=== PATIENT | male | born 1950 | race Caucasian/White ===

== ENCOUNTER 2019-12-06 14:33 | Inpatient (IN) | payer MEDICARE ==
[2019-12-06 15:15] LABS: Basophils % (A) 0 %; Eosinophils % (A) 0 %; HCT 39.9 % (39.0-53.0); HGB 12.5 gm/dL (13.0-17.5); Lymphocytes # (A) 0.6 k/uL (1.0-4.8); Lymphocytes % (A) 9 %; MCH 28.5 pg (25.0-35.0); MCHC 31.2 g/dL (31.0-37.0); MCV 91.2 fL (80.0-100.0); Mean Platelet Volume 8.7; Monocytes # (A) 0.6 k/uL (0-1.0); Monocytes % (A) 10 %; Neutrophils # (A) 4.8 k/uL (1.3-7.7); Neutrophils % (A) 78 %; Platelet Count 160 k/uL (150-450); RBC 4.38 m/uL (4.30-5.90); RDW 13.7 % (11.5-15.5); WBC 6.2 k/uL (3.8-10.6)
[2019-12-06] MEDS ORDERED: DILTIAZEM DRIP BOLUS FROM BAG 1 MG SOLN IV ONE (15:17)
[2019-12-06 15:20] LABS: INR 1.3 (<1.2); Prothrombin Time 12.6 sec (9.0-12.0)
--- NOTE | 2019-12-06 15:20 | ED ---
SOB HPI - General Chief Complaint: Shortness of Breath Stated Complaint: SOB Time Seen by Provider: 12/06/19 15:00 Source: patient, EMS, RN notes reviewed Mode of arrival: EMS Limitations: no limitations - History of Present Illness Initial Comments: This is a 69-year-old male with a history of heart valve surgery in the past. He denies any history of cardiac arrhythmia who states for last several days she's had shortness of breath cough with some white phlegm exertional dyspnea he denies any chest pain or palpitations no peripheral edema no fevers chills sweats nausea vomiting or other symptoms. MD Complaint: shortness of breath, cough - Related Data Allergies Allergy/AdvReac Type Severity Reaction Status Date / Time Penicillins Allergy Rash/Hives Verified 12/06/19 14:55 Review of Systems ROS Statement: Those systems with pertinent positive or pertinent negative responses have been documented in the HPI. ROS Other: All systems not noted in ROS Statement are negative. 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 Absent: scleral icterus, conjunctival injection, periorbital swelling ENT exam: Present: normal exam, mucous membranes moist Neck exam: Present: normal inspection, full ROM, other (No stridor JVD or bruits). Absent: tenderness, meningismus, lymphadenopathy Respiratory exam: Present: decreased breath sounds (Question will crackles in right base). Absent: respiratory distress, wheezes, rales, rhonchi, stridor Cardiovascular Exam: Present: tachycardia, irregular rhythm. Absent: systolic murmur, diastolic murmur, rubs, gallop, clicks GI/Abdominal exam: Present: soft, normal bowel sounds. Absent: distended, tenderness, guarding, rebound, rigid Extremities exam: Present: normal inspection, full ROM, normal capillary refill. Absent: tenderness, pedal edema, joint swelling, calf tenderness Back exam: Present: normal inspection Neurological exam: Present: alert, oriented X3, CN II-XII intact Psychiatric exam: Present: normal affect, normal mood Skin exam: Present: warm, dry, intact, normal color. Absent: rash Course Vital Signs 12/06/19 12/06/19 12/06/19 14:38 15:40 17:01 Temperature 97.9 F Pulse Rate 135 H 126 H 116 H Respiratory 22 20 18 Rate Blood Pressure 115/91 121/103 107/91 O2 Sat by Pulse 96 97 98 Oximetry - Reevaluation(s) Reevaluation #1: 12/06/19 17:27 Reevaluation patient revealed no change in his status his breathing was about the same no chest pain. Medical Decision Making - Medical Decision Making Patient was getting some improvement in his heart rate secondary to the IV Cardizem. He does demonstrate evidence of CHF. Still no chest pain I did discuss case with him as well as Dr. Godoy patient will be admitted with cardiology consultation. - Lab Data Result diagrams: 12/06/19 14:51 12/06/19 14:51 Lab Results 12/06/19 12/06/19 12/06/19 Range/Units 14:15 14:51 14:51 WBC (3.8-10.6) k/uL RBC (4.30-5.90) m/uL Hgb (13.0-17.5) gm/dL Hct (39.0-53.0) % MCV (80.0-100.0) fL MCH (25.0-35.0) pg MCHC (31.0-37.0) g/dL RDW (11.5-15.5) % Plt Count (150-450) k/uL Neutrophils % % Lymphocytes % % Monocytes % % Eosinophils % % Basophils % % Neutrophils # (1.3-7.7) k/uL Lymphocytes # (1.0-4.8) k/uL Monocytes # (0-1.0) k/uL Eosinophils # (0-0.7) k/uL Basophils # (0-0.2) k/uL PT 12.6 H (9.0-12.0) sec INR 1.3 H (<1.2) Sodium (137-145) mmol/L Potassium (3.5-5.1) mmol/L Chloride (98-107) mmol/L Carbon Dioxide (22-30) mmol/L Anion Gap mmol/L BUN (9-20) mg/dL Creatinine (0.66-1.25) mg/dL Est GFR (CKD-EPI)AfAm (>60 ml/min/1.73 sqM) Est GFR (CKD-EPI)NonAf (>60 ml/min/1.73 sqM) Glucose (74-99) mg/dL Plasma Lactic Acid Blake (0.7-2.0) mmol/L Calcium (8.4-10.2) mg/dL Magnesium (1.6-2.3) mg/dL Total Bilirubin (0.2-1.3) mg/dL AST (17-59) U/L ALT (4-49) U/L Alkaline Phosphatase (38-126) U/L Creatine Kinase (55-170) U/L Troponin I 0.068 H* (0.000-0.034) ng/mL NT-Pro-B Natriuret Pep 74571 pg/mL Total Protein (6.3-8.2) g/dL Albumin (3.5-5.0) g/dL 12/06/19 12/06/19 12/06/19 Range/Units 14:51 14:51 14:51 WBC 6.2 (3.8-10.6) k/uL RBC 4.38 (4.30-5.90) m/uL Hgb 12.5 L (13.0-17.5) gm/dL Hct 39.9 (39.0-53.0) % MCV 91.2 (80.0-100.0) fL MCH 28.5 (25.0-35.0) pg MCHC 31.2 (31.0-37.0) g/dL RDW 13.7 (11.5-15.5) % Plt Count 160 (150-450) k/uL Neutrophils % 78 % Lymphocytes % 9 % Monocytes % 10 % Eosinophils % 0 % Basophils % 0 % Neutrophils # 4.8 (1.3-7.7) k/uL Lymphocytes # 0.6 L (1.0-4.8) k/uL Monocytes # 0.6 (0-1.0) k/uL Eosinophils # 0.0 (0-0.7) k/uL Basophils # 0.0 (0-0.2) k/uL PT (9.0-12.0) sec INR (<1.2) Sodium 135 L (137-145) mmol/L Potassium 5.1 (3.5-5.1) mmol/L Chloride 105 (98-107) mmol/L Carbon Dioxide 21 L (22-30) mmol/L Anion Gap 9 mmol/L BUN 31 H (9-20) mg/dL Creatinine 1.26 H (0.66-1.25) mg/dL Est GFR (CKD-EPI)AfAm 66 (>60 ml/min/1.73 sqM) Est GFR (CKD-EPI)NonAf 57 (>60 ml/min/1.73 sqM) Glucose 106 H (74-99) mg/dL Plasma Lactic Acid Blake (0.7-2.0) mmol/L Calcium 8.8 (8.4-10.2) mg/dL Magnesium 2.2 (1.6-2.3) mg/dL Total Bilirubin 1.0 (0.2-1.3) mg/dL AST 63 H (17-59) U/L ALT 55 H (4-49) U/L Alkaline Phosphatase 95 (38-126) U/L Creatine Kinase 66 (55-170) U/L Troponin I (0.000-0.034) ng/mL NT-Pro-B Natriuret Pep pg/mL Total Protein 6.1 L (6.3-8.2) g/dL Albumin 3.6 (3.5-5.0) g/dL 12/06/19 Range/Units 14:51 WBC (3.8-10.6) k/uL RBC (4.30-5.90) m/uL Hgb (13.0-17.5) gm/dL Hct (39.0-53.0) % MCV (80.0-100.0) fL MCH (25.0-35.0) pg MCHC (31.0-37.0) g/dL RDW (11.5-15.5) % Plt Count (150-450) k/uL Neutrophils % % Lymphocytes % % Monocytes % % Eosinophils % % Basophils % % Neutrophils # (1.3-7.7) k/uL Lymphocytes # (1.0-4.8) k/uL Monocytes # (0-1.0) k/uL Eosinophils # (0-0.7) k/uL Basophils # (0-0.2) k/uL PT (9.0-12.0) sec INR (<1.2) Sodium (137-145) mmol/L Potassium (3.5-5.1) mmol/L Chloride (98-107) mmol/L Carbon Dioxide (22-30) mmol/L Anion Gap mmol/L BUN (9-20) mg/dL Creatinine (0.66-1.25) mg/dL Est GFR (CKD-EPI)AfAm (>60 ml/min/1.73 sqM) Est GFR (CKD-EPI)NonAf (>60 ml/min/1.73 sqM) Glucose (74-99) mg/dL Plasma Lactic Acid Blake 2.6 H* (0.7-2.0) mmol/L Calcium (8.4-10.2) mg/dL Magnesium (1.6-2.3) mg/dL Total Bilirubin (0.2-1.3) mg/dL AST (17-59) U/L ALT (4-49) U/L Alkaline Phosphatase (38-126) U/L Creatine Kinase (55-170) U/L Troponin I (0.000-0.034) ng/mL NT-Pro-B Natriuret Pep pg/mL Total Protein (6.3-8.2) g/dL Albumin (3.5-5.0) g/dL - EKG Data -: EKG Interpreted by Me (Nature for ablation with a rapid ventricular response rate of 140 QRS 106) EKG Comments: QT/QTC 320/500 minimal voltage criteria for LVH nonspecific ST-T wave configuration - Radiology Data Radiology results: report reviewed (I did review the imaging and report evidence of right sided infiltrate. Please see the complete report), image reviewed Critical Care Time Critical Care Time: Yes Total Critical Care Time: 33 Critical Care Time: 33 minutes of critical care time includes initial presentation with history physical labs x-rays several reevaluation the patient responsive therapy discuss with the patient regarding findings discussed with the admitting physician admission orders and documentation the above Disposition Clinical Impression: Rapid atrial fibrillation, Congestive heart failure, Elevated troponin I level, Renal insufficiency syndrome Disposition: ADMITTED IP TO THIS HOSP Condition: Fair Referrals: Eugenio Rogers MD [Primary Care Provider] - 1-2 days
[2019-12-06 15:23] LABS: Albumin 3.6 g/dL (3.5-5.0); Calcium 8.8 mg/dL (8.4-10.2); Potassium 5.1 mmol/L (3.5-5.1); Total Protein 6.1 g/dL (6.3-8.2)
--- NOTE | 2019-12-06 15:37 | XR ---
EXAMINATION TYPE: XR chest 2V DATE OF EXAM: 12/06/2019 COMPARISON: None INDICATION: Difficulty breathing, short of breath TECHNIQUE: Frontal and lateral views of the chest are obtained. FINDINGS: The heart size is enlarged. The pulmonary vasculature is prominent. There is diffuse increased infiltrate present greater on the right. Posterior pleural effusions are p resent. More focal infiltrate is at the right base. IMPRESSION: 1. Diffuse increased lung markings more focal at the right base with posterior pleural effusions. Cor relate for pneumonia. Consider atypical pneumonia. 2. Small posterior pleural effusions. 3. Cardiomegaly.
[2019-12-06] MEDS: DILTIAZEM 125 MG in SODIUM CHLORIDE 0.9% 100 ML IV SCH (15:40)
[2019-12-06 15:43] LABS: Magnesium 2.2 mg/dL (1.6-2.3)
[2019-12-06] MEDS ORDERED: FUROSEMIDE 10 MG/ML 4 ML VIAL IV STA (17:03)
[2019-12-06] MEDS ORDERED: HEPARIN SODIUM,PORCINE 5,000 UNIT/ML 1 ML VIAL IV ONE (17:32)
[2019-12-06] MEDS ORDERED: HEPARIN SODIUM,PORCINE 5,000 UNIT/ML 1 ML VIAL IV PRN (17:32)
[2019-12-06] MEDS ORDERED: HEPARIN SOD,PORK IN 0.45% NACL 25,000 UNIT in 0.45% NACL 1 250ML.BAG IV SCH (17:45)
--- NOTE | 2019-12-06 22:04 | P.HPIM ---
History of Present Illness H&P Date: 12/06/19 Chief Complaint: Short of breath History of presenting complaint: This is a very pleasant 69-year-old patient of Dr. Eugenio Rogers. Patient had some sort of valve replacement in the past. Otherwise unremarkable possible history. Doesn't take any medications at home. For last 3-4 days has been noticing that his been getting short of breath with clinical activity. Has slight cough. Questionable sputum. No fever no chills. Patient is found to be in atrial fibrillation with a rapid ventricular rate. Put on IV Cardizem. Also found to be in kidney dysfunction. Has no baseline labs. Denies any chest pain or pressure. Not a good historian. Review of systems: GEN.: Tired EYES: None HEENT: None NECK: None RESPIRATORY: As above CARDIOVASCULAR: No chest pain, no edema GASTROINTESTINAL: None GENITOURINARY: None MUSCULOSKELETAL: None LYMPHATICS: None HEMATOLOGICAL: None PSYCHIATRY: None NEUROLOGICAL: None Past medical history to include: Some kind of valve replacement Social history: Visit his . No smoking or alcohol. [facility] Physical examination: VITAL SIGNS: 97.9, 135, 22, 115/91, 96% on room air GENERAL: BMI 21.7, laying in bed not in distress. EYES: Pupils equal. Conjunctiva normal. HEENT: External appearance of nose and ears normal, oral cavity grossly normal. NECK: JVD not raised; masses not palpable. HEART: Heart sounds irregular; no edema. LUNGS: Respiratory rate normal; clear to auscultation. ABDOMEN: Soft, nontender, liver spleen not palpable, no masses palpable. PSYCH: Alert and oriented x3; mood and affect normal. NEUROLOGICAL: Cranial nerves grossly intact; no facial asymmetry, power and sensation grossly intact. LYMPHATICS: No lymph nodes palpable in the axilla and neck INVESTIGATIONS, reviewed in the clinical context: White count 6.2 hemoglobin 12.5 platelets 160 potassium 5.1 bun 31 creatinine 1.26 Troponin I 0.068 proBNP 22,200 EKG tracing personally reviewed by me-shows atrial fibrillation with rapid ventricular rate and some ST segment changes Chest x-ray film personally reviewed by me-possible infiltrate on the right side venous prominence Assessment: -Patient presents with 4 days of initial presentation with exertion. No obvious chest pain. Has a troponin leak: The setting of renal failure. Patient may have had a acute [place] 34 days ago resulting in ischemia leading to atrial fibrillation. -New onset atrial fibrillation with uncontrolled rule out underlying ischemia -Kidney injury acute versus chronic not known. -IV heparin monitoring Plan: Patient is put on IV Cardizem. IV heparin. Aspirin. Also had a small dose of beta don given concern for ischemic heart disease. Also check a lipid profile. We'll send off a UA and a renal ultrasound. Also 2-D echocardiogram has been ordered. Nephrology opinion. Care was discussed with the patient question were answered. 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, Past Psychological History: No Psychological Hx Reported Smoking Status: Never smoker Past Alcohol Use History: None Reported Past Drug Use History: None Reported - Past Family History Father Family Medical History: Diabetes Mellitus, Memory Impairment Mother History Unknown: Yes Additional Family Medical History / Comment(s): States she passed from cerberal aneursyn Medications and Allergies Home Medications Medication Instructions Recorded Confirmed Type No Known Home Medications 12/06/19 12/06/19 History Allergies Allergy/AdvReac Type Severity Reaction Status Date / Time Penicillins Allergy Rash/Hives Verified 12/06/19 18:40 Physical Exam Vitals: Vital Signs Temp Pulse Pulse Resp BP BP Pulse Ox 12/06/19 20:29 109/79 12/06/19 20:19 98.2 F 60 18 170/122 94 L 12/06/19 18:56 97.8 F 130 H 18 119/95 100 12/06/19 18:16 115 H 18 108/90 97 12/06/19 17:01 116 H 18 107/91 98 12/06/19 15:40 126 H 20 121/103 97 12/06/19 14:38 97.9 F 135 H 22 115/91 96 Intake and Output 12/06/19 12/06/19 12/06/19 06:59 14:59 22:59 Intake Total 62.191 Output Total 800 Balance -737.809 Intake: Intake, IV Titration 62.191 Amount Diltiazem 125 mg In 32.0 Sodium Chloride 0.9% 100 ml @ 5 MG/HR 5 mls/hr IV .Q24H [facility] Rx#:[id number] Heparin Sod,Pork in 0.45% 30.191 NaCl 25,000 unit In 0.45 % NaCl 1 250ml.bag @ 12 UNITS/KG/HR 8.709 mls/hr IV .Q24H [facility] Rx#: [id number] Output: Urine 800 Other: # Voids 1 Weight 72.575 kg 72.575 kg Results CBC & Chem 7: 12/06/19 14:51 12/06/19 14:51 Labs: Abnormal Lab Results - Last 24 Hours (Table) 12/06/19 12/06/19 12/06/19 Range/Units 14:51 14:51 14:51 Hgb 12.5 L (13.0-17.5) gm/dL Lymphocytes # 0.6 L (1.0-4.8) k/uL PT 12.6 H (9.0-12.0) sec INR 1.3 H (<1.2) APTT (22.0-30.0) sec Sodium (137-145) mmol/L Carbon Dioxide (22-30) mmol/L BUN (9-20) mg/dL Creatinine (0.66-1.25) mg/dL Glucose (74-99) mg/dL Plasma Lactic Acid Blake (0.7-2.0) mmol/L AST (17-59) U/L ALT (4-49) U/L Troponin I 0.068 H* (0.000-0.034) ng/mL Total Protein (6.3-8.2) g/dL 12/06/19 12/06/19 12/06/19 Range/Units 14:51 14:51 20:29 Hgb (13.0-17.5) gm/dL Lymphocytes # (1.0-4.8) k/uL PT (9.0-12.0) sec INR (<1.2) APTT 48.9 H (22.0-30.0) sec Sodium 135 L (137-145) mmol/L Carbon Dioxide 21 L (22-30) mmol/L BUN 31 H (9-20) mg/dL Creatinine 1.26 H (0.66-1.25) mg/dL Glucose 106 H (74-99) mg/dL Plasma Lactic Acid Blake 2.6 H* (0.7-2.0) mmol/L AST 63 H (17-59) U/L ALT 55 H (4-49) U/L Troponin I (0.000-0.034) ng/mL Total Protein 6.1 L (6.3-8.2) g/dL Thrombosis Risk Factor Assmnt - Choose All That Apply Any of the Below Risk Factors Present?: Yes Each Risk Factor Represents 2 Points: Age 61-74 years Thrombosis Risk Factor Assessment Total Risk Factor Score: 2 Thrombosis Risk Factor Assessment Level: Low Risk
[2019-12-07] MEDS ORDERED: FUROSEMIDE 40 MG TAB PO SCH
[2019-12-07 02:48] LABS: Creatine Kinase MB 1.6 ng/mL (0.0-2.4)
[2019-12-07 02:49] LABS: Troponin I 0.108 ng/mL (0.000-0.034)
[2019-12-07 07:23] LABS: Basophils % (A) 0 %; Eosinophils % (A) 0 %; HCT 39.3 % (39.0-53.0); HGB 12.6 gm/dL (13.0-17.5); Lymphocytes % (A) 14 %; MCH 29.4 pg (25.0-35.0); MCHC 32.2 g/dL (31.0-37.0); MCV 91.3 fL (80.0-100.0); Monocytes # (A) 0.6 k/uL (0-1.0); Monocytes % (A) 8 %; Neutrophils # (A) 5.3 k/uL (1.3-7.7); Neutrophils % (A) 73 %; Platelet Count 167 k/uL (150-450); RDW 13.9 % (11.5-15.5); WBC 7.3 k/uL (3.8-10.6)
[2019-12-07 07:38] LABS: Calcium 8.7 mg/dL (8.4-10.2); Potassium 4.3 mmol/L (3.5-5.1)
[2019-12-07] MEDS: APIXABAN 5 MG TAB PO SCH ×2 (08:35→21:23)
[2019-12-07] MEDS: FUROSEMIDE 20 MG TAB PO SCH ×2 (08:35→23:26)
[2019-12-07] MEDS: ASPIRIN 81 MG PO SCH (08:35)
[2019-12-07] MEDS: METOPROLOL TARTRATE 25 MG TAB PO SCH ×2 (08:35→21:23)
--- NOTE | 2019-12-07 08:49 | US ---
EXAMINATION TYPE: US kidneys/renal and bladder DATE OF EXAM: 12/07/2019 COMPARISON: none CLINICAL HISTORY: assess for CKD. EXAM MEASUREMENTS: Right Kidney: 11.3 x 4.1 x 5.0 cm Left Kidney: 10.8 x 3.9 x 4.4 cm Incidental finding of right pleural effusion noted. Right Kidney: 2 cysts noted measuring 1.)1.2 x 1.0 x 1.1cm, 2.) 3.7 x 4.1 x 3.4cm, shadowing echogeni c foci measuring 0.7 x 0.5 x 0.6cm Left Kidney: cyst noted measuring 1.9 x 1.7 x 1.6cm, echogenic foci measuring 0.2 x 0.2 x 0.3cm Bladder: not distended, not well seen IMPRESSION: 1. Bilateral renal cysts. 2. Shadowing nonobstructing renal stone right mid kidney. 3. Small nonobstructing renal stone left kidney. 4. Right pleural effusion
[2019-12-07] MEDS ORDERED: ASPIRIN 325 MG TAB PO SCH (09:00)
--- NOTE | 2019-12-07 09:36 | XR ---
EXAMINATION TYPE: XR chest 1V DATE OF EXAM: 12/07/2019 COMPARISON: 12/06/2019 INDICATION: Heart failure, short of breath TECHNIQUE: Single frontal view of the chest is obtained. FINDINGS: The heart size is mildly prominent. The pulmonary vasculature is normal. There is a consolidation in the right lower lobe. Correlate for pneumonia. This is more focal than th e prior exam. Costophrenic angles are excluded from the [id number]. IMPRESSION: 1. Focal consolidation right lower lobe. Correlate for pneumonia.
[2019-12-07 10:23] VITALS: BMI 19.5
--- NOTE | 2019-12-07 10:35 | CONS ---
CONSULTATION Mr. Bailey is a 69-year-old male with history of aortic valve replacement, has been followed by Dr. Eldridge in the past, who presented with symptoms of progressive dyspnea, fatigue, dizziness, and cough, productive of greenish sputum. He denies any fever. On presentation, he was noted to be in atrial fibrillation of unknown duration. Patient was on Coumadin in the past, but he cannot recall why and when it was stopped. He denies any palpitation. He denies any chest pain. No PND, orthopnea, or peripheral edema. On presentation, he had minimal troponin elevation. He has no history of smoking. He takes no medication at home. REVIEW OF SYSTEMS: RESPIRATORY SYSTEM: He had dyspnea on exertion, the cough, no wheezing. GI SYSTEM: No recent GI bleeding. No peptic ulcer disease. SYSTEM: No dysuria or hematuria. NERVOUS SYSTEM: No stroke or seizure. PHYSICAL EXAMINATION: He is a 69-year-old male, alert, oriented, in no apparent distress. Blood pressure 131/80 with a heart rate in the 100. LUNGS: A few crackles at the bases. HEART: Irregular regular, S1, S2. No S3 with a systolic murmur heard at the upper left sternal border, no diastolic murmur, no rub. ABDOMEN: Soft, nontender positive bowel sounds, no organomegaly. EXTREMITIES: No edema, intact pulses. LAB DATA: Revealed a hemoglobin of 12.5, white blood cell of 6.2. BUN and creatinine of 31 and 1.26. Troponin 0.068 and 0.082. NT proBNP of 22,200. Negative coronavirus. His EKG revealed atrial fibrillation with rapid ventricular response and nonspecific ST-T wave changes with poor R progression. His chest x-ray raised the question of an infiltrate. IMPRESSION: 1. Atrial fibrillation appears to be new onset of unknown duration. Patient does not feel the palpitations. 2. Minimal troponin elevation most likely representing cardiac injury without any evidence of myocardial infarction, could be related to the atrial fibrillation. 3. History of aortic valve replacement, full detail of that not available to me. 4. Questionable pneumonia with cough and green sputum. 5. Elevated NT proBNP suggestive of congestive heart failure. On examination, I see no significant fluid overload at this time. RECOMMENDATION: From the cardiac standpoint, will obtain echocardiogram with Doppler. I will add the Eliquis to his regimen and beta don. I will stop his IV heparin. Will start him on low-dose Lasix. I will repeat the chest x-ray and obtain a procalcitonin. I will try to review his old records and depending on results of testing, further recommendation will be made. Thank you for this consult. Will follow with you. SHAW / KATHERINEN: [id number] /
[2019-12-07] MEDS ORDERED: AZITHROMYCIN 500 MG TAB PO STA (16:01)
[2019-12-07] MEDS: DILTIAZEM 125 MG in SODIUM CHLORIDE 0.9% 100 ML IV SCH (17:16)
--- NOTE | 2019-12-07 19:03 | P.PN ---
Progress Note - Text Progress Note Date: 12/07/19 Chief Complaint: Short of breath History of presenting complaint: This is a very pleasant 69-year-old patient of Dr. Eugenio Rogers. Patient had some sort of valve replacement in the past. Otherwise unremarkable possible history. Doesn't take any medications at home. For last 3-4 days has been noticing that his been getting short of breath with clinical activity. Has slight cough. Questionable sputum. No fever no chills. Patient is found to be in atrial fibrillation with a rapid ventricular rate. Put on IV Cardizem. Also found to be in kidney dysfunction. Has no baseline labs. Denies any chest pain or pressure. Not a good historian. Admitted with new onset uncontrolled atrial fibrillation. Kidney injury. Right-sided pneumonia. Started on IV Cardizem drip. Today-still has some cough with little sputum. On IV heparin. Also's IV Cardizem. Underlying anxiety disorder. Review of systems: Was done for constitutional, cardiovascular, GI, pulmonary. relevant finding as above Active Medications Apixaban (Eliquis) 5 mg PO BID [facility] Last Admin: 12/07/19 08:35 Dose: 5 mg Documented by: Aspirin (Aspirin) 81 mg PO DAILY [facility] Last Admin: 12/07/19 08:35 Dose: 81 mg Documented by: Azithromycin (Zithromax) 250 mg PO Q24H [facility] Furosemide (Lasix) 20 mg PO BID [facility] Last Admin: 12/07/19 08:35 Dose: 20 mg Documented by: Diltiazem HCl 125 mg/ Sodium (Chloride) 125 mls @ 5 mls/hr IV .Q24H [facility] Last Admin: 12/07/19 17:16 Dose: 5 mg/hr, 5 mls/hr Documented by: Ceftriaxone Sodium 1 gm/ (Sodium Chloride) 50 mls @ 100 mls/hr IVPB Q24H [facility] Last Admin: 12/07/19 17:14 Dose: 100 mls/hr Documented by: Metoprolol Tartrate (Lopressor) 25 mg PO BID [facility] Last Admin: 12/07/19 08:35 Dose: 25 mg Documented by: Physical examination: VITAL SIGNS: 98, 106, 20, 131/87, 98% on 2 L GENERAL: BMI 21.7, laying in bed slightly anxious. EYES: Pupils equal. Conjunctiva normal. HEENT: External appearance of nose and ears normal, oral cavity grossly normal. NECK: JVD not raised; masses not palpable. HEART: Heart sounds irregular; no edema. LUNGS: Respiratory rate normal; clear to auscultation. ABDOMEN: Soft, nontender, liver spleen not palpable, no masses palpable. PSYCH: Alert and oriented x3; mood and affect very anxious. INVESTIGATIONS, reviewed in the clinical context: White count 7.3 hemoglobin 12.6 potassium 4.3 bun 34 creatinine 1.28 Troponin I 0.068, 0.082, 0.108 Coronavirus PCR-not detected Gen.-BILATERAL KIDNEY CYSTS. NONOBSTRUCTIVE RENAL STONE ON THE RIGHT KIDNEY AND ALSO ON THE LEFT KIDNEY Previous testing White count 6.2 hemoglobin 12.5 platelets 160 potassium 5.1 bun 31 creatinine 1.26 Troponin I 0.068 proBNP 22,200 EKG tracing personally reviewed by me-shows atrial fibrillation with rapid ventricular rate and some ST segment changes Chest x-ray film personally reviewed by me-possible infiltrate on the right side venous prominence Assessment: -Right lower lobe pneumonia suspected gram-negative organism, POA -New onset atrial fibrillation uncontrolled, POA -Bilateral renal cyst with bilateral kidney stones -Kidney injury acute versus chronic not known. -IV heparin monitoring -Possible chronic kidney disease stage III. Further workup in place. -Generalized anxiety disorder Plan: Patient remains on IV Cardizem drip. IV heparin discontinued. Started eliquis. UA pending. Follow with nephrology and cardiology. Patient's placed on ceftriaxone and Zithromax. Start the patient on Paxil.
[2019-12-07] MEDS: guaiFENesin 600 MG TABLET.ER PO SCH (21:23)
[2019-12-07] MEDS: PARoxetine 10 MG TAB PO SCH (21:23)
[2019-12-08 02:34] LABS: Appearance,Urine Clear (Clear); Bilirubin,Urine Negative (Negative); Blood,Urine Negative (Negative); Color,Urine Yellow; Glucose,Urine (UA) Negative (Negative); Ketones,Urine Negative (Negative); Leukocyte Esterase,Urine Negative (Negative); Nitrite,Urine Negative (Negative); PH, Urine 5.5 (5.0-8.0); Protein,Urine Trace (Negative); Specific Gravity,Urine 1.025 (1.001-1.035)
[2019-12-08 06:55] LABS: Calcium 8.5 mg/dL (8.4-10.2); Potassium 4.5 mmol/L (3.5-5.1)
[2019-12-08] MEDS: METOPROLOL TARTRATE 25 MG TAB PO SCH (09:37)
[2019-12-08] MEDS: PARoxetine 10 MG TAB PO SCH (09:37)
[2019-12-08] MEDS: APIXABAN 5 MG TAB PO SCH ×2 (09:37→19:45)
[2019-12-08] MEDS: FUROSEMIDE 20 MG TAB PO SCH ×2 (09:37→19:45)
[2019-12-08] MEDS: ASPIRIN 81 MG PO SCH (09:37)
[2019-12-08] MEDS: guaiFENesin 600 MG TABLET.ER PO SCH ×2 (09:37→19:44)
--- NOTE | 2019-12-08 10:05 | ECHOF ---
Referral Reason:Possible [place] MEASUREMENTS -------- HEIGHT: 182.9 cm WEIGHT: 64.9 kg BP: 123/80 RVIDd: 2.5 cm (< 3.3) IVSd: 1.0 cm (0.6 - 1.1) LVIDd: 5.4 cm (3.9 - 5.3) LVPWd: 1.2 cm (0.6 - 1.1) IVSs: 1.1 cm LVIDs: 4.9 cm LVPWs: 1.5 cm LAESV Index (A-L): 38.76 ml/m Ao Diam: 3.4 cm (2.0 - 3.7) AV Cusp: 1.9 cm (1.5 - 2.6) RAP: 20.00 mmHg RVSP: 52.60 mmHg FINDINGS -------- Sinus rhythm. This was a technically adequate study. The left ventricular size is normal. Left ventricular wall thickness is normal. There is severe g lobal hypokinesis of LV . Overall left ventricular systolic function is severely impaired with, an EF < 20%. Mitral Doppler inflow pattern suggests diastolic filling abnormality {E/E'}. The right ventricle is normal in size. LA is moderately dilated 34-39 ml/m2 The right atrium was not well visualized. Interatrial and interventricular septum intact. There is mild aortic valve sclerosis. Trace to mild aortic regurgitation. There is no evidence of aortic stenosis. Eyme-qe-ierxrhya mitral regurgitation is present. Mild mitral stenosis , with a MVA of 3.0cm (by P HT) Tissue Valve Moderate tricuspid regurgitation present. There is moderate pulmonary hypertension. The right rickey tricular systolic pressure, as measured by Doppler, is 52.60mmHg. The aortic root size is normal. The inferior vena cava is dilated with poor inspiratory collapse which is consistent with estimated r ight atrial pressure of 20 mmHg. There is no pericardial effusion. CONCLUSIONS -------- 1. Sinus rhythm. 2. This was a technically adequate study. 3. The left ventricular size is normal. 4. Left ventricular wall thickness is normal. 5. There is severe global hypokinesis of LV . 6. Overall left ventricular systolic function is severely impaired with, an EF < 20%. 7. Mitral Doppler inflow pattern suggest diastolic filling abnormality {E/E'}. 8. The right ventricle is normal in size. 9. LA is moderately dilated 34-39 ml/m2 10. The right atrium was not well visualized. 11. Interatrial and interventricular septum intact. 12. There is mild aortic valve sclerosis. 13. Trace to mild aortic regurgitation. 14. There is no evidence of aortic stenosis. 15. Kgtb-xb-gsqgjvmm mitral regurgitation is present. 16. Mild mitral stenosis. 17. , with a MVA of 3.0cm (by PHT) 18. Tissue Valve 19. Moderate tricuspid regurgitation present. 20. There is moderate pulmonary hypertension. 21. The right ventricular systolic pressure, as measured by Doppler, is 52.60mmHg. 22. The aortic root size is normal. 23. The inferior vena cava is dilated with poor inspiratory collapse which is consistent with estimat ed right atrial pressure of 20 mmHg. 24. There is no pericardial effusion. 25.possible old apical thrombus [employer]ANGER: Jennyfer Bradley RDCS
--- NOTE | 2019-12-08 12:06 | P.PN ---
Subjective Progress Note Date: 12/08/19 This is a 69-year-old gentleman with history of mitral valve replacement, presented initially to the hospital with symptoms of progressive dyspnea with associated dizziness, fatigue, and productive cough of green sputum. He was noted to be in atrial fibrillation, seen in consultation yesterday by Dr. Juan navarro. He had an echo with Doppler study performed which revealed a severely impaired LV function, less than 20%. LA is moderately dilated, mild aortic regurgitation, mild to moderate MR, mild mitral stenosis, moderate tricuspid regurgitation and moderate pulmonary hypertension, no evidence of Pericardial effusion, possible old apical thrombus. The patient continues to be in atrial fibrillation this morning his heart rate ranging from 108-120. Chest x-ray showed a right lower lobe infiltrate suggesting pneumonia, pro calcitonin level elevated at 0.21. Sodium today 132, potassium 4.5, BUN 46 and creatinine 1.2. Patient is currently on Eliquis 5 mg one tablet by mouth twice a day, we will d iscontinue his IV Cardizem and increase his dose of beta don. We will also add Entresto to his medication regime. Objective - Vital Signs Vital signs: Vital Signs Temp 97.5 F L 12/08/19 08:00 Pulse 69 12/08/19 08:00 Resp 17 12/08/19 03:41 BP 126/79 12/08/19 08:00 Pulse Ox 96 12/08/19 08:00 Intake & Output 12/07/19 12/08/19 12/08/19 18:59 06:59 18:59 Intake Total 197 19.5 240 Output Total 450 100 200 Balance -253 -80.5 40 Weight 65.2 kg 63.9 kg Intake: Intake, IV Titration 77 19.5 Amount Diltiazem 125 mg In 77 19.5 Sodium Chloride 0.9% 100 ml @ 5 MG/HR 5 mls/hr IV .Q24H [facility] Rx#:[id number] Oral 120 240 Output: Urine 450 100 200 Post Void Residual 0 Other: # Voids 0 1 # Bowel Movements 0 1 - Exam PHYSICAL EXAMINATION: GENERAL: 69-year-old gentleman in no acute distress at the time of my examination HEENT: Head is atraumatic, normocephalic. Pupils equal, round. Sclera anicteric. Conjunctiva are clear. Mucous membranes of the mouth are moist. Neck is supple. There is no elevated jugular venous pressure. No carotid bruit is heard. HEART EXAMINATION: Heart S1 and S2 irregularly irregular a systolic murmur is heard CHEST EXAMINATION: Lungs reveal fine crackles to the bases bilaterally. ABDOMEN: Soft, nontender. Bowel sounds are heard. No organomegaly noted. EXTREMITIES: 2+ peripheral pulses with no evidence of peripheral edema and no calf tenderness noted. NEUROLOGIC patient is awake, alert and oriented 3 . - Labs CBC & Chem 7: 12/07/19 06:59 12/08/19 06:20 Labs: Abnormal Lab Results - Last 24 Hours (Table) 12/07/19 12/08/19 12/08/19 Range/Units 06:59 02:20 06:20 Sodium 132 L (137-145) mmol/L Carbon Dioxide 20 L (22-30) mmol/L BUN 46 H (9-20) mg/dL Procalcitonin 0.21 H (0.02-0.09) ng/mL Urine Protein Trace H (Negative) Microbiology - Last 24 Hours (Table) 12/07/19 16:15 Gram Stain - Final Sputum Sputum Culture - Final Assessment and Plan Plan: Assessment and plan #1 atrial fibrillation with rapid ventricular response, paroxysmal, unknown duration #2 mild troponin abnormality, not consistent with acute coronary syndrome, likely secondary to atrial fibrillation with rapid ventricular response #3 history of mitral valve replacement #4 possible pneumonia #5 cardiomyopathy with documented ejection fraction of 20%. Plan We will discontinue the IV Cardizem, increase the dose of beta don, add Entresto to the patient's medication regime. It is possible that the patient's LV may be reduced secondary to atrial fibrillation with rapid ventricular response, we will consider repeating the echo, doing a limited study once the patient's heart rate is under adequate control. Further workup will be done as an outpatient with Dr. Miguelito Eldridge. DNP note has been reviewed, I agree with a documented findings and plan of care. Patient was seen and examined.
[2019-12-08] MEDS: SACUBITRIL/VALSARTAN 24 MG-26 MG TABLET PO SCH ×2 (12:47→19:45)
[2019-12-08] MEDS ORDERED: ALPRAZolam 0.5 MG TAB PO PRN (13:56)
--- NOTE | 2019-12-08 14:03 | P.PN ---
Subjective This is a very pleasant 69-year-old patient of Dr. Eugenio Rogers. Patient had some sort of valve replacement in the past. Otherwise unremarkable possible history. Doesn't take any medications at home. For last 3-4 days has been noticing that his been getting short of breath with clinical activity. Has slight cough. Questionable sputum. No fever no chills. Patient is found to be in atrial fibrillation with a rapid ventricular rate. Put on IV Cardizem. Also found to be in kidney dysfunction. Has no baseline labs. Denies any chest pain or pressure. Not a good historian. Admitted with new onset uncontrolled atrial fibrillation. Kidney injury. Right-sided pneumonia. Started on IV Cardizem drip. Today-still has some cough with little sputum. On IV heparin. Also's IV Cardizem. Underlying anxiety disorder. 12/08/2019 Patient sitting in bed, no much in distress, he is still little tachypneic. No chest pain. No fever. No leukocytosis. No abdominal pain or nausea vomiting. However patient looks anxious and Xanax has been added as needed. Patient denies history of kidney disease and his creatinine came back to normal level today at 1.20. Sodium 132. Procol stoning is elevated at 0.21. Covid test came back negative. Patient remains on Zithromax and Rocephin. Also Eliquis has been added for new onset A. fib. Cardiology appointment to repeat the echocardiogram Review of systems CONSTITUTIONAL: No fever, no malaise, no fatigue. HEENT: No recent visual problems or hearing problems. Denied any sore throat. CARDIOVASCULAR: No orthopnea, PND, no palpitations, no syncope. PULMONARY: no hemoptysis. GASTROINTESTINAL: No diarrhea, no nausea, no vomiting, no abdominal pain. Normoactive bowel sounds. NEUROLOGICAL: No headaches, no weakness, no numbness. HEMATOLOGICAL: Denies any bleeding or petechiae. GENITOURINARY: Denies any burning micturition, frequency, or urgency. MUSCULOSKELETAL/RHEUMATOLOGICAL: Denies any joint pain, swelling, or any muscle pain. ENDOCRINE: Denies any polyuria or polydipsia. Active Medications Generic Name Dose Route Start Last Admin Trade Name Freq PRN Reason Stop Dose Admin Alprazolam 0.5 mg 12/08/19 13:56 Xanax PO BID PRN Anxiety Apixaban 5 mg 12/07/19 09:00 12/08/19 09:37 Eliquis PO 5 mg BID JESSIKA Administration Aspirin 81 mg 12/07/19 09:00 12/08/19 09:37 Aspirin PO 81 mg DAILY JESSIKA Administration Azithromycin 250 mg 12/08/19 16:00 Zithromax PO Q24H JESSIKA Furosemide 20 mg 12/07/19 09:00 12/08/19 09:37 Lasix PO 20 mg BID JESSIKA Administration Guaifenesin 600 mg 12/07/19 21:15 12/08/19 09:37 Mucinex PO 600 mg Q12HR JESSIKA Administration Ceftriaxone Sodium 1 gm/ 50 mls @ 100 mls/hr 12/07/19 17:00 12/07/19 17:14 Sodium Chloride IVPB 100 mls/hr Q24H JESSIKA Administration Metoprolol Tartrate 50 mg 12/08/19 21:00 Lopressor PO BID JESSIKA Paroxetine HCl 10 mg 12/07/19 19:15 12/08/19 09:37 Paxil PO 10 mg DAILY JESSIKA Administration Sacubitril/Valsartan 1 each 12/08/19 12:00 12/08/19 12:47 Entresto 24 Mg-26 Mg Tablet PO 1 each BID JESSIKA Administration Objective - Vital Signs Vital signs: Vital Signs Temp 97.5 F L 12/08/19 08:00 Pulse 80 12/08/19 12:00 Resp 17 12/08/19 03:41 BP 109/78 12/08/19 12:00 Pulse Ox 100 12/08/19 12:00 Intake & Output 12/07/19 12/08/19 12/08/19 18:59 06:59 18:59 Intake Total 197 19.5 240 Output Total 450 100 200 Balance -253 -80.5 40 Weight 65.2 kg 63.9 kg Intake: Intake, IV Titration 77 19.5 Amount Diltiazem 125 mg In 77 19.5 Sodium Chloride 0.9% 100 ml @ 5 MG/HR 5 mls/hr IV .Q24H [facility] Rx#:[id number] Oral 120 240 Output: Urine 450 100 200 Post Void Residual 0 Other: # Voids 0 1 # Bowel Movements 0 1 - Exam GENERAL: The patient is alert and oriented x3, not in any acute distress. Well developed, well nourished. HEENT: Pupils are round and equally reacting to light. EOMI. No scleral icterus. No conjunctival pallor. Normocephalic, atraumatic. No pharyngeal erythema. No thyromegaly. CARDIOVASCULAR: S1 and S2 present. No murmurs, rubs, or gallops. -PULMONARY: Chest is clear to auscultation, no wheezing or crackles. Decreased air entry on the right lower lung ABDOMEN: Soft, nontender, nondistended, normoactive bowel sounds. No palpable organomegaly. MUSCULOSKELETAL: No joint swelling or deformity. EXTREMITIES: No cyanosis, clubbing, or pedal edema. NEUROLOGICAL: Gross neurological examination did not reveal any focal deficits. SKIN: No rashes. no petechiae. - Labs CBC & Chem 7: 12/07/19 06:59 12/08/19 06:20 Labs: Abnormal Lab Results - Last 24 Hours (Table) 12/07/19 12/08/19 12/08/19 Range/Units 06:59 02:20 06:20 Sodium 132 L (137-145) mmol/L Carbon Dioxide 20 L (22-30) mmol/L BUN 46 H (9-20) mg/dL Procalcitonin 0.21 H (0.02-0.09) ng/mL Urine Protein Trace H (Negative) Microbiology - Last 24 Hours (Table) 12/07/19 16:15 Gram Stain - Final Sputum Sputum Culture - Final Assessment and Plan Assessment: -Right lower lobe pneumonia suspected gram-negative organism, POA -New onset atrial fibrillation uncontrolled, POA -Bilateral renal cyst with bilateral kidney stones -Kidney injury acute versus chronic not known. -IV heparin monitoring -Possible chronic kidney disease stage III. Further workup in place. -Generalized anxiety disorder Plan: This is a pleasant 69 years old male who presents with right pneumonia and he knew A. fib. Patient remains on Zithromax and Rocephin. Repeat chest x-ray in the morning. Cardiology are following the patient, they start him on metoprolol 25 mg and Eliquis 5 mg and he is tolerating that well while on sinus rhythm. Labs and medication were reviewed.. Continue same treatment. Continue with symptomatic treatment. Resume home medication. Monitor lytes and vitals. DVT and GI prophylaxis. Further recommendations of the clinical course of the patient DVT prophylaxis: Eliquis GI Prophylaxis: Pepcid Prognosis is guarded
[2019-12-08] MEDS ORDERED: AZITHROMYCIN 250 MG TAB PO SCH (16:00)
--- NOTE | 2019-12-08 16:07 | CONS ---
CONSULTATION REASON FOR CONSULT: Renal failure. HISTORY OF PRESENT ILLNESS: Patient is a 69-year-old male who was admitted to the hospital on 12/06/2019 with complaints of shortness of breath. The patient denies any fever. He was found to be in atrial fibrillation, maintained on IV Cardizem. Patient denies any prior history of kidney diseases. He does have valvular heart disease for which he had heart surgery. Serum creatinine was 1.28 on admission, it is now at 1.20. We do not have any previous labs available for comparison. UA is quite benign appearing. Patient denies use of any nonsteroidal anti-inflammatory agents prior to admission. PAST MEDICAL HISTORY: Valvular heart disease, details not available, valvular heart surgery, removal of a leg tumor. SOCIAL HISTORY: Negative for smoking, drug abuse or alcohol abuse. No home medications. ALLERGIES: Include PENICILLIN which causes rash or hives. REVIEW OF SYSTEMS: As per HPI. Other systems negative. PHYSICAL EXAMINATION: Patient is comfortable, awake, not in any acute distress. Blood pressure was 126/79, heart rate 69 per minute. He is afebrile. Examination of the heart S1, S2. Examination of the lungs, decreased breath sounds at bases. Abdomen is soft, nontender. Examination of the lower extremities shows no evidence of edema. RECORDING STUDIO INTERN exam grossly intact. LABS: Show sodium 132, potassium 4.5, chloride 102, CO2 is 20, BUN 46 serum creatinine 1.2. UA shows trace protein, otherwise no blood or cells. Chest x-ray from yesterday showed right lower lobe consolidation. An echocardiogram done yesterday as well, shows ejection fraction less than 20% with moderate pulmonary hypertension. ASSESSMENT 1. Acute kidney injury, cardiorenal, improved. 2. Possible CKD stage 3 from nephrosclerosis. 3. CHF, acute on chronic systolic 4. Cardiomyopathy. 5. Bilateral renal cysts, benign appearing. 6. Possible pneumonia. PLAN: Continue current dose of Lasix which is at p.o. now. May continue with the Entresto and continue antibiotics for pneumonia. Repeat labs in a.m. Repeat chest x-ray tomorrow. Patient likely has chronic kidney disease as well, stage III. However, we do not have any previous labs available for comparison. His ultrasound is unremarkable for hydronephrosis but shows bilateral renal cysts and some nonobstructive right renal stone about 0.2 cm. MMODL / IJN: [id number] / MTDD
--- NOTE | 2019-12-08 18:42 | CDI ---
Documentation Clarification Form Date: 12/08/2019 06:22:12 PM From: Jeannie Christie RN, CCDS Admit Date: 12/06/2019 05:30:00 PM Patient Name: Carmine Bailey Visit Number: [id number] Discharge Date: ATTENTION: The Clinical Documentation Specialists (CDI) and [facility] Coding Staff appreciate your assistance in clarifying documentation. Please respond to the clarification below the line at the bottom and electronically sign. The CDI & [facility] Coding staff will review the response and follow-up if needed. Please note: Queries are made part of the Legal Health Record. If you have any questions, please contact the author of this message via ITS. Dr. Niko Guaman Elevated NT proBNP suggestive of congestive heart failure is documented in your initial consult on 12/06 and further clarification is requested. History/Risk Factors: Aortic valve Replacement, Chronic kidney disease stage 3 Clinical Indicators: 69-year-old male who present to ED on 12/05 with progressive dyspnea and fatigue, dizziness, and productive cough. he was noted to be in atrial fibrillation of unknown duration. 12/05 VS/Pulse OX: 131/80 100 12/05 BNP: 18414, Troponin 0.068, 0.082 Echocardiogram Results: severe global hypokinesis of LV. Left ventricular systolic function is severely impaired with an EF <20 % 12/05 Chest X Ray: Diffuse increased lung markings, right base with posterior pleural effusions. Correlate for pneumonia. Consider atypical pneumonia, Cardiomegaly 12/05 ER clinical impression: Rapid atrial fibrillation, Congestive heart failure Treatment: Lasix 40 mg IV once than 40 mg po bid ASA 81 mg daily Lopressor 50 mg po bid In your professional opinion, can you please clarify the acuity and type of CHF if known? Systolic Heart Failure: Acute Chronic Acute on Chronic Diastolic Heart Failure: Acute Chronic Acute on Chronic Systolic & Diastolic Heart Failure: XXXX Acute Chronic Acute on Chronic Heart Failure Unable to Determine Other, please specify (Last Revision: November 2017) MTDD
[2019-12-08] MEDS: METOPROLOL TARTRATE 50 MG TAB PO SCH (19:44)
[2019-12-08] MEDS: FAMOTIDINE 20 MG/2 ML VIAL IV SCH (19:45)
[2019-12-09 01:01] VITALS: RESP 18
[2019-12-09 06:41] LABS: Potassium 3.7 mmol/L (3.5-5.1)
--- NOTE | 2019-12-09 08:01 | XR ---
EXAMINATION TYPE: XR chest 1V DATE OF EXAM: 12/09/2019 CLINICAL HISTORY: Shortness of breath and heart failure progress study. TECHNIQUE: Single AP portable upright view of the chest is obtained. COMPARISON: Chest x-ray from 2 and 3 days earlier FINDINGS: Overlying sternal wires and mediastinal clips are redemonstrated. Cardiac valvular surgica l clips again seen. Persistent cardiomegaly. Background chronic emphysematous change with persistent right basilar pneumonic consolidation. Developing more patchy left basilar opacity. Probable tiny renata ateral pleural effusions. Osseous structures are intact. IMPRESSION: Cardiomegaly and chronic parenchymal changes with persistent right basilar pneumonic cons olidation fairly stable from most recent x-ray, developing patchy left basilar atelectasis and/or inf iltrate noted.
[2019-12-09] MEDS: guaiFENesin 600 MG TABLET.ER PO SCH (09:06)
[2019-12-09] MEDS: ASPIRIN 81 MG PO SCH (09:06)
[2019-12-09] MEDS: FUROSEMIDE 20 MG TAB PO SCH (09:06)
[2019-12-09] MEDS: METOPROLOL TARTRATE 50 MG TAB PO SCH (09:06)
[2019-12-09] MEDS: APIXABAN 5 MG TAB PO SCH (09:06)
[2019-12-09] MEDS: SACUBITRIL/VALSARTAN 24 MG-26 MG TABLET PO SCH (09:07)
[2019-12-09] MEDS: FAMOTIDINE 20 MG/2 ML VIAL IV SCH (09:07)
[2019-12-09] MEDS: PARoxetine 10 MG TAB PO SCH (09:07)
--- NOTE | 2019-12-09 11:18 | PN ---
PROGRESS NOTE Mr. Bailey is a 69-year-old male with a history of mitral valve replacement, history of cardiomyopathy who presented with symptoms of progressive dyspnea and cough. He is in atrial fibrillation of unknown duration. He is feeling much better today, his breathing is better. He denies any chest pain. He denies any dizziness, palpitation He denies any nausea. His cough is much better. He was started yesterday on Entresto, which he tolerated nicely. He is also on metoprolol tartrate 50 mg twice a day, furosemide 20 mg twice a day, aspirin 81 mg daily, and Eliquis 5 mg twice a day. PHYSICAL EXAMINATION: Blood pressure 126/60 with a heart rate in the 80s. LUNGS: Clear. HEART: Irregular regular, S1, S2, no S3 with systolic murmur no diastolic murmur. ABDOMEN: Soft nontender. EXTREMITIES: No edema. LAB DATA: Lab data revealed BUN and creatinine 37 and 1.02, potassium 3.7. Her history chest x- ray revealed persistent right basilar pneumonic consolidation. IMPRESSION: 1. Symptoms of progressive dyspnea with a combination of probable pneumonia and element of congestive heart failure with severe cardiomyopathy. 2. Status post mitral valve replacement. 3. Atrial fibrillation of unknown duration. 4. Renal failure, improving. RECOMMENDATION: From the cardiac standpoint, will continue present therapy. He will continue present dose of Entresto. Follow up as an outpatient with Dr. Chichi Eldridge and to adjust the dose of his Entresto and if he remains in atrial fibrillation, then he will be evaluated for the possibility of restoring sinus mechanism. MMODL / IJN: [id number] /
[2019-12-09 12:12] VITALS: TEMP 97.7
--- NOTE | 2019-12-09 14:52 | P.DS ---
Providers Date of admission: 12/06/19 17:30 Attending physician: Abelardo Godoy Consults: 12/06/19 17:30 Consult Physician Routine Consulting Provider: Khris Eldridge Consult Reason/Comments: CHF, atrial fibrillation Do you want consulting provider notified?: Yes 12/06/19 22:04 Consult Physician Routine Consulting Provider: Donnell Lopez Consult Reason/Comments: Kidney injury Do you want consulting provider notified?: Yes Primary care physician: Eugenio Rogers [place] [facility] Course: Diagnoses: -Right lower lobe pneumonia suspected gram-negative organism, POA -New onset atrial fibrillation uncontrolled, POA -Acute systolic dysfunction with ejection fraction less than 20%, cardiology evaluated the patient and started on metoprolol and Entresto -Bilateral renal cyst with bilateral kidney stones -Kidney injury acute versus chronic not known. -IV heparin monitoring -Possible chronic kidney disease stage III. Further workup in place. -Generalized anxiety disorder Hospital course: This is a very pleasant 69-year-old patient of Dr. Eugenio Rogers. Patient had some sort of valve replacement in the past. Otherwise unremarkable possible history. Doesn't take any medications at home. For last 3-4 days has been noticing that his been getting short of breath with clinical activity. Has slight cough. Questionable sputum. No fever no chills. Patient is found to be in atrial fibrillation with a rapid ventricular rate. Associated with right lower lobe pneumonia on the chest x-ray. His creatinine was slightly elevated on admission came back to normal. Patient has been evaluated by station baggage agent and machine shop worker services. He is a started on metoprolol 25 mg and increased to 50 mg, also Entresto this added by cardiology team to his regimen. and Eliquis 5 mg was added. Echocardiogram showed ejection fraction less than 20% Also patient received therapy with ceftriaxone and Rocephin. Patient remained afebrile. No leukocytosis. His symptoms improved, no more dyspnea. Patient does not need home oxygen after it was checked. On the day of discharge patient has no chest pain, no dyspnea, no abdominal pain, no nausea vomiting. No change in urine or bowel habits. No fever Patient was cleared for discharge by cardiology and nephrology services Problems and management plan were discussed with the patient and he verbalized understanding and acceptance Patient was found stable and can be discharged home however he needs follow-up as an outpatient. Patient was instructed to follow up with PCP Dr. Rogers within one week and patient agrees. Also patient was instructed to follow up with his station baggage agent Dr. Eldridge in 2 weeks and he agrees. Patient wants to make his own appointments. I also called and spoke with his PCP Dr. Rogers, I discussed the case with him including the recommendation to repeat blood tests and chest x-ray in 1-2 weeks and he kindly took note of these. Gen: patient is a AAOx3, no distress CVS: S1-S2, RRR, no murmur Lungs: B/L CTA, no wheezing Abdomen: soft, no distention, no tenderness, positive bowel sounds Extremity: no leg edema or induration Time spent more than 35 minutes Patient Condition at Discharge: Fair Plan - Discharge Summary Discharge Rx Participant: No New Discharge Prescriptions: New Cefuroxime Axetil [Ceftin] 500 mg PO BID 7 Days #14 tab Apixaban [Eliquis] 5 mg PO BID #30 tab Sacubitril/Valsartan [Entresto 24 mg-26 mg Tablet] 1 each PO BID #60 tablet Furosemide [Lasix] 20 mg PO BID #60 tab Metoprolol Tartrate [Lopressor] 50 mg PO BID #60 tab guaiFENesin [Mucinex] 600 mg PO Q12HR PRN #8 tablet.er PRN Reason: Cough PARoxetine [Paxil] 10 mg PO DAILY #14 tab Azithromycin [Zithromax] 250 mg PO Q24H #5 tab Discharge Medication List Apixaban [Eliquis] 5 mg PO BID #30 tab 12/09/19 [Rx] Azithromycin [Zithromax] 250 mg PO Q24H #5 tab 12/09/19 [Rx] Cefuroxime Axetil [Ceftin] 500 mg PO BID 7 Days #14 tab 12/09/19 [Rx] Furosemide [Lasix] 20 mg PO BID #60 tab 12/09/19 [Rx] Metoprolol Tartrate [Lopressor] 50 mg PO BID #60 tab 12/09/19 [Rx] PARoxetine [Paxil] 10 mg PO DAILY #14 tab 12/09/19 [Rx] Sacubitril/Valsartan [Entresto 24 mg-26 mg Tablet] 1 each PO BID #60 tablet 12/09/19 [Rx] guaiFENesin [Mucinex] 600 mg PO Q12HR PRN #8 tablet.er 12/09/19 [Rx] Follow up Appointment(s)/Referral(s): Khris Eldridge MD [STAFF PHYSICIAN] - 10 Days Eugenio Rogers MD [Primary Care Provider] - 1-2 days Mo Blanco MD [STAFF PHYSICIAN] - 2 Weeks (Lodge Officer, for your pneumonia) Activity/Diet/Wound Care/Special Instructions: Heart healthy diet Activity is limited till you see your doctor Discharge Disposition: HOME WITH HOME HEALTH SERVICES
[2019-12-09 15:45] VITALS: BP 100/62; PULSE 95
--- NOTE | 2019-12-09 16:39 | PN ---
PROGRESS NOTE Patient is seen for followup for acute kidney injury. He is currently comfortable. Patient denies any significant complaints. His renal function has improved, creatinine down to 1.02 from 1.28 on initial admission. Currently, patient is maintained on oral Lasix. PHYSICAL EXAMINATION: On examination, blood pressure was 126/59, heart rate 89 per minute. Patient is afebrile. The patient appears euvolemic with no evidence of edema bilateral lower extremities. Abdomen is soft, nontender. LABS: Show sodium 132, potassium 3.7, chloride 104, CO2 is 21, BUN 37, creatinine 1.02. ASSESSMENT: 1. Acute kidney injury, currently improved significantly. Etiology mainly cardiorenal. 2. Rule out chronic kidney disease. 3. Severe cardiomyopathy. 4. Congestive heart failure exacerbation, systolic, acute on top of chronic, currently improved. 5. Atrial fibrillation maintained on anticoagulation, rate is controlled. 6. Bilateral renal cysts. 7. Nonobstructive right renal stone. PLAN: May continue to diurese patient. Okay for discharge from nephrology standpoint. MMODL / IJN: [id number] /
--- NOTE | 2019-12-13 12:59 | CDI ---
Documentation Clarification Form Date: 12/13/2019 12:31:00 PM From: Jeannie Christie RN, CCDS Admit Date: 12/06/2019 05:30:00 PM Patient Name: Carmine Bailey Visit Number: [id number] Discharge Date: 12/09/2019 05:00:00 PM ATTENTION: The Clinical Documentation Specialists (CDI) and [facility] Coding Staff appreciate your assistance in clarifying documentation. Please respond to the clarification below the line at the bottom and electronically sign. The CDI & [facility] Coding staff will review the response and follow-up if needed. Please note: Queries are made part of the Legal Health Record. If you have any questions, please contact the author of this message via ITS. Dr. Efren Painter Atrial Fibrillation is documented in the H/P and subsequent progress notes and further specificity of the type o atrial fibrillation is requested. 12/06 Cardiology Consults: (Dr. Guaman) Atrial Fibrillation with rapid ventricular response, paroxysmal, unknown duration. History/Risk Factors: Systolic congestive heart failure, Chronic kidney disease stage 3, Clinical Indicators: 69-year-old male who is post valve replacement, unknown year per past medical history, present on 12/05 with shortness of breath. Patient was found to be in atrial fibrillation with a rapid ventricular rate of 140 per EKG taken in the ER. Vital signs 12/05 at 14:38: 115/;91 135 22 97.9 96 % RA 12/05 Chest x-ray: right base with posterior pleural effusion. Correlate for pneumonia, Small posterior pleural effusion. Cardomegaly 12/06 ECHO: Overall left ventricular systolic function is severely impaired with, an EF< 20 % Treatment: Telemetry Monitoring 12/05 Cardizem 5 mg bolus than 125 mg hr IV DC 12/06 Heparin drip @ 8.709 mls/hr 12/05-12/06, change to Eliquis 5 mg po bid Lopressor 50 mg bid Entresto 24 mg po bid PT/INR per orders In your professional opinion, and if you agree with cardiology, can you please specify the type of Atrial Fibrillation, if known? Chronic/Permanent Paroxysmal Persistent Other, please specify Unable to determine (Last Revision: November 2017) Paroxysmal MTDD
== END 2019-12-09 17:00 | disposition home health service (06) | DRG 177 ==
LOC: EC 14:33 → 3SCARD 17:30
PROVIDERS: ADMIT Hospitalist; ATTEND Hospitalist
DX: J15.6 Pneumonia due to other Gram-negative bacteria (principal); I50.23 Acute on chronic systolic (congestive) heart failure; N17.9 Acute kidney failure, unspecified; I42.9 Cardiomyopathy, unspecified; F41.1 Generalized anxiety disorder; I27.20 Pulmonary hypertension, unspecified; I08.3 Combined rheumatic disorders of mitral, aortic and tricuspid valves; N20.0 Calculus of kidney; N28.1 Cyst of kidney, acquired; Z83.3 Family history of diabetes mellitus; Z95.2 Presence of prosthetic heart valve; I25.2 Old myocardial infarction; I25.9 Chronic ischemic heart disease, unspecified; Z20.828 Contact with and (suspected) exposure to other viral communicable diseases; Z88.0 Allergy status to penicillin; I48.0 Paroxysmal atrial fibrillation
CPT/HCPCS: 36415; 71045; 71046; 76770; 80048; 80053; 81003; 82550; 82553; 83605; 83735; 83880; 84145; 84443; 84484; 85025; 85610; 85730; 87070; 87205; 87635; 93005; 93306; 96365; 96366; 96368; 96375; 96376; 99291

== ENCOUNTER 2020-01-31 10:24 | Inpatient (IN) | payer MEDICARE, OTHER ==
[2020-01-31] MEDS ORDERED: SODIUM CHLORIDE 0.9% 1,000 ML IV STA (10:40)
[2020-01-31] MEDS ORDERED: DILTIAZEM 125 MG in SODIUM CHLORIDE 0.9% 100 ML IV SCH (10:45)
--- NOTE | 2020-01-31 10:45 | ED ---
General Adult HPI - General Chief complaint: Dizziness Stated complaint: Dizziness/not feeling good Time Seen by Provider: 01/31/20 10:29 Source: patient, EMS, RN notes reviewed Mode of arrival: EMS Limitations: no limitations - History of Present Illness Initial comments: Patient is a pleasant 69-year-old male presenting to the emergency department with lightheadedness. Symptoms have been occurring for the past few days. Patient has not taken his medication. Patient omits to being anxious regarding his being in the hospital with recent amputation. Patient admits to having some palpitations and chest discomfort over the past couple of days. Patient received fluid bolus by EMS and states he feels much better at this time. Heart rate by EMS was 140 however dropped to in the 80s following fluid bolus. They did do orthostatics a reported as normal. No chest discomfort at this time. No dyspnea. - Related Data Previous Rx's Medication Instructions Recorded Apixaban [Eliquis] 5 mg PO BID #30 tab 12/09/19 Azithromycin [Zithromax] 250 mg PO Q24H #5 tab 12/09/19 Cefuroxime Axetil [Ceftin] 500 mg PO BID 7 Days #14 tab 12/09/19 Furosemide [Lasix] 20 mg PO BID #60 tab 12/09/19 Metoprolol Tartrate [Lopressor] 50 mg PO BID #60 tab 12/09/19 PARoxetine [Paxil] 10 mg PO DAILY #14 tab 12/09/19 Sacubitril/Valsartan [Entresto 24 1 each PO BID #60 tablet 12/09/19 mg-26 mg Tablet] guaiFENesin [Mucinex] 600 mg PO Q12HR PRN #8 tablet.er 12/09/19 Allergies Allergy/AdvReac Type Severity Reaction Status Date / Time Penicillins Allergy Rash/Hives Verified 12/06/19 18:40 Review of Systems ROS Statement: Those systems with pertinent positive or pertinent negative responses have been documented in the HPI. ROS Other: All systems not noted in ROS Statement are negative. Constitutional: Denies: fever Eyes: Denies: eye pain ENT: Denies: ear pain Respiratory: Denies: cough Cardiovascular: Reports: as per HPI, chest pain, palpitations Endocrine: Reports: fatigue Gastrointestinal: Denies: abdominal pain Genitourinary: Denies: dysuria Musculoskeletal: Denies: back pain Skin: Denies: rash Neurological: Denies: weakness 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, Past Psychological History: No Psychological Hx Reported Smoking Status: Never smoker Past Alcohol Use History: None Reported Past Drug Use History: None Reported - Past Family History Father Family Medical History: Diabetes Mellitus, Memory Impairment Mother History Unknown: Yes Additional Family Medical History / Comment(s): States she passed from cerberal aneursyn General Exam Limitations: no limitations General appearance: alert, in no apparent distress Head exam: Present: normocephalic Eye exam: Present: normal appearance, PERRL Neck exam: Present: normal inspection Respiratory exam: Present: normal lung sounds bilaterally Cardiovascular Exam: Present: tachycardia, irregular rhythm Expanded Peripheral pulses: 2+: Radial (R), Radial (L), Dorsalis Pedis (R), Dorsalis Pedis (L) GI/Abdominal exam: Present: soft. Absent: tenderness Extremities exam: Present: other (Left lower leg with mild swelling and calf tenderness) Neurological exam: Present: alert Psychiatric exam: Present: normal affect, normal mood Skin exam: Present: normal color Course Vital Signs 01/31/20 01/31/20 01/31/20 10:28 11:20 11:51 Temperature 98.1 F Pulse Rate 84 130 H 125 H Respiratory 18 16 18 Rate Blood Pressure 125/107 106/90 108/88 O2 Sat by Pulse 93 L 99 98 Oximetry 01/31/20 12:08 Temperature Pulse Rate 114 H Respiratory 18 Rate Blood Pressure 110/93 O2 Sat by Pulse 98 Oximetry EKG Findings - EKG Comments: EKG Findings:: A. fib with RVR, rate 126. QRS 106. QT 290. QTC 420. Normal axis. LVH criteria. T-wave inversion V5 V6. Medical Decision Making - Medical Decision Making Patient reevaluated and resting comfortably in bed. Patient states he is still feeling much better. Heart rate is around 1:30. Patient is updated on results and plan. Case was discussed with Dr. Eubanks, covering for Dr. Godoy, who admits for Dr. Rogers. - Lab Data Result diagrams: 01/31/20 10:37 01/31/20 10:37 Lab Results 01/31/20 01/31/20 01/31/20 Range/Units 10:37 10:37 10:37 WBC 5.5 (3.8-10.6) k/uL RBC 4.54 (4.30-5.90) m/uL Hgb 12.9 L (13.0-17.5) gm/dL Hct 41.3 (39.0-53.0) % MCV 91.0 (80.0-100.0) fL MCH 28.4 (25.0-35.0) pg MCHC 31.2 (31.0-37.0) g/dL RDW 15.4 (11.5-15.5) % Plt Count 124 L (150-450) k/uL Neutrophils % 81 % Lymphocytes % 8 % Monocytes % 7 % Eosinophils % 2 % Basophils % 1 % Neutrophils # 4.5 (1.3-7.7) k/uL Lymphocytes # 0.5 L (1.0-4.8) k/uL Monocytes # 0.4 (0-1.0) k/uL Eosinophils # 0.1 (0-0.7) k/uL Basophils # 0.0 (0-0.2) k/uL Hypochromasia Slight PT 11.1 (9.0-12.0) sec INR 1.1 (<1.2) APTT 23.5 (22.0-30.0) sec Sodium 139 (137-145) mmol/L Potassium 5.1 (3.5-5.1) mmol/L Chloride 110 H (98-107) mmol/L Carbon Dioxide 21 L (22-30) mmol/L Anion Gap 8 mmol/L BUN 21 H (9-20) mg/dL Creatinine 1.24 (0.66-1.25) mg/dL Est GFR (CKD-EPI)AfAm 68 (>60 ml/min/1.73 sqM) Est GFR (CKD-EPI)NonAf 59 (>60 ml/min/1.73 sqM) Glucose 120 H (74-99) mg/dL Calcium 9.2 (8.4-10.2) mg/dL Magnesium 2.2 (1.6-2.3) mg/dL Total Bilirubin 1.0 (0.2-1.3) mg/dL AST 25 (17-59) U/L ALT 14 (4-49) U/L Alkaline Phosphatase 63 (38-126) U/L Troponin I (0.000-0.034) ng/mL Total Protein 6.3 (6.3-8.2) g/dL Albumin 3.8 (3.5-5.0) g/dL TSH 2.390 (0.465-4.680) mIU/L Free T4 1.13 (0.78-2.19) ng/dL Free T3 pg/mL 3.8 (2.8-5.3) pg/ml 01/31/20 Range/Units 10:37 WBC (3.8-10.6) k/uL RBC (4.30-5.90) m/uL Hgb (13.0-17.5) gm/dL Hct (39.0-53.0) % MCV (80.0-100.0) fL MCH (25.0-35.0) pg MCHC (31.0-37.0) g/dL RDW (11.5-15.5) % Plt Count (150-450) k/uL Neutrophils % % Lymphocytes % % Monocytes % % Eosinophils % % Basophils % % Neutrophils # (1.3-7.7) k/uL Lymphocytes # (1.0-4.8) k/uL Monocytes # (0-1.0) k/uL Eosinophils # (0-0.7) k/uL Basophils # (0-0.2) k/uL Hypochromasia PT (9.0-12.0) sec INR (<1.2) APTT (22.0-30.0) sec Sodium (137-145) mmol/L Potassium (3.5-5.1) mmol/L Chloride (98-107) mmol/L Carbon Dioxide (22-30) mmol/L Anion Gap mmol/L BUN (9-20) mg/dL Creatinine (0.66-1.25) mg/dL Est GFR (CKD-EPI)AfAm (>60 ml/min/1.73 sqM) Est GFR (CKD-EPI)NonAf (>60 ml/min/1.73 sqM) Glucose (74-99) mg/dL Calcium (8.4-10.2) mg/dL Magnesium (1.6-2.3) mg/dL Total Bilirubin (0.2-1.3) mg/dL AST (17-59) U/L ALT (4-49) U/L Alkaline Phosphatase (38-126) U/L Troponin I 0.058 H* (0.000-0.034) ng/mL Total Protein (6.3-8.2) g/dL Albumin (3.5-5.0) g/dL TSH (0.465-4.680) mIU/L Free T4 (0.78-2.19) ng/dL Free T3 pg/mL (2.8-5.3) pg/ml - Radiology Data Radiology results: report reviewed (Ultrasound negative for DVT), image reviewed (Chest x-ray shows cardiomegaly with some increased density interstitium) Critical Care Time Critical Care Time: Yes Total Critical Care Time: 32 Disposition Clinical Impression: Atrial fibrillation with RVR Disposition: ADMITTED IP TO THIS [facility] Is patient prescribed a controlled substance at d/c from ED?: No Referrals: Eugenio Rogers MD [Primary Care Provider] - 1-2 days Decision Time: 12:35
--- NOTE | 2020-01-31 10:59 | XR ---
EXAMINATION TYPE: XR chest 2V DATE OF EXAM: 01/31/2020 COMPARISON: 12/09/2019 HISTORY: 69-year-old male dysrhythmia TECHNIQUE: AP and lateral views FINDINGS: Heart mildly moderately enlarged. Median sternotomy wires are present. Post-CABG changes. Mild inters titial density and vascular prominence throughout. Mild patchy right midlung opacity. Small bilateral pleural effusions. Biapical pleural-parenchymal scarring. IMPRESSION: Cardiomegaly and increased interstitial density as well as small effusions with adjacent atelectasis and/or consolidation. Correlate for CHF with pulmonary vascular congestion.
[2020-01-31 11:31] LABS: Basophils % (A) 1 %; Eosinophils # (A) 0.1 k/uL (0-0.7); Eosinophils % (A) 2 %; HCT 41.3 % (39.0-53.0); HGB 12.9 gm/dL (13.0-17.5); Hypochromasia Slight; Lymphocytes # (A) 0.5 k/uL (1.0-4.8); Lymphocytes % (A) 8 %; MCH 28.4 pg (25.0-35.0); MCHC 31.2 g/dL (31.0-37.0); Mean Platelet Volume 8.8; Monocytes # (A) 0.4 k/uL (0-1.0); Monocytes % (A) 7 %; Neutrophils # (A) 4.5 k/uL (1.3-7.7); Neutrophils % (A) 81 %; Platelet Count 124 k/uL (150-450); RBC 4.54 m/uL (4.30-5.90); RDW 15.4 % (11.5-15.5); WBC 5.5 k/uL (3.8-10.6)
[2020-01-31 11:39] LABS: INR 1.1 (<1.2); Partial Thromboplastin Time 23.5 sec (22.0-30.0); Prothrombin Time 11.1 sec (9.0-12.0)
--- NOTE | 2020-01-31 11:39 | US ---
EXAMINATION TYPE: US venous doppler duplex LE LT DATE OF EXAM: 01/31/2020 10:42 AM COMPARISON: NONE CLINICAL HISTORY: swelling. SIDE PERFORMED: Left TECHNIQUE: The lower extremity deep venous system is examined utilizing real time linear array sonog maged with graded compression, doppler sonography and color-flow sonography. VESSELS IMAGED: External Iliac Vein (EIV) Common Femoral Vein Deep Femoral Vein Greater Saphenous Vein * Femoral Vein Popliteal Vein Small Saphenous Vein * Proximal Calf Veins (* superficial vessels) There is normal flow, compressibility, vascular waveforms. Left Leg: Negative for DVT Subcutaneous fat edema channels are noted incidentally. IMPRESSION: No evident deep venous arthrosis at or above the left knee
[2020-01-31 11:43] LABS: Albumin 3.8 g/dL (3.5-5.0); Calcium 9.2 mg/dL (8.4-10.2); Magnesium 2.2 mg/dL (1.6-2.3); Potassium 5.1 mmol/L (3.5-5.1); Total Protein 6.3 g/dL (6.3-8.2)
[2020-01-31 11:59] LABS: T4, Free (Free Thyroxine) 1.13 ng/dL (0.78-2.19)
[2020-01-31] MEDS ORDERED: NALOXONE 0.4 MG/ML 1 ML VIAL IV PRN (12:37)
--- NOTE | 2020-01-31 14:33 | P.HPIM ---
History of Present Illness 69-year-old pleasant male came in with the comments of lightheadedness not feeling well found to be in rapid atrial fibrillation with rapid ventricular rate patient has known history of A. fib patient had you around the 20%. Patient is on entresto as an outpatient. Patient when questioned is comparing of shortness of breath and orthopnea denied any significant history of paroxysmal nocturnal dyspnea the chest x-ray does have some pulmonary edema with highly elevated BNP. Patient does have elevated JVD and exam. any fever chills nausea vomiting dysuria. No evidence of infection or dehydration at this time. Complaining of cough without sputum production Review of Systems REVIEW OF SYSTEMS: CONSTITUTIONAL: As mentioned in HPI HEENT: No recent visual problems or hearing problems. Denied any sore throat. CARDIOVASCULAR: No chest pain, orthopnea, PND, no palpitations, no syncope. PULMONARYno hemoptysis. GASTROINTESTINAL: No diarrhea, no nausea, no vomiting, no abdominal pain. NEUROLOGICAL: No headaches, no weakness, no numbness. HEMATOLOGICAL: Denies any bleeding or petechiae. GENITOURINARY: Denies any burning micturition, frequency, or urgency. MUSCULOSKELETAL/RHEUMATOLOGICAL: Denies any joint pain, swelling, or any muscle pain. ENDOCRINE: Denies any polyuria or polydipsia. The rest of the 14-point review of systems is negative. 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, Past Psychological History: No Psychological Hx Reported Smoking Status: Never smoker Past Alcohol Use History: None Reported Past Drug Use History: None Reported - Past Family History Father Family Medical History: Diabetes Mellitus, Memory Impairment Mother History Unknown: Yes Additional Family Medical History / Comment(s): States she passed from cerberal aneursyn Medications and Allergies Home Medications Medication Instructions Recorded Confirmed Type Apixaban [Eliquis] 5 mg PO BID #30 tab 12/09/19 01/31/20 Rx Furosemide [Lasix] 20 mg PO BID #60 tab 12/09/19 01/31/20 Rx Metoprolol Tartrate [Lopressor] 50 mg PO BID #60 tab 12/09/19 01/31/20 Rx PARoxetine [Paxil] 10 mg PO DAILY #14 tab 12/09/19 01/31/20 Rx Sacubitril/Valsartan [Entresto 24 1 tab PO BID 01/31/20 01/31/20 History mg-26 mg Tablet] Allergies Allergy/AdvReac Type Severity Reaction Status Date / Time Penicillins Allergy Rash/Hives Verified 12/06/19 18:40 Physical Exam Vitals: Vital Signs Temp Pulse Resp BP Pulse Ox 01/31/20 13:06 107 H 18 114/99 98 01/31/20 12:08 114 H 18 110/93 98 01/31/20 11:51 125 H 18 108/88 98 01/31/20 11:20 130 H 16 106/90 99 01/31/20 10:28 98.1 F 84 18 125/107 93 L Intake and Output 01/30/20 01/31/20 01/31/20 22:59 06:59 14:59 Other: Weight 69.626 kg PHYSICAL EXAMINATION: GENERAL: The patient is alert and oriented x3, not in any acute distress. Well developed, well nourished. HEENT: Pupils are round and equally reacting to light. EOMI. No scleral icterus. No conjunctival pallor. Normocephalic, atraumatic. No pharyngeal erythema. No thyromegaly. CARDIOVASCULAR: S1 and S2 present. No murmurs, rubs, or gallops. His have elevated JVD tachycardic irregularly irregular rhythm PULMONARY: Chest is clear to auscultation, no wheezing or crackles. ABDOMEN: Soft, nontender, nondistended, normoactive bowel sounds. No palpable organomegaly. MUSCULOSKELETAL: No joint swelling or deformity. EXTREMITIES: No cyanosis, clubbing, or pedal edema. NEUROLOGICAL: Gross neurological examination did not reveal any focal deficits. SKIN: No rashes. Results CBC & Chem 7: 01/31/20 10:37 01/31/20 10:37 Labs: Abnormal Lab Results - Last 24 Hours (Table) 01/31/20 01/31/20 01/31/20 Range/Units 10:37 10:37 10:37 Hgb 12.9 L (13.0-17.5) gm/dL Plt Count 124 L (150-450) k/uL Lymphocytes # 0.5 L (1.0-4.8) k/uL Chloride 110 H (98-107) mmol/L Carbon Dioxide 21 L (22-30) mmol/L BUN 21 H (9-20) mg/dL Glucose 120 H (74-99) mg/dL Troponin I 0.058 H* (0.000-0.034) ng/mL Assessment and Plan Plan: -Atrial fibrillation with rapid unclear rate: Patient is presently on Cardizem this will discuss your patient will be given a dose of metoprolol his heart rate doesn't come down patient will be started on amiodarone are patient will be digitalized at that time patient's Serum creatinine is 1.24 baseline is around 1. IV fluids will be discontinued. Patient will be given Lasix if his blood pressure can tolerate after metoprolol patient blood pressure is borderline at this time which is expected to improve with discontinue additional of Cardizem and heart rate control. Patient and anti-correlation with Eliquis which will be resumed and continued -Congestive heart failure chronic systolic dysfunction with acute exacerbation: Patient will be given Lasix once his heart rate is better controlled and if his blood pressure can tolerate,Entresto will be held now as his blood pressure is borderline. -Acute renal failure: Prerenal azotemia from our congestive heart failure. -Mildly elevated troponin without any chest pain secondary to heart failure exacerbation - Depression: Continue Paxil
[2020-01-31] MEDS: METOPROLOL TARTRATE 50 MG TAB PO SCH ×2 (14:58→23:36)
[2020-01-31] MEDS: FUROSEMIDE 10 MG/ML 4 ML VIAL IV SCH ×2 (16:22→23:37)
[2020-01-31] MEDS ORDERED: DEXTROSE 5% IN WATER 100 ML with AMIODARONE 150 MG IV ONE (17:00)
[2020-01-31] MEDS ORDERED: AMIODARONE 360 MG in DEXTROSE 5% IN WATER 200 ML IV ONE ×2 (17:00)
[2020-01-31] MEDS ORDERED: IPRATROPIUM-ALBUTEROL 3 ML NEB INHALATION PRN (17:03)
[2020-01-31] MEDS ORDERED: ALPRAZolam 0.5 MG TAB PO PRN (17:03)
[2020-01-31 17:25] LABS: D-Dimer 2.08 mg/L FEU (<0.60); INR 1.1 (<1.2); Prothrombin Time 11.4 sec (9.0-12.0)
[2020-01-31 20:01] LABS: Glucose,Whole Blood 127 mg/dL (75-99)
[2020-01-31 20:12] LABS: ABG Base Excess -15.1 mmol/L; ABG HCO3 12 mmol/L (21-25); ABG Oxygen Saturation 98.9 % (94-97); ABG PCO2 26 mmHg (35-45); ABG PH 7.27 (7.35-7.45); ABG PO2 157 mmHg (83-108); ABG TCO2 13 mmol/L (19-24); Allen Test Performed? Yes
[2020-01-31] MEDS ORDERED: SODIUM BICARB 8.4% 50 ML SYR (1 MEQ/ML) IV STA ×2 (20:24→20:25)
--- NOTE | 2020-01-31 20:40 | XR ---
EXAMINATION TYPE: XR chest 1V portable DATE OF EXAM: 01/31/2020 COMPARISON: Prior chest x-ray 01/31/2020 HISTORY: Shortness of breath TECHNIQUE: Single frontal view of the chest is obtained. FINDINGS: Patient is post median sternotomy and rotated. There are overlying cardiac leads. Biapical pleural thickening persists. The heart remains enlarged. There is perihilar increased attenuation pr esent. No evident pneumothorax or pleural effusion. Central vascularity is prominent. High riding james ulders could be due to chronic rotator cuff tears. IMPRESSION: Correlate for worsening congestive heart failure, pneumonia not excluded. Follow-up is r ecommended.
[2020-01-31] MEDS: APIXABAN 5 MG TAB PO SCH (20:54)
[2020-01-31 21:07] LABS: Basophils % (A) 1 %; Eosinophils # (A) 0.1 k/uL (0-0.7); Eosinophils % (A) 1 %; HCT 47.1 % (39.0-53.0); HGB 14.5 gm/dL (13.0-17.5); Hypochromasia Marked; Lymphocytes # (A) 0.7 k/uL (1.0-4.8); Lymphocytes % (A) 13 %; MCH 29.7 pg (25.0-35.0); MCHC 30.8 g/dL (31.0-37.0); Mean Platelet Volume 9.3; Monocytes # (A) 0.3 k/uL (0-1.0); Monocytes % (A) 6 %; Neutrophils # (A) 4.2 k/uL (1.3-7.7); Neutrophils % (A) 79 %; Platelet Count 112 k/uL (150-450); RBC 4.88 m/uL (4.30-5.90); RDW 15.2 % (11.5-15.5); WBC 5.4 k/uL (3.8-10.6)
[2020-01-31 21:09] LABS: Calcium 8.6 mg/dL (8.4-10.2); Potassium 5.8 mmol/L (3.5-5.1)
[2020-01-31 21:13] LABS: MCV 96.6 fL (80.0-100.0)
[2020-01-31 21:49] LABS: Glucose,Whole Blood 88 mg/dL (75-99)
[2020-01-31] MEDS ORDERED: SODIUM CHLORIDE 0.9% 1,000 ML IV ONE (22:05)
[2020-01-31] MEDS ORDERED: SODIUM CHLORIDE 0.9% 1,000 ML IV SCH (22:15)
[2020-01-31] MEDS: AMIODARONE 300 MG in DEXTROSE 5% IN WATER 250 ML IV SCH ×2 (23:37)
[2020-02-01] MEDS: DOBUTamine DRIP 500 MG in DEXTROSE/WATER 1 250ML.BAG IV SCH (01:32)
[2020-02-01] MEDS ORDERED: DEXTROSE 50% SYRINGE 50 ML IVP STA ×3 (01:58→12:31)
[2020-02-01] MEDS ORDERED: DEXTROSE 50% SYRINGE 50 ML IVP ONE (01:59)
[2020-02-01 02:00] LABS: Glucose,Whole Blood 52 mg/dL (75-99)
[2020-02-01] MEDS ORDERED: SODIUM BICARB 8.4% 50 ML SYR (1 MEQ/ML) ONE (02:04)
[2020-02-01] MEDS ORDERED: EPINEPHrine 10 ML SYRINGE (0.1 MG/ML) ONE (02:04)
[2020-02-01 02:15] LABS: Glucose,Whole Blood 129 mg/dL (75-99)
[2020-02-01] MEDS ORDERED: PROPOFOL 100 ML IV ONE (02:15)
[2020-02-01] MEDS: EMPTY BAG 1 BAG with PROPOFOL 1,000 MG IV SCH ×3 (02:23→16:24)
[2020-02-01] MEDS ORDERED: NOREPINEPHRIN 4 MG-0.9% NS PMX 4 MG/250 ML ML IV ONE (02:28)
[2020-02-01] MEDS ORDERED: SODIUM BICARB 8.4% 50 ML SYR (1 MEQ/ML) IV STA (02:49)
--- NOTE | 2020-02-01 02:49 | XR ---
EXAMINATION TYPE: XR chest 1V portable DATE OF EXAM: 02/01/2020 COMPARISON: 01/31/2020 HISTORY: Short of breath. Check tube placement. TECHNIQUE: FINDINGS: Endotracheal tube is 4.4 cm from the tez. Heart is enlarged. There is pulmonary edema. T here is slight blunting of the costophrenic angles. There are sternal wires. There is nasogastric tub e in the stomach. There is some pleural thickening at the lung apices. IMPRESSION: Cardiomegaly. Congestive heart failure with pleural effusions. No change compared to exam 6 hours ago.
[2020-02-01] MEDS: DEXTROSE 5% IN WATER 1,000 ML with SODIUM BICARB (1 MEQ/ML) 150 ML IV SCH ×2 (02:51→17:46)
[2020-02-01] MEDS: NOREPINEPHRINE 4 MG in SODIUM CHLORIDE 0.9% 250 ML IV SCH ×3 (02:52→12:38)
[2020-02-01 03:03] LABS: Calcium 9.5 mg/dL (8.4-10.2)
[2020-02-01 03:04] LABS: HCT 45.4 % (39.0-53.0); HGB 13.4 gm/dL (13.0-17.5); Hypochromasia Marked; MCH 29.6 pg (25.0-35.0); MCHC 29.5 g/dL (31.0-37.0); MCV 100.1 fL (80.0-100.0); Macrocytosis Slight; Mean Platelet Volume 10.4; RBC 4.54 m/uL (4.30-5.90); RDW 15.2 % (11.5-15.5); WBC 9.1 k/uL (3.8-10.6)
[2020-02-01 03:06] LABS: Magnesium 2.5 mg/dL (1.6-2.3); Phosphorus 6.8 mg/dL (2.5-4.5); Potassium 7.1 mmol/L (3.5-5.1)
[2020-02-01 03:09] LABS: ABG Base Excess -15.2 mmol/L; ABG HCO3 13 mmol/L (21-25); ABG PCO2 32 mmHg (35-45); ABG PH 7.21 (7.35-7.45); ABG PO2 219 mmHg (83-108); ABG TCO2 14 mmol/L (19-24); Allen Test Performed? Yes
[2020-02-01] MEDS ORDERED: INSULIN REGULAR 100 UNIT/ML VIAL IV ONE ×2 (03:34→12:31)
[2020-02-01] MEDS ORDERED: SODIUM POLYSTYRENE SULFONATE 15 GM/60 ML BOTTLE PO ONE ×2 (03:36→12:31)
[2020-02-01] MEDS ORDERED: CALCIUM GLUCONATE 1 GM in SODIUM CHLORIDE 0.9% 100 ML IVPB ONE ×2 (03:37→12:31)
[2020-02-01 04:01] LABS: Band Neutrophils % 4 %; Lymphocytes # (M) 1.37 k/uL (1.0-4.8); Metamyelocytes # (M) 0.18 k/uL (0); Metamyelocytes % 2 %; Monocytes # (M) 0.73 k/uL (0-1.0); Neutrophils % (M) 72 %; Nucleated Red Blood Cells 0 /100 WBC (0-0); Total Cells Counted 200
[2020-02-01 04:02] LABS: Anisocytosis (M) Present
[2020-02-01 04:03] LABS: Platelet Count 83 k/uL (150-450)
[2020-02-01 04:25] LABS: ABG Base Excess -11.3 mmol/L; ABG HCO3 16 mmol/L (21-25); ABG PCO2 33 mmHg (35-45); ABG PH 7.28 (7.35-7.45); ABG PO2 138 mmHg (83-108); ABG TCO2 17 mmol/L (19-24); Allen Test Performed? Yes
[2020-02-01 06:39] LABS: Amorphous Sediment,Urine Rare /hpf; Appearance,Urine Clear (Clear); Bacteria,Urine Rare /hpf; Bilirubin,Urine Negative (Negative); Blood,Urine Large (Negative); Color,Urine Yellow; Glucose,Urine (UA) Negative (Negative); Hyaline Casts,Urine 34 /lpf (0-2); Ketones,Urine Negative (Negative); Leukocyte Esterase,Urine Trace (Negative); Mucus,Urine Rare /hpf; Nitrite,Urine Negative (Negative); PH, Urine 5.5 (5.0-8.0); Protein,Urine 1+ (Negative); RBC,Urine 73 /hpf (0-5); Specific Gravity,Urine 1.008 (1.001-1.035); Squamous Epithelial Cell,Urine <1 /hpf (0-4); Urobilinogen,Urine <2.0 mg/dL (<2.0); WBC,Urine 12 /hpf (0-5)
[2020-02-01 07:03] LABS: Glucose,Whole Blood 159 mg/dL (75-99)
[2020-02-01 07:08] LABS: Calcium 9.2 mg/dL (8.4-10.2); Potassium 5.1 mmol/L (3.5-5.1)
--- NOTE | 2020-02-01 08:37 | P.EN ---
elvie dueñas was called on the patient who experienced a cardiopulmonary arrest after progressive bradycardia then lost his pulse. he received 2 rounds of chest compressions and one dose of epi. then had a return of spontaneous circulation. however continued to have agonal breathing , for which he was intubated after reviewing his chart and labs. it is thought that this is due to severe acidosis and possible hyperkalemia , so he was given 2 amps of bicarb and one amp of calcium chloride (calcium gluconate was not available) then started on bicarb drip. he was also started on levophed due to hypotension ABG showed PH of 7.2 and bicarb of 12 rest of the labs ordered and pending paged primary team , await call back RN to notify dr Black who is aware of events but needed update 12 lead reviewed no significant ST changes CXR ordered after intubation lungs with good breath sounds bilaterally
[2020-02-01] MEDS ORDERED: CISATRACURIUM 2 MG/ML 5 ML VIAL IV ONE (09:16)
--- NOTE | 2020-02-01 09:36 | P.CNPUL ---
History of Present Illness Consult date: 02/01/20 Requesting physician: Huey Still Reason for consult: dyspnea, hypoxemia, other Chief complaint: Cardiac arrest. History of present illness: 69-year-old white male patient Of Dr. Rogers, with past medical history valvular heart disease with previous history of a bioprosthetic mitral valve r eplacement, history of atrial fibrillation on Eliquis, chronic systolic congestive heart failure on Entresto, with EF of less than 20%, chronic kidney disease stage III at baseline, who presented to the hospital yesterday on 01/31/2020 with symptoms of lightheadedness. Patient's is currently in the hospital, in the intensive care unit, critically ill. She was experiencing some palpitations in the chest discomfort over last couple of days. EMS brought the patient to the hospital and he was given some fluid boluses in the ambulance and was feeling better at the time. EKG showed atrial fibrillation with RVR with a rate of 140 in the ambulance, orthostatic blood pressures were negative. Chest x-ray showed cardiomegaly and increased interstitial density and a small bilateral pleural effusions with adjacent atelectasis. Initial labs showed a white count of 5.5, hemoglobin of 12.9, d-dimer was 2.08, sodium is 139, potassium 5.1, chloride is 110, CO2 is 21, B1 is 21 creatinine is 1.24, troponins were positive at 0.058, 0.062, proBNP was 22,200. Urinalysis showed trace leuks, rare bacteria, and platelet cells at 12, coronavirus PCR was negative. Lower extremity Doppler of the left leg was negative for DVT. he was started on amiodarone drip, and was admitted to selective care. Last night rapid response team was called with concerns for acute hypoxia, patient's pulse ox was 78, requiring additional oxygen, patient was in persistent A. fib with RVR. Blood gases were obtained showing pO2 of 157, pCO2 of 26, and pH of 7.27 this was done on FiO2 of 100%. Blood work showed a sodium of 137, potassium is 5.8, worsening renal profile with BUN of 20 and creatinine of 1.51, plasma lactic acid was found to be elevated at 5.3. Patient was given a liter bolus and IV fluids, patient was started on bicarbonate infusion, however his condition continued to deteriorate, and patient was transferred to the intensive care unit for further monitoring and treatment. Continue to be tachypneic, restless, with acute mental status changes, elevated lactic acid, oliguric, hypothermic. Blood cultures were obtained and sent, Lasix was held, Levaphed was started. She did baseline EF is less than 20%, patient was already given a fluid bolus and his IV fluids were infusing at a rate of 1:30 ML per hour. At 2:00 in the morning patient suffered a cardiac arrest, he did require brief CPR and one round of epinephrine with return of spontaneous circulation, patient was emergently intubated and placed on mechanical ventilator. Currently on assist control mode of ventilation with a rate of 20, tidal volume is 450, FiO2 is 50% and PEEP of 5, this morning his blood gases showed a pO2 of 138, pCO2 of 33, and pH of 7.28, patient was given additional amps of sodium bicarbonate. Current IVs include amiodarone at a rate of 0.5 mg/m, Levothroid is at 21 mics per minute, Diprivan is a 30 mics per kilo per minute. This morning's temp is 98, patient was on the warmer overnight. Patient's condition is critical, patient's is also in this ICU on mechanical ventilator, the next of kin is patient's [id number] who spoke to this morning, and there are no children and no other relatives. Cardiology is following, echocardiogram has been ordered, cultures have been ordered and sent. Review of Systems All systems: negative Constitutional: Denies chills, Denies fever Eyes: denies blurred vision, denies pain Ears, nose, mouth and throat: Denies headache, Denies sore throat Cardiovascular: Reports chest pain, Reports dyspnea on exertion, Reports lightheadedness, Reports palpitations, Denies shortness of breath Respiratory: Reports dyspnea, Denies cough Gastrointestinal: Denies abdominal pain, Denies diarrhea, Denies nausea, Denies vomiting Musculoskeletal: Denies myalgias Integumentary: Denies pruritus, Denies rash Neurological: Denies numbness, Denies weakness Psychiatric: Denies anxiety, Denies depression Endocrine: Denies fatigue, Denies weight change 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, Past Anesthesia/Blood Transfusion Reactions: No Reported Reaction Past Psychological History: No Psychological Hx Reported Smoking Status: Never smoker Past Alcohol Use History: None Reported Past Drug Use History: None Reported - Past Family History Father Family Medical History: Diabetes Mellitus, Memory Impairment Mother History Unknown: Yes Additional Family Medical History / Comment(s): States she passed from cerberal aneursyn Medications and Allergies Home Medications Medication Instructions Recorded Confirmed Type Apixaban [Eliquis] 5 mg PO BID #30 tab 12/09/19 01/31/20 Rx Furosemide [Lasix] 20 mg PO BID #60 tab 12/09/19 01/31/20 Rx Metoprolol Tartrate [Lopressor] 50 mg PO BID #60 tab 12/09/19 01/31/20 Rx PARoxetine [Paxil] 10 mg PO DAILY #14 tab 12/09/19 01/31/20 Rx Sacubitril/Valsartan [Entresto 24 1 tab PO BID 01/31/20 01/31/20 History mg-26 mg Tablet] Allergies Allergy/AdvReac Type Severity Reaction Status Date / Time Penicillins Allergy Rash/Hives Verified 12/06/19 18:40 Physical Exam Vitals: Vital Signs Temp Pulse Pulse Resp BP BP Pulse Ox 02/01/20 07:20 73 20 93/58 98 02/01/20 07:00 87 20 88/50 96 02/01/20 06:40 80 20 76/61 98 02/01/20 06:20 101 H 20 105/59 97 02/01/20 06:00 60 20 82/68 96 02/01/20 05:40 106 H 20 88/71 95 02/01/20 05:20 98 F 74 20 96/70 92 L 02/01/20 05:00 60 20 98/62 92 L 02/01/20 04:40 66 20 99/65 97 02/01/20 04:20 63 20 102/61 94 L 02/01/20 04:00 96.9 F L 65 20 94/64 96 02/01/20 03:40 67 20 80/53 99 02/01/20 03:20 67 20 82/55 90 L 02/01/20 03:00 66 20 91/60 93 L 02/01/20 02:40 97 20 96 02/01/20 02:20 68 24 95 02/01/20 02:00 70 30 H 90/78 90 L 02/01/20 01:40 71 27 H 106/22 90 L 02/01/20 01:20 75 30 H 80/52 99 02/01/20 01:00 78 24 73/56 94 L 02/01/20 00:52 98 02/01/20 00:40 78 25 H 77/55 96 02/01/20 00:20 77 28 H 81/57 90 L 02/01/20 00:00 96.5 F L 77 15 89/67 92 L 01/31/20 23:40 79 32 H 104/77 95 01/31/20 23:20 81 34 H 92/65 93 L 01/31/20 23:00 83 20 82/71 91 L 01/31/20 22:40 83 25 H 92/75 95 01/31/20 22:20 95.5 F L 84 35 H 101/79 96 01/31/20 21:35 76 22 88/40 01/31/20 21:21 76 24 73/38 78 L 01/31/20 21:09 94.9 F L 86 24 80/33 90 L 01/31/20 21:03 83 26 H 99/52 85 L 01/31/20 20:41 84 28 H 102/53 91 L 01/31/20 20:34 68 30 H 98/53 90 L 01/31/20 20:26 71 30 H 112/44 74 L 01/31/20 20:00 76 22 104/78 74 L 01/31/20 19:50 70 34 H 94/58 76 L 01/31/20 18:20 65 01/31/20 18:13 61 142/55 01/31/20 18:10 60 01/31/20 17:43 49 L 29 H 104/72 99 01/31/20 17:28 87 26 H 86/59 100 01/31/20 17:13 92 143/84 95 01/31/20 16:58 75 113/84 88 L 01/31/20 16:51 95 01/31/20 16:43 70 114/75 01/31/20 16:00 18 01/31/20 13:06 107 H 18 114/99 98 06/15/20 13:00 97.8 F 75 18 113/84 90 L 01/31/20 12:08 114 H 18 110/93 98 01/31/20 11:51 125 H 18 108/88 98 01/31/20 11:20 130 H 16 106/90 99 01/31/20 10:28 98.1 F 84 18 125/107 93 L Intake and Output 01/31/20 02/01/20 02/01/20 22:59 06:59 14:59 Intake Total 18 595.659 Output Total 110 Balance 18 485.659 Intake: IV 375 Sodium Chloride 0.9% 1, 375 000 ml @ 75 mls/hr IV . [id number] [facility] Rx#:[id number] Intake, IV Titration 18 220.659 Amount Amiodarone 300 mg In 82.083 Dextrose 5% in Water 250 ml @ 0.5 MG/MIN 25 mls/hr IV .Q10H [facility] Rx#: [id number] Calcium Gluconate 1 gm In 100 Sodium Chloride 0.9% 100 ml @ 100 mls/hr IVPB ONCE ONE Rx#:[id number] Diltiazem 125 mg In 18 Sodium Chloride 0.9% 100 ml @ 5 MG/HR 5 mls/hr IV .Q24H [facility] Rx#:[id number] Empty Bag 1 bag @ 20 MCG/ 5.152 KG/MIN 8.355 mls/hr IV . [id number] JESSIKA with Propofol 1,000 mg Rx#:[id number] Norepinephrine 4 mg In 33.424 Sodium Chloride 0.9% 250 ml @ 0.05 MCG/KG/MIN 13. 264 mls/hr IV .Q19H9M [facility] Rx#:[id number] Output: Urine 110 Other: Voiding Method Indwelling Catheter Indwelling Catheter # Bowel Movements 1 Weight 72.1 kg GENERAL EXAM: Sedated, intubated, 69-year-old frail-looking white male, on assist control mode of ventilation, with FiO2 of 50%, comfortable in no apparent distress. HEAD: Normocephalic/atraumatic. EYES: Normal reaction of pupils, equal size. Conjunctiva pink, sclera white. NOSE: Clear with pink turbinates. THROAT: No erythema or exudates. NECK: No masses, no JVD, no thyroid enlargement, no adenopathy. CHEST: No chest wall deformity. Symmetrical expansion. LUNGS: Equal air entry with no crackles, wheeze, rhonchi or dullness. CVS: Irregular rate and rhythm, normal S1 and S2, no gallops, no murmurs, no rubs ABDOMEN: Soft, nontender. No hepatosplenomegaly, normal bowel sounds, no guarding or rigidity. EXTREMITIES: No clubbing, no edema, no cyanosis, 2+ pulses and upper and lower extremities. MUSCULOSKELETAL: Muscle strength and tone normal. SPINE: No scoliosis or deformity SKIN: No rashes CENTRAL NERVOUS SYSTEM: Sedated, intubated No focal deficits, tone is normal in all 4 extremities. Results - Laboratory Findings CBC and BMP: 02/01/20 02:35 02/01/20 06:36 ABG ABG pH 7.28 (7.35-7.45) L 02/01/20 04:20 ABG pCO2 33 mmHg (35-45) L 02/01/20 04:20 ABG pO2 138 mmHg (83-108) H 02/01/20 04:20 ABG O2 Saturation 98.0 % (94-97) H 02/01/20 04:20 PT/INR, D-dimer PT 11.4 sec (9.0-12.0) 01/31/20 16:46 INR 1.1 (<1.2) 01/31/20 16:46 D-Dimer 2.08 mg/L FEU (<0.60) H 01/31/20 16:46 Abnormal lab findings: Abnormal Labs 01/31/20 01/31/20 01/31/20 10:37 10:37 10:37 Hgb 12.9 L MCV MCHC Plt Count 124 L Lymphocytes # 0.5 L Metamyelocytes # (Man) D-Dimer ABG pH ABG pCO2 ABG pO2 ABG HCO3 ABG Total CO2 ABG O2 Saturation Potassium Chloride 110 H Carbon Dioxide 21 L BUN 21 H Creatinine Glucose 120 H POC Glucose (mg/dL) Plasma Lactic Acid Blake Phosphorus Magnesium Troponin I 0.058 H* Urine Protein Urine Blood Ur Leukocyte Esterase Urine RBC Urine WBC Amorphous Sediment Urine Bacteria Hyaline Casts Urine Mucus 01/31/20 01/31/20 01/31/20 16:46 16:46 19:59 Hgb MCV MCHC Plt Count Lymphocytes # Metamyelocytes # (Man) D-Dimer 2.08 H ABG pH ABG pCO2 ABG pO2 ABG HCO3 ABG Total CO2 ABG O2 Saturation Potassium Chloride Carbon Dioxide BUN Creatinine Glucose POC Glucose (mg/dL) 127 H Plasma Lactic Acid Blake Phosphorus Magnesium Troponin I 0.054 H* Urine Protein Urine Blood Ur Leukocyte Esterase Urine RBC Urine WBC Amorphous Sediment Urine Bacteria Hyaline Casts Urine Mucus 01/31/20 01/31/20 01/31/20 20:08 20:27 20:27 Hgb MCV MCHC 30.8 L Plt Count 112 L Lymphocytes # 0.7 L Metamyelocytes # (Man) D-Dimer ABG pH 7.27 L ABG pCO2 26 L ABG pO2 157 H ABG HCO3 12 L ABG Total CO2 13 L ABG O2 Saturation 98.9 H Potassium 5.8 H Chloride 110 H Carbon Dioxide 15 L BUN Creatinine 1.51 H Glucose 146 H POC Glucose (mg/dL) Plasma Lactic Acid Blake Phosphorus Magnesium Troponin I Urine Protein Urine Blood Ur Leukocyte Esterase Urine RBC Urine WBC Amorphous Sediment Urine Bacteria Hyaline Casts Urine Mucus 01/31/20 01/31/20 01/31/20 20:30 22:51 23:33 Hgb MCV MCHC Plt Count Lymphocytes # Metamyelocytes # (Man) D-Dimer ABG pH ABG pCO2 ABG pO2 ABG HCO3 ABG Total CO2 ABG O2 Saturation Potassium Chloride Carbon Dioxide BUN Creatinine Glucose POC Glucose (mg/dL) Plasma Lactic Acid Blake 5.3 H* 9.1 H* Phosphorus Magnesium Troponin I 0.062 H* Urine Protein Urine Blood Ur Leukocyte Esterase Urine RBC Urine WBC Amorphous Sediment Urine Bacteria Hyaline Casts Urine Mucus 02/01/20 02/01/20 02/01/20 01:58 02:14 02:35 Hgb MCV MCHC Plt Count Lymphocytes # Metamyelocytes # (Man) D-Dimer ABG pH ABG pCO2 ABG pO2 ABG HCO3 ABG Total CO2 ABG O2 Saturation Potassium Chloride Carbon Dioxide BUN Creatinine Glucose POC Glucose (mg/dL) 52 L 129 H Plasma Lactic Acid Blake 12.9 H* Phosphorus Magnesium Troponin I Urine Protein Urine Blood Ur Leukocyte Esterase Urine RBC Urine WBC Amorphous Sediment Urine Bacteria Hyaline Casts Urine Mucus 02/01/20 02/01/20 02/01/20 02:35 02:35 03:04 Hgb MCV 100.1 H MCHC 29.5 L Plt Count 83 L Lymphocytes # Metamyelocytes # (Man) 0.18 H D-Dimer ABG pH 7.21 L ABG pCO2 32 L ABG pO2 219 H ABG HCO3 13 L ABG Total CO2 14 L ABG O2 Saturation 99.0 H Potassium 7.1 H* Chloride 111 H Carbon Dioxide 13 L BUN 22 H Creatinine 1.80 H Glucose 120 H POC Glucose (mg/dL) Plasma Lactic Acid Blake Phosphorus 6.8 H Magnesium 2.5 H Troponin I Urine Protein Urine Blood Ur Leukocyte Esterase Urine RBC Urine WBC Amorphous Sediment Urine Bacteria Hyaline Casts Urine Mucus 02/01/20 02/01/20 02/01/20 04:20 05:30 06:36 Hgb MCV MCHC Plt Count Lymphocytes # Metamyelocytes # (Man) D-Dimer ABG pH 7.28 L ABG pCO2 33 L ABG pO2 138 H ABG HCO3 16 L ABG Total CO2 17 L ABG O2 Saturation 98.0 H Potassium Chloride 109 H Carbon Dioxide 19 L BUN 25 H Creatinine 1.79 H Glucose 162 H POC Glucose (mg/dL) Plasma Lactic Acid Blake Phosphorus Magnesium Troponin I Urine Protein 1+ H Urine Blood Large H Ur Leukocyte Esterase Trace H Urine RBC 73 H Urine WBC 12 H Amorphous Sediment Rare H Urine Bacteria Rare H Hyaline Casts 34 H Urine Mucus Rare H 02/01/20 02/01/20 06:36 07:01 Hgb MCV MCHC Plt Count Lymphocytes # Metamyelocytes # (Man) D-Dimer ABG pH ABG pCO2 ABG pO2 ABG HCO3 ABG Total CO2 ABG O2 Saturation Potassium Chloride Carbon Dioxide BUN Creatinine Glucose POC Glucose (mg/dL) 159 H Plasma Lactic Acid Blake 7.0 H* Phosphorus Magnesium Troponin I Urine Protein Urine Blood Ur Leukocyte Esterase Urine RBC Urine WBC Amorphous Sediment Urine Bacteria Hyaline Casts Urine Mucus - Diagnostic Findings Chest x-ray: report reviewed, image reviewed Additional studies: EKG, venous Doppler of the left leg Assessment and Plan Plan: Assessment: #1. Acute cardiopulmonary arrest related to acute hypoxic respiratory failure, requiring ACLS with return of spontaneous circulation, and requiring placement on mechanical ventilator #2. Hypotension likely related to cardiogenic shock #3. Acute exacerbation of chronic systolic congestive heart failure #4. A. fib with RVR #5. Lactic acidosis, possibly related to acute systolic CHF, rule out infectious etiology, cultures have been sent and pending. Patient has been afebrile, no leukocytosis #6. Acute on chronic kidney failure related to ATN #7. Hyperkalemia related to severe metabolic acidosis #8. Chronic A. fib on Eliquis #9. Severe ischemic cardiomyopathy with EF of less than 20% #10. History of mitral valve replacement with a bioprosthetic valve #11. Hypertension Plan: Continue current ventilator settings, blood cultures urine culture sputum cultur es have been sent, patient has been given IV fluids, sodium bicarb, hyperkalemia was treated, and this morning's potassium is down to 5.8. Cardiology is following, echocardiogram is pending, dobutamine is being added. Remains in A. fib with a better controlled rate. This morning's chest x-ray has been reviewed showing pulmonary edema with pleural effusions. GI and DVT prophylaxis. We spoke to the patient's [id number] who is the next of kin, patient's spouse is also in the intensive care unit critically ill on mechanical ventilator. After speaking to the patient's next of kin it was decided that the CODE STATUS is going to be DO NOT RESUSCITATE but we'll continue supportive treatment at this time. In view of multiple comorbidities, recent history of cardiopulmonary arrest, severe ischemic cardiomyopathy, prognosis is very guarded. We'll continue to supportively treat the patient I performed a history & physical examination of the patient and discussed their management with my nurse practitioner, Misa Dunn. I reviewed the nurse practitioner's note and agree with the documented findings and plan of care. Lung sounds are positive for diminished breath sounds. The findings and the impression was discussed with the patient. I attest to the documentation by the nurse practitioner. Time with Patient: Greater than 30
[2020-02-01] MEDS: METOPROLOL TARTRATE 25 MG TAB PO SCH ×3 (09:49→21:24)
[2020-02-01] MEDS: AMIODARONE 300 MG in DEXTROSE 5% IN WATER 250 ML IV SCH ×6 (09:49→21:32)
[2020-02-01] MEDS: PARoxetine 10 MG TAB PO SCH (09:49)
[2020-02-01] MEDS: APIXABAN 5 MG TAB PO SCH ×2 (09:49→21:22)
--- NOTE | 2020-02-01 09:56 | PN ---
PROGRESS NOTE Mr. Bailey is a 69-year-old male who was admitted yesterday with symptoms of progressive dyspnea, was noted to be in atrial fibrillation with rapid ventricular response, has a known history of cardiomyopathy and status post mitral valve surgery, during the night he became more dyspneic with obtunded requiring mechanical ventilation. He is intubated and sedated in the ICU. He continues to be in atrial fibrillation. He has required vasopressors to maintain his blood pressure. He was in the hospital in November of this year and at that time underwent an echocardiogram that showed an ejection fraction less than 20% with a mitral valve replacement and mild to moderate mitral regurgitation. He had evidence of moderate pulmonary hypertension. He was in atrial fibrillation at this time. He has been followed by Dr. Chichi Eldridge in the past. His past history is remarkable for the mitral valve replacement, and he had elevated NT proBNP during his admission in November. He was started on Entresto at that time as well anticoagulated. At the time of his presentation this time he was supposed to be on Entresto 24-26 twice a day, Lopressor 50 mg twice a day, Lasix 20 mg twice a day, and Eliquis 5 mg twice a day. REVIEW OF SYSTEMS: Could not be obtained. PHYSICAL EXAMINATION: He is a 69-year-old male, intubated, sedated. Blood pressure running in the high 90s with a heart rate in the 70s. HEAD: Normocephalic. EYES: Sclerae nonicteric. NECK: Good upstroke, no bruit. LUNGS: Clear to auscultation anteriorly. HEART: Irregular, regular, S1, S2. No S3 with systolic murmur at the base and a holosystolic murmur in the apex. No diastolic murmur. ABDOMEN: Soft, positive bowel sounds, no organomegaly. EXTREMITIES: No edema. LAB DATA: Revealed on presentation hemoglobin 12.9, white blood cell of 5.5 his BUN and creatinine was 21 and 1.24. His troponin 0.058, 0.054. NT proBNP was 22,200, which is identical in November. His troponin peaked at 0.062. His potassium early this morning was 7.1, his BUN and creatinine 22 and 1.8. His plasma lactic acid venous was up to 12.9. His potassium is 5.1 today. His BUN and creatinine 25 and 1.79. His urine output is poor. His plasma lactic acid is down to 7. His EKG reveals an atrial fibrillation with rapid ventricular response and nonspecific ST-T wave changes. His chest x-ray reveals an enlarged heart with cardiomegaly and evidence of congestive heart failure. He had venous Doppler study of the lower extremities that was negative for PE. IMPRESSION: 1. Respiratory failure with evidence of congestive heart failure with systolic dysfunction, chronic. 2. Status post mitral valve replacement. 3. Chronic persistent atrial fibrillation. 4. Acute tubular necrosis with acute kidney injury. 5. Hypotension. RECOMMENDATION: Patient is maintained on IV amiodarone to control his ventricular response. The elevation of the troponin does not reflect an acute ischemic event and is related to his respiratory distress. Patient is maintained on norepinephrine to maintain his blood pressure. Will continue on the present therapy and supportive care. Will follow his renal function closely. The prognosis is guarded. I will repeat his echocardiogram to make sure there is no change in his valvular structures. Depending on his progress, further recommendation will be made. MMODL / IJN: [id number] /
--- NOTE | 2020-02-01 10:54 | XR ---
EXAMINATION TYPE: XR chest 1V portable DATE OF EXAM: 02/01/2020 COMPARISON: Prior chest x-ray same dated earlier time HISTORY: Central line placement TECHNIQUE: Single frontal view of the chest is obtained. FINDINGS: There is been interval placement of a left subclavian central venous catheter, distal tip is within the right atrium. There is no pneumothorax. No other significant interval change. IMPRESSION: No evident complication status post central venous catheter placement.
[2020-02-01] MEDS: IPRATROPIUM-ALBUTEROL 3 ML NEB INHALATION SCH ×4 (11:21→23:37)
[2020-02-01] MEDS: PANTOPRAZOLE 40 MG/10 ML VIAL IVP SCH (11:34)
[2020-02-01 12:01] LABS: Potassium 6.1 mmol/L (3.5-5.1)
[2020-02-01 12:01] LABS: Glucose,Whole Blood 84 mg/dL (75-99)
[2020-02-01] MEDS ORDERED: FUROSEMIDE 10 MG/ML 10 ML VIAL IV STA (13:05)
--- NOTE | 2020-02-01 13:55 | P.PN ---
Subjective 69-year-old male was admitted yesterday with atrial fibrillation and was in heart failure exacerbation patient was initially given Cardizem IV fluids which was subsequently discontinuedthe patient was subsequently started on amiodarone patient blood pressure was low by the time and the blood pressure dropped even more and patient became more hypoxic Lasix was ordered but patient didn't receive any Lasix because of a low blood pressure. Patient progressively became hypoxic acidotic with lactic acidosis decreased organ perfusion from heart fail ure. Patient was subsequently transferred to ICU was given IV fluids because of hypotension and lactic acidosis. Patient was subsequently intubated because of worsening pulmonary edema. Patient had pH of 7.27 and acute hypoxic respiratory failure requiring intubation overnight patient coded became bradycardic patient was started on dobutamine drip which was subsequently switched to Levophed pat ient was given bicarbonate infusion. Patient is presently intubated sedated with a FiO2 of 50% PEEP of 5 continued pulmonary edema on the chest x-ray. Patient is presently on amiodarone drip, propofol drip, Levothroid drip. Patient also also had altered mental status and became encephalopathy because of metabolic and toxic encephalopathy review of systems: Unable to obtain due to his clinical condition All inpatient medications were reviewed and appropriate changes in these medications as dictated in the interval history and assessment and plan. Objective - Vital Signs Vital signs: Vital Signs Temp 99.1 F 02/01/20 12:00 Pulse 69 02/01/20 13:15 Resp 20 02/01/20 13:15 BP 78/47 02/01/20 13:15 Pulse Ox 97 02/01/20 13:15 Intake & Output 01/31/20 02/01/20 02/01/20 18:59 06:59 18:59 Intake Total 18 595.659 764.653 Output Total 110 15 Balance 18 485.659 749.653 Weight 69.626 kg 72.1 kg 72.1 kg Intake: IV 375 150 Sodium Chloride 0.9% 1, 375 150 000 ml @ 75 mls/hr IV . [id number] JESSIKA Rx#:[id number] Intake, IV Titration 18 220.659 614.653 Amount Amiodarone 300 mg In 82.083 167.917 Dextrose 5% in Water 250 ml @ 0.5 MG/MIN 25 mls/hr IV .Q10H JESSIKA Rx#: [id number] Calcium Gluconate 1 gm In 100 Sodium Chloride 0.9% 100 ml @ 100 mls/hr IVPB ONCE ONE Rx#:[id number] Diltiazem 125 mg In 18 Sodium Chloride 0.9% 100 ml @ 5 MG/HR 5 mls/hr IV .Q24H JESSIKA Rx#:[id number] Empty Bag 1 bag @ 20 MCG/ 5.152 94.848 KG/MIN 8.355 mls/hr IV . [id number] JESSIKA with Propofol 1,000 mg Rx#:[id number] Norepinephrine 4 mg In 33.424 351.888 Sodium Chloride 0.9% 250 ml @ 0.05 MCG/KG/MIN 13. 264 mls/hr IV .Q19H9M JESSIKA Rx#:[id number] Output: Urine 110 15 Other: Voiding Method Indwelling Catheter Indwelling Catheter # Bowel Movements 1 ABP, PAP, CO, CI - Last Documented Arterial Blood Pressure 112/63 - Exam PHYSICAL EXAMINATION: GENERAL: patient is intubated sedated with the above-mentioned vent settings HEENT: Pupils are round and equally reacting to light. EOMI. No scleral icterus. No conjunctival pallor. Normocephalic, atraumatic. No pharyngeal erythema. No thyromegaly. CARDIOVASCULAR: S1 and S2 present. No murmurs, rubs, or gallops. history of elevated JVD PULMONARY: Chest is clear to auscultation, no wheezing or crackles. ABDOMEN: Soft, nontender, nondistended, normoactive bowel sounds. No palpable organomegaly. MUSCULOSKELETAL: No joint swelling or deformity. EXTREMITIES: No cyanosis, clubbing, or pedal edema. NEUROLOGICAL: unable to assess. SKIN: No rashes. - Labs CBC & Chem 7: 02/01/20 02:35 02/01/20 11:32 Labs: Abnormal Lab Results - Last 24 Hours (Table) 01/31/20 01/31/20 01/31/20 Range/Units 16:46 16:46 19:59 MCV (80.0-100.0) fL MCHC (31.0-37.0) g/dL Plt Count (150-450) k/uL Lymphocytes # (1.0-4.8) k/uL Metamyelocytes # (Man) (0) k/uL D-Dimer 2.08 H (<0.60) mg/L FEU ABG pH (7.35-7.45) ABG pCO2 (35-45) mmHg ABG pO2 (83-108) mmHg ABG HCO3 (21-25) mmol/L ABG Total CO2 (19-24) mmol/L ABG O2 Saturation (94-97) % Potassium (3.5-5.1) mmol/L Chloride (98-107) mmol/L Carbon Dioxide (22-30) mmol/L BUN (9-20) mg/dL Creatinine (0.66-1.25) mg/dL Glucose (74-99) mg/dL POC Glucose (mg/dL) 127 H (75-99) mg/dL Plasma Lactic Acid Blake (0.7-2.0) mmol/L Phosphorus (2.5-4.5) mg/dL Magnesium (1.6-2.3) mg/dL Troponin I 0.054 H* (0.000-0.034) ng/mL Urine Protein (Negative) Urine Blood (Negative) Ur Leukocyte Esterase (Negative) Urine RBC (0-5) /hpf Urine WBC (0-5) /hpf Amorphous Sediment (None) /hpf Urine Bacteria (None) /hpf Hyaline Casts (0-2) /lpf Urine Mucus (None) /hpf 01/31/20 01/31/20 01/31/20 Range/Units 20:08 20:27 20:27 MCV (80.0-100.0) fL MCHC 30.8 L (31.0-37.0) g/dL Plt Count 112 L (150-450) k/uL Lymphocytes # 0.7 L (1.0-4.8) k/uL Metamyelocytes # (Man) (0) k/uL D-Dimer (<0.60) mg/L FEU ABG pH 7.27 L (7.35-7.45) ABG pCO2 26 L (35-45) mmHg ABG pO2 157 H (83-108) mmHg ABG HCO3 12 L (21-25) mmol/L ABG Total CO2 13 L (19-24) mmol/L ABG O2 Saturation 98.9 H (94-97) % Potassium 5.8 H (3.5-5.1) mmol/L Chloride 110 H (98-107) mmol/L Carbon Dioxide 15 L (22-30) mmol/L BUN (9-20) mg/dL Creatinine 1.51 H (0.66-1.25) mg/dL Glucose 146 H (74-99) mg/dL POC Glucose (mg/dL) (75-99) mg/dL Plasma Lactic Acid Blake (0.7-2.0) mmol/L Phosphorus (2.5-4.5) mg/dL Magnesium (1.6-2.3) mg/dL Troponin I (0.000-0.034) ng/mL Urine Protein (Negative) Urine Blood (Negative) Ur Leukocyte Esterase (Negative) Urine RBC (0-5) /hpf Urine WBC (0-5) /hpf Amorphous Sediment (None) /hpf Urine Bacteria (None) /hpf Hyaline Casts (0-2) /lpf Urine Mucus (None) /hpf 01/31/20 01/31/20 01/31/20 Range/Units 20:30 22:51 23:33 MCV (80.0-100.0) fL MCHC (31.0-37.0) g/dL Plt Count (150-450) k/uL Lymphocytes # (1.0-4.8) k/uL Metamyelocytes # (Man) (0) k/uL D-Dimer (<0.60) mg/L FEU ABG pH (7.35-7.45) ABG pCO2 (35-45) mmHg ABG pO2 (83-108) mmHg ABG HCO3 (21-25) mmol/L ABG Total CO2 (19-24) mmol/L ABG O2 Saturation (94-97) % Potassium (3.5-5.1) mmol/L Chloride (98-107) mmol/L Carbon Dioxide (22-30) mmol/L BUN (9-20) mg/dL Creatinine (0.66-1.25) mg/dL Glucose (74-99) mg/dL POC Glucose (mg/dL) (75-99) mg/dL Plasma Lactic Acid Blake 5.3 H* 9.1 H* (0.7-2.0) mmol/L Phosphorus (2.5-4.5) mg/dL Magnesium (1.6-2.3) mg/dL Troponin I 0.062 H* (0.000-0.034) ng/mL Urine Protein (Negative) Urine Blood (Negative) Ur Leukocyte Esterase (Negative) Urine RBC (0-5) /hpf Urine WBC (0-5) /hpf Amorphous Sediment (None) /hpf Urine Bacteria (None) /hpf Hyaline Casts (0-2) /lpf Urine Mucus (None) /hpf 02/01/20 02/01/20 02/01/20 Range/Units 01:58 02:14 02:35 MCV (80.0-100.0) fL MCHC (31.0-37.0) g/dL Plt Count (150-450) k/uL Lymphocytes # (1.0-4.8) k/uL Metamyelocytes # (Man) (0) k/uL D-Dimer (<0.60) mg/L FEU ABG pH (7.35-7.45) ABG pCO2 (35-45) mmHg ABG pO2 (83-108) mmHg ABG HCO3 (21-25) mmol/L ABG Total CO2 (19-24) mmol/L ABG O2 Saturation (94-97) % Potassium (3.5-5.1) mmol/L Chloride (98-107) mmol/L Carbon Dioxide (22-30) mmol/L BUN (9-20) mg/dL Creatinine (0.66-1.25) mg/dL Glucose (74-99) mg/dL POC Glucose (mg/dL) 52 L 129 H (75-99) mg/dL Plasma Lactic Acid Blake 12.9 H* (0.7-2.0) mmol/L Phosphorus (2.5-4.5) mg/dL Magnesium (1.6-2.3) mg/dL Troponin I (0.000-0.034) ng/mL Urine Protein (Negative) Urine Blood (Negative) Ur Leukocyte Esterase (Negative) Urine RBC (0-5) /hpf Urine WBC (0-5) /hpf Amorphous Sediment (None) /hpf Urine Bacteria (None) /hpf Hyaline Casts (0-2) /lpf Urine Mucus (None) /hpf 02/01/20 02/01/20 02/01/20 Range/Units 02:35 02:35 03:04 MCV 100.1 H (80.0-100.0) fL MCHC 29.5 L (31.0-37.0) g/dL Plt Count 83 L (150-450) k/uL Lymphocytes # (1.0-4.8) k/uL Metamyelocytes # (Man) 0.18 H (0) k/uL D-Dimer (<0.60) mg/L FEU ABG pH 7.21 L (7.35-7.45) ABG pCO2 32 L (35-45) mmHg ABG pO2 219 H (83-108) mmHg ABG HCO3 13 L (21-25) mmol/L ABG Total CO2 14 L (19-24) mmol/L ABG O2 Saturation 99.0 H (94-97) % Potassium 7.1 H* (3.5-5.1) mmol/L Chloride 111 H (98-107) mmol/L Carbon Dioxide 13 L (22-30) mmol/L BUN 22 H (9-20) mg/dL Creatinine 1.80 H (0.66-1.25) mg/dL Glucose 120 H (74-99) mg/dL POC Glucose (mg/dL) (75-99) mg/dL Plasma Lactic Acid Blake (0.7-2.0) mmol/L Phosphorus 6.8 H (2.5-4.5) mg/dL Magnesium 2.5 H (1.6-2.3) mg/dL Troponin I (0.000-0.034) ng/mL Urine Protein (Negative) Urine Blood (Negative) Ur Leukocyte Esterase (Negative) Urine RBC (0-5) /hpf Urine WBC (0-5) /hpf Amorphous Sediment (None) /hpf Urine Bacteria (None) /hpf Hyaline Casts (0-2) /lpf Urine Mucus (None) /hpf 02/01/20 02/01/20 02/01/20 Range/Units 04:20 05:30 06:36 MCV (80.0-100.0) fL MCHC (31.0-37.0) g/dL Plt Count (150-450) k/uL Lymphocytes # (1.0-4.8) k/uL Metamyelocytes # (Man) (0) k/uL D-Dimer (<0.60) mg/L FEU ABG pH 7.28 L (7.35-7.45) ABG pCO2 33 L (35-45) mmHg ABG pO2 138 H (83-108) mmHg ABG HCO3 16 L (21-25) mmol/L ABG Total CO2 17 L (19-24) mmol/L ABG O2 Saturation 98.0 H (94-97) % Potassium (3.5-5.1) mmol/L Chloride 109 H (98-107) mmol/L Carbon Dioxide 19 L (22-30) mmol/L BUN 25 H (9-20) mg/dL Creatinine 1.79 H (0.66-1.25) mg/dL Glucose 162 H (74-99) mg/dL POC Glucose (mg/dL) (75-99) mg/dL Plasma Lactic Acid Blake (0.7-2.0) mmol/L Phosphorus (2.5-4.5) mg/dL Magnesium (1.6-2.3) mg/dL Troponin I (0.000-0.034) ng/mL Urine Protein 1+ H (Negative) Urine Blood Large H (Negative) Ur Leukocyte Esterase Trace H (Negative) Urine RBC 73 H (0-5) /hpf Urine WBC 12 H (0-5) /hpf Amorphous Sediment Rare H (None) /hpf Urine Bacteria Rare H (None) /hpf Hyaline Casts 34 H (0-2) /lpf Urine Mucus Rare H (None) /hpf 02/01/20 02/01/20 02/01/20 Range/Units 06:36 07:01 11:32 MCV (80.0-100.0) fL MCHC (31.0-37.0) g/dL Plt Count (150-450) k/uL Lymphocytes # (1.0-4.8) k/uL Metamyelocytes # (Man) (0) k/uL D-Dimer (<0.60) mg/L FEU ABG pH (7.35-7.45) ABG pCO2 (35-45) mmHg ABG pO2 (83-108) mmHg ABG HCO3 (21-25) mmol/L ABG Total CO2 (19-24) mmol/L ABG O2 Saturation (94-97) % Potassium 6.1 H* (3.5-5.1) mmol/L Chloride 109 H (98-107) mmol/L Carbon Dioxide (22-30) mmol/L BUN (9-20) mg/dL Creatinine (0.66-1.25) mg/dL Glucose (74-99) mg/dL POC Glucose (mg/dL) 159 H (75-99) mg/dL Plasma Lactic Acid Blake 7.0 H* (0.7-2.0) mmol/L Phosphorus (2.5-4.5) mg/dL Magnesium (1.6-2.3) mg/dL Troponin I (0.000-0.034) ng/mL Urine Protein (Negative) Urine Blood (Negative) Ur Leukocyte Esterase (Negative) Urine RBC (0-5) /hpf Urine WBC (0-5) /hpf Amorphous Sediment (None) /hpf Urine Bacteria (None) /hpf Hyaline Casts (0-2) /lpf Urine Mucus (None) /hpf Microbiology - Last 24 Hours (Table) 02/01/20 05:30 Urine Culture - Preliminary Urine,Clean Catch 02/01/20 03:28 Sputum Culture - Preliminary Sputum Assessment and Plan Plan: -acute hypoxic respiratory failure secondary to cut his heart failure exacerbation continued for above-mentioned settings patient cannot tolerate Lasix at this time -Cardiac shock patient is on Levophed which will be continued for now patient urine output is still not great -Acute renal failure secondary to acute tubular necrosis and prerenal azotemia from heart failure -Lactic acidosis secondary to decreased organ perfusion because of severe heart failure -Atrial fibrillation with rapid unclear rate: presently rate controlled on amiodarone patient is being continued on Eliquis.patient has chronic A. fib -Congestive heart failure chronic systolic dysfunction with acute exacerbation: Patient will be given Lasix once his heart rate is better controlled and if his blood pressure can tolerate,Entresto will be held now as his blood pressure is borderline. -Mildly elevated troponin without any chest pain secondary to heart failure exacerbation - Depression
[2020-02-01] MEDS: NOREPINEPHRINE 8 MG in SODIUM CHLORIDE 0.9% 250 ML IV SCH (15:05)
--- NOTE | 2020-02-01 16:51 | CONS ---
CONSULTATION REASON FOR CONSULT: Renal failure. HISTORY OF PRESENT ILLNESS: The patient is a 69-year-old male who was admitted to the hospital yesterday with complaints of weakness. The patient was dizzy. He was found to be in atrial fibrillation with RVR with heart rate in the 140s. The patient was hypotensive and was brought into the ICU yesterday and he subsequently coded early this morning about 3 a.m. On labs, patient was noted to have a potassium of 7.1, which was treated with IV medications. The patient's Levophed has been increasing. He is currently on the vent, quite hypotensive. Lactic acid was 7. All cultures have been sent out. Patient has been started on empiric antibiotics. 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 SOCIAL HISTORY: Negative for smoking, drug abuse or alcohol abuse. MEDICATIONS: Medications prior to admission included Lasix, Lopressor, Paxil, Entresto, Eliquis. ALLERGIES: ALLERGIES include PENICILLIN, which causes rash and hives. PHYSICAL EXAMINATION: Patient is currently sedated. He is on the vent, maintained on Diprivan. Levophed is at about 20 mcg/minute. FiO2 is 50%. Urine output is poor, at about 10-15 mL/hour. Currently patient is maintained on amiodarone drip and a bicarb drip. He has also been started on dobutamine. He remains on Levophed. There is trace edema noted. Currently patient is having an A-line placed. No significant output noted from the NG tube. PROCESSING TECHNICIAN exam cannot be performed. LABS: Sodium 138, potassium 5.1, chloride 109. CO2 is 19. BUN 25, creatinine 1.79. Plasma lactic acid was 7. ASSESSMENT: 1. Acute kidney injury, ischemic acute tubular necrosis, currently oliguric with profound hypotension, status post cardiopulmonary arrest. 2. Hyperkalemia associated with acute kidney injury, status post IV treatment. We will repeat a set of electrolytes. Continue with the bicarb drip. If patient remains hyperkalemic, he may need dialysis; however, given his profound hypotension, he may not be a candidate for renal replacement therapy. 3. Status post cardiac arrest. 4. Atrial fibrillation with rapid ventricular response. 5. Hypotension post cardiac arrest. Rule out sepsis. 6. Lactic acidosis from hypotension and cardiopulmonary arrest. PLAN: Repeat electrolytes. Lasix IV x1. If patient remains oliguric and has persistent hyperkalemia, patient is a poor candidate for renal replacement therapy. Continue to avoid nephrotoxic agents. Thank you for this consultation. We will continue to follow the patient with you during his hospitalization. SHAW / PATRICIO: [id number] /
--- NOTE | 2020-02-01 17:28 | PCN ---
PROCEDURE NOTE PROCEDURE: Right femoral arterial line placement. PREOPERATIVE DIAGNOSIS: Cardiogenic shock, acute hypoxic respiratory failure, cardiac arrest. POSTOPERATIVE DIAGNOSIS: Cardiogenic shock, acute hypoxic respiratory failure, cardiac arrest. INDICATIONS: Hemodynamic monitoring. PROCEDURE DESCRIPTION: A time-out was completed verifying correct patient, procedure, site, positioning, and implant(s) or special equipment if applicable. Jean Marie's test was performed to ensure adequate perfusion. The patient's right groin was prepped and draped in sterile fashion. 1% Lidocaine was used to anesthetize the area. An 18G Arrow arterial line was introduced into the femoral artery. The catheter was threaded over the guide wire and the needle was removed with appropriate pulsatile blood return. Blood loss was minimal. The catheter was then sutured in place to the skin and a sterile dressing applied. Perfusion to the extremity distal to the point of catheter insertion was checked and found to be adequate. The patient tolerated the procedure very well and there were no immediate complications. Good waveform was noted. Catheter was flushed. Sterile dressing was applied by the nursing staff, and line was sutured in place prior to dressing application. MMODL / IJN: [id number] /
[2020-02-01 17:53] LABS: Glucose,Whole Blood 81 mg/dL (75-99)
--- NOTE | 2020-02-01 18:01 | PCN ---
PROCEDURE NOTE PROCEDURE: Left subclavian triple-lumen catheter placement. PREOPERATIVE DIAGNOSIS: Administration of fluids and pressors. POSTOPERATIVE DIAGNOSIS: Administration of fluids and pressors. OPERATORS: 1. Eugenio Black M.D. 2. Kriss Dunn. PROCEDURE DESCRIPTION: There was informed consent. There was universal timeout. Correct patient, procedure, site, positioning, and implant(s) or special equipment if applicable were verified. The patient was placed in a dependent position appropriate for triple-lumen catheter placement based on the vein to be cannulated. The patient's left neck was prepped and draped in sterile fashion. 1% Lidocaine was used to anesthetize the surrounding skin area. A triple-lumen 9F Cordis catheter was introduced into the left subclavian vein using Seldinger technique. The catheter was threaded smoothly over the guide wire and there was good blood return from all three ports. Each lumen of the catheter was evacuated of air and flushed with sterile saline. The catheter was then sutured in place to the skin and a sterile dressing applied. Perfusion to the extremity distal to the point of catheter insertion was checked and found to be adequate. The patient tolerated the procedure well. The tip of the catheter was seen in the right atrium. A chest x-ray was ordered. The catheter was sutured in place. Sterile dressing was applied by the nurse. There was no immediate complication. MMODL / IJN: [id number] /
[2020-02-01] MEDS: CHLORHEXIDINE GLUCONATE 15 ML CUP MUCOUS MEM SCH (21:22)
[2020-02-02 00:44] LABS: Glucose,Whole Blood 91 mg/dL (75-99)
[2020-02-02] MEDS: NOREPINEPHRINE 8 MG in SODIUM CHLORIDE 0.9% 250 ML IV SCH ×2 (01:11→04:24)
[2020-02-02] MEDS: EMPTY BAG 1 BAG with PROPOFOL 1,000 MG IV SCH ×3 (02:18→17:26)
[2020-02-02] MEDS: IPRATROPIUM-ALBUTEROL 3 ML NEB INHALATION SCH ×6 (03:33→23:21)
[2020-02-02 05:27] LABS: Basophils # (A) 0.1 k/uL (0-0.2); Basophils % (A) 1 %; Eosinophils # (A) 0.2 k/uL (0-0.7); Eosinophils % (A) 2 %; HCT 45.6 % (39.0-53.0); HGB 14.3 gm/dL (13.0-17.5); Lymphocytes # (A) 0.9 k/uL (1.0-4.8); Lymphocytes % (A) 9 %; MCH 27.9 pg (25.0-35.0); MCHC 31.3 g/dL (31.0-37.0); Mean Platelet Volume 9.4; Monocytes # (A) 0.4 k/uL (0-1.0); Monocytes % (A) 4 %; Neutrophils # (A) 8.3 k/uL (1.3-7.7); Neutrophils % (A) 84 %; Platelet Count 120 k/uL (150-450); RBC 5.12 m/uL (4.30-5.90); RDW 15.8 % (11.5-15.5); WBC 9.8 k/uL (3.8-10.6)
[2020-02-02 05:29] LABS: ABG Base Excess 2.9 mmol/L; ABG HCO3 26 mmol/L (21-25); ABG Oxygen Saturation 96.9 % (94-97); ABG PCO2 33 mmHg (35-45); ABG PO2 90 mmHg (83-108); ABG TCO2 27 mmol/L (19-24); Allen Test Performed? Yes
[2020-02-02 05:46] LABS: Glucose,Whole Blood 117 mg/dL (75-99)
[2020-02-02 05:47] LABS: Calcium 8.3 mg/dL (8.4-10.2); MCV 89.2 fL (80.0-100.0)
[2020-02-02] MEDS: DOBUTamine DRIP 500 MG in DEXTROSE/WATER 1 250ML.BAG IV SCH (07:35)
[2020-02-02] MEDS: AMIODARONE 300 MG in DEXTROSE 5% IN WATER 250 ML IV SCH ×2 (07:35)
[2020-02-02] MEDS: DEXTROSE 5% IN WATER 1,000 ML with SODIUM BICARB (1 MEQ/ML) 150 ML IV SCH (08:07)
[2020-02-02] MEDS: METOPROLOL TARTRATE 50 MG TAB PO SCH ×2 (08:10→20:26)
[2020-02-02] MEDS: CHLORHEXIDINE GLUCONATE 15 ML CUP MUCOUS MEM SCH ×2 (08:10→20:26)
[2020-02-02] MEDS: PANTOPRAZOLE 40 MG/10 ML VIAL IVP SCH (08:10)
[2020-02-02] MEDS: AMIODARONE 200 MG TAB PO SCH ×2 (08:10→20:26)
[2020-02-02] MEDS: APIXABAN 5 MG TAB PO SCH ×2 (08:10→20:26)
[2020-02-02] MEDS: PARoxetine 10 MG TAB PO SCH (08:11)
--- NOTE | 2020-02-02 08:13 | XR ---
EXAMINATION TYPE: XR chest 1V portable DATE OF EXAM: 02/02/2020 COMPARISON: Prior chest x-ray 02/01/2020 HISTORY: Intubated, shortness of breath TECHNIQUE: Single frontal view of the chest is obtained. FINDINGS: Endotracheal tube, NG tube, left subclavian central venous catheter are overlying appropri ate positions. Patient is post median sternotomy. Heart remains enlarged. Bibasilar increased attenua tion is noted. There is no pneumothorax. Biapical pleural thickening is stable. Aorta is dense. There are overlying cardiac leads. Perihilar vascular indistinctness is noted. IMPRESSION: Correlate for congestive heart failure, basilar effusions and probable associated edema or atelectasis, pneumonia not excluded.
--- NOTE | 2020-02-02 08:27 | P.PN ---
Subjective Progress Note Date: 02/02/20 Principal diagnosis: Dyspnea, hypoxemia, A. fib RVR, cardiac arrest 69-year-old white male patient Of Dr. Rogers, with past medical history valvular heart disease with previous history of a bioprosthetic mitral valve replacement, history of atrial fibrillation on Eliquis, chronic systolic congestive heart failure on Entresto, with EF of less than 20%, chronic kidney disease stage III at baseline, who presented to the hospital yesterday on 01/31/2020 with symptoms of lightheadedness. Patient's is currently in the hospital, in the intensive care unit, critically ill. She was experiencing some palpitations in the chest discomfort over last couple of days. EMS brought the patient to the hospital and he was given some fluid boluses in the ambulance and was feeling b marisol at the time. EKG showed atrial fibrillation with RVR with a rate of 140 in the ambulance, orthostatic blood pressures were negative. Chest x-ray showed cardiomegaly and increased interstitial density and a small bilateral pleural effusions with adjacent atelectasis. Initial labs showed a white count of 5.5, hemoglobin of 12.9, d-dimer was 2.08, sodium is 139, potassium 5.1, chloride is 110, CO2 is 21, B1 is 21 creatinine is 1.24, troponins were positive at 0.058, 0.062, proBNP was 22,200. Urinalysis showed trace leuks, rare bacteria, and platelet cells at 12, coronavirus PCR was negative. Lower extremity Doppler of the left leg was negative for DVT. he was started on amiodarone drip, and was admitted to selective care. Last night rapid response team was called with concerns for acute hypoxia, patient's pulse ox was 78, requiring additional oxygen, patient was in persistent A. fib with RVR. Blood gases were obtained showing pO2 of 157, pCO2 of 26, and pH of 7.27 this was done on FiO2 of 100%. Blood work showed a sodium of 137, potassium is 5.8, worsening renal profile w ith BUN of 20 and creatinine of 1.51, plasma lactic acid was found to be elevated at 5.3. Patient was given a liter bolus and IV fluids, patient was started on bicarbonate infusion, however his condition continued to deteriorate, and patient was transferred to the intensive care unit for further monitoring and treatment. Continue to be tachypneic, restless, with acute mental status changes, elevated lactic acid, oliguric, hypothermic. Blood cultures were obtained and sent, Lasix was held, Levaphed was started. She did baseline EF is less than 20%, patient was already given a fluid bolus and his IV fluids were infusing at a rate of 1:30 ML per hour. At 2:00 in the morning patient suffered a cardiac arrest, he did require brief CPR and one round of epinephrine with return of spontaneous circulation, patient was emergently intubated and placed on mechanical ventilator. Currently on assist control mode of ventilation with a rate of 20, tidal volume is 450, FiO2 is 50% and PEEP of 5, this morning his blood gases showed a pO2 of 138, pCO2 of 33, and pH of 7.28, patient was given additional amps of sodium bicarbonate. Current IVs include amiodarone at a rate of 0.5 mg/m, Levothroid is at 21 mics per minute, Diprivan is a 30 mics per kilo per minute. This morning's temp is 98, patient was on the warmer overnight. Patient's condition is critical, patient's is also in this ICU on mechanical ventilator, the next of kin is patient's [id number] who spoke to this morning, and there are no children and no other relatives. Cardiology is following, echocardiogram has been ordered, cultures have been ordered and sent. On 02/02/2020 patient seen in follow-up in the intensive care unit, remains sedated, intubated on mechanical ventilator with current vent settings of assist control with a rate of 20, tidal and was 450, FiO2 60%, and PEEP of 5, this morning's blood gases reveal pO2 of 90, pCO2 33, and pH of 7.5. Patient still remains on bicarbonate infusion in D5 W with 3 A of sodium bicarb at a rate of 75 ML per hour which will be discontinued this morning, to prevent is at 25 mics per kilo per minute, amiodarone at 0.5 mg/m, and levo fed is at 14.4 mics per minute. No other drips. Remains in A. fib with a rate of 98-114 BPM. Hypothermia has resolved, and patient actually is having a low-grade fever this morning with at 99.7F temperature. He is a pressor requirement is down. This morning blood work has been reviewed showing white blood cell count of 9.8, hemoglobin of 14.3, sodium of 134, the rest of the electrolytes are within normal limits, renal profile were sent, with BUN of 35 and creatinine of 2.05. Blood, sputum and urine cultures have been sent, and are pending at this time, blood culture has shown no growth to date, sputum Gram stain showed no organisms. Today's chest x-ray has been reviewed showing enlarged heart, bibasilar increased attenuation possibly related to pulmonary edema or atelectasis. Tube feedings been started with the Nepro at 10 mL an hour. Unfortunately patient's last night. Objective - Vital Signs Vital signs: Vital Signs Temp 99.7 F H 02/02/20 04:00 Pulse 101 H 02/02/20 08:02 Resp 0 L 02/02/20 07:00 BP 96/71 02/02/20 07:00 Pulse Ox 96 02/02/20 07:00 Intake & Output 02/01/20 02/02/20 02/02/20 18:59 06:59 18:59 Intake Total 5023.610 3761.347 85 Output Total 418 951 90 Balance 1423.140 545.347 -5 Weight 72.1 kg Intake: IV 825 225 Sodium Chloride 0.9% 1, 825 225 000 ml @ 75 mls/hr IV . [id number] JESSIKA Rx#:[id number] Intake, IV Titration 7088.123 7166.347 75 Amount Amiodarone 300 mg In 167.917 Dextrose 5% in Water 250 ml @ 0.5 MG/MIN 25 mls/hr IV .Q10H JESSIKA Rx#: [id number] DOBUTamine DRIP 500 mg In 102.786 Dextrose/Water 1 250ml. bag @ 2.5 MCG/KG/MIN 5. 222 mls/hr IV .Q24H JESSIKA Rx#:[id number] Dextrose 5% in Water 1, 675 75 000 ml @ 75 mls/hr IV . [id number] JESSIKA with Sodium Bicarb (1 Meq/ml) 150 ml Rx#:[id number] Empty Bag 1 bag @ 20 MCG/ 163.673 88.078 KG/MIN 8.355 mls/hr IV . [id number] JESSIKA with Propofol 1,000 mg Rx#:[id number] Norepinephrine 4 mg In 557.034 Sodium Chloride 0.9% 250 ml @ 0.05 MCG/KG/MIN 13. 264 mls/hr IV .Q19H9M JESSIKA Rx#:[id number] Norepinephrine 8 mg In 127.516 285.483 Sodium Chloride 0.9% 250 ml @ 0.05 MCG/KG/MIN 6. 976 mls/hr IV .Q24H JESSIKA Rx#:[id number] Tube Feeding 120 10 Output: Urine 418 951 90 Other: Voiding Method Indwelling Catheter Indwelling Catheter # Bowel Movements 1 ABP, PAP, CO, CI - Last Documented Arterial Blood Pressure 118/62 - Exam GENERAL EXAM: Sedated, intubated, 69-year-old frail-looking white male, on assist control mode of ventilation, with FiO2 of 50%, comfortable in no apparent distress. HEAD: Normocephalic/atraumatic. EYES: Normal reaction of pupils, equal size. Conjunctiva pink, sclera white. NOSE: Clear with pink turbinates. THROAT: No erythema or exudates. NECK: No masses, no JVD, no thyroid enlargement, no adenopathy. CHEST: No chest wall deformity. Symmetrical expansion. LUNGS: Equal air entry with no crackles, wheeze, rhonchi or dullness. CVS: Irregular rate and rhythm, normal S1 and S2, no gallops, no murmurs, no rubs ABDOMEN: Soft, nontender. No hepatosplenomegaly, normal bowel sounds, no guarding or rigidity. EXTREMITIES: No clubbing, no edema, no cyanosis, 2+ pulses and upper and lower extremities. MUSCULOSKELETAL: Muscle strength and tone normal. SPINE: No scoliosis or deformity SKIN: No rashes CENTRAL NERVOUS SYSTEM: Sedated, intubated No focal deficits, tone is normal in all 4 extremities. - Labs CBC & Chem 7: 02/02/20 05:10 02/02/20 05:10 Labs: Abnormal Lab Results - Last 24 Hours (Table) 02/01/20 02/02/20 02/02/20 Range/Units 11:32 05:10 05:10 RDW 15.8 H (11.5-15.5) % Plt Count 120 L (150-450) k/uL Neutrophils # 8.3 H (1.3-7.7) k/uL Lymphocytes # 0.9 L (1.0-4.8) k/uL ABG pH (7.35-7.45) ABG pCO2 (35-45) mmHg ABG HCO3 (21-25) mmol/L ABG Total CO2 (19-24) mmol/L Sodium 134 L (137-145) mmol/L Potassium 6.1 H* (3.5-5.1) mmol/L Chloride 109 H (98-107) mmol/L BUN 35 H (9-20) mg/dL Creatinine 2.05 H (0.66-1.25) mg/dL Glucose 125 H (74-99) mg/dL POC Glucose (mg/dL) (75-99) mg/dL Calcium 8.3 L (8.4-10.2) mg/dL 02/02/20 02/02/20 Range/Units 05:25 05:45 RDW (11.5-15.5) % Plt Count (150-450) k/uL Neutrophils # (1.3-7.7) k/uL Lymphocytes # (1.0-4.8) k/uL ABG pH 7.50 H (7.35-7.45) ABG pCO2 33 L (35-45) mmHg ABG HCO3 26 H (21-25) mmol/L ABG Total CO2 27 H (19-24) mmol/L Sodium (137-145) mmol/L Potassium (3.5-5.1) mmol/L Chloride (98-107) mmol/L BUN (9-20) mg/dL Creatinine (0.66-1.25) mg/dL Glucose (74-99) mg/dL POC Glucose (mg/dL) 117 H (75-99) mg/dL Calcium (8.4-10.2) mg/dL Microbiology - Last 24 Hours (Table) 01/31/20 23:27 Blood Culture - Preliminary Blood No Growth after 24 hours 02/01/20 03:28 Gram Stain - Preliminary Sputum Sputum Culture - Preliminary 02/01/20 05:30 Urine Culture - Preliminary Urine,Clean Catch Assessment and Plan Plan: Assessment: #1. Acute cardiopulmonary arrest related to acute hypoxic respiratory failure, requiring ACLS with return of spontaneous circulation, and requiring placement on mechanical ventilator #2. Hypotension likely related to cardiogenic shock #3. Acute exacerbation of chronic systolic congestive heart failure #4. A. fib with RVR #5. Lactic acidosis, possibly related to acute systolic CHF, rule out infectious etiology, cultures have been sent and pending. Patient has been afebrile, no leukocytosis #6. Acute on chronic kidney failure related to ATN #7. Hyperkalemia related to severe metabolic acidosis, improved #8. Chronic A. fib on Eliquis #9. Severe ischemic cardiomyopathy with EF of less than 20% #10. History of mitral valve replacement with a bioprosthetic valve #11. Hypertension Plan: We'll discontinue bicarbonate infusion, the patient on 0.9 normal saline at a rate of 75 ML per hour, proceed with a daily interruption of sedation, to assess mental status. Continue anticoagulation, and amiodarone drip per cardiology. His chest x-ray has been reviewed showing bibasilar attenuation likely related to coronary edema, and atelectasis, so far there is no growth on the blood sputum and urine culture. Hypothermia has resolved. Vasopressor requirement is down, continue to wean levofed. Continue nutritional support. Unfortunately patient's spouse last night. We'll continue with supportive treatment, CODE status is DO NOT RESUSCITATE, prognosis is guarded I performed a history & physical examination of the patient and discussed their management with my nurse practitioner, Misa Dunn. I reviewed the nurse practitioner's note and agree with the documented findings and plan of care. Lung sounds are positive for diminished breath sounds. The findings and the impression was discussed with the patient. I attest to the documentation by the nurse practitioner. Time with Patient: Greater than 30
--- NOTE | 2020-02-02 09:32 | PN ---
PROGRESS NOTE Mr. Bailey is a 69-year-old male with known history of atrial fibrillation, mitral valve replacement, history of severe cardiomyopathy who presented with progressive dyspnea on exertion and evidence of congestive heart failure. He has been intubated and sedated. He has been followed by Dr. Chichi Eldridge in the past. His most recent echocardiogram in November revealed ejection fraction of less than 20%. He continues to be in atrial fibrillation with episode of rapid ventricular response. He has no ventricular ectopic activity and no pauses. He continues to be on Eliquis 5 mg twice a day. He is on IV amiodarone. He is on dobutamine 2.5 mcg/kg per minute, metoprolol tartrate 25 mg 3 times a day. PHYSICAL EXAMINATION: Blood pressure 118/60 with a heart rate in the 90s. LUNGS: Clear to auscultation anteriorly. HEART: Irregular, regular. S1, S2. No S3 with a systolic murmur in the apex. No diastolic murmur, no rub. ABDOMEN: Soft, positive bowel sounds, no organomegaly. EXTREMITIES: No significant edema. LAB DATA: Revealed evidence of fluid overload. IMPRESSION: 1. Post cardiopulmonary arrest with respiratory distress and with symptoms of congestive heart failure in a patient with known history of severe cardiomyopathy and mitral valve replacement. 2. Chronic atrial fibrillation. 3. Status post mitral valve replacement. 4. Acute tubular necrosis with worsening renal function. 5. Hyperkalemia, resolved. 6. Hypotension, improved. RECOMMENDATION: I will switch him to oral amiodarone. I will continue IV dobutamine for another 24 hours. Will follow his renal function closely and continue on anticoagulation and depending on his progress, further recommendation will be made. MMODL / IJN: [id number] /
--- NOTE | 2020-02-02 10:34 | ECHOF ---
Referral Reason:mvr MEASUREMENTS -------- HEIGHT: 182.9 cm WEIGHT: 71.7 kg BP: 93/58 RVIDd: 5.9 cm (< 3.3) IVSd: 1.2 cm (0.6 - 1.1) LVIDd: 5.1 cm (3.9 - 5.3) LVPWd: 1.2 cm (0.6 - 1.1) IVSs: 1.4 cm LVIDs: 5.0 cm LVPWs: 1.2 cm LAESV Index (A-L): 44.06 ml/m Ao Diam: 2.8 cm (2.0 - 3.7) AV Cusp: 1.6 cm (1.5 - 2.6) RAP: 5.00 mmHg RVSP: 27.07 mmHg FINDINGS -------- Atrial fibrillation. This was a technically adequate study. Pt. on a vent. Cardiac Arrest. Overall left ventricular systolic function is severely impaired with, an EF < 20%. The right ventricle is severely enlarged. LA is severely dilated >40 ml/m2 The right atrium is moderately enlarged. Interatrial and interventricular septum intact. The aortic valve is trileaflet and appears structurally normal. Trace amount of aortic regurgitatio n. There is no evidence of aortic stenosis. MV Repair. Severe tricuspid regurgitation present. Unable to estimate RVSP due to inadequate TR jet spectral d oppler profile. There is no pulmonic regurgitation present. The aortic root size is normal. IVC Not well visulized. There is no pericardial effusion. Large Pleural Effusion. CONCLUSIONS -------- 1. Atrial fibrillation. 2. This was a technically adequate study. 3. Pt. on a vent. 4. Cardiac Arrest. 5. Overall left ventricular systolic function is severely impaired with, an EF < 20%. 6. The right ventricle is severely enlarged. 7. LA is severely dilated >40 ml/m2 8. The right atrium is moderately enlarged. 9. Interatrial and interventricular septum intact. 10. The aortic valve is trileaflet and appears structurally normal. 11. Trace amount of aortic regurgitation. 12. There is no evidence of aortic stenosis. 13. MV Repair. 14. Severe tricuspid regurgitation present. 15. Unable to estimate RVSP due to inadequate TR jet spectral doppler profile. 16. There is no pulmonic regurgitation present. 17. The aortic root size is normal. 18. IVC Not well visulized. 19. There is no pericardial effusion. 20. Large Pleural Effusion. UNDERWRITING TECHNICIAN: Jennyfer Bradley RDCS
[2020-02-02 12:06] LABS: Glucose,Whole Blood 96 mg/dL (75-99)
[2020-02-02] MEDS: SODIUM CHLORIDE 0.9% 1,000 ML IV SCH ×2 (13:33→22:04)
--- NOTE | 2020-02-02 13:46 | P.PN ---
Subjective 69-year-old male was admitted yesterday with atrial fibrillation and was in heart failure exacerbation patient was initially given Cardizem IV fluids which was subsequently discontinuedthe patient was subsequently started on amiodarone patient blood pressure was low by the time and the blood pressure dropped even more and patient became more hypoxic Lasix was ordered but patient didn't receive any Lasix because of a low blood pressure. Patient progressively became hypoxic acidotic with lactic acidosis decreased organ perfusion from heart fail ure. Patient was subsequently transferred to ICU was given IV fluids because of hypotension and lactic acidosis. Patient was subsequently intubated because of worsening pulmonary edema. Patient had pH of 7.27 and acute hypoxic respiratory failure requiring intubation overnight patient coded became bradycardic patient was started on dobutamine drip which was subsequently switched to Levophed pat ient was given bicarbonate infusion. Patient is presently intubated sedated with a FiO2 of 50% PEEP of 5 continued pulmonary edema on the chest x-ray. Patient is presently on amiodarone drip, propofol drip, Levothroid drip. Patient also also had altered mental status and became encephalopathy because of metabolic and toxic encephalopathy. 02/02/2020 Patient remains intubated, his urine output is getting better patient received 1 dose of Lasix patient Levothroid dose has come down patient amiodarone drip was changed to oral patient had episodes of tachycardia. Metabolic acidosis resolved but patient is bit alkalotic today patient's symptoms are him is 134 serum creatinine went up to 2.05, patient had a fever of 100.5. We'll obtain blood culture, one peripherally and one central line patient's IV fluids were switched to normal saline and bicarbonate drip. review of systems: Unable to obtain due to his clinical condition All inpatient medications were reviewed and appropriate changes in these medications as dictated in the interval history and assessment and plan. Objective - Vital Signs Vital signs: Vital Signs Temp 100.5 F H 02/02/20 12:00 Pulse 123 H 02/02/20 13:30 Resp 20 02/02/20 13:30 BP 95/74 02/02/20 13:00 Pulse Ox 98 02/02/20 13:30 Intake & Output 02/01/20 02/02/20 02/02/20 18:59 06:59 18:59 Intake Total 3694.434 2557.347 1024.999 Output Total 418 951 710 Balance 1423.140 545.347 314.999 Weight 72.1 kg 72.1 kg Intake: IV 825 225 450 Sodium Chloride 0.9% 1, 825 225 000 ml @ 75 mls/hr IV . [id number] JESSIKA Rx#:[id number] Sodium Chloride 0.9% 1, 450 000 ml @ 75 mls/hr IV . [id number] JESSIKA Rx#:[id number] Intake, IV Titration 6879.740 2619.347 364.999 Amount Amiodarone 300 mg In 167.917 Dextrose 5% in Water 250 ml @ 0.5 MG/MIN 25 mls/hr IV .Q10H JESSIKA Rx#: [id number] DOBUTamine DRIP 500 mg In 102.786 Dextrose/Water 1 250ml. bag @ 2.5 MCG/KG/MIN 5. 222 mls/hr IV .Q24H JESSIKA Rx#:[id number] Dextrose 5% in Water 1, 675 75 000 ml @ 75 mls/hr IV . [id number] JESSIKA with Sodium Bicarb (1 Meq/ml) 150 ml Rx#:[id number] Empty Bag 1 bag @ 20 MCG/ 163.673 88.078 99.704 KG/MIN 8.355 mls/hr IV . [id number] JESSIKA with Propofol 1,000 mg Rx#:[id number] Norepinephrine 4 mg In 557.034 Sodium Chloride 0.9% 250 ml @ 0.05 MCG/KG/MIN 13. 264 mls/hr IV .Q19H9M JESSIKA Rx#:[id number] Norepinephrine 8 mg In 127.516 285.483 190.295 Sodium Chloride 0.9% 250 ml @ 0.05 MCG/KG/MIN 6. 976 mls/hr IV .Q24H JESSIKA Rx#:[id number] Tube Feeding 120 120 Other 90 Output: Urine 418 951 710 Other: Voiding Method Indwelling Catheter Indwelling Catheter Indwelling Catheter # Bowel Movements 1 ABP, PAP, CO, CI - Last Documented Arterial Blood Pressure 80/58 - Exam PHYSICAL EXAMINATION: GENERAL: patient is intubated sedated with the above-mentioned vent settings HEENT: Pupils are round and equally reacting to light. EOMI. No scleral icterus. No conjunctival pallor. Normocephalic, atraumatic. No pharyngeal erythema. No thyromegaly. CARDIOVASCULAR: S1 and S2 present. No murmurs, rubs, or gallops. history of elevated JVD PULMONARY: Chest is clear to auscultation, no wheezing or crackles. ABDOMEN: Soft, nontender, nondistended, normoactive bowel sounds. No palpable organomegaly. MUSCULOSKELETAL: No joint swelling or deformity. EXTREMITIES: No cyanosis, clubbing, or pedal edema. NEUROLOGICAL: unable to assess. SKIN: No rashes. - Labs CBC & Chem 7: 02/02/20 05:10 02/02/20 05:10 Labs: Abnormal Lab Results - Last 24 Hours (Table) 02/02/20 02/02/20 02/02/20 Range/Units 05:10 05:10 05:25 RDW 15.8 H (11.5-15.5) % Plt Count 120 L (150-450) k/uL Neutrophils # 8.3 H (1.3-7.7) k/uL Lymphocytes # 0.9 L (1.0-4.8) k/uL ABG pH 7.50 H (7.35-7.45) ABG pCO2 33 L (35-45) mmHg ABG HCO3 26 H (21-25) mmol/L ABG Total CO2 27 H (19-24) mmol/L Sodium 134 L (137-145) mmol/L BUN 35 H (9-20) mg/dL Creatinine 2.05 H (0.66-1.25) mg/dL Glucose 125 H (74-99) mg/dL POC Glucose (mg/dL) (75-99) mg/dL Calcium 8.3 L (8.4-10.2) mg/dL 02/02/20 Range/Units 05:45 RDW (11.5-15.5) % Plt Count (150-450) k/uL Neutrophils # (1.3-7.7) k/uL Lymphocytes # (1.0-4.8) k/uL ABG pH (7.35-7.45) ABG pCO2 (35-45) mmHg ABG HCO3 (21-25) mmol/L ABG Total CO2 (19-24) mmol/L Sodium (137-145) mmol/L BUN (9-20) mg/dL Creatinine (0.66-1.25) mg/dL Glucose (74-99) mg/dL POC Glucose (mg/dL) 117 H (75-99) mg/dL Calcium (8.4-10.2) mg/dL Microbiology - Last 24 Hours (Table) 02/01/20 05:30 Urine Culture - Final Urine,Clean Catch 01/31/20 23:27 Blood Culture - Preliminary Blood No Growth after 24 hours 02/01/20 03:28 Gram Stain - Preliminary Sputum Sputum Culture - Preliminary Assessment and Plan Plan: -acute hypoxic respiratory failure secondary to cut his heart failure exacerbation continued for above-mentioned settings patient cannot tolerate Lasix at this time, is getting acne Lasix on as-needed basis. -Fever will obtain blood cultures 1 from the central line and one from the periphery -All close both metabolic from bicarbonate and respiratory from ventilatory support -Cardiac shock patient is on Levophed which will be continued for now patient urine output is still not great -Acute renal failure secondary to acute tubular necrosis and prerenal azotemia from heart failure -Lactic acidosis secondary to decreased organ perfusion because of severe heart failure, improved -Atrial fibrillation with rapid unclear rate: presently rate controlled on amiodarone patient is being continued on Eliquis.patient has chronic A. fib -Congestive heart failure chronic systolic dysfunction with acute exacerbation: Patient will be given Lasix once his heart rate is better controlled and if his blood pressure can tolerate,Entresto will be held now as his blood pressure is borderline. -Mildly elevated troponin without any chest pain secondary to heart failure exacerbation - Depression
--- NOTE | 2020-02-02 13:53 | PN ---
PROGRESS NOTE Patient is seen for followup for acute kidney injury. The patient's urine output responded to IV Lasix yesterday and he has continued to have urine output of about 100 mL an hour. He is currently off the bicarb drip as CO2 was 27. Levophed has also been decreased significantly. The patient remains on the vent, FiO2 at 50%. PHYSICAL EXAMINATION: Patient is sedated, sedation is currently being weaned down. Blood pressure this morning was 128/59, heart rate of 120 per minute, patient is afebrile. Examination of the heart S1, S2. Examination of the lungs, decreased breath sounds at the bases. Abdomen is soft. Examination of the lower extremities shows no significant edema. CARDIOVASCULAR LAB DIRECTOR exam cannot be assessed. Temperature was 100.5 degrees Fahrenheit. LABS: Show sodium of 134, potassium 4.0, chloride 102, CO2 is 27, BUN 35, creatinine 2.05, hemoglobin of 14.3 g/dL. ASSESSMENT: 1. Acute kidney injury, ischemic acute tubular necrosis, nonoliguric now. Urine output improved after IV Lasix x1. Will continue with the IV fluids for now. 2. Severe metabolic acidosis, status post cardiac arrest, currently improved. IV bicarb has been discontinued. 3. Acute hypoxic respiratory failure. Patient remains on the vent. 4. Cardiomyopathy, ejection fraction less than 20%. 5. Status post cardiac arrest. PLAN: Continue off bicarb drip. Continue with IV fluids, repeat labs in a.m. MMPATRICEL / KATHERINEN: [id number] /
[2020-02-02 18:04] LABS: Glucose,Whole Blood 115 mg/dL (75-99)
[2020-02-02 23:46] LABS: Glucose,Whole Blood 114 mg/dL (75-99)
[2020-02-03] MEDS: EMPTY BAG 1 BAG with PROPOFOL 1,000 MG IV SCH ×3 (01:05→17:24)
[2020-02-03] MEDS: NOREPINEPHRINE 8 MG in SODIUM CHLORIDE 0.9% 250 ML IV SCH ×2 (01:05→14:15)
[2020-02-03] MEDS: IPRATROPIUM-ALBUTEROL 3 ML NEB INHALATION SCH ×6 (03:13→23:06)
[2020-02-03 05:04] LABS: ABG Base Excess 4.5 mmol/L; ABG HCO3 28 mmol/L (21-25); ABG PCO2 37 mmHg (35-45); ABG PH 7.49 (7.35-7.45); ABG PO2 66 mmHg (83-108); ABG TCO2 29 mmol/L (19-24); Allen Test Performed? Yes
[2020-02-03 05:27] LABS: Calcium 7.8 mg/dL (8.4-10.2); Potassium 3.2 mmol/L (3.5-5.1)
[2020-02-03 05:38] LABS: Basophils % (A) 0 %; Eosinophils # (A) 0.1 k/uL (0-0.7); Eosinophils % (A) 1 %; HCT 44.9 % (39.0-53.0); HGB 14.5 gm/dL (13.0-17.5); Lymphocytes # (A) 0.5 k/uL (1.0-4.8); Lymphocytes % (A) 6 %; MCH 29.1 pg (25.0-35.0); MCHC 32.3 g/dL (31.0-37.0); MCV 89.9 fL (80.0-100.0); Mean Platelet Volume 8.7; Monocytes # (A) 0.2 k/uL (0-1.0); Monocytes % (A) 3 %; Neutrophils # (A) 7.7 k/uL (1.3-7.7); Neutrophils % (A) 89 %; Platelet Count 115 k/uL (150-450); RBC 4.99 m/uL (4.30-5.90); RDW 15.7 % (11.5-15.5); WBC 8.7 k/uL (3.8-10.6)
[2020-02-03 05:56] LABS: Glucose,Whole Blood 109 mg/dL (75-99)
[2020-02-03] MEDS: POTASSIUM BICARBONATE/CIT AC 20 MEQ TABLET.EFF NG-TUBE SCH ×2 (07:05→09:00)
--- NOTE | 2020-02-03 08:38 | XR ---
EXAMINATION TYPE: XR chest 1V portable DATE OF EXAM: 02/03/2020 COMPARISON: Prior chest x-ray 02/02/2020 HISTORY: Intubated TECHNIQUE: Single frontal view of the chest is obtained. FINDINGS: Endotracheal tube and NG tube, left subclavian central venous catheter are overlying appro priate positions. Biapical pleural thickening is stable. Patient is post median sternotomy. Pleural p arenchymal changes are not significantly changed. There are overlying cardiac leads. Aorta is dense. Patient is rotated. Interstitium is increased. There is no pneumothorax. IMPRESSION: Correlate for congestive heart failure, pneumonia not excluded
[2020-02-03] MEDS: AMIODARONE 200 MG TAB PO SCH ×2 (09:00→21:31)
[2020-02-03] MEDS: METOPROLOL TARTRATE 50 MG TAB PO SCH ×2 (09:00→21:31)
[2020-02-03] MEDS: CHLORHEXIDINE GLUCONATE 15 ML CUP MUCOUS MEM SCH ×2 (09:00→21:31)
[2020-02-03] MEDS: PARoxetine 10 MG TAB PO SCH (09:00)
[2020-02-03] MEDS: APIXABAN 5 MG TAB PO SCH ×2 (09:00→21:31)
[2020-02-03] MEDS: PANTOPRAZOLE 40 MG/10 ML VIAL IVP SCH (09:00)
--- NOTE | 2020-02-03 09:12 | P.PN ---
Subjective Progress Note Date: 02/03/20 Principal diagnosis: Dyspnea, hypoxemia, A. fib RVR, cardiac arrest 69-year-old white male patient Of Dr. Rogers, with past medical history valvular heart disease with previous history of a bioprosthetic mitral valve replacement, history of atrial fibrillation on Eliquis, chronic systolic congestive heart failure on Entresto, with EF of less than 20%, chronic kidney disease stage III at baseline, who presented to the hospital yesterday on 01/31/2020 with symptoms of lightheadedness. Patient's is currently in the hospital, in the intensive care unit, critically ill. She was experiencing some palpitations in the chest discomfort over last couple of days. EMS brought the patient to the hospital and he was given some fluid boluses in the ambulance and was feeling b marisol at the time. EKG showed atrial fibrillation with RVR with a rate of 140 in the ambulance, orthostatic blood pressures were negative. Chest x-ray showed cardiomegaly and increased interstitial density and a small bilateral pleural effusions with adjacent atelectasis. Initial labs showed a white count of 5.5, hemoglobin of 12.9, d-dimer was 2.08, sodium is 139, potassium 5.1, chloride is 110, CO2 is 21, B1 is 21 creatinine is 1.24, troponins were positive at 0.058, 0.062, proBNP was 22,200. Urinalysis showed trace leuks, rare bacteria, and platelet cells at 12, coronavirus PCR was negative. Lower extremity Doppler of the left leg was negative for DVT. he was started on amiodarone drip, and was admitted to selective care. Last night rapid response team was called with concerns for acute hypoxia, patient's pulse ox was 78, requiring additional oxygen, patient was in persistent A. fib with RVR. Blood gases were obtained showing pO2 of 157, pCO2 of 26, and pH of 7.27 this was done on FiO2 of 100%. Blood work showed a sodium of 137, potassium is 5.8, worsening renal profile w ith BUN of 20 and creatinine of 1.51, plasma lactic acid was found to be elevated at 5.3. Patient was given a liter bolus and IV fluids, patient was started on bicarbonate infusion, however his condition continued to deteriorate, and patient was transferred to the intensive care unit for further monitoring and treatment. Continue to be tachypneic, restless, with acute mental status changes, elevated lactic acid, oliguric, hypothermic. Blood cultures were obtained and sent, Lasix was held, Levaphed was started. She did baseline EF is less than 20%, patient was already given a fluid bolus and his IV fluids were infusing at a rate of 1:30 ML per hour. At 2:00 in the morning patient suffered a cardiac arrest, he did require brief CPR and one round of epinephrine with return of spontaneous circulation, patient was emergently intubated and placed on mechanical ventilator. Currently on assist control mode of ventilation with a rate of 20, tidal volume is 450, FiO2 is 50% and PEEP of 5, this morning his blood gases showed a pO2 of 138, pCO2 of 33, and pH of 7.28, patient was given additional amps of sodium bicarbonate. Current IVs include amiodarone at a rate of 0.5 mg/m, Levothroid is at 21 mics per minute, Diprivan is a 30 mics per kilo per minute. This morning's temp is 98, patient was on the warmer overnight. Patient's condition is critical, patient's is also in this ICU on mechanical ventilator, the next of kin is patient's [id number] who spoke to this morning, and there are no children and no other relatives. Cardiology is following, echocardiogram has been ordered, cultures have been ordered and sent. On 02/02/2020 patient seen in follow-up in the intensive care unit, remains sedated, intubated on mechanical ventilator with current vent settings of assist control with a rate of 20, tidal and was 450, FiO2 60%, and PEEP of 5, this morning's blood gases reveal pO2 of 90, pCO2 33, and pH of 7.5. Patient still remains on bicarbonate infusion in D5 W with 3 A of sodium bicarb at a rate of 75 ML per hour which will be discontinued this morning, to prevent is at 25 mics per kilo per minute, amiodarone at 0.5 mg/m, and levo fed is at 14.4 mics per minute. No other drips. Remains in A. fib with a rate of 98-114 BPM. Hypothermia has resolved, and patient actually is having a low-grade fever this morning with at 99.7F temperature. He is a pressor requirement is down. This morning blood work has been reviewed showing white blood cell count of 9.8, hemoglobin of 14.3, sodium of 134, the rest of the electrolytes are within normal limits, renal profile were sent, with BUN of 35 and creatinine of 2.05. Blood, sputum and urine cultures have been sent, and are pending at this time, blood culture has shown no growth to date, sputum Gram stain showed no organisms. Today's chest x-ray has been reviewed showing enlarged heart, bibasilar increased attenuation possibly related to pulmonary edema or atelectasis. Tube feedings been started with the Nepro at 10 mL an hour. Unfortunately patient's last night. On 02/03/2020 patient seen in follow-up in the intensive care unit. Remains sedated, on mechanical ventilator, currently on assist-control mode with a rate of 20, tidal lines 450, FiO2 50%, PEEP of 5, this morning his blood gases showed pO2 of 66, pCO2 37, pH of 7.49. We'll discontinue the bicarbonate infusion y esterday. Patient has developed metabolic alkalosis, today's labs have been reviewed showing hypokalemia with potassium of 3.2 which will be corrected per protocol. Yesterday patient was given sedation holiday, he did wake up and open his eyes however did not follow command, and became very anxious and started desaturating and was subsequently re-sedated. Today his vasopressor requirements continue to trend down, levo fed is currently at 13 mics per minute, he is on maintenance IV fluids 0.9 normal saline at a rate 75 ML per hour, Diprivan and is a 25 mics per kilo per minute. He is tolerating tube feedings currently on Nepro at a rate of 30 with a goal of 30. Today's chest x- ray shows changes of congestive heart failure with increased interstitial. She did have fevers last night, with a T-max in last 24 hours of 101F. His blood and sputum and urine cultures showed no growth to date. Today's labs have been reviewed, showing white blood cell count within normal limits at 8.7, hemoglobin of 14.5, sodium of 135, potassium of 3.2, chloride is 105, B1 of 34, and creatinine of 1.37, renal profile seems to be improving. he remains in atrial fibrillation with a rate of 98 BPM. Objective - Vital Signs Vital signs: Vital Signs Temp 99.7 F H 06/18/20 04:00 Pulse 89 02/03/20 07:43 Resp 16 02/03/20 07:00 BP 95/63 02/03/20 07:00 Pulse Ox 96 02/03/20 07:00 Intake & Output 02/02/20 02/03/20 02/03/20 18:59 06:59 18:59 Intake Total 5083.533 5422.126 105 Output Total 1040 596 32 Balance 528.893 879.126 73 Weight 72.1 kg Intake: IV 825 900 75 Sodium Chloride 0.9% 1, 825 900 75 000 ml @ 75 mls/hr IV . [id number] JESSIKA Rx#:[id number] Intake, IV Titration 413.893 95.126 Amount Dextrose 5% in Water 1, 75 000 ml @ 75 mls/hr IV . [id number] JESSIKA with Sodium Bicarb (1 Meq/ml) 150 ml Rx#:[id number] Empty Bag 1 bag @ 20 MCG/ 137.163 95.126 KG/MIN 8.355 mls/hr IV . [id number] JESSIKA with Propofol 1,000 mg Rx#:[id number] Norepinephrine 8 mg In 201.730 Sodium Chloride 0.9% 250 ml @ 0.05 MCG/KG/MIN 6. 976 mls/hr IV .Q24H JESSIKA Rx#:[id number] Tube Feeding 240 480 30 Other 90 Output: Urine 1040 596 32 Other: Voiding Method Indwelling Catheter Indwelling Catheter ABP, PAP, CO, CI - Last Documented Arterial Blood Pressure 118/51 - Exam GENERAL EXAM: Sedated, intubated, 69-year-old frail-looking white male, on assist control mode of ventilation, with FiO2 of 50%, comfortable in no apparent distress. HEAD: Normocephalic/atraumatic. EYES: Normal reaction of pupils, equal size. Conjunctiva pink, sclera white. NOSE: Clear with pink turbinates. THROAT: No erythema or exudates. NECK: No masses, no JVD, no thyroid enlargement, no adenopathy. CHEST: No chest wall deformity. Symmetrical expansion. LUNGS: Equal air entry with no crackles, wheeze, rhonchi or dullness. CVS: Irregular rate and rhythm, normal S1 and S2, no gallops, no murmurs, no rubs ABDOMEN: Soft, nontender. No hepatosplenomegaly, normal bowel sounds, no guarding or rigidity. EXTREMITIES: No clubbing, no edema, no cyanosis, 2+ pulses and upper and lower extremities. MUSCULOSKELETAL: Muscle strength and tone normal. SPINE: No scoliosis or deformity SKIN: No rashes CENTRAL NERVOUS SYSTEM: Sedated, intubated No focal deficits, tone is normal in all 4 extremities. - Labs CBC & Chem 7: 02/03/20 05:00 02/03/20 05:00 Labs: Abnormal Lab Results - Last 24 Hours (Table) 02/02/20 02/02/20 02/03/20 Range/Units 18:02 23:44 05:00 RDW 15.7 H (11.5-15.5) % Plt Count 115 L (150-450) k/uL Lymphocytes # 0.5 L (1.0-4.8) k/uL ABG pH (7.35-7.45) ABG pO2 (83-108) mmHg ABG HCO3 (21-25) mmol/L ABG Total CO2 (19-24) mmol/L ABG O2 Saturation (94-97) % Sodium (137-145) mmol/L Potassium (3.5-5.1) mmol/L BUN (9-20) mg/dL Creatinine (0.66-1.25) mg/dL Glucose (74-99) mg/dL POC Glucose (mg/dL) 115 H 114 H (75-99) mg/dL Calcium (8.4-10.2) mg/dL 02/03/20 02/03/20 02/03/20 Range/Units 05:00 05:03 05:54 RDW (11.5-15.5) % Plt Count (150-450) k/uL Lymphocytes # (1.0-4.8) k/uL ABG pH 7.49 H (7.35-7.45) ABG pO2 66 L (83-108) mmHg ABG HCO3 28 H (21-25) mmol/L ABG Total CO2 29 H (19-24) mmol/L ABG O2 Saturation 93.0 L (94-97) % Sodium 135 L (137-145) mmol/L Potassium 3.2 L (3.5-5.1) mmol/L BUN 34 H (9-20) mg/dL Creatinine 1.37 H (0.66-1.25) mg/dL Glucose 107 H (74-99) mg/dL POC Glucose (mg/dL) 109 H (75-99) mg/dL Calcium 7.8 L (8.4-10.2) mg/dL Microbiology - Last 24 Hours (Table) 01/31/20 23:27 Blood Culture - Preliminary Blood No Growth after 48 hours 02/01/20 05:30 Urine Culture - Final Urine,Clean Catch Assessment and Plan Plan: Assessment: #1. Acute cardiopulmonary arrest related to acute hypoxic respiratory failure, requiring ACLS with return of spontaneous circulation, and requiring placement on mechanical ventilator #2. Hypotension likely related to cardiogenic shock #3. Acute exacerbation of chronic systolic congestive heart failure #4. A. fib with RVR #5. Lactic acidosis, possibly related to acute systolic CHF, rule out i nfectious etiology, cultures have been sent and pending. Patient has been afebrile, no leukocytosis #6. Acute on chronic kidney failure related to ATN #7. Hyperkalemia related to severe metabolic acidosis, improved #8. Chronic A. fib on Eliquis #9. Severe ischemic cardiomyopathy with EF of less than 20% #10. History of mitral valve replacement with a bioprosthetic valve #11. Hypertension Plan: We will give the patient another trial of daily interruption of sedation, to assess mental status. We'll give the patient 1 dose of IV Lasix 40 mg, his chest x-ray shows persistent changes of interstitial edema, we'll obtain ultrasound of the right chest to see if there is a sizable pleural effusion for drainage. Continue nutritional support, continue weaning vasopressor support. Renal profile seems to have improved on today's labs. Patient did have fevers last night, so far all his culture data remains negative. Patient is on oral anticoagulation, managed in A. fib with a controlled rate, cardiology is following, echocardiogram has been reviewed. Continue GI and DVT prophylaxis, CODE STATUS is DO NOT RESUSCITATE, we'll continue supportive treatment. I performed a history & physical examination of the patient and discussed their management with my nurse practitioner, Misa Dunn. I reviewed the nurse practitioner's note and agree with the documented findings and plan of care. Lung sounds are positive for diminished breath sounds. The findings and the impression was discussed with the patient. I attest to the documentation by the nurse practitioner. Time with Patient: Greater than 30
[2020-02-03] MEDS ORDERED: FUROSEMIDE 10 MG/ML 4 ML VIAL IV STA (09:15)
--- NOTE | 2020-02-03 10:37 | PN ---
PROGRESS NOTE Mr. Bailey is a 69-year-old male with known history of mitral valve replacement, history of cardiomyopathy, chronic persistent atrial fibrillation. He has been anticoagulated, presented with symptoms of progressive dyspnea and respiratory failure requiring mechanical ventilation. He remains intubated and sedated. Remains in atrial fibrillation. His ventricular response is a stable after receiving his medication. He had some hypotension requiring norepinephrine. His urine output has been stable. He had hypothermia initially that resolved. He is tolerating tube feeding. Unfortunately his 2 days ago in the ICU. He continues to be at this time on amiodarone 200 mg twice a day, Eliquis 5 mg twice a day, IV dobutamine, metoprolol tartrate 50 mg twice a day. PHYSICAL EXAMINATION: Blood pressure running in the 100 with a heart rate in 90s. LUNGS: Clear to auscultation anteriorly. HEART: Irregular, regular. S1, S2. No S3 with systolic murmur, no diastolic murmur, no rub. ABDOMEN: Soft, positive bowel sounds, no organomegaly. EXTREMITIES: No significant edema. LAB DATA: Chest x-ray revealed an infiltrate at the right lung with fluid overload. White blood cell of 8.7, hemoglobin of 14.5, BUN and creatinine 34 and 1.37, which has improved compared to yesterday. Potassium 3.2. His pH 7.49, pCO2 of 37, PO2 of 66. IMPRESSION: 1. Respiratory failure, on mechanical ventilation with fluid overload and congestive heart failure with systolic dysfunction and possible element of pneumonia. 2. Severe cardiomyopathy. 3. Status post mitral valve replacement. 4. Atrial fibrillation with rapid ventricular response, improved. 5. Acute renal injury, improving. 6. Hypokalemia. RECOMMENDATION: From the cardiac standpoint, will continue with supportive care at this time. Continue on the present medical regimen. Follow his renal function closely. I will continue present dose of amiodarone and metoprolol. Stop his IV dobutamine. Depending on his progress, further recommendation will be made. MMODL / IJN: [id number] /
[2020-02-03] MEDS: SODIUM CHLORIDE 0.9% 1,000 ML IV SCH (10:46)
--- NOTE | 2020-02-03 11:20 | US ---
EXAMINATION TYPE: US chest DATE OF EXAM: 02/03/2020 COMPARISON: xray dated 02/03/2020 CLINICAL HISTORY: US right chest please, rule out pleural effusion. TECHNIQUE: Targeted ultrasound of the posterior lower right hemithorax EXAM MEASUREMENTS: Right Pleural Effusion pocket size: 7.2 cm Right skin surface to fluid distance: 3.0 cm Right side marked for possible thoracentesis outside the dept. Pulmonologists are able to review the images in the patient?s EMR. Limited chest ultrasound. IMPRESSIONS: Right pleural effusion.
[2020-02-03 11:50] LABS: Glucose,Whole Blood 111 mg/dL (75-99)
--- NOTE | 2020-02-03 12:57 | PN ---
PROGRESS NOTE Patient is seen for followup for acute kidney injury. He is currently on the vent. Patient remains intubated. His renal function has improved with creatinine down to 1.37. The patient has had good urine output currently at 30-100 mL an hour. Levophed was considerably lower. Currently maintained on amiodarone at 200 mg b.i.d. PHYSICAL EXAMINATION: Blood pressure is 129/58, heart rate 102 per minute, patient is afebrile. Examination of the heart S1, S2. Examination of the lungs, decreased breath sounds at bases. Bilateral breath sounds are heard. Abdomen is soft. Examination of the lower extremities shows no significant edema. [employer] exam cannot be performed. LABS: Show sodium of 135, potassium 3.2, chloride 105, BUN 34, creatinine 1.37, hemoglobin 14.5 g/dL, calcium 7.8. ASSESSMENT: 1. Acute kidney injury ATN from hypotension, currently improved. 2. Severe metabolic acidosis, now resolved. Patient is status post bicarb drip. 3. Acute hypoxic respiratory failure, currently on the vent. 4. Cardiomyopathy, ejection fraction less than 20%. 5. Atrial fibrillation with controlled ventricular response. PLAN: No changes from nephrology standpoint. I will consider adding regular dose of loop diuretics. Depending on the response to the one time dose of Lasix today as chest x- ray does show increased pulmonary vasculature and suggestion of CHF. MMODL / IJN: [id number] /
[2020-02-03] MEDS: DOBUTamine DRIP 500 MG in DEXTROSE/WATER 1 250ML.BAG IV SCH (13:10)
--- NOTE | 2020-02-03 14:03 | P.PN ---
Subjective 69-year-old male was admitted yesterday with atrial fibrillation and was in heart failure exacerbation patient was initially given Cardizem IV fluids which was subsequently discontinuedthe patient was subsequently started on amiodarone patient blood pressure was low by the time and the blood pressure dropped even more and patient became more hypoxic Lasix was ordered but patient didn't receive any Lasix because of a low blood pressure. Patient progressively became hypoxic acidotic with lactic acidosis decreased organ perfusion from heart fail ure. Patient was subsequently transferred to ICU was given IV fluids because of hypotension and lactic acidosis. Patient was subsequently intubated because of worsening pulmonary edema. Patient had pH of 7.27 and acute hypoxic respiratory failure requiring intubation overnight patient coded became bradycardic patient was started on dobutamine drip which was subsequently switched to Levophed pat ient was given bicarbonate infusion. Patient is presently intubated sedated with a FiO2 of 50% PEEP of 5 continued pulmonary edema on the chest x-ray. Patient is presently on amiodarone drip, propofol drip, Levothroid drip. Patient also also had altered mental status and became encephalopathy because of metabolic and toxic encephalopathy. 02/02/2020 Patient remains intubated, his urine output is getting better patient received 1 dose of Lasix patient Levothroid dose has come down patient amiodarone drip was changed to oral patient had episodes of tachycardia. Metabolic acidosis resolved but patient is bit alkalotic today patient's symptoms are him is 134 serum creatinine went up to 2.05, patient had a fever of 100.5. We'll obtain blood culture, one peripherally and one central line patient's IV fluids were switched to normal saline and bicarbonate drip. 02/03/2020 Patient is on a mechanical ventilator did not undergo weaning trial today. Patient is having good urine output does have mild hyperkalemia which is being corrected patient his Aleve. Patient is receiving Lasix and as-needed basis patient does have significant right-sided pleural effusion.patient had fever last night so far all the cultures are negative. Patient can use to have fever source of fever is not clear how consulted infectious disease will be started on empiric antibiotic cefepime may need vancomycin but I'll with that decision to infectious disease as patient's kidney function is still not great at this time. review of systems: Unable to obtain due to his clinical condition All inpatient medications were reviewed and appropriate changes in these medications as dictated in the interval history and assessment and plan. Objective - Vital Signs Vital signs: Vital Signs Temp 100.1 F H 02/03/20 08:00 Pulse 115 H 02/03/20 13:00 Resp 17 02/03/20 13:00 BP 97/60 02/03/20 11:00 Pulse Ox 99 02/03/20 13:00 Intake & Output 02/02/20 02/03/20 02/03/20 18:59 06:59 18:59 Intake Total 1903.823 3494.126 1101.374 Output Total 1040 596 852 Balance 528.893 879.126 249.374 Weight 72.1 kg 78.8 kg Intake: IV 825 900 315 Sodium Chloride 0.9% 1, 825 900 315 000 ml @ 40 mls/hr IV . Q24H JESSIKA Rx#:[id number] Intake, IV Titration 413.893 95.126 361.374 Amount Dextrose 5% in Water 1, 75 000 ml @ 75 mls/hr IV . [id number] JESSIKA with Sodium Bicarb (1 Meq/ml) 150 ml Rx#:[id number] Empty Bag 1 bag @ 20 MCG/ 137.163 95.126 118.625 KG/MIN 8.355 mls/hr IV . [id number] JESSIKA with Propofol 1,000 mg Rx#:[id number] Norepinephrine 8 mg In 201.730 242.749 Sodium Chloride 0.9% 250 ml @ 0.05 MCG/KG/MIN 6. 976 mls/hr IV .Q24H JESSIKA Rx#:[id number] Tube Feeding 240 480 330 Other 90 95 Output: Urine 1040 596 852 Other: Voiding Method Indwelling Catheter Indwelling Catheter Indwelling Catheter ABP, PAP, CO, CI - Last Documented Arterial Blood Pressure 96/50 - Exam PHYSICAL EXAMINATION: GENERAL: patient is intubated sedated with the above-mentioned vent settings HEENT: Pupils are round and equally reacting to light. EOMI. No scleral icterus. No conjunctival pallor. Normocephalic, atraumatic. No pharyngeal erythema. No th yromegaly. CARDIOVASCULAR: S1 and S2 present. No murmurs, rubs, or gallops. history of elevated JVD PULMONARY: Chest is clear to auscultation, no wheezing or crackles. ABDOMEN: Soft, nontender, nondistended, normoactive bowel sounds. No palpable organomegaly. MUSCULOSKELETAL: No joint swelling or deformity. EXTREMITIES: No cyanosis, clubbing, or pedal edema. NEUROLOGICAL: unable to assess. SKIN: No rashes. - Labs CBC & Chem 7: 02/03/20 05:00 02/03/20 11:30 Labs: Abnormal Lab Results - Last 24 Hours (Table) 02/02/20 02/02/20 02/03/20 Range/Units 18:02 23:44 05:00 RDW 15.7 H (11.5-15.5) % Plt Count 115 L (150-450) k/uL Lymphocytes # 0.5 L (1.0-4.8) k/uL ABG pH (7.35-7.45) ABG pO2 (83-108) mmHg ABG HCO3 (21-25) mmol/L ABG Total CO2 (19-24) mmol/L ABG O2 Saturation (94-97) % Sodium (137-145) mmol/L Potassium (3.5-5.1) mmol/L BUN (9-20) mg/dL Creatinine (0.66-1.25) mg/dL Glucose (74-99) mg/dL POC Glucose (mg/dL) 115 H 114 H (75-99) mg/dL Calcium (8.4-10.2) mg/dL 02/03/20 02/03/20 02/03/20 Range/Units 05:00 05:03 05:54 RDW (11.5-15.5) % Plt Count (150-450) k/uL Lymphocytes # (1.0-4.8) k/uL ABG pH 7.49 H (7.35-7.45) ABG pO2 66 L (83-108) mmHg ABG HCO3 28 H (21-25) mmol/L ABG Total CO2 29 H (19-24) mmol/L ABG O2 Saturation 93.0 L (94-97) % Sodium 135 L (137-145) mmol/L Potassium 3.2 L (3.5-5.1) mmol/L BUN 34 H (9-20) mg/dL Creatinine 1.37 H (0.66-1.25) mg/dL Glucose 107 H (74-99) mg/dL POC Glucose (mg/dL) 109 H (75-99) mg/dL Calcium 7.8 L (8.4-10.2) mg/dL 02/03/20 Range/Units 11:48 RDW (11.5-15.5) % Plt Count (150-450) k/uL Lymphocytes # (1.0-4.8) k/uL ABG pH (7.35-7.45) ABG pO2 (83-108) mmHg ABG HCO3 (21-25) mmol/L ABG Total CO2 (19-24) mmol/L ABG O2 Saturation (94-97) % Sodium (137-145) mmol/L Potassium (3.5-5.1) mmol/L BUN (9-20) mg/dL Creatinine (0.66-1.25) mg/dL Glucose (74-99) mg/dL POC Glucose (mg/dL) 111 H (75-99) mg/dL Calcium (8.4-10.2) mg/dL Microbiology - Last 24 Hours (Table) 02/01/20 03:28 Gram Stain - Final Sputum Sputum Culture - Final 01/31/20 23:27 Blood Culture - Preliminary Blood No Growth after 48 hours 02/01/20 05:30 Urine Culture - Final Urine,Clean Catch Assessment and Plan Plan: -acute hypoxic respiratory failure secondary to cut his heart failure exacerbat ion continued for above-mentioned settings patient cannot tolerate Lasix at this time, is getting acne Lasix on as-needed basis. -Fever will obtain blood cultures 1 from the central line and one from the peripherythese cultures are so far negative patient will be started on empiric cefepime as he continues to have fevers and infectious disease will be consulted -alkalosis metabolic from bicarbonate and respiratory from ventilatory support -Cardiac shock patient is on Levophed which will be continued for now patient urine output is still not great -Acute renal failure secondary to acute tubular necrosis and prerenal azotemia from heart failure -Lactic acidosis secondary to decreased organ perfusion because of severe heart failure, improved -Atrial fibrillation with rapid unclear rate: presently rate controlled on amiodarone patient is being continued on Eliquis.patient has chronic A. fib -Congestive heart failure chronic systolic dysfunction with acute exacerbation: Patient will be given Lasix once his heart rate is better controlled and if his blood pressure can tolerate,Entresto will be held now as his blood pressure is borderline. -Mildly elevated troponin without any chest pain secondary to heart failure exacerbation - Depression
[2020-02-03] MEDS: CEFEPIME 1 GM in SODIUM CHLORIDE 0.9% 50 ML IVPB SCH (17:21)
[2020-02-03 18:01] LABS: Glucose,Whole Blood 116 mg/dL (75-99)
[2020-02-04 00:09] LABS: Glucose,Whole Blood 96 mg/dL (75-99)
[2020-02-04] MEDS: POTASSIUM BICARBONATE/CIT AC 20 MEQ TABLET.EFF NG-TUBE SCH ×4 (00:15→21:29)
[2020-02-04] MEDS: CEFEPIME 1 GM in SODIUM CHLORIDE 0.9% 50 ML IVPB SCH (00:15)
[2020-02-04] MEDS: NOREPINEPHRINE 8 MG in SODIUM CHLORIDE 0.9% 250 ML IV SCH ×3 (01:40→23:34)
[2020-02-04] MEDS: IPRATROPIUM-ALBUTEROL 3 ML NEB INHALATION SCH ×6 (02:47→23:22)
[2020-02-04] MEDS: EMPTY BAG 1 BAG with PROPOFOL 1,000 MG IV SCH ×2 (04:31→17:30)
[2020-02-04] MEDS: SODIUM CHLORIDE 0.9% 1,000 ML IV SCH ×3 (04:32→21:30)
[2020-02-04 04:45] LABS: Anisocytosis Slight; Basophils % (A) 0 %; Eosinophils # (A) 0.1 k/uL (0-0.7); Eosinophils % (A) 1 %; HCT 45.4 % (39.0-53.0); HGB 14.7 gm/dL (13.0-17.5); Hypochromasia Slight; Lymphocytes # (A) 0.5 k/uL (1.0-4.8); Lymphocytes % (A) 6 %; MCH 29.4 pg (25.0-35.0); MCHC 32.3 g/dL (31.0-37.0); MCV 91.1 fL (80.0-100.0); Mean Platelet Volume 8.6; Monocytes # (A) 0.3 k/uL (0-1.0); Monocytes % (A) 3 %; Neutrophils # (A) 7.9 k/uL (1.3-7.7); Neutrophils % (A) 89 %; Platelet Count 114 k/uL (150-450); RBC 4.98 m/uL (4.30-5.90); RDW 16.1 % (11.5-15.5)
[2020-02-04 05:06] LABS: ABG Base Excess 5.2 mmol/L; ABG HCO3 29 mmol/L (21-25); ABG Oxygen Saturation 97.4 % (94-97); ABG PCO2 37 mmHg (35-45); ABG PH 7.49 (7.35-7.45); ABG PO2 92 mmHg (83-108); ABG TCO2 30 mmol/L (19-24)
[2020-02-04 05:09] LABS: Allen Test Performed? no
[2020-02-04 06:16] LABS: Glucose,Whole Blood 104 mg/dL (75-99)
--- NOTE | 2020-02-04 07:50 | P.CONS ---
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 patient on arrival of EMS was noticed to be tachycardic with heart rate 140, the patient did received some fluid boluses and his heart rate improved, on arrival to the ER the patient has been afebrile chest x-ray did not show any consolidation patient was admitted to the floor patient did have a worsening of his symptoms for his ADD was called in and the patient was transferred out of the ICU in the IC the patient did have a cardiac arrest receiving CPR and the patient appeared intubated, patient did spike a fever last night of 101F for the patient did have blood cultures obtained and the patient was started on cefepime 1 g every 8 hours this morning, instructions was consulted for further management of antibiotic therapy and concern for aspiration pneumonitis, patient is currently intubated on the vent and sedated and is unable to wire any history, patient is currently on low-dose pressor support per the RN no significant purulent secretions through the ET and no diarrhea has been reported by nursing staff, patient did have a chest x-ray this morning we did show CHF pneumonia not excluded by the radiologist, patient white count remains to be normal. 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, Past Anesthesia/Blood Transfusion Reactions: No Reported Reaction Past Psychological History: No Psychological Hx Reported Smoking Status: Never smoker Past Alcohol Use History: None Reported Past Drug Use History: None Reported - Past Family History Father Family Medical History: Diabetes Mellitus, Memory Impairment Mother History Unknown: Yes Additional Family Medical History / Comment(s): States she passed from cerberal aneursyn Medications and Allergies Home Medications Medication Instructions Recorded Confirmed Type Apixaban [Eliquis] 5 mg PO BID #30 tab 12/09/19 01/31/20 Rx Furosemide [Lasix] 20 mg PO BID #60 tab 12/09/19 01/31/20 Rx Metoprolol Tartrate [Lopressor] 50 mg PO BID #60 tab 12/09/19 01/31/20 Rx PARoxetine [Paxil] 10 mg PO DAILY #14 tab 12/09/19 01/31/20 Rx Sacubitril/Valsartan [Entresto 24 1 tab PO BID 01/31/20 01/31/20 History mg-26 mg Tablet] Allergies Allergy/AdvReac Type Severity Reaction Status Date / Time Penicillins Allergy Rash/Hives Verified 12/06/19 18:40 Physical Exam Vitals: Vital Signs Temp Pulse Resp BP Pulse Ox 02/03/20 15:17 97 02/03/20 15:09 93 02/03/20 15:00 99 20 99 02/03/20 14:00 90 23 89/61 100 02/03/20 13:00 115 H 17 99 02/03/20 12:00 122 H 33 H 99 02/03/20 11:23 111 H 02/03/20 11:10 107 H 02/03/20 11:00 102 H 19 97/60 94 L 02/03/20 10:30 112 H 20 97/60 97 02/03/20 09:00 92 20 114/74 95 02/03/20 08:00 100.1 F H 102 H 20 90/55 96 02/03/20 07:43 89 02/03/20 07:24 92 02/03/20 07:00 91 16 95/63 96 02/03/20 06:00 80 20 101/61 93 L 02/03/20 05:00 113 H 19 96/69 95 02/03/20 04:00 99.7 F H 105 H 10 L 72/52 98 02/03/20 03:30 97 02/03/20 03:13 103 H 02/03/20 03:00 98 0 L 109/58 99 02/03/20 02:00 88 0 L 110/55 99 02/03/20 01:00 76 0 L 110/61 100 02/03/20 00:00 99.5 F 82 0 L 117/61 100 02/02/20 23:34 84 02/02/20 23:21 82 02/02/20 23:03 77 3 L 117/61 99 02/02/20 23:00 89 3 L 110/65 99 02/02/20 22:08 100 02/02/20 22:00 108 H 8 L 96/62 100 02/02/20 21:00 126 H 21 97/65 100 02/02/20 20:00 101.0 F H 124 H 20 94/60 99 02/02/20 19:40 125 H 02/02/20 19:20 124 H 02/02/20 19:00 124 H 20 98/62 96 02/02/20 18:00 122 H 14 101/66 94 L 02/02/20 17:00 123 H 21 91/64 97 02/02/20 16:00 100.2 F H 115 H 13 89/52 97 Intake and Output 02/03/20 02/03/20 02/03/20 06:59 14:59 22:59 Intake Total 055.281 3514.625 40 Output Total 371 1052 100 Balance 624.126 149.625 -60 Intake: IV 600 355 40 Sodium Chloride 0.9% 1, 600 355 40 000 ml @ 40 mls/hr IV . Q24H JESSIKA Rx#:[id number] Intake, IV Titration 95.126 376.625 Amount Empty Bag 1 bag @ 20 MCG/ 95.126 118.625 KG/MIN 8.355 mls/hr IV . [id number] JESSIKA with Propofol 1,000 mg Rx#:[id number] Norepinephrine 8 mg In 258.000 Sodium Chloride 0.9% 250 ml @ 0.05 MCG/KG/MIN 6. 976 mls/hr IV .Q24H JESSIKA Rx#:[id number] Tube Feeding 300 375 Other 95 Output: Urine 371 1052 100 Other: Voiding Method Indwelling Catheter Indwelling Catheter Weight 78.8 kg 78.8 kg ABP, PAP, CO, CI - Last 8 Hours Arterial Blood Pressure 100/49 Arterial Blood Pressure 88/48 Arterial Blood Pressure 96/50 Arterial Blood Pressure 132/63 Arterial Blood Pressure 129/58 Arterial Blood Pressure 104/59 Arterial Blood Pressure 93/59 Arterial Blood Pressure 99/54 GENERAL DESCRIPTION: Elderly male intubated on the vent, No tachypnea or accessory muscle of respiration use. HEENT: Shows Pallor , no scleral icterus. Oral mucous membrane is dry. NECK: Trachea central, no thyromegaly. LUNGS: Unlabored breathing. Decreased breath sound the bases. No wheeze or crackle. HEART: S1, S2, regular rate and rhythm. No loud murmur ABDOMEN: Soft, no tenderness , guarding or rigidity, no organomegaly EXTREMITIES: No edema of feet. SKIN: No rash, no masses palpable. NEUROLOGICAL: The patient is sedated on the vent Results CBC & Chem 7: 02/04/20 04:30 02/04/20 04:30 Labs: Abnormal Lab Results - Last 24 Hours (Table) 02/02/20 02/02/20 02/03/20 Range/Units 18:02 23:44 05:00 RDW 15.7 H (11.5-15.5) % Plt Count 115 L (150-450) k/uL Lymphocytes # 0.5 L (1.0-4.8) k/uL ABG pH (7.35-7.45) ABG pO2 (83-108) mmHg ABG HCO3 (21-25) mmol/L ABG Total CO2 (19-24) mmol/L ABG O2 Saturation (94-97) % Sodium (137-145) mmol/L Potassium (3.5-5.1) mmol/L BUN (9-20) mg/dL Creatinine (0.66-1.25) mg/dL Glucose (74-99) mg/dL POC Glucose (mg/dL) 115 H 114 H (75-99) mg/dL Calcium (8.4-10.2) mg/dL 02/03/20 02/03/20 02/03/20 Range/Units 05:00 05:03 05:54 RDW (11.5-15.5) % Plt Count (150-450) k/uL Lymphocytes # (1.0-4.8) k/uL ABG pH 7.49 H (7.35-7.45) ABG pO2 66 L (83-108) mmHg ABG HCO3 28 H (21-25) mmol/L ABG Total CO2 29 H (19-24) mmol/L ABG O2 Saturation 93.0 L (94-97) % Sodium 135 L (137-145) mmol/L Potassium 3.2 L (3.5-5.1) mmol/L BUN 34 H (9-20) mg/dL Creatinine 1.37 H (0.66-1.25) mg/dL Glucose 107 H (74-99) mg/dL POC Glucose (mg/dL) 109 H (75-99) mg/dL Calcium 7.8 L (8.4-10.2) mg/dL 02/03/20 Range/Units 11:48 RDW (11.5-15.5) % Plt Count (150-450) k/uL Lymphocytes # (1.0-4.8) k/uL ABG pH (7.35-7.45) ABG pO2 (83-108) mmHg ABG HCO3 (21-25) mmol/L ABG Total CO2 (19-24) mmol/L ABG O2 Saturation (94-97) % Sodium (137-145) mmol/L Potassium (3.5-5.1) mmol/L BUN (9-20) mg/dL Creatinine (0.66-1.25) mg/dL Glucose (74-99) mg/dL POC Glucose (mg/dL) 111 H (75-99) mg/dL Calcium (8.4-10.2) mg/dL Microbiology - Last 24 Hours (Table) 02/01/20 03:28 Gram Stain - Final Sputum Sputum Culture - Final 01/31/20 23:27 Blood Culture - Preliminary Blood No Growth after 48 hours Assessment and Plan Assessment: 1- patient with a fever last night of 101F in this patient who did have a cardiac arrest requiring resuscitation and intubation with concern for possible aspiration pneumonitis and likely from the gram-negative pathogen, as the patient currently do not have any other obvious focus of infection UA was significantly positive abdominal soft with the examination and no evidence of cellulitis 2-Patient with multiple antibiotic ALLERGIES that would limit the number of antibiotic safe to use (1) Fever Current Visit: Yes Status: Acute Code(s): R50.9 - FEVER, UNSPECIFIED SNOMED Code(s): 101738123 (2) Aspiration pneumonitis Current Visit: Yes Status: Acute Code(s): J69.0 - PNEUMONITIS DUE TO INHALATION OF FOOD AND VOMIT SNOMED Code(s): 905900181 (3) Penicillin allergy Current Visit: Yes Status: Acute Code(s): Z88.0 - ALLERGY STATUS TO PENICILLIN SNOMED Code(s): 17309055 Plan: 1- obtain sputum for Gram stain and culture 2- adjust dose of cefepime to 2 g every 12 hours 3- We will follow on clinical condition and cultures to further adjust medication if needed Thank you for this consultation will follow this patient with you Time with Patient: Greater than 30
--- NOTE | 2020-02-04 08:57 | P.PN ---
Subjective Progress Note Date: 02/04/20 Principal diagnosis: Dyspnea, hypoxemia, A. fib with RVR, cardiac arrest 69-year-old white male patient Of Dr. Rogers, with past medical history valvular heart disease with previous history of a bioprosthetic mitral valve replacement, history of atrial fibrillation on Eliquis, chronic systolic congestive heart failure on Entresto, with EF of less than 20%, chronic kidney disease stage III at baseline, who presented to the hospital yesterday on 01/31/2020 with symptoms of lightheadedness. Patient's is currently in the hospital, in the intensive care unit, critically ill. She was experiencing some palpitations in the chest discomfort over last couple of days. EMS brought the patient to the hospital and he was given some fluid boluses in the ambulance and was feeling better at the time. EKG showed atrial fibrillation with RVR with a rate of 140 in the ambulance, orthostatic blood pressures were negative. Chest x-ray showed cardiomegaly and increased interstitial density and a small bilateral pleural effusions with adjacent atelectasis. Initial labs showed a white count of 5.5, hemoglobin of 12.9, d-dimer was 2.08, sodium is 139, potassium 5.1, chloride is 110, CO2 is 21, B1 is 21 creatinine is 1.24, troponins were positive at 0.058, 0.062, proBNP was 22,200. Urinalysis showed trace leuks, rare bacteria, and platelet cells at 12, coronavirus PCR was negative. Lower extremity Doppler of the left leg was negative for DVT. he was started on amiodarone drip, and was admitted to selective care. Last night rapid response team was called with concerns for acute hypoxia, patient's pulse ox was 78, requiring additional oxygen, patient was in persistent A. fib with RVR. Blood gases were obtained showing pO2 of 157, pCO2 of 26, and pH of 7.27 this was done on FiO2 of 100%. Blood work showed a sodium of 137, potassium is 5.8, worsening renal profile with BUN of 20 and creatinine of 1.51, plasma lactic acid was found to be elevated at 5.3. Patient was given a liter bolus and IV fluids, patient was started on bicarbonate infusion, however his condition continued to deteriorate, and patient was transferred to the intensive care unit for further monitoring and treatment. Continue to be tachypneic, restless, with acute mental status changes, elevated lactic acid, oliguric, hypothermic. Blood cultures were obtained and sent, Lasix was held, Levaphed was started. She did baseline EF is less than 20%, patient was already given a fluid bolus and his IV fluids were infusing at a rate of 1:30 ML per hour. At 2:00 in the morning patient suffered a cardiac arrest, he did require brief CPR and one round of epinephrine with return of spontaneous circulation, patient was emergently intubated and placed on mechanical ventilator. Currently on assist control mode of ventilation with a rate of 20, tidal volume is 450, FiO2 is 50% and PEEP of 5, this morning his blood gases showed a pO2 of 138, pCO2 of 33, and pH of 7.28, patient was given additional amps of sodium bicarbonate. Current IVs include amiodarone at a rate of 0.5 mg/m, Levothroid is at 21 mics per minute, Diprivan is a 30 mics per kilo per minute. This morning's temp is 98, patient was on the warmer overnight. Patient's condition is critical, patient's is also in this ICU on mechanical ventilator, the next of kin is patient's [id number] who spoke to this morning, and there are no children and no other relatives. Cardiology is following, echocardiogram has been ordered, cultures have been ordered and sent. On 02/02/2020 patient seen in follow-up in the intensive care unit, remains sedated, intubated on mechanical ventilator with current vent settings of assist control with a rate of 20, tidal and was 450, FiO2 60%, and PEEP of 5, this morning's blood gases reveal pO2 of 90, pCO2 33, and pH of 7.5. Patient still remains on bicarbonate infusion in D5 W with 3 A of sodium bicarb at a rate of 75 ML per hour which will be discontinued this morning, to prevent is at 25 mics per kilo per minute, amiodarone at 0.5 mg/m, and levo fed is at 14.4 mics per minute. No other drips. Remains in A. fib with a rate of 98-114 BPM. Hypothermia has resolved, and patient actually is having a low-grade fever this morning with at 99.7F temperature. He is a pressor requirement is down. This morning blood work has been reviewed showing white blood cell count of 9.8, hemoglobin of 14.3, sodium of 134, the rest of the electrolytes are within normal limits, renal profile were sent, with BUN of 35 and creatinine of 2.05. Blood, sputum and urine cultures have been sent, and are pending at this time, blood culture has shown no growth to date, sputum Gram stain showed no organisms. Today's chest x-ray has been reviewed showing enlarged heart, bibasilar increased attenuation possibly related to pulmonary edema or atelectasis. Tube feedings been started with the Nepro at 10 mL an hour. Unfortunately patient's last night. On 02/03/2020 patient seen in follow-up in the intensive care unit. Remains sedated, on mechanical ventilator, currently on assist-control mode with a rate of 20, tidal lines 450, FiO2 50%, PEEP of 5, this morning his blood gases showed pO2 of 66, pCO2 37, pH of 7.49. We'll discontinue the bicarbonate infusion yesterday. Patient has developed metabolic alkalosis, today's labs have been reviewed showing hypokalemia with potassium of 3.2 which will be corrected per protocol. Yesterday patient was given sedation holiday, he did wake up and open his eyes however did not follow command, and became very anxious and started desaturating and was subsequently re-sedated. Today his vasopressor requirements continue to trend down, levo fed is currently at 13 mics per minute, he is on maintenance IV fluids 0.9 normal saline at a rate 75 ML per hour, Diprivan and is a 25 mics per kilo per minute. He is tolerating tube feedings currently on Nepro at a rate of 30 with a goal of 30. Today's chest x- ray shows changes of congestive heart failure with increased interstitial. She did have fevers last night, with a T-max in last 24 hours of 101F. His blood and sputum and urine cultures showed no growth to date. Today's labs have been reviewed, showing white blood cell count within normal limits at 8.7, hemoglobin of 14.5, sodium of 135, potassium of 3.2, chloride is 105, B1 of 34, and creatinine of 1.37, renal profile seems to be improving. he remains in atrial fibrillation with a rate of 98 BPM. The patient is seen today 02/04/2020 in follow-up in the intensive care unit. He remains intubated sedated and on the mechanical ventilator. Current settings are assist control at a rate of 20, tidal volume 450, FiO2 50% and a PEEP of 5. Morning blood gases reveal a P O2 of 90, pCO2 37, pH 7.49. Remains on propofol at 20 mcg/kg/m. Norepinephrine at 16 mcg/m. 0.9 normal saline at 40 miles per hour. Tube feedings with Nepro 40 mL per hour which is goal. Ultrasound of the right chest performed yesterday reveals a pocket of 7.2 cm. Blood urine and sputum cultures reveal no growth. White count 9.0. Hemoglobin 14.7. Sodium 138. Potassium 4.0. Creatinine 1.08. He is currently on Eliquis. Antibiotics in the form of cefepime. Objective - Vital Signs Vital signs: Vital Signs Temp 99 F 02/04/20 08:00 Pulse 97 02/04/20 08:24 Resp 20 02/04/20 08:00 BP 77/63 02/04/20 06:00 Pulse Ox 97 02/04/20 08:00 Intake & Output 02/03/20 02/04/20 02/04/20 18:59 06:59 18:59 Intake Total 7941.692 3465.554 129 Output Total 1602 605 60 Balance 91.849 984.554 69 Weight 78.8 kg Intake: IV 515 546 89 Pressure Bag 66 9 Sodium Chloride 0.9% 1, 515 480 80 000 ml @ 40 mls/hr IV . Q24H JESSIKA Rx#:[id number] Intake, IV Titration 488.849 443.554 Amount Cefepime 1 gm In Sodium 50 Chloride 0.9% 50 ml @ 100 mls/hr IVPB Q8HR JESSIKA Rx# :[id number] Empty Bag 1 bag @ 20 MCG/ 164.579 103.064 KG/MIN 8.355 mls/hr IV . [id number] JESSIKA with Propofol 1,000 mg Rx#:[id number] Norepinephrine 8 mg In 324.270 290.490 Sodium Chloride 0.9% 250 ml @ 0.05 MCG/KG/MIN 6. 976 mls/hr IV .Q24H JESSIKA Rx#:[id number] Tube Feeding 535 600 40 Other 155 Output: Urine 1602 605 60 Other: Voiding Method Indwelling Catheter Indwelling Catheter ABP, PAP, CO, CI - Last Documented Arterial Blood Pressure 96/60 - Exam GENERAL EXAM: Sedated, intubated, 69-year-old frail-looking male patient, on assist control mode of ventilation, with FiO2 of 50%, comfortable in no apparent distress. HEAD: Normocephalic/atraumatic. EYES: Normal reaction of pupils, equal size. Conjunctiva pink, sclera white. NOSE: Clear with pink turbinates. THROAT: No erythema or exudates. NECK: No masses, no JVD, no thyroid enlargement, no adenopathy. CHEST: No chest wall deformity. Symmetrical expansion. LUNGS: Equal air entry with crackles in the right base, dullness CVS: Irregular rate and rhythm, normal S1 and S2, no gallops, no murmurs, no rubs ABDOMEN: Soft, nontender. No hepatosplenomegaly, normal bowel sounds, no guarding or rigidity. EXTREMITIES: No clubbing, no edema, no cyanosis, 2+ pulses and upper and lower extremities. MUSCULOSKELETAL: Muscle strength and tone normal. SPINE: No scoliosis or deformity SKIN: No rashes CENTRAL NERVOUS SYSTEM: Sedated, intubated No focal deficits, tone is normal in all 4 extremities. - Labs CBC & Chem 7: 02/04/20 04:30 02/04/20 04:30 Labs: Abnormal Lab Results - Last 24 Hours (Table) 02/03/20 02/03/20 02/03/20 Range/Units 11:48 18:00 23:00 RDW (11.5-15.5) % Plt Count (150-450) k/uL Neutrophils # (1.3-7.7) k/uL Lymphocytes # (1.0-4.8) k/uL ABG pH (7.35-7.45) ABG HCO3 (21-25) mmol/L ABG Total CO2 (19-24) mmol/L ABG O2 Saturation (94-97) % Potassium 3.3 L (3.5-5.1) mmol/L BUN (9-20) mg/dL Glucose (74-99) mg/dL POC Glucose (mg/dL) 111 H 116 H (75-99) mg/dL Calcium (8.4-10.2) mg/dL 02/04/20 02/04/2020 Range/Units 04:30 04:30 05:00 RDW 16.1 H (11.5-15.5) % Plt Count 114 L (150-450) k/uL Neutrophils # 7.9 H (1.3-7.7) k/uL Lymphocytes # 0.5 L (1.0-4.8) k/uL ABG pH 7.49 H (7.35-7.45) ABG HCO3 29 H (21-25) mmol/L ABG Total CO2 30 H (19-24) mmol/L ABG O2 Saturation 97.4 H (94-97) % Potassium (3.5-5.1) mmol/L BUN 37 H (9-20) mg/dL Glucose 146 H (74-99) mg/dL POC Glucose (mg/dL) (75-99) mg/dL Calcium 8.0 L (8.4-10.2) mg/dL 02/04/20 Range/Units 06:16 RDW (11.5-15.5) % Plt Count (150-450) k/uL Neutrophils # (1.3-7.7) k/uL Lymphocytes # (1.0-4.8) k/uL ABG pH (7.35-7.45) ABG HCO3 (21-25) mmol/L ABG Total CO2 (19-24) mmol/L ABG O2 Saturation (94-97) % Potassium (3.5-5.1) mmol/L BUN (9-20) mg/dL Glucose (74-99) mg/dL POC Glucose (mg/dL) 104 H (75-99) mg/dL Calcium (8.4-10.2) mg/dL Microbiology - Last 24 Hours (Table) 01/31/20 23:27 Blood Culture - Preliminary Blood No Growth after 72 hours 02/02/20 15:02 Blood Culture - Preliminary Blood No Growth after 24 hours 02/02/20 14:13 Blood Culture - Preliminary Blood No Growth after 24 hours 02/01/20 03:28 Gram Stain - Final Sputum Sputum Culture - Final Assessment and Plan Assessment: #1. Acute cardiopulmonary arrest related to acute hypoxic respiratory failure, requiring ACLS with return of spontaneous circulation, and requiring placement on mechanical ventilator #2. Hypotension likely related to cardiogenic shock #3. Acute exacerbation of chronic systolic congestive heart failure #4. A. fib with RVR #5. Lactic acidosis, possibly related to acute systolic CHF, rule out infectious etiology, cultures have been sent and pending. Patient has been afebrile, no leukocytosis #6. Acute on chronic kidney failure related to ATN #7. Hyperkalemia related to severe metabolic acidosis, improved #8. Chronic A. fib on Eliquis #9. Severe ischemic cardiomyopathy with EF of less than 20% #10. History of mitral valve replacement with a bioprosthetic valve #11. Hypertension Plan: The patient was seen and evaluated by Dr. Black Chest x-ray, ultrasound and labs reviewed We'll plan to hold Eliquis I will right-sided thoracentesis tomorrow Daily interruption of sedation Spontaneous breathing trial if tolerated We will continue to follow make further recommendations based on his clinical status Critical care time 38 minutes I, the cosigning physician, performed a history & physical examination of the patient. Lungs sounds with crackles, dullness in the right base Maintaining good O2 saturations in the 90s on if the percent FiO2 on the mechanical ventilator I discussed the assessment and plan of care with my nurse practitioner, Angi Barnes. I attest to the above note as dictated by her.
[2020-02-04] MEDS ORDERED: CEFEPIME 2 GM in SODIUM CHLORIDE 0.9% 50 ML IVPB SCH (09:00)
--- NOTE | 2020-02-04 09:30 | PN ---
PROGRESS NOTE Mr. Bailey is a 69-year-old male who has a history of atrial fibrillation, history of mitral valve replacement, history of severe cardiomyopathy who presented with progressive dyspnea requiring mechanical ventilation. He remains intubated and sedated in atrial fibrillation with controlled ventricular response. He had hypotension requiring epinephrine. He has no ventricle ectopic activity or significant pauses. His urine output is stable. He is tolerating tube feeding and continues to be on metoprolol tartrate 50 mg twice a day, amiodarone 200 mg twice a day, Eliquis 5 mg twice a day. PHYSICAL EXAMINATION: Blood pressure 125/50 with a heart rate in the 80s. LUNGS: Clear anteriorly. HEART: Irregular, regular, S1, S2. No S3 with a systolic murmur. ABDOMEN: Soft, positive bowel sounds, no organomegaly. EXTREMITIES: 1+ edema. LAB DATA: Reveald BUN and creatinine 37 and 1.08, potassium 4.0, hemoglobin of 14.7, white blood cell of 9.0. Chest x-ray revealed mild congestion with evidence of infiltrate in the right base with evidence of effusion. He underwent an ultrasound that showed the right pleural effusion. IMPRESSION: 1. Respiratory failure. 2. Heart failure with systolic dysfunction. 3. Atrial fibrillation, chronic. 4. Rule out infectious process in the right sounds. 5. CAD with a history of coronary artery disease status post coronary artery bypass grafting. 6. Mitral valve replacement. RECOMMENDATION: We will continue on the present treatment at this time. Continue diuresis. Depending on his progress, further recommendation will be made. MMODL / IJN: [id number] /
[2020-02-04] MEDS: CEFEPIME 2 GM in SODIUM CHLORIDE 0.9% 100 ML IVPB SCH ×2 (09:33→21:30)
[2020-02-04] MEDS: AMIODARONE 200 MG TAB PO SCH ×2 (09:34→21:29)
[2020-02-04] MEDS: CHLORHEXIDINE GLUCONATE 15 ML CUP MUCOUS MEM SCH ×2 (09:34→21:29)
[2020-02-04] MEDS: APIXABAN 5 MG TAB PO SCH (09:34)
[2020-02-04] MEDS: PANTOPRAZOLE 40 MG/10 ML VIAL IVP SCH (09:36)
[2020-02-04] MEDS: PARoxetine 10 MG TAB PO SCH (09:37)
--- NOTE | 2020-02-04 09:47 | P.PN ---
Subjective 69-year-old male was admitted yesterday with atrial fibrillation and was in heart failure exacerbation patient was initially given Cardizem IV fluids which was subsequently discontinuedthe patient was subsequently started on amiodarone patient blood pressure was low by the time and the blood pressure dropped even more and patient became more hypoxic Lasix was ordered but patient didn't receive any Lasix because of a low blood pressure. Patient progressively became hypoxic acidotic with lactic acidosis decreased organ perfusion from heart fail ure. Patient was subsequently transferred to ICU was given IV fluids because of hypotension and lactic acidosis. Patient was subsequently intubated because of worsening pulmonary edema. Patient had pH of 7.27 and acute hypoxic respiratory failure requiring intubation overnight patient coded became bradycardic patient was started on dobutamine drip which was subsequently switched to Levophed pat ient was given bicarbonate infusion. Patient is presently intubated sedated with a FiO2 of 50% PEEP of 5 continued pulmonary edema on the chest x-ray. Patient is presently on amiodarone drip, propofol drip, Levothroid drip. Patient also also had altered mental status and became encephalopathy because of metabolic and toxic encephalopathy. 02/02/2020 Patient remains intubated, his urine output is getting better patient received 1 dose of Lasix patient Levothroid dose has come down patient amiodarone drip was changed to oral patient had episodes of tachycardia. Metabolic acidosis resolved but patient is bit alkalotic today patient's symptoms are him is 134 serum creatinine went up to 2.05, patient had a fever of 100.5. We'll obtain blood culture, one peripherally and one central line patient's IV fluids were switched to normal saline and bicarbonate drip. 02/03/2020 Patient is on a mechanical ventilator did not undergo weaning trial today. Patient is having good urine output does have mild hyperkalemia which is being corrected patient his Aleve. Patient is receiving Lasix and as-needed basis patient does have significant right-sided pleural effusion.patient had fever last night so far all the cultures are negative. Patient can use to have fever source of fever is not clear how consulted infectious disease will be started on empiric antibiotic cefepime may need vancomycin but I'll with that decision to infectious disease as patient's kidney function is still not great at this time. 02/04/2020 Patient's creatinine improved patient received Lasix yesterday. Please refer to van driver dictation for vent settings. Patient remains on propofol sedation didn't undergo weaning trial today. Patient is on cefepime at this time multiple episodes of fevers from cultures are being obtained. Infectious disease evaluated the patient. review of systems: Unable to obtain due to his clinical condition All inpatient medications were reviewed and appropriate changes in these medications as dictated in the interval history and assessment and plan. Objective - Vital Signs Vital signs: Vital Signs Temp 99 F 02/04/20 08:00 Pulse 102 H 02/04/20 09:00 Resp 20 02/04/20 09:00 BP 99/70 02/04/20 09:00 Pulse Ox 96 02/04/20 09:00 Intake & Output 02/03/20 02/04/20 02/04/20 18:59 06:59 18:59 Intake Total 9662.834 9044.554 387.994 Output Total 1602 605 90 Balance 91.849 984.554 297.994 Weight 78.8 kg Intake: IV 515 546 135 Pressure Bag 66 15 Sodium Chloride 0.9% 1, 515 480 120 000 ml @ 40 mls/hr IV . Q24H JESSIKA Rx#:[id number] Intake, IV Titration 488.849 443.554 42.994 Amount Cefepime 1 gm In Sodium 50 Chloride 0.9% 50 ml @ 100 mls/hr IVPB Q8HR JESSIKA Rx# :[id number] Empty Bag 1 bag @ 20 MCG/ 164.579 103.064 42.994 KG/MIN 8.355 mls/hr IV . [id number] JESSIKA with Propofol 1,000 mg Rx#:[id number] Norepinephrine 8 mg In 324.270 290.490 Sodium Chloride 0.9% 250 ml @ 0.05 MCG/KG/MIN 6. 976 mls/hr IV .Q24H JESSIKA Rx#:[id number] Tube Feeding 535 600 120 Other 155 90 Output: Urine 1602 605 90 Other: Voiding Method Indwelling Catheter Indwelling Catheter ABP, PAP, CO, CI - Last Documented Arterial Blood Pressure 122/62 - Exam PHYSICAL EXAMINATION: GENERAL: patient is intubated sedated with the above-mentioned vent settings HEENT: Pupils are round and equally reacting to light. EOMI. No scleral icterus. No conjunctival pallor. Normocephalic, atraumatic. No pharyngeal erythema. No thyromegaly. CARDIOVASCULAR: S1 and S2 present. No murmurs, rubs, or gallops. history of elevated JVD PULMONARY: Chest is clear to auscultation, no wheezing or crackles. ABDOMEN: Soft, nontender, nondistended, normoactive bowel sounds. No palpable organomegaly. MUSCULOSKELETAL: No joint swelling or deformity. EXTREMITIES: No cyanosis, clubbing, or pedal edema. NEUROLOGICAL: unable to assess. SKIN: No rashes. - Labs CBC & Chem 7: 02/04/20 04:30 02/04/20 04:30 Labs: Abnormal Lab Results - Last 24 Hours (Table) 02/03/20 02/03/20 02/03/20 Range/Units 11:48 18:00 23:00 RDW (11.5-15.5) % Plt Count (150-450) k/uL Neutrophils # (1.3-7.7) k/uL Lymphocytes # (1.0-4.8) k/uL ABG pH (7.35-7.45) ABG HCO3 (21-25) mmol/L ABG Total CO2 (19-24) mmol/L ABG O2 Saturation (94-97) % Potassium 3.3 L (3.5-5.1) mmol/L BUN (9-20) mg/dL Glucose (74-99) mg/dL POC Glucose (mg/dL) 111 H 116 H (75-99) mg/dL Calcium (8.4-10.2) mg/dL 02/04/20 02/04/20 02/04/20 Range/Units 04:30 04:30 05:00 RDW 16.1 H (11.5-15.5) % Plt Count 114 L (150-450) k/uL Neutrophils # 7.9 H (1.3-7.7) k/uL Lymphocytes # 0.5 L (1.0-4.8) k/uL ABG pH 7.49 H (7.35-7.45) ABG HCO3 29 H (21-25) mmol/L ABG Total CO2 30 H (19-24) mmol/L ABG O2 Saturation 97.4 H (94-97) % Potassium (3.5-5.1) mmol/L BUN 37 H (9-20) mg/dL Glucose 146 H (74-99) mg/dL POC Glucose (mg/dL) (75-99) mg/dL Calcium 8.0 L (8.4-10.2) mg/dL 02/04/20 Range/Units 06:16 RDW (11.5-15.5) % Plt Count (150-450) k/uL Neutrophils # (1.3-7.7) k/uL Lymphocytes # (1.0-4.8) k/uL ABG pH (7.35-7.45) ABG HCO3 (21-25) mmol/L ABG Total CO2 (19-24) mmol/L ABG O2 Saturation (94-97) % Potassium (3.5-5.1) mmol/L BUN (9-20) mg/dL Glucose (74-99) mg/dL POC Glucose (mg/dL) 104 H (75-99) mg/dL Calcium (8.4-10.2) mg/dL Microbiology - Last 24 Hours (Table) 01/31/20 23:27 Blood Culture - Preliminary Blood No Growth after 72 hours 02/02/20 15:02 Blood Culture - Preliminary Blood No Growth after 24 hours 02/02/20 14:13 Blood Culture - Preliminary Blood No Growth after 24 hours 02/01/20 03:28 Gram Stain - Final Sputum Sputum Culture - Final Assessment and Plan Plan: -acute hypoxic respiratory failure secondary to cut his heart failure exacerbation continued for above-mentioned settings patient cannot tolerate Lasix at this time, is getting acne Lasix on as-needed basis. -Fever will obtain blood cultures 1 from the central line and one from the peripherythese cultures are so far negative patient will be started on empiric cefepime as he continues to have fevers and infectious disease will be consulted -alkalosis metabolic from bicarbonate and respiratory from ventilatory support -Cardiac shock patient is on Levophed which will be continued for now patient urine output is still not great -Acute renal failure secondary to acute tubular necrosis and prerenal azotemia from heart failureimproving with IV Lasix and pressor support patient's present creatinine is 1.0 -Lactic acidosis secondary to decreased organ perfusion because of severe heart failure, improved -Atrial fibrillation with rapid unclear rate: presently rate controlled on amiodarone patient is being continued on Eliquis.patient has chronic A. fib -Congestive heart failure chronic systolic dysfunction with acute exacerbation: Patient will be given Lasix once his heart rate is better controlled and if his blood pressure can tolerate,Entresto will be held now as his blood pressure is borderline. -Mildly elevated troponin without any chest pain secondary to heart failure exacerbation - Depression
--- NOTE | 2020-02-04 10:10 | XR ---
EXAMINATION TYPE: XR chest 1V portable DATE OF EXAM: 02/04/2020 COMPARISON: Prior chest x-ray dated 02/03/2020 HISTORY: Intubated and shortness of breath TECHNIQUE: Single frontal view of the chest is obtained. FINDINGS: There is no significant interval change. IMPRESSION: Correlate for congestive heart failure, pneumonia not excluded.
[2020-02-04] MEDS: FUROSEMIDE 10 MG/ML 4 ML VIAL IV SCH (11:41)
[2020-02-04 12:17] LABS: Glucose,Whole Blood 107 mg/dL (75-99)
[2020-02-04] MEDS: METOPROLOL TARTRATE 50 MG TAB PO SCH ×2 (15:09→21:30)
--- NOTE | 2020-02-04 17:01 | PN ---
PROGRESS NOTE Patient is seen for followup for acute kidney injury, severe metabolic acidosis. His renal function has improved, with creatinine down to 1.08 from 2.0 at peak. Patient has good urine output. He remains on the vent. Sedation is being decreased. PHYSICAL EXAMINATION: Patient is sedated. He is on the vent. Blood pressure this morning was 112/67, heart rate of 105 per minute. Patient is afebrile. EXAMINATION OF THE HEART: S1 and S2. EXAMINATION OF LUNGS: Bilateral breath sounds are heard. ABDOMEN: Soft. Examination of lower extremities shows edema 1+ bilaterally. FAMILY PRACTICE MD exam cannot be performed. LABS: Labs show sodium of 138, potassium 4.0, chloride 107. CO2 is 28, BUN 37, creatinine 1.08, calcium 8.0, hemoglobin 14.7 g/dL. ASSESSMENT: 1. Acute kidney injury secondary to sepsis, hypotension, hypoperfusion, currently significantly improved. 2. Severe metabolic acidosis, status post bicarb drip, now resolved. 3. Acute hypoxic respiratory failure. 4. Cardiomyopathy; ejection fraction less than 20%. 5. Volume overload. Maintained off of IV fluids. Add Lasix 40 mg IV daily for now. 6. Atrial fibrillation, currently with controlled ventricular response. PLAN: Maintain Lasix 40 mg IV daily. Increase to q.12 hours if chest x-ray is worse. MMODL / IJN: [id number] /
[2020-02-04] MEDS ORDERED: Potassium Replacement Protocol 1 EACH MISC MISCELLANE PRN (19:12)
--- NOTE | 2020-02-04 22:59 | PN ---
PROGRESS NOTE DATE OF SERVICE: 02/04/2020 REASON FOR FOLLOWUP: Aspiration pneumonia. INTERVAL HISTORY: Patient is currently afebrile. The patient is hemodynamically stable. FiO2 is currently at 50%. No significant purulent secretion through the ET tube or any diarrhea reported. PHYSICAL EXAMINATION: Blood pressure 109/63 with a pulse of 81, temperature 98.5. General description is an elderly male intubated on the vent. RESPIRATORY SYSTEM: Unlabored breathing with decreased breath sounds at the base. No wheeze. HEART: S1, S2. Regular rate and rhythm. ABDOMEN: Soft. No tenderness. LABS: Hemoglobin 14.7, white count 9.0, BUN of 37, creatinine 1.08. DIAGNOSTIC IMPRESSION AND PLAN: Patient with a fever with a concern for aspiration pneumonia in this patient who did have a cardiac arrest. The patient is currently covered with cefepime to cover for the Gram-negative pneumonia. Sputum and blood cultures will be followed and monitor his clinical course closely. MMPATRICEL / IJN: [id number] /
[2020-02-04 23:39] LABS: Glucose,Whole Blood 88 mg/dL (75-99)
[2020-02-05] MEDS ORDERED: POTASSIUM BICARBONATE/CIT AC 20 MEQ TABLET.EFF NG-TUBE SCH ×3 (01:00→13:00)
[2020-02-05] MEDS: EMPTY BAG 1 BAG with PROPOFOL 1,000 MG IV SCH ×3 (02:37→21:24)
[2020-02-05] MEDS: IPRATROPIUM-ALBUTEROL 3 ML NEB INHALATION SCH ×5 (03:18→19:08)
[2020-02-05 04:57] LABS: ABG Base Excess 8.1 mmol/L; ABG HCO3 31 mmol/L (21-25); ABG Oxygen Saturation 98.5 % (94-97); ABG PCO2 40 mmHg (35-45); ABG PO2 110 mmHg (83-108); ABG TCO2 33 mmol/L (19-24)
[2020-02-05 05:09] LABS: Allen Test Performed? no
[2020-02-05 05:50] LABS: Anisocytosis Slight; Basophils # (A) 0.1 k/uL (0-0.2); Basophils % (A) 1 %; Eosinophils # (A) 0.2 k/uL (0-0.7); Eosinophils % (A) 2 %; HCT 44.9 % (39.0-53.0); Hypochromasia Moderate; Lymphocytes # (A) 0.6 k/uL (1.0-4.8); Lymphocytes % (A) 6 %; MCH 28.8 pg (25.0-35.0); MCHC 31.2 g/dL (31.0-37.0); MCV 92.3 fL (80.0-100.0); Mean Platelet Volume 9.5; Monocytes # (A) 0.7 k/uL (0-1.0); Monocytes % (A) 8 %; Neutrophils # (A) 7.6 k/uL (1.3-7.7); Neutrophils % (A) 82 %; RBC 4.87 m/uL (4.30-5.90); WBC 9.2 k/uL (3.8-10.6)
[2020-02-05 05:52] LABS: African American GFR (CKD) >90 (>60 ml/min/1.73 sqM); Anion Gap 4 mmol/L; Blood Urea Nitrogen 42 mg/dL (9-20); Carbon Dioxide 30 mmol/L (22-30); Chloride 106 mmol/L (98-107); Glucose 120 mg/dL (74-99); Non-African American GFR(CKD) 81 (>60 ml/min/1.73 sqM); Potassium 3.7 mmol/L (3.5-5.1); Sodium 140 mmol/L (137-145)
[2020-02-05 06:02] LABS: Glucose,Whole Blood 102 mg/dL (75-99)
[2020-02-05 06:03] LABS: Platelet Count 101 k/uL (150-450)
--- NOTE | 2020-02-05 06:25 | XR ---
EXAMINATION TYPE: XR chest 1V portable DATE OF EXAM: 02/05/2020 HISTORY: Pt on vent. REFERENCE: Previous study dated 02/04/2020. FINDINGS: There has been a midline sternotomy. The patient's ET tube and NG tube remain in place, unc hanged in appearance. There is a left internal jugular catheter in place. Its tip is in the right atr ium. Tubing projects over the right lower chest. There are bilateral effusions. There is bibasilar airspace disease. The heart is enlarged. IMPRESSION: NO SIGNIFICANT INTERVAL CHANGE IN THE APPEARANCE THE CHEST.
[2020-02-05] MEDS: SODIUM CHLORIDE 0.9% 1,000 ML IV SCH ×2 (06:50→16:57)
[2020-02-05] MEDS: FUROSEMIDE 10 MG/ML 4 ML VIAL IV SCH (08:44)
[2020-02-05] MEDS: AMIODARONE 200 MG TAB PO SCH ×2 (08:44→19:44)
[2020-02-05] MEDS: PANTOPRAZOLE 40 MG/10 ML VIAL IVP SCH (08:44)
[2020-02-05] MEDS: CHLORHEXIDINE GLUCONATE 15 ML CUP MUCOUS MEM SCH ×2 (08:45→19:45)
[2020-02-05] MEDS: PARoxetine 10 MG TAB PO SCH (08:45)
[2020-02-05] MEDS: CEFEPIME 2 GM in SODIUM CHLORIDE 0.9% 100 ML IVPB SCH ×2 (08:45→19:45)
[2020-02-05] MEDS ORDERED: DIGOXIN 250 MCG/ML 2 ML AMP IVP ONE ×2 (09:15→15:00)
[2020-02-05] MEDS: METOPROLOL TARTRATE 25 MG TAB PO SCH ×2 (09:47→19:44)
[2020-02-05] MEDS: NOREPINEPHRINE 8 MG in SODIUM CHLORIDE 0.9% 250 ML IV SCH (09:48)
--- NOTE | 2020-02-05 09:51 | P.PN ---
Subjective Progress Note Date: 02/05/20 Principal diagnosis: Dyspnea, hypoxemia, A. fib with RVR, cardiac arrest 69-year-old white male patient Of Dr. Rogers, with past medical history valvular heart disease with previous history of a bioprosthetic mitral valve replacement, history of atrial fibrillation on Eliquis, chronic systolic congestive heart failure on Entresto, with EF of less than 20%, chronic kidney disease stage III at baseline, who presented to the hospital yesterday on 01/31/2020 with symptoms of lightheadedness. Patient's is currently in the hospital, in the intensive care unit, critically ill. She was experiencing some palpitations in the chest discomfort over last couple of days. EMS brought the patient to the hospital and he was given some fluid boluses in the ambulance and was feeling better at the time. EKG showed atrial fibrillation with RVR with a rate of 140 in the ambulance, orthostatic blood pressures were negative. Chest x-ray showed cardiomegaly and increased interstitial density and a small bilateral pleural effusions with adjacent atelectasis. Initial labs showed a white count of 5.5, hemoglobin of 12.9, d-dimer was 2.08, sodium is 139, potassium 5.1, chloride is 110, CO2 is 21, B1 is 21 creatinine is 1.24, troponins were positive at 0.058, 0.062, proBNP was 22,200. Urinalysis showed trace leuks, rare bacteria, and platelet cells at 12, coronavirus PCR was negative. Lower extremity Doppler of the left leg was negative for DVT. he was started on amiodarone drip, and was admitted to selective care. Last night rapid response team was called with concerns for acute hypoxia, patient's pulse ox was 78, requiring additional oxygen, patient was in persistent A. fib with RVR. Blood gases were obtained showing pO2 of 157, pCO2 of 26, and pH of 7.27 this was done on FiO2 of 100%. Blood work showed a sodium of 137, potassium is 5.8, worsening renal profile with BUN of 20 and creatinine of 1.51, plasma lactic acid was found to be elevated at 5.3. Patient was given a liter bolus and IV fluids, patient was started on bicarbonate infusion, however his condition continued to deteriorate, and patient was transferred to the intensive care unit for further monitoring and treatment. Continue to be tachypneic, restless, with acute mental status changes, elevated lactic acid, oliguric, hypothermic. Blood cultures were obtained and sent, Lasix was held, Levaphed was started. She did baseline EF is less than 20%, patient was already given a fluid bolus and his IV fluids were infusing at a rate of 1:30 ML per hour. At 2:00 in the morning patient suffered a cardiac arrest, he did require brief CPR and one round of epinephrine with return of spontaneous circulation, patient was emergently intubated and placed on mechanical ventilator. Currently on assist control mode of ventilation with a rate of 20, tidal volume is 450, FiO2 is 50% and PEEP of 5, this morning his blood gases showed a pO2 of 138, pCO2 of 33, and pH of 7.28, patient was given additional amps of sodium bicarbonate. Current IVs include amiodarone at a rate of 0.5 mg/m, Levothroid is at 21 mics per minute, Diprivan is a 30 mics per kilo per minute. This morning's temp is 98, patient was on the warmer overnight. Patient's condition is critical, patient's is also in this ICU on mechanical ventilator, the next of kin is patient's [id number] who spoke to this morning, and there are no children and no other relatives. Cardiology is following, echocardiogram has been ordered, cultures have been ordered and sent. On 02/02/2020 patient seen in follow-up in the intensive care unit, remains sedated, intubated on mechanical ventilator with current vent settings of assist control with a rate of 20, tidal and was 450, FiO2 60%, and PEEP of 5, this morning's blood gases reveal pO2 of 90, pCO2 33, and pH of 7.5. Patient still remains on bicarbonate infusion in D5 W with 3 A of sodium bicarb at a rate of 75 ML per hour which will be discontinued this morning, to prevent is at 25 mics per kilo per minute, amiodarone at 0.5 mg/m, and levo fed is at 14.4 mics per minute. No other drips. Remains in A. fib with a rate of 98-114 BPM. Hypothermia has resolved, and patient actually is having a low-grade fever this morning with at 99.7F temperature. He is a pressor requirement is down. This morning blood work has been reviewed showing white blood cell count of 9.8, hemoglobin of 14.3, sodium of 134, the rest of the electrolytes are within normal limits, renal profile were sent, with BUN of 35 and creatinine of 2.05. Blood, sputum and urine cultures have been sent, and are pending at this time, blood culture has shown no growth to date, sputum Gram stain showed no organisms. Today's chest x-ray has been reviewed showing enlarged heart, bibasilar increased attenuation possibly related to pulmonary edema or atelectasis. Tube feedings been started with the Nepro at 10 mL an hour. Unfortunately patient's last night. On 02/03/2020 patient seen in follow-up in the intensive care unit. Remains sedated, on mechanical ventilator, currently on assist-control mode with a rate of 20, tidal lines 450, FiO2 50%, PEEP of 5, this morning his blood gases showed pO2 of 66, pCO2 37, pH of 7.49. We'll discontinue the bicarbonate infusion yesterday. Patient has developed metabolic alkalosis, today's labs have been reviewed showing hypokalemia with potassium of 3.2 which will be corrected per protocol. Yesterday patient was given sedation holiday, he did wake up and open his eyes however did not follow command, and became very anxious and started desaturating and was subsequently re-sedated. Today his vasopressor requirements continue to trend down, levo fed is currently at 13 mics per minute, he is on maintenance IV fluids 0.9 normal saline at a rate 75 ML per hour, Diprivan and is a 25 mics per kilo per minute. He is tolerating tube feedings currently on Nepro at a rate of 30 with a goal of 30. Today's chest x- ray shows changes of congestive heart failure with increased interstitial. She did have fevers last night, with a T-max in last 24 hours of 101F. His blood and sputum and urine cultures showed no growth to date. Today's labs have been reviewed, showing white blood cell count within normal limits at 8.7, hemoglobin of 14.5, sodium of 135, potassium of 3.2, chloride is 105, B1 of 34, and creatinine of 1.37, renal profile seems to be improving. he remains in atrial fibrillation with a rate of 98 BPM. The patient is seen today 02/04/2020 in follow-up in the intensive care unit. He remains intubated sedated and on the mechanical ventilator. Current settings are assist control at a rate of 20, tidal volume 450, FiO2 50% and a PEEP of 5. Morning blood gases reveal a P O2 of 90, pCO2 37, pH 7.49. Remains on propofol at 20 mcg/kg/m. Norepinephrine at 16 mcg/m. 0.9 normal saline at 40 miles per hour. Tube feedings with Nepro 40 mL per hour which is goal. Ultrasound of the right chest performed yesterday reveals a pocket of 7.2 cm. Blood urine and sputum cultures reveal no growth. White count 9.0. Hemoglobin 14.7. Sodium 138. Potassium 4.0. Creatinine 1.08. He is currently on Eliquis. Antibiotics in the form of cefepime. Patient seen today 02/05/2020 in follow-up in the intensive care unit. He remains intubated on mechanical ventilator. Current settings are assist-control with a respiratory rate of 20, tidal volume 450, FiO2 50% and a PEEP of 5. Morning blood gases reveal a P O2 of 110, pCO2 40, pH 7.50. Currently sedated on propofol at 25 mcg/kg/m. On norepinephrine at 13 mcg/m. 0.9 normal saline at KVO. 2 feedings of Nepro 40 mL per hour which is goal. Yesterday he did receive a daily interruption of sedation and was a bit more alert compared to the day before. He'll be given another daily interruption of sedation today and spontaneous breathing trials with a pressure support of 5 and a CPAP of 5. Today's chest x-ray continues to show bilateral effusions with basilar airspace disease. No significant change compared to yesterday. Urine reveals no growth, blood reveals no growth to date, and sputum culture reveals preliminary moderate gram-positive cocci. White count 9.2. Hemoglobin 14.0. Sodium 140. Potassium 3.7. Chloride 106. Bicarb 30. Creatinine 0.95. He remains on IV diuretics, bronchodilators, antibiotics in the form of cefepime. Objective - Vital Signs Vital signs: Vital Signs Temp 97.3 F L 02/05/20 08:00 Pulse 86 02/05/20 08:00 Resp 20 02/05/20 08:00 BP 102/64 02/05/20 08:00 Pulse Ox 98 02/05/20 08:00 Intake & Output 02/04/20 02/05/20 02/05/20 18:59 06:59 18:59 Intake Total 6856.614 5881.995 96 Output Total 1690 655 30 Balance -352.926 611.995 66 Weight 79.7 kg Intake: IV 369 338 26 Pressure Bag 69 78 6 Sodium Chloride 0.9% 1, 300 260 20 000 ml @ 20 mls/hr IV . Q24H JESSIKA Rx#:[id number] Intake, IV Titration 308.074 328.995 Amount Cefepime 2 gm In Sodium 100 Chloride 0.9% 100 ml @ 200 mls/hr IVPB Q12HR JESSIKA Rx#:[id number] Empty Bag 1 bag @ 20 MCG/ 48.913 89.992 KG/MIN 8.355 mls/hr IV . [id number] JESSIKA with Propofol 1,000 mg Rx#:[id number] Norepinephrine 8 mg In 259.161 139.003 Sodium Chloride 0.9% 250 ml @ 0.05 MCG/KG/MIN 6. 976 mls/hr IV .Q24H JESSIKA Rx#:[id number] Tube Feeding 480 600 40 Other 180 30 Output: Urine 1690 655 30 Other: Voiding Method Indwelling Catheter Indwelling Catheter ABP, PAP, CO, CI - Last Documented Arterial Blood Pressure 112/54 - Exam GENERAL EXAM: Sedated, intubated, 69-year-old frail-looking male patient, on FiO2 of 50%, comfortable in no apparent distress. HEAD: Normocephalic/atraumatic. EYES: Normal reaction of pupils, equal size. Conjunctiva pink, sclera white. NOSE: Clear with pink turbinates. THROAT: No erythema or exudates. NECK: No masses, no JVD, no thyroid enlargement, no adenopathy. CHEST: No chest wall deformity. Symmetrical expansion. LUNGS: Equal air entry with crackles in the right base, dullness CVS: Irregular rate and rhythm, normal S1 and S2, no gallops, no murmurs, no rubs ABDOMEN: Soft, nontender. No hepatosplenomegaly, normal bowel sounds, no guard ing or rigidity. EXTREMITIES: No clubbing, no edema, no cyanosis, 2+ pulses and upper and lower extremities. MUSCULOSKELETAL: Muscle strength and tone normal. SPINE: No scoliosis or deformity SKIN: No rashes CENTRAL NERVOUS SYSTEM: Sedated, intubated No focal deficits, tone is normal in all 4 extremities. - Labs CBC & Chem 7: 02/05/20 04:36 02/05/20 04:36 Labs: Abnormal Lab Results - Last 24 Hours (Table) 02/04/20 02/04/20 02/05/20 Range/Units 12:15 18:49 04:36 RDW 16.0 H (11.5-15.5) % Plt Count 101 L (150-450) k/uL Lymphocytes # 0.6 L (1.0-4.8) k/uL ABG pH (7.35-7.45) ABG pO2 (83-108) mmHg ABG HCO3 (21-25) mmol/L ABG Total CO2 (19-24) mmol/L ABG O2 Saturation (94-97) % Potassium 3.3 L (3.5-5.1) mmol/L BUN (9-20) mg/dL Glucose (74-99) mg/dL POC Glucose (mg/dL) 107 H (75-99) mg/dL Calcium (8.4-10.2) mg/dL 02/05/20 02/05/20 02/05/20 Range/Units 04:36 04:53 06:01 RDW (11.5-15.5) % Plt Count (150-450) k/uL Lymphocytes # (1.0-4.8) k/uL ABG pH 7.50 H (7.35-7.45) ABG pO2 110 H (83-108) mmHg ABG HCO3 31 H (21-25) mmol/L ABG Total CO2 33 H (19-24) mmol/L ABG O2 Saturation 98.5 H (94-97) % Potassium (3.5-5.1) mmol/L BUN 42 H (9-20) mg/dL Glucose 120 H (74-99) mg/dL POC Glucose (mg/dL) 102 H (75-99) mg/dL Calcium 8.0 L (8.4-10.2) mg/dL Microbiology - Last 24 Hours (Table) 01/31/20 23:27 Blood Culture - Preliminary Blood No Growth after 96 hours 02/02/20 15:02 Blood Culture - Preliminary Blood No Growth after 48 hours 02/02/20 14:13 Blood Culture - Preliminary Blood No Growth after 48 hours 02/04/20 08:15 Gram Stain - Preliminary Sputum Sputum Culture - Preliminary Assessment and Plan Assessment: #1. Acute cardiopulmonary arrest related to acute hypoxic respiratory failure, requiring CPR with return of spontaneous circulation, and requiring placement on mechanical ventilator #2. Hypotension likely related to cardiogenic shock #3. Acute exacerbation of chronic systolic congestive heart failure #4. A. fib with RVR #5. Lactic acidosis, possibly related to acute systolic CHF, rule out infectiou s etiology, cultures have been sent and pending. Patient has been afebrile, no leukocytosis #6. Acute on chronic kidney failure related to ATN #7. Hyperkalemia related to severe metabolic acidosis, improved #8. Chronic A. fib on Eliquis #9. Severe ischemic cardiomyopathy with EF of less than 20% #10. History of mitral valve replacement with a bioprosthetic valve #11. Hypertension Plan: The patient was seen and evaluated by Dr. Black Chest x-ray and labs reviewed Eliquis is on hold for possible thoracentesis today Daily interruption of sedation Spontaneous breathing trial if tolerated We will continue to follow make further recommendations based on his clinical status Critical care time 36 minutes, not including procedures I, the cosigning physician, performed a history & physical examination of the patient. Lungs sounds with crackles, dullness in the right base Maintaining good O2 saturations in the 90s on 50 percent FiO2 on the mechanical ventilator I discussed the assessment and plan of care with my nurse practitioner, Angi Barnes. I attest to the above note as dictated by her. Time with Patient: Greater than 30
--- NOTE | 2020-02-05 09:52 | P.PN ---
Subjective Progress Note Date: 02/05/20 This is a 69-year-old gentleman with history of valvular heart disease with previous history of bioprosthetic mitral valve replacement, history of atrial fibrillation and chronic systolic congestive heart failure with ejection fraction less than 20%. Patient is admitted to the hospital with an episode of cardiac arrest. Patient is still intubated and sedated. Patient has been hypotensive. His heart rate has been fast. I'm going to add back the dose of the Lopressor and start him on IV digoxin. Continue respiratory treatment. Prognosis is poor Objective - Vital Signs Vital signs: Vital Signs Temp 97.3 F L 02/05/20 08:00 Pulse 86 02/05/20 08:00 Resp 20 02/05/20 08:00 BP 102/64 02/05/20 08:00 Pulse Ox 98 02/05/20 08:00 Intake & Output 02/04/20 02/05/20 02/05/20 18:59 06:59 18:59 Intake Total 1742.585 1745.995 96 Output Total 1690 655 30 Balance -352.926 611.995 66 Weight 79.7 kg Intake: IV 369 338 26 Pressure Bag 69 78 6 Sodium Chloride 0.9% 1, 300 260 20 000 ml @ 20 mls/hr IV . Q24H JESSIKA Rx#:[id number] Intake, IV Titration 308.074 328.995 Amount Cefepime 2 gm In Sodium 100 Chloride 0.9% 100 ml @ 200 mls/hr IVPB Q12HR JESSIKA Rx#:[id number] Empty Bag 1 bag @ 20 MCG/ 48.913 89.992 KG/MIN 8.355 mls/hr IV . [id number] JESSIKA with Propofol 1,000 mg Rx#:[id number] Norepinephrine 8 mg In 259.161 139.003 Sodium Chloride 0.9% 250 ml @ 0.05 MCG/KG/MIN 6. 976 mls/hr IV .Q24H JESSIKA Rx#:[id number] Tube Feeding 480 600 40 Other 180 30 Output: Urine 1690 655 30 Other: Voiding Method Indwelling Catheter Indwelling Catheter ABP, PAP, CO, CI - Last Documented Arterial Blood Pressure 112/54 - Exam GENERAL EXAM: Patient is intubated and sedated HEENT: Normocephalic. Normal reaction of pupils, equal size, normal range of extraocular motion. No erythema or exudates in the throat. NECK: No masses, no nuchal rigidity. CHEST: No chest wall deformity. LUNGS: Diminished breath sounds HEART: S1 and S2 normal with no audible mumurs or gallops. Regular rhythm, femorals equal on both sides.. ABDOMEN: No hepatosplenomegaly, normal bowel sounds, no guarding or rigidity. SKIN: No rashes CENTRAL NERVOUS SYSTEM: No focal deficits. EXTREMITIES: No cyanosis, clubbing or edema. - Labs CBC & Chem 7: 02/05/20 04:36 02/05/20 04:36 Labs: Abnormal Lab Results - Last 24 Hours (Table) 02/04/20 02/04/20 02/05/20 Range/Units 12:15 18:49 04:36 RDW 16.0 H (11.5-15.5) % Plt Count 101 L (150-450) k/uL Lymphocytes # 0.6 L (1.0-4.8) k/uL ABG pH (7.35-7.45) ABG pO2 (83-108) mmHg ABG HCO3 (21-25) mmol/L ABG Total CO2 (19-24) mmol/L ABG O2 Saturation (94-97) % Potassium 3.3 L (3.5-5.1) mmol/L BUN (9-20) mg/dL Glucose (74-99) mg/dL POC Glucose (mg/dL) 107 H (75-99) mg/dL Calcium (8.4-10.2) mg/dL 02/05/20 02/05/20 02/05/20 Range/Units 04:36 04:53 06:01 RDW (11.5-15.5) % Plt Count (150-450) k/uL Lymphocytes # (1.0-4.8) k/uL ABG pH 7.50 H (7.35-7.45) ABG pO2 110 H (83-108) mmHg ABG HCO3 31 H (21-25) mmol/L ABG Total CO2 33 H (19-24) mmol/L ABG O2 Saturation 98.5 H (94-97) % Potassium (3.5-5.1) mmol/L BUN 42 H (9-20) mg/dL Glucose 120 H (74-99) mg/dL POC Glucose (mg/dL) 102 H (75-99) mg/dL Calcium 8.0 L (8.4-10.2) mg/dL Microbiology - Last 24 Hours (Table) 01/31/20 23:27 Blood Culture - Preliminary Blood No Growth after 96 hours 02/02/20 15:02 Blood Culture - Preliminary Blood No Growth after 48 hours 02/02/20 14:13 Blood Culture - Preliminary Blood No Growth after 48 hours 02/04/20 08:15 Gram Stain - Preliminary Sputum Sputum Culture - Preliminary Assessment and Plan Plan: This patient is admitted with cardiac arrest. Known to have cardiomyopathy and chronic systolic CHF and history of mitral valve replacement. Patient is still intubated and sedated. He has been hypotensive requiring pressors. His heart rate has been high. I'm going to cut back the dose of Lopressor and start him on IV Lanoxin. Continue rest of the management. Prognosis is guarded
[2020-02-05 12:18] LABS: Glucose,Whole Blood 108 mg/dL (75-99)
--- NOTE | 2020-02-05 14:40 | PN ---
PROGRESS NOTE Patient is seen for followup for acute kidney injury. Patient's renal function has improved significantly. He is currently on the vent. Sedation has been held. The patient is trying to wake up. He has had good urine output. PHYSICAL EXAMINATION: Blood pressure was 104/43, heart rate 85 per minute, patient is afebrile. Examination of the heart S1, S2. Examination of the lungs, decreased breath sounds at bases. Bilateral breath sounds are heard. Abdomen is soft, nontender. Examination of lower extremities shows edema 2+ bilaterally. TICKETING AGENT exam cannot be performed. LAB: Show sodium 140, potassium 3.7, chloride 106, CO2 is 30, BUN 42, creatinine 0.95, hemoglobin 14.0. ASSESSMENT: 1. Acute kidney injury, acute tubular necrosis, secondary to sepsis, hypotension, currently improved. 2. Severe metabolic acidosis on initial admission, now resolved. 3. Acute hypoxic respiratory failure, currently on the vent. 4. Cardiomyopathy with ejection fraction less than 20%. 5. Volume overload, currently maintained on IV Lasix which I will continue for now. 6. Atrial fibrillation with controlled ventricular response. PLAN: I will continue with the IV Lasix. Wean off Levophed as tolerated. Replace potassium. MMODL / IJN: [id number] /
[2020-02-05] MEDS ORDERED: DIGOXIN 250 MCG/ML 2 ML AMP ONE (15:12)
[2020-02-05] MEDS ORDERED: INSULIN ASPART (NovoLOG) 100 UNIT/ML VIAL SQ SCH (16:15)
[2020-02-05] MEDS: INSULIN ASPART (NovoLOG) 100 UNIT/ML VIAL SQ SCH (17:49)
[2020-02-05 17:50] LABS: Glucose,Whole Blood 105 mg/dL (75-99)
--- NOTE | 2020-02-05 18:47 | PN ---
PROGRESS NOTE DATE OF SERVICE: 02/05/2020 REASON FOR FOLLOWUP: Possible gram-negative pneumonia. INTERVAL HISTORY: Patient is currently afebrile. Patient remains to be sedated, intubated on the vent. FiO2 is currently at 40%. Low dose pressor. No significant purulent secretion through the ET or diarrhea per the nursing staff. PHYSICAL EXAMINATION: Blood pressure 109/50, pulse of 81, temperature 98, he is 97% on 40% FiO2. General description is an elderly male intubated on the vent. Respiratory system: Unlabored breathing. Decreased breath sounds at the bases. No wheeze. HEART: S1, S2. Regular rate and rhythm. Abdomen soft. No tenderness. LABS: Hemoglobin 14, white count 9.2, creatinine 0.95. Sputum blood culture so far pending. DIAGNOSTIC IMPRESSION AND PLAN: Patient with acute respiratory failure which is likely multifactorial with concern for possible pneumonia, possible aspiration/Gram-negative. Patient is covered with cefepime to continue while waiting for the culture to finalize. Monitor clinical course closely. MMODL / IJN: [id number] /
[2020-02-05] MEDS ORDERED: POTASSIUM CHLORIDE ER 20 MEQ TAB.ER PO SCH (19:00)
[2020-02-05 23:54] LABS: Glucose,Whole Blood 78 mg/dL (75-99)
[2020-02-06] MEDS: IPRATROPIUM-ALBUTEROL 3 ML NEB INHALATION SCH ×7 (00:29→23:45)
[2020-02-06] MEDS: INSULIN ASPART (NovoLOG) 100 UNIT/ML VIAL SQ SCH ×4 (02:24→18:14)
[2020-02-06] MEDS: NOREPINEPHRINE 8 MG in SODIUM CHLORIDE 0.9% 250 ML IV SCH (02:25)
[2020-02-06 05:31] LABS: ABG Base Excess 9.4 mmol/L; ABG HCO3 32 mmol/L (21-25); ABG Oxygen Saturation 98.4 % (94-97); ABG PCO2 40 mmHg (35-45); ABG PH 7.52 (7.35-7.45); ABG PO2 106 mmHg (83-108); ABG TCO2 34 mmol/L (19-24); Allen Test Performed? Yes
[2020-02-06 05:54] LABS: Anisocytosis Slight; HCT 41.2 % (39.0-53.0); HGB 13.1 gm/dL (13.0-17.5); Hypochromasia Moderate; MCH 29.2 pg (25.0-35.0); MCHC 31.7 g/dL (31.0-37.0); MCV 92.2 fL (80.0-100.0); Mean Platelet Volume 8.2; RBC 4.47 m/uL (4.30-5.90); WBC 7.5 k/uL (3.8-10.6)
--- NOTE | 2020-02-06 05:54 | XR ---
EXAMINATION TYPE: XR chest 1V portable DATE OF EXAM: 02/06/2020 HISTORY: Pt on vent. REFERENCE: Previous study dated 02/05/2020. FINDINGS: There has been a midline sternotomy. The patient is ET tube and NG tube remain in place, un changed in appearance. There continues to be bibasilar airspace disease. There are small, bilateral e ffusions. The heart is enlarged. IMPRESSION: NO SIGNIFICANT INTERVAL CHANGE IN THE APPEARANCE OF THE CHEST.
[2020-02-06 06:02] LABS: Glucose,Whole Blood 95 mg/dL (75-99)
[2020-02-06] MEDS: EMPTY BAG 1 BAG with PROPOFOL 1,000 MG IV SCH (06:08)
[2020-02-06 06:15] LABS: African American GFR (CKD) >90 (>60 ml/min/1.73 sqM); Anion Gap 2 mmol/L; Blood Urea Nitrogen 45 mg/dL (9-20); Calcium 7.7 mg/dL (8.4-10.2); Carbon Dioxide 31 mmol/L (22-30); Chloride 107 mmol/L (98-107); Glucose 117 mg/dL (74-99); Non-African American GFR(CKD) 86 (>60 ml/min/1.73 sqM); Potassium 3.5 mmol/L (3.5-5.1); Sodium 140 mmol/L (137-145)
[2020-02-06 06:43] LABS: Eosinophils # (M) 0.08 k/uL (0-0.7); Lymphocytes # (M) 0.38 k/uL (1.0-4.8); Monocytes # (M) 1.05 k/uL (0-1.0); Neutrophils % (M) 80 %; Nucleated Red Blood Cells 0 /100 WBC (0-0); Platelet Count 53 k/uL (150-450); Total Cells Counted 100
[2020-02-06] MEDS ORDERED: POTASSIUM BICARBONATE/CIT AC 20 MEQ TABLET.EFF NG-TUBE SCH (07:00)
[2020-02-06] MEDS: CEFEPIME 2 GM in SODIUM CHLORIDE 0.9% 100 ML IVPB SCH ×2 (08:45→19:52)
[2020-02-06] MEDS: CHLORHEXIDINE GLUCONATE 15 ML CUP MUCOUS MEM SCH ×2 (08:45→19:49)
[2020-02-06] MEDS: FUROSEMIDE 10 MG/ML 4 ML VIAL IV SCH (08:45)
[2020-02-06] MEDS: PANTOPRAZOLE 40 MG/10 ML VIAL IVP SCH (08:45)
[2020-02-06] MEDS: METOPROLOL TARTRATE 25 MG TAB PO SCH ×2 (08:46→19:49)
[2020-02-06] MEDS: DIGOXIN 250 MCG/ML 2 ML AMP IVP SCH (08:46)
[2020-02-06] MEDS: PARoxetine 10 MG TAB PO SCH (08:46)
[2020-02-06] MEDS: SODIUM CHLORIDE 0.9% 1,000 ML IV SCH ×2 (08:47→18:55)
[2020-02-06] MEDS: AMIODARONE 200 MG TAB PO SCH ×2 (08:47→19:48)
--- NOTE | 2020-02-06 11:12 | P.PN ---
Subjective Progress Note Date: 02/06/20 Principal diagnosis: Dyspnea, hypoxemia, A. fib with RVR, cardiac arrest 69-year-old white male patient Of Dr. Rogers, with past medical history valvular heart disease with previous history of a bioprosthetic mitral valve replacement, history of atrial fibrillation on Eliquis, chronic systolic congestive heart failure on Entresto, with EF of less than 20%, chronic kidney disease stage III at baseline, who presented to the hospital yesterday on 01/31/2020 with symptoms of lightheadedness. Patient's is currently in the hospital, in the intensive care unit, critically ill. She was experiencing some palpitations in the chest discomfort over last couple of days. EMS brought the patient to the hospital and he was given some fluid boluses in the ambulance and was feeling better at the time. EKG showed atrial fibrillation with RVR with a rate of 140 in the ambulance, orthostatic blood pressures were negative. Chest x-ray showed cardiomegaly and increased interstitial density and a small bilateral pleural effusions with adjacent atelectasis. Initial labs showed a white count of 5.5, hemoglobin of 12.9, d-dimer was 2.08, sodium is 139, potassium 5.1, chloride is 110, CO2 is 21, B1 is 21 creatinine is 1.24, troponins were positive at 0.058, 0.062, proBNP was 22,200. Urinalysis showed trace leuks, rare bacteria, and platelet cells at 12, coronavirus PCR was negative. Lower extremity Doppler of the left leg was negative for DVT. he was started on amiodarone drip, and was admitted to selective care. Last night rapid response team was called with concerns for acute hypoxia, patient's pulse ox was 78, requiring additional oxygen, patient was in persistent A. fib with RVR. Blood gases were obtained showing pO2 of 157, pCO2 of 26, and pH of 7.27 this was done on FiO2 of 100%. Blood work showed a sodium of 137, potassium is 5.8, worsening renal profile with BUN of 20 and creatinine of 1.51, plasma lactic acid was found to be elevated at 5.3. Patient was given a liter bolus and IV fluids, patient was started on bicarbonate infusion, however his condition continued to deteriorate, and patient was transferred to the intensive care unit for further monitoring and treatment. Continue to be tachypneic, restless, with acute mental status changes, elevated lactic acid, oliguric, hypothermic. Blood cultures were obtained and sent, Lasix was held, Levaphed was started. She did baseline EF is less than 20%, patient was already given a fluid bolus and his IV fluids were infusing at a rate of 1:30 ML per hour. At 2:00 in the morning patient suffered a cardiac arrest, he did require brief CPR and one round of epinephrine with return of spontaneous circulation, patient was emergently intubated and placed on mechanical ventilator. Currently on assist control mode of ventilation with a rate of 20, tidal volume is 450, FiO2 is 50% and PEEP of 5, this morning his blood gases showed a pO2 of 138, pCO2 of 33, and pH of 7.28, patient was given additional amps of sodium bicarbonate. Current IVs include amiodarone at a rate of 0.5 mg/m, Levothroid is at 21 mics per minute, Diprivan is a 30 mics per kilo per minute. This morning's temp is 98, patient was on the warmer overnight. Patient's condition is critical, patient's is also in this ICU on mechanical ventilator, the next of kin is patient's [id number] who spoke to this morning, and there are no children and no other relatives. Cardiology is following, echocardiogram has been ordered, cultures have been ordered and sent. On 02/02/2020 patient seen in follow-up in the intensive care unit, remains sedated, intubated on mechanical ventilator with current vent settings of assist control with a rate of 20, tidal and was 450, FiO2 60%, and PEEP of 5, this morning's blood gases reveal pO2 of 90, pCO2 33, and pH of 7.5. Patient still remains on bicarbonate infusion in D5 W with 3 A of sodium bicarb at a rate of 75 ML per hour which will be discontinued this morning, to prevent is at 25 mics per kilo per minute, amiodarone at 0.5 mg/m, and levo fed is at 14.4 mics per minute. No other drips. Remains in A. fib with a rate of 98-114 BPM. Hypothermia has resolved, and patient actually is having a low-grade fever this morning with at 99.7F temperature. He is a pressor requirement is down. This morning blood work has been reviewed showing white blood cell count of 9.8, hemoglobin of 14.3, sodium of 134, the rest of the electrolytes are within normal limits, renal profile were sent, with BUN of 35 and creatinine of 2.05. Blood, sputum and urine cultures have been sent, and are pending at this time, blood culture has shown no growth to date, sputum Gram stain showed no organisms. Today's chest x-ray has been reviewed showing enlarged heart, bibasilar increased attenuation possibly related to pulmonary edema or atelectasis. Tube feedings been started with the Nepro at 10 mL an hour. Unfortunately patient's last night. On 02/03/2020 patient seen in follow-up in the intensive care unit. Remains sedated, on mechanical ventilator, currently on assist-control mode with a rate of 20, tidal lines 450, FiO2 50%, PEEP of 5, this morning his blood gases showed pO2 of 66, pCO2 37, pH of 7.49. We'll discontinue the bicarbonate infusion yesterday. Patient has developed metabolic alkalosis, today's labs have been reviewed showing hypokalemia with potassium of 3.2 which will be corrected per protocol. Yesterday patient was given sedation holiday, he did wake up and open his eyes however did not follow command, and became very anxious and started desaturating and was subsequently re-sedated. Today his vasopressor requirements continue to trend down, levo fed is currently at 13 mics per minute, he is on maintenance IV fluids 0.9 normal saline at a rate 75 ML per hour, Diprivan and is a 25 mics per kilo per minute. He is tolerating tube feedings currently on Nepro at a rate of 30 with a goal of 30. Today's chest x- ray shows changes of congestive heart failure with increased interstitial. She did have fevers last night, with a T-max in last 24 hours of 101F. His blood and sputum and urine cultures showed no growth to date. Today's labs have been reviewed, showing white blood cell count within normal limits at 8.7, hemoglobin of 14.5, sodium of 135, potassium of 3.2, chloride is 105, B1 of 34, and creatinine of 1.37, renal profile seems to be improving. he remains in atrial fibrillation with a rate of 98 BPM. The patient is seen today 02/04/2020 in follow-up in the intensive care unit. He remains intubated sedated and on the mechanical ventilator. Current settings are assist control at a rate of 20, tidal volume 450, FiO2 50% and a PEEP of 5. Morning blood gases reveal a P O2 of 90, pCO2 37, pH 7.49. Remains on propofol at 20 mcg/kg/m. Norepinephrine at 16 mcg/m. 0.9 normal saline at 40 miles per hour. Tube feedings with Nepro 40 mL per hour which is goal. Ultrasound of the right chest performed yesterday reveals a pocket of 7.2 cm. Blood urine and sputum cultures reveal no growth. White count 9.0. Hemoglobin 14.7. Sodium 138. Potassium 4.0. Creatinine 1.08. He is currently on Eliquis. Antibiotics in the form of cefepime. Patient seen today 02/05/2020 in follow-up in the intensive care unit. He remains intubated on mechanical ventilator. Current settings are assist-control with a respiratory rate of 20, tidal volume 450, FiO2 50% and a PEEP of 5. Morning blood gases reveal a P O2 of 110, pCO2 40, pH 7.50. Currently sedated on propofol at 25 mcg/kg/m. On norepinephrine at 13 mcg/m. 0.9 normal saline at KVO. 2 feedings of Nepro 40 mL per hour which is goal. Yesterday he did receive a daily interruption of sedation and was a bit more alert compared to the day before. He'll be given another daily interruption of sedation today and spontaneous breathing trials with a pressure support of 5 and a CPAP of 5. Today's chest x-ray continues to show bilateral effusions with basilar airspace disease. No significant change compared to yesterday. Urine reveals no growth, blood reveals no growth to date, and sputum culture reveals preliminary moderate gram-positive cocci. White count 9.2. Hemoglobin 14.0. Sodium 140. Potassium 3.7. Chloride 106. Bicarb 30. Creatinine 0.95. He remains on IV diuretics, bronchodilators, antibiotics in the form of cefepime. The patient is seen today 02/06/2020 in follow-up in the intensive care unit. He remains intubated and on mechanical ventilator. He did tolerate a CPAP trial yesterday for approximately 3 hours. He is currently on assist-control mode of 20, tidal volume 450, FiO2 40% and PEEP of 5. Morning blood gases reveal a P O2 of 106, pCO2 of 40, pH 7.5. Chest x-ray reveals bibasilar airspace disease. No significant change compared to yesterday. He is currently on 0.9 normal saline at KVO, norepinephrine at 3 mcg/m, propofol at 25 mcg/kg/m. Blood cultures revealing no growth to date. Sputum culture with moderate gram-positive cocci, few gram-negative bacilli. White count 7.5. Hemoglobin 13.1. Platelet count 53,000. Sodium 140. Potassium 3.5. Creatinine 0.89. He remains on IV di uretics, bronchodilators and antibiotics in the form of cefepime. Objective - Vital Signs Vital signs: Vital Signs Temp 98.2 F 02/06/20 08:00 Pulse 71 02/06/20 10:00 Resp 20 02/06/20 10:00 BP 97/77 02/06/20 08:00 Pulse Ox 98 02/06/20 10:00 Intake & Output 02/05/20 02/06/20 02/06/20 18:59 06:59 18:59 Intake Total 4839.433 9513.741 472.924 Output Total 1999 575 640 Balance -719.557 719.741 -167.076 Weight 79.4 kg 79.4 kg Intake: IV 286 312 104 Pressure Bag 66 72 24 Sodium Chloride 0.9% 1, 220 240 80 000 ml @ 20 mls/hr IV . Q[facility]H [facility] Rx#:[id number] Intake, IV Titration 414.443 412.741 118.924 Amount Cefepime 2 gm In Sodium 100 100 Chloride 0.9% 100 ml @ 200 mls/hr IVPB Q12HR [facility] Rx#:[id number] Empty Bag 1 bag @ 20 MCG/ 72.064 142.213 43.865 KG/MIN 8.355 mls/hr IV . [id number] [facility] with Propofol 1,000 mg Rx#:[id number] Norepinephrine 8 mg In 242.379 170.528 75.059 Sodium Chloride 0.9% 250 ml @ 0.05 MCG/KG/MIN 6. 976 mls/hr IV .Q24H [facility] Rx#:[id number] Tube Feeding 440 480 160 Other 140 90 90 Output: Urine 1999 575 640 Other: Voiding Method Indwelling Catheter Indwelling Catheter Indwelling Catheter ABP, PAP, CO, CI - Last Documented Arterial Blood Pressure 108/49 - Exam GENERAL EXAM: Sedated, intubated, 69-year-old frail-looking male patient, on FiO2 of 40%, comfortable in no apparent distress. HEAD: Normocephalic/atraumatic. EYES: Normal reaction of pupils, equal size. Conjunctiva pink, sclera white. NOSE: Clear with pink turbinates. THROAT: No erythema or exudates. NECK: No masses, no JVD, no thyroid enlargement, no adenopathy. CHEST: No chest wall deformity. Symmetrical expansion. LUNGS: Equal air entry with crackles in the right base, dullness CVS: Irregular rate and rhythm, normal S1 and S2, no gallops, no murmurs, no rubs ABDOMEN: Soft, nontender. No hepatosplenomegaly, normal bowel sounds, no guarding or rigidity. EXTREMITIES: No clubbing, no edema, no cyanosis, 2+ pulses and upper and lower extremities. MUSCULOSKELETAL: Muscle strength and tone normal. SPINE: No scoliosis or deformity SKIN: No rashes CENTRAL NERVOUS SYSTEM: Sedated, intubated No focal deficits, tone is normal in all 4 extremities. - Labs CBC & Chem 7: 02/06/20 05:30 02/06/20 05:30 Labs: Abnormal Lab Results - Last 24 Hours (Table) 02/05/20 02/05/20 02/06/20 Range/Units 12:16 17:48 05:25 RDW (11.5-15.5) % Plt Count (150-450) k/uL Lymphocytes # (Manual) (1.0-4.8) k/uL Monocytes # (Manual) (0-1.0) k/uL ABG pH 7.52 H (7.35-7.45) ABG HCO3 32 H (21-25) mmol/L ABG Total CO2 34 H (19-24) mmol/L ABG O2 Saturation 98.4 H (94-97) % Carbon Dioxide (22-30) mmol/L BUN (9-20) mg/dL Glucose (74-99) mg/dL POC Glucose (mg/dL) 108 H 105 H (75-99) mg/dL Calcium (8.4-10.2) mg/dL 02/06/20 02/06/20 Range/Units 05:30 05:30 RDW 16.0 H (11.5-15.5) % Plt Count 53 L (150-450) k/uL Lymphocytes # (Manual) 0.38 L (1.0-4.8) k/uL Monocytes # (Manual) 1.05 H (0-1.0) k/uL ABG pH (7.35-7.45) ABG HCO3 (21-25) mmol/L ABG Total CO2 (19-24) mmol/L ABG O2 Saturation (94-97) % Carbon Dioxide 31 H (22-30) mmol/L BUN 45 H (9-20) mg/dL Glucose 117 H (74-99) mg/dL POC Glucose (mg/dL) (75-99) mg/dL Calcium 7.7 L (8.4-10.2) mg/dL Microbiology - Last 24 Hours (Table) 01/31/20 23:27 Blood Culture - Preliminary Blood No Growth after 120 hours 02/02/20 15:02 Blood Culture - Preliminary Blood No Growth after 72 hours 02/02/20 14:13 Blood Culture - Preliminary Blood No Growth after 72 hours Assessment and Plan Assessment: #1. Acute cardiopulmonary arrest related to acute hypoxic respiratory failure, requiring CPR with return of spontaneous circulation, and requiring placement on mechanical ventilator #2. Hypotension likely related to cardiogenic shock #3. Acute exacerbation of chronic systolic congestive heart failure #4. A. fib with RVR #5. Lactic acidosis, possibly related to acute systolic CHF, rule out infectious etiology, cultures have been sent and pending. Patient has been afebrile, no leukocytosis #6. Acute on chronic kidney failure related to ATN #7. Hyperkalemia related to severe metabolic acidosis, improved #8. Chronic A. fib on Eliquis #9. Severe ischemic cardiomyopathy with EF of less than 20% #10. History of mitral valve replacement with a bioprosthetic valve #11. Hypertension Plan: The patient was seen and evaluated by Dr. Black Chest x-ray and labs reviewed No plans for thoracentesis at this time Family is considering possible comfort care Daily interruption of sedation Spontaneous breathing trial if tolerated We will continue to follow and make further recommendations based on his clinical status Critical care time 35 minutes, not including procedures I, the cosigning physician, performed a history & physical examination of the patient. Lungs sounds with crackles, dullness in the right base Maintaining good O2 saturations in the 90s on 40 percent FiO2 on the mechanical ventilator I discussed the assessment and plan of care with my nurse practitioner, Angi Barnes. I attest to the above note as dictated by her. Time with Patient: Greater than 30
--- NOTE | 2020-02-06 11:38 | PN ---
PROGRESS NOTE Patient is seen for followup for acute kidney injury. On initial admission patient was hypotensive and severely acidotic. His renal function has improved. He was initially maintained on IV bicarb. Serum creatinine is down from about 2.0-0.89. However, patient remains intubated and he is volume overloaded and is maintained on IV Lasix. PHYSICAL EXAMINATION: On examination today, blood pressure is 108/49, heart rate 76 per minute, he is afebrile. Examination of the heart S1, S2. Examination of the lungs, decreased breath sounds at the bases. Bilateral breath sounds are heard. Patient is on the vent. Abdomen is soft, nontender. Examination of lower extremities shows edema 1+ bilaterally. LAB: Show sodium 140, potassium 3.5, chloride 107, CO2 is 31, BUN 45, creatinine 0.89. ASSESSMENT: 1. Is acute kidney injury, acute tubular necrosis from hypotension/hypoperfusion, now resolved. 2. Volume overload maintained on IV Lasix which I will continue. 3. Hypoxic respiratory failure, currently on the vent and currently awaiting family's decision regarding possible hospice care. 4. Cardiomyopathy, ejection fraction less than 20%. 5. Severe metabolic acidosis on initial admission, now resolved. 6. Atrial fibrillation with controlled ventricular response. PLAN: Continue with the IV Lasix. Monitor electrolytes. MMODL / IJN: [id number] /
[2020-02-06 11:44] LABS: ABG Base Excess 9.1 mmol/L; ABG HCO3 33 mmol/L (21-25); ABG Oxygen Saturation 98.4 % (94-97); ABG PCO2 49 mmHg (35-45); ABG PH 7.44 (7.35-7.45); ABG PO2 116 mmHg (83-108); ABG TCO2 35 mmol/L (19-24)
--- NOTE | 2020-02-06 11:56 | P.PN ---
Subjective Progress Note Date: 02/06/20 This is a 69-year-old gentleman with history of valvular heart disease with previous history of bioprosthetic mitral valve replacement, history of atrial fibrillation and chronic systolic congestive heart failure with ejection fraction less than 20%. Patient is admitted to the hospital with an episode of cardiac arrest. Patient is still intubated and sedated. Patient has been hypotensive. His heart rate has been fast. I'm going to add back the dose of the Lopressor and start him on IV digoxin. Continue respiratory treatment. Prognosis is poor. 10/08/2019: This heart rate is better controlled with combination of digoxin and low dose of beta don. Blood pressure seemed more stable. No significant improvement in pulmonary status. Possible thoracocentesis being planned. There is also a consideration, her family for comfort care. From Cardec standpoint we'll continue current medical therapy. Prognosis remains poor Objective - Vital Signs Vital signs: Vital Signs Temp 98.2 F 02/06/20 08:00 Pulse 68 02/06/20 11:12 Resp 25 H 02/06/20 11:00 BP 97/77 02/06/20 08:00 Pulse Ox 97 02/06/20 11:00 Intake & Output 02/05/20 02/06/20 02/06/20 18:59 06:59 18:59 Intake Total 1385.973 8106.741 538.924 Output Total 2000 575 1240 Balance -719.557 719.741 -701.076 Weight 79.4 kg 79.4 kg Intake: IV 286 312 130 Pressure Bag 66 72 30 Sodium Chloride 0.9% 1, 220 240 100 000 ml @ 20 mls/hr IV . Q24H [facility] Rx#:[id number] Intake, IV Titration 414.443 412.741 118.924 Amount Cefepime 2 gm In Sodium 100 100 Chloride 0.9% 100 ml @ 200 mls/hr IVPB Q12HR [facility] Rx#:[id number] Empty Bag 1 bag @ 20 MCG/ 72.064 142.213 43.865 KG/MIN 8.355 mls/hr IV . [id number] [facility] with Propofol 1,000 mg Rx#:[id number] Norepinephrine 8 mg In 242.379 170.528 75.059 Sodium Chloride 0.9% 250 ml @ 0.05 MCG/KG/MIN 6. 976 mls/hr IV .Q24H [facility] Rx#:[id number] Tube Feeding 440 480 200 Other 140 90 90 Output: Urine 2000 575 1240 Other: Voiding Method Indwelling Catheter Indwelling Catheter Indwelling Catheter ABP, PAP, CO, CI - Last Documented Arterial Blood Pressure 112/53 - Exam GENERAL EXAM: Patient is intubated and sedated HEENT: Normocephalic. Normal reaction of pupils, equal size, normal range of extraocular motion. No erythema or exudates in the throat. NECK: No masses, no nuchal rigidity. CHEST: No chest wall deformity. LUNGS: Diminished breath sounds HEART: S1 and S2 normal with no audible mumurs or gallops. Regular rhythm, femorals equal on both sides.. ABDOMEN: No hepatosplenomegaly, normal bowel sounds, no guarding or rigidity. SKIN: No rashes CENTRAL NERVOUS SYSTEM: No focal deficits. EXTREMITIES: No cyanosis, clubbing or edema. - Labs CBC & Chem 7: 02/06/20 05:30 02/06/20 05:30 Labs: Abnormal Lab Results - Last 24 Hours (Table) 02/05/20 02/05/20 02/06/20 Range/Units 12:16 17:48 05:25 RDW (11.5-15.5) % Plt Count (150-450) k/uL Lymphocytes # (Manual) (1.0-4.8) k/uL Monocytes # (Manual) (0-1.0) k/uL ABG pH 7.52 H (7.35-7.45) ABG pCO2 (35-45) mmHg ABG pO2 (83-108) mmHg ABG HCO3 32 H (21-25) mmol/L ABG Total CO2 34 H (19-24) mmol/L ABG O2 Saturation 98.4 H (94-97) % Carbon Dioxide (22-30) mmol/L BUN (9-20) mg/dL Glucose (74-99) mg/dL POC Glucose (mg/dL) 108 H 105 H (75-99) mg/dL Calcium (8.4-10.2) mg/dL 02/06/20 02/06/20 02/06/20 Range/Units 05:30 05:30 11:40 RDW 16.0 H (11.5-15.5) % Plt Count 53 L (150-450) k/uL Lymphocytes # (Manual) 0.38 L (1.0-4.8) k/uL Monocytes # (Manual) 1.05 H (0-1.0) k/uL ABG pH (7.35-7.45) ABG pCO2 49 H (35-45) mmHg ABG pO2 116 H (83-108) mmHg ABG HCO3 33 H (21-25) mmol/L ABG Total CO2 35 H (19-24) mmol/L ABG O2 Saturation 98.4 H (94-97) % Carbon Dioxide 31 H (22-30) mmol/L BUN 45 H (9-20) mg/dL Glucose 117 H (74-99) mg/dL POC Glucose (mg/dL) (75-99) mg/dL Calcium 7.7 L (8.4-10.2) mg/dL Microbiology - Last 24 Hours (Table) 01/31/20 23:27 Blood Culture - Preliminary Blood No Growth after 120 hours 02/02/20 15:02 Blood Culture - Preliminary Blood No Growth after 72 hours 02/02/20 14:13 Blood Culture - Preliminary Blood No Growth after 72 hours Assessment and Plan Plan: This patient is admitted with cardiac arrest. Known to have cardiomyopathy and chronic systolic CHF and history of mitral valve replacement. Patient is still intubated and sedated. He has been hypotensive requiring pressors. His heart rate has been high. I'm going to cut back the dose of Lopressor and start him on IV Lanoxin. Continue rest of the management. Prognosis is guarded. 10/08/2019: Patient clinical status remains critical. His heart rate is better controlled. Blood pressure seemed to be more stable. Respirator status hasn't improved. Family is considering comfort care. Continue current medical therapy
[2020-02-06 12:02] LABS: Glucose,Whole Blood 103 mg/dL (75-99)
[2020-02-06] MEDS ORDERED: Potassium Replacement Protocol 1 EACH MISC MISCELLANE PRN (16:55)
[2020-02-06] MEDS: POTASSIUM CHLORIDE 10 MEQ in WATER FOR INJECTION 1 100ML.BAG IVPB SCH ×4 (17:06→19:52)
[2020-02-06 18:09] LABS: Glucose,Whole Blood 73 mg/dL (75-99)
--- NOTE | 2020-02-06 20:00 | PN ---
PROGRESS NOTE DATE OF SERVICE: 02/06/2020 REASON FOR FOLLOWUP: Pneumonia. INTERVAL HISTORY: Patient is currently afebrile. The patient has been extubated. He is currently breathing comfortably on nasal cannula oxygen, seems sedate, sleepy, lethargic though. Denies any chest pain or cough. No abdominal pain. No diarrhea. PHYSICAL EXAMINATION: Blood pressure 117/52 with a pulse of 80. Temperature 98. He is 99% on 2 L nasal cannula. General description is an elderly male lying in bed in no distress. Respiratory system: Unlabored breathing, decreased breath sounds at bases. No wheeze. Heart S1, S2. Regular rate and rhythm. Abdomen soft. No tenderness. LABS: Hemoglobin 13.8, white count 7.5. BUN of 45, creatinine 0.89. Sputum is showing Staph aureus MSSA. Blood culture has been negative. DIAGNOSTIC IMPRESSION AND PLAN: Patient with pneumonia concerning for initially gram-negative. The patient clinically responded to cefepime. Sputum is showing MSSA. Patient covered with cefepime to continue and monitor clinical course closely. MMODL / IJN: [id number] /
[2020-02-06] MEDS ORDERED: LORazepam 2 MG/ML INJ IV STA (21:28)
[2020-02-06 23:58] LABS: Glucose,Whole Blood 70 mg/dL (75-99)
[2020-02-07] MEDS: INSULIN ASPART (NovoLOG) 100 UNIT/ML VIAL SQ SCH ×4 (00:12→18:02)
[2020-02-07] MEDS ORDERED: DEXTROSE 50% SYRINGE 50 ML IVP ONE (00:17)
[2020-02-07] MEDS: DEXTROSE 50% SYRINGE 50 ML IVP STA ×2 (00:18→00:21)
[2020-02-07] MEDS: IPRATROPIUM-ALBUTEROL 3 ML NEB INHALATION SCH ×6 (03:34→23:37)
[2020-02-07 04:47] LABS: Basophils % (A) 0 %; Eosinophils # (A) 0.4 k/uL (0-0.7); Eosinophils % (A) 6 %; HCT 38.4 % (39.0-53.0); HGB 12.1 gm/dL (13.0-17.5); Hypochromasia Marked; Lymphocytes # (A) 0.4 k/uL (1.0-4.8); Lymphocytes % (A) 7 %; MCH 29.1 pg (25.0-35.0); MCHC 31.5 g/dL (31.0-37.0); MCV 92.6 fL (80.0-100.0); Mean Platelet Volume 8.5; Monocytes # (A) 0.6 k/uL (0-1.0); Monocytes % (A) 9 %; Neutrophils # (A) 4.5 k/uL (1.3-7.7); Neutrophils % (A) 75 %; RBC 4.15 m/uL (4.30-5.90); RDW 15.9 % (11.5-15.5)
[2020-02-07 04:58] LABS: African American GFR (CKD) >90 (>60 ml/min/1.73 sqM); Anion Gap 2 mmol/L; Blood Urea Nitrogen 44 mg/dL (9-20); Calcium 7.7 mg/dL (8.4-10.2); Carbon Dioxide 31 mmol/L (22-30); Chloride 107 mmol/L (98-107); Glucose 70 mg/dL (74-99); Non-African American GFR(CKD) 86 (>60 ml/min/1.73 sqM); Platelet Count 40 k/uL (150-450); Potassium 3.5 mmol/L (3.5-5.1); Sodium 140 mmol/L (137-145)
[2020-02-07] MEDS: POTASSIUM CHLORIDE 20 MEQ in WATER FOR INJECTION 1 100ML.BAG IVPB SCH ×2 (05:21→08:37)
[2020-02-07 05:30] LABS: Glucose,Whole Blood 67 mg/dL (75-99)
[2020-02-07 05:41] LABS: Glucose,Whole Blood 106 mg/dL (75-99)
[2020-02-07 06:10] LABS: Glucose,Whole Blood 90 mg/dL (75-99)
[2020-02-07] MEDS: FUROSEMIDE 10 MG/ML 4 ML VIAL IV SCH (08:36)
[2020-02-07] MEDS: PANTOPRAZOLE 40 MG/10 ML VIAL IVP SCH (08:36)
[2020-02-07] MEDS: AMIODARONE 200 MG TAB PO SCH ×2 (08:36→20:06)
[2020-02-07] MEDS: METOPROLOL TARTRATE 25 MG TAB PO SCH ×2 (08:36→20:06)
[2020-02-07] MEDS: PARoxetine 10 MG TAB PO SCH (08:37)
[2020-02-07] MEDS: DIGOXIN 250 MCG/ML 2 ML AMP IVP SCH (08:37)
[2020-02-07] MEDS: CEFEPIME 2 GM in SODIUM CHLORIDE 0.9% 100 ML IVPB SCH ×2 (08:38→20:06)
--- NOTE | 2020-02-07 08:48 | XR ---
EXAMINATION TYPE: XR chest 1V portable DATE OF EXAM: 02/07/2020 COMPARISON: 02/06/2020 HISTORY: Shortness of breath TECHNIQUE: Single frontal view of the chest is obtained. FINDINGS: Heart is enlarged there is bilateral infiltrate and pleural effusion with diffuse intersti tial pattern. Postsurgical changes noted. Central line stable. ET and NG tube have been removed. Office Associate dwight rib deformities are seen. Hypertrophic and degenerative change of the spine. IMPRESSION: 1. Diffuse pleural-parenchymal changes are stable correlate for CHF versus diffuse pneumonia.
--- NOTE | 2020-02-07 08:51 | P.PN ---
Subjective Patient is seen in follow-up for acute kidney injury. GFR is back to baseline. He was extubated on February 05. Currently on low-dose Levophed. Nonoliguric. Not a reliable historian at this time. Vital signs are stable. on low-dose Levophed. General: The patient appeared well nourished and normally developed. HEENT: Head exam is unremarkable. Neck is without jugular venous distension. LUNGS: Breath sounds decreased. HEART: Rate and Rhythm are regular. ABDOMEN: soft, nontender. EXTREMITITES: 2+ edema. Objective - Vital Signs Vital signs: Vital Signs Temp 98.5 F 02/07/20 04:00 Pulse 81 02/07/20 07:06 Resp 24 02/07/20 07:00 BP 97/65 02/07/20 07:00 Pulse Ox 100 02/07/20 07:00 Intake & Output 02/06/20 02/07/20 02/07/20 18:59 06:59 18:59 Intake Total 966.039 657.923 76 Output Total 2265 575 40 Balance -1298.961 82.923 36 Weight 79.4 kg 80.6 kg Intake: IV 312 272 26 Pressure Bag 72 72 6 Sodium Chloride 0.9% 1, 240 200 20 000 ml @ 20 mls/hr IV . Q24H [facility] Rx#:[id number] Intake, IV Titration 324.039 385.923 50 Amount Cefepime 2 gm In Sodium 100 Chloride 0.9% 100 ml @ 200 mls/hr IVPB Q12HR [facility] Rx#:[id number] Empty Bag 1 bag @ 20 MCG/ 43.865 KG/MIN 8.355 mls/hr IV . [id number] [facility] with Propofol 1,000 mg Rx#:[id number] Norepinephrine 8 mg In 80.174 35.923 Sodium Chloride 0.9% 250 ml @ 0.05 MCG/KG/MIN 6. 976 mls/hr IV .Q24H [facility] Rx#:[id number] Potassium Chloride 10 meq 200 200 In Water For Injection 1 100ml.bag @ 100 mls/hr IVPB Q1HR [facility] Rx#: [id number] Potassium Chloride 20 meq 50 50 In Water For Injection 1 100ml.bag @ 50 mls/hr IVPB Q2H [facility] Rx#: [id number] Tube Feeding 240 Other 90 Output: Urine 2265 575 40 Other: Voiding Method Indwelling Catheter Indwelling Catheter ABP, PAP, CO, CI - Last Documented Arterial Blood Pressure 103/58 - Labs CBC & Chem 7: 02/07/20 04:30 02/07/20 04:30 Labs: Abnormal Lab Results - Last 24 Hours (Table) 02/06/20 02/06/20 02/06/20 Range/Units 11:40 12:00 18:08 RBC (4.30-5.90) m/uL Hgb (13.0-17.5) gm/dL Hct (39.0-53.0) % RDW (11.5-15.5) % Plt Count (150-450) k/uL Lymphocytes # (1.0-4.8) k/uL ABG pCO2 49 H (35-45) mmHg ABG pO2 116 H (83-108) mmHg ABG HCO3 33 H (21-25) mmol/L ABG Total CO2 35 H (19-24) mmol/L ABG O2 Saturation 98.4 H (94-97) % Carbon Dioxide (22-30) mmol/L BUN (9-20) mg/dL Glucose (74-99) mg/dL POC Glucose (mg/dL) 103 H 73 L (75-99) mg/dL Calcium (8.4-10.2) mg/dL 02/06/20 02/07/20 02/07/20 Range/Units 23:57 04:30 04:30 RBC 4.15 L (4.30-5.90) m/uL Hgb 12.1 L (13.0-17.5) gm/dL Hct 38.4 L (39.0-53.0) % RDW 15.9 H (11.5-15.5) % Plt Count 40 L (150-450) k/uL Lymphocytes # 0.4 L (1.0-4.8) k/uL ABG pCO2 (35-45) mmHg ABG pO2 (83-108) mmHg ABG HCO3 (21-25) mmol/L ABG Total CO2 (19-24) mmol/L ABG O2 Saturation (94-97) % Carbon Dioxide 31 H (22-30) mmol/L BUN 44 H (9-20) mg/dL Glucose 70 L (74-99) mg/dL POC Glucose (mg/dL) 70 L (75-99) mg/dL Calcium 7.7 L (8.4-10.2) mg/dL 02/07/20 02/07/20 Range/Units 05:25 05:40 RBC (4.30-5.90) m/uL Hgb (13.0-17.5) gm/dL Hct (39.0-53.0) % RDW (11.5-15.5) % Plt Count (150-450) k/uL Lymphocytes # (1.0-4.8) k/uL ABG pCO2 (35-45) mmHg ABG pO2 (83-108) mmHg ABG HCO3 (21-25) mmol/L ABG Total CO2 (19-24) mmol/L ABG O2 Saturation (94-97) % Carbon Dioxide (22-30) mmol/L BUN (9-20) mg/dL Glucose (74-99) mg/dL POC Glucose (mg/dL) 67 L 106 H (75-99) mg/dL Calcium (8.4-10.2) mg/dL Microbiology - Last 24 Hours (Table) 01/31/20 23:27 Blood Culture - Final Blood No Growth after 144 hours 02/02/20 15:02 Blood Culture - Preliminary Blood No Growth after 96 hours 02/02/20 14:13 Blood Culture - Preliminary Blood No Growth after 96 hours 02/04/20 08:15 Gram Stain - Final Sputum Sputum Culture - Final Staphylococcus aureus Assessment and Plan Plan: assessment: 1. Acute kidney injury secondary to ATN secondary to cardiac arrest/hypotension as well as cardiorenal syndrome. Resolved. 2. Acute on chronic systolic CHF with ejection fraction of less than 20%. 3. Volume overload. 4. Pneumonia maintained on antibiotics. Infectious disease following. 5. Status post cardiac arrest. 6. Hypokalemia from poor intake and diuretics. Plan: Maintain IV Lasix. Wean Levophed. Potassium being replaced. Continue to monitor renal function and urine output.
[2020-02-07] MEDS: CHLORHEXIDINE GLUCONATE 15 ML CUP MUCOUS MEM SCH ×2 (08:57→20:05)
[2020-02-07 11:44] LABS: Glucose,Whole Blood 83 mg/dL (75-99)
--- NOTE | 2020-02-07 13:26 | PN ---
PROGRESS NOTE Carmine Bailey is a 69-year-old gentleman with history of valvular heart disease, mitral valve replacement, atrial fibrillation, chronic systolic heart failure, who is admitted to hospital with cardiac arrest, intubated, sedated. He was extubated yesterday and at the time of my evaluation, appears quite confused. On exam, heart rate is 75 beats per minute. Blood pressure is 97/55, respiratory is 20. Chest exam reveals diminished air entry at the bases. Heart exam reveals first and second heart sounds, irregular rhythm and a systolic murmur at the left lower sternal border. Abdomen is soft. Exam of extremities reveals bilateral pitting edema. Labs show a hemoglobin of 12.1. Platelet count is 40. Potassium is 3.5. ASSESSMENT: Persistent atrial fibrillation with controlled ventricular rate. History of mitral valve replacement. PLAN: I am going to hold the anticoagulant at this stage as the platelet count is low and it is still falling. We will get an input from the dry cleaning attendant. SHAW / PATRICIO: [id number] /
[2020-02-07] MEDS: SODIUM CHLORIDE 0.9% 1,000 ML IV SCH ×2 (14:09→20:07)
--- NOTE | 2020-02-07 14:50 | P.PN ---
Subjective Progress Note Date: 02/07/20 On 02/07/2020, the patient is still extubated and the patient is being seen in follow-up in the intensive care unit. She is post acute cardiopulmonary arrest and acute hypoxic respiratory failure requiring intubation mechanical ventilation. Note that the patient had a brief CPR and return of spontaneous circulation and following that the patient had to be placed on a mechanical ventilator for quite some time and the patient was extubated yesterday without any major difficulties and currently is ranging between 4 l by nasal cannula. During the course of the treatment, the patient became hypotensive and his blood pressure is essentially normalized. He is awake. He is following some simple commands. He is still confused. He states that he wants to go home. His underlying cardiac status is quite poor as the patient has previous mitral valve replacement with a bioprosthetic valve and the patient is an ejection fraction of less than 20%. Currently in his sputum and the patient was started on IV cefepime. He is afebrile. He is receiving Lasix 40 mg every 24 hours. He is also on a low dose norepinephrine infusion for blood pressure support running at 0.05 g per KG per minute and those is being titrated to a a mean arterial pressure above 65. Note that this pressors was weaned off as the patient's blood pressure improved. His chest x-ray from today still showing diffuse pleural parenchymal changes are stable consistent with CHF. Underlying pneumonia cannot be completely excluded. Objective - Vital Signs Vital signs: Vital Signs Temp 98.0 F 02/07/20 12:00 Pulse 78 02/07/20 14:00 Resp 19 02/07/20 14:00 BP 97/65 02/07/20 14:00 Pulse Ox 92 L 02/07/20 14:00 Intake & Output 02/06/20 02/07/20 02/07/20 18:59 06:59 18:59 Intake Total 966.039 657.923 458 Output Total 2265 575 1315 Balance -1298.961 82.923 -857 Weight 79.4 kg 80.6 kg Intake: IV 312 272 208 Pressure Bag 72 72 48 Sodium Chloride 0.9% 1, 240 200 160 000 ml @ 20 mls/hr IV . Q24H [facility] Rx#:[id number] Intake, IV Titration 324.039 385.923 250 Amount Cefepime 2 gm In Sodium 100 100 Chloride 0.9% 100 ml @ 200 mls/hr IVPB Q12HR [facility] Rx#:[id number] Empty Bag 1 bag @ 20 MCG/ 43.865 KG/MIN 8.355 mls/hr IV . [id number] [facility] with Propofol 1,000 mg Rx#:[id number] Norepinephrine 8 mg In 80.174 35.923 Sodium Chloride 0.9% 250 ml @ 0.05 MCG/KG/MIN 6. 976 mls/hr IV .Q24H [facility] Rx#:[id number] Potassium Chloride 10 meq 200 200 In Water For Injection 1 100ml.bag @ 100 mls/hr IVPB Q1HR [facility] Rx#: [id number] Potassium Chloride 20 meq 50 150 In Water For Injection 1 100ml.bag @ 50 mls/hr IVPB Q2H [facility] Rx#: [id number] Tube Feeding 240 Other 90 Output: Urine 2265 575 1315 Other: Voiding Method Indwelling Catheter Indwelling Catheter Indwelling Catheter ABP, PAP, CO, CI - Last Documented Arterial Blood Pressure 108/49 - Exam GENERAL EXAM: Sedated, intubated, 69-year-old frail-looking male patient, on 4 L of oxygen by nasal cannula. The patient is quite comfortable not using excessive muscle breathing. Nevertheless, he is a bit confused. He continues to say that he wants to go home. HEAD: Normocephalic/atraumatic. EYES: Normal reaction of pupils, equal size. Conjunctiva pink, sclera white. NOSE: Clear with pink turbinates. THROAT: No erythema or exudates. NECK: No masses, no JVD, no thyroid enlargement, no adenopathy. CHEST: No chest wall deformity. Symmetrical expansion. LUNGS: Equal air entry with crackles in the right base, dullness CVS: Irregular rate and rhythm, normal S1 and S2, no gallops, no murmurs, no rubs ABDOMEN: Soft, nontender. No hepatosplenomegaly, normal bowel sounds, no guarding or rigidity. EXTREMITIES: No clubbing, no edema, no cyanosis, 2+ pulses and upper and lower extremities. MUSCULOSKELETAL: Muscle strength and tone normal. SPINE: No scoliosis or deformity SKIN: No rashes CENTRAL NERVOUS SYSTEM: Confused, neurologic exam is nonfocal and the patient is moving all 4 extremities without any patient this point in time. . - Labs CBC & Chem 7: 02/07/20 04:30 02/07/20 04:30 Labs: Abnormal Lab Results - Last 24 Hours (Table) 02/06/20 02/06/20 02/07/20 Range/Units 18:08 23:57 04:30 RBC 4.15 L (4.30-5.90) m/uL Hgb 12.1 L (13.0-17.5) gm/dL Hct 38.4 L (39.0-53.0) % RDW 15.9 H (11.5-15.5) % Plt Count 40 L (150-450) k/uL Lymphocytes # 0.4 L (1.0-4.8) k/uL Carbon Dioxide (22-30) mmol/L BUN (9-20) mg/dL Glucose (74-99) mg/dL POC Glucose (mg/dL) 73 L 70 L (75-99) mg/dL Calcium (8.4-10.2) mg/dL 02/07/20 02/07/20 02/07/20 Range/Units 04:30 05:25 05:40 RBC (4.30-5.90) m/uL Hgb (13.0-17.5) gm/dL Hct (39.0-53.0) % RDW (11.5-15.5) % Plt Count (150-450) k/uL Lymphocytes # (1.0-4.8) k/uL Carbon Dioxide 31 H (22-30) mmol/L BUN 44 H (9-20) mg/dL Glucose 70 L (74-99) mg/dL POC Glucose (mg/dL) 67 L 106 H (75-99) mg/dL Calcium 7.7 L (8.4-10.2) mg/dL Microbiology - Last 24 Hours (Table) 01/31/20 23:27 Blood Culture - Final Blood No Growth after 144 hours 02/02/20 15:02 Blood Culture - Preliminary Blood No Growth after 96 hours 02/02/20 14:13 Blood Culture - Preliminary Blood No Growth after 96 hours 02/04/20 08:15 Gram Stain - Final Sputum Sputum Culture - Final Staphylococcus aureus Assessment and Plan Plan: #1. Acute cardiopulmonary arrest related to acute hypoxic respiratory failure, requiring CPR with return of spontaneous circulation, and requiring placement on mechanical ventilator, the patient was extubated on 02/06/2020 and currently is hemodynamically stable on was weaned off. #2. Hypotension likely related to cardiogenic shock, as the patient had an ejection fraction of 20% #3. Acute exacerbation of chronic systolic congestive heart failure, #4. Chronic atrial fibrillation, maintained on Eliquis on outpatient basis #5. Lactic acidosis, possibly related to acute systolic CHF, improved #6. Acute on chronic kidney failure related to ATN, improved and the creatinine is down to 0.9 #7. Pseudomonas in the sputum, considered a superimposed pneumonia on top of CHF. The patient is currently on IV cefepime. #8. Chronic A. fib on Eliquis #9. Severe ischemic cardiomyopathy with EF of less than 20% #10. History of mitral valve replacement with a bioprosthetic valve Plan Continue IV cefepime Continue Lasix 40 mg IV every 24 hours Wean down FiO2 to maintain saturation above 90% Repeat chest x-ray in the morning Swallow evaluation and assess the patient's ability to take oral medications Restart Eliquis regarding his atrial fibrillation May consider restarting Entresto and this will discuss with cardiology. The davi boston is currently on metoprolol 25 mg by mouth twice a day and the patient is on no pressors We'll continue to follow. Long-term prognosis poor baseline above-mentioned comorbidities.
--- NOTE | 2020-02-07 18:20 | PN ---
PROGRESS NOTE DATE OF SERVICE: 02/07/2020 REASON FOR FOLLOWUP: Pneumonia. INTERVAL HISTORY: The patient is currently afebrile. The patient is breathing more comfortably. The patient denies having any chest pain. Did have some cough. No sputum. No abdominal pain or diarrhea. PHYSICAL EXAMINATION: Blood pressure 108/49 with a pulse of 78, temperature 98. He is 92% on room air. General description is an elderly male lying in bed in no distress. RESPIRATORY SYSTEM: Unlabored breathing with decreased breath sounds at the base. No wheeze. HEART: S1, S2. Regular rate and rhythm. ABDOMEN: Soft. No tenderness. LABS: Hemoglobin is 12.1, white count 6.0, BUN of 44, creatinine 0.90. DIAGNOSTIC IMPRESSION AND PLAN: Patient with a fever. Source is likely pneumonia. Possible concern for ; however, that has been ruled out, as sputum is showing Staph aureus. He is currently covered with cefepime; to continue and will monitor clinical course closely. MMODL / IJN: [id number] /
--- NOTE | 2020-02-07 22:39 | P.PN ---
Subjective Progress Note Date: 02/05/20 Principal diagnosis: S/p Cardiac arrest , CHF exacerbation Mr. Bailey is a 69-year-old male admitted to the hospital for difficulty in breathing was found to have atrial fibrillation with exacerbation congestive heart failure subsequently his blood pressures are dropped and he became hypoxic acidotic. Patient suffered cardiac arrest and required CPR briefly 10 emerg ently intubated and transferred to the ICU. On 02/05/2020 -patient is in the ICU sedated and mechanically ventilated. Patient's chest x-ray showed bilateral effusions with basilar airspace disease. His blood cultures and urine cultures no growth so far, sputum culture showing gram-positive cocci. Patient is on antibiotics. Review of systems could not be done as the patient is intubated. Objective - Vital Signs Vital signs: Vital Signs Temp 99 F 02/05/20 16:00 Pulse 89 02/05/20 19:08 Resp 20 02/05/20 19:08 BP 101/76 02/05/20 19:00 Pulse Ox 97 02/05/20 19:00 Intake & Output 02/05/20 02/05/20 02/06/20 06:59 18:59 06:59 Intake Total 5043.472 0717.443 96 Output Total 655 2000 30 Balance 611.995 -719.557 66 Weight 79.7 kg Intake: IV 338 286 26 Pressure Bag 78 66 6 Sodium Chloride 0.9% 1, 260 220 20 000 ml @ 20 mls/hr IV . Q24H [facility] Rx#:[id number] Intake, IV Titration 328.995 414.443 Amount Cefepime 2 gm In Sodium 100 100 Chloride 0.9% 100 ml @ 200 mls/hr IVPB Q12HR [facility] Rx#:[id number] Empty Bag 1 bag @ 20 MCG/ 89.992 72.064 KG/MIN 8.355 mls/hr IV . [id number] [facility] with Propofol 1,000 mg Rx#:[id number] Norepinephrine 8 mg In 139.003 242.379 Sodium Chloride 0.9% 250 ml @ 0.05 MCG/KG/MIN 6. 976 mls/hr IV .Q24H [facility] Rx#:[id number] Tube Feeding 600 440 40 Other 140 30 Output: Urine 655 2000 30 Other: Voiding Method Indwelling Catheter Indwelling Catheter ABP, PAP, CO, CI - Last Documented Arterial Blood Pressure 113/49 - Exam GENERAL EXAM: Sedated, intubated, 69-year-old frail-looking male patient, on FiO2 of 50%, comfortable in no apparent distress. HENT - no pallor, No icterus LUNGS: Equal air entry with crackles in the right base, dullness at the lower lung [place]. CVS: Irregular rate and rhythm, normal S1 and S2, no gallops, no murmurs, no rubs ABDOMEN: Soft, nontender. No hepatosplenomegaly, normal bowel sounds, no guarding or rigidity. EXTREMITIES: No clubbing, no edema, no cyanosis, 2+ pulses and upper and lower extremities. CENTRAL NERVOUS SYSTEM: Sedated, intubated - Labs CBC & Chem 7: 02/07/20 04:30 02/07/20 04:30 Labs: Abnormal Lab Results - Last 24 Hours (Table) 02/05/20 02/05/20 02/05/20 Range/Units 04:36 04:36 04:53 RDW 16.0 H (11.5-15.5) % Plt Count 101 L (150-450) k/uL Lymphocytes # 0.6 L (1.0-4.8) k/uL ABG pH 7.50 H (7.35-7.45) ABG pO2 110 H (83-108) mmHg ABG HCO3 31 H (21-25) mmol/L ABG Total CO2 33 H (19-24) mmol/L ABG O2 Saturation 98.5 H (94-97) % BUN 42 H (9-20) mg/dL Glucose 120 H (74-99) mg/dL POC Glucose (mg/dL) (75-99) mg/dL Calcium 8.0 L (8.4-10.2) mg/dL 02/05/20 02/05/20 02/05/20 Range/Units 06:01 12:16 17:48 RDW (11.5-15.5) % Plt Count (150-450) k/uL Lymphocytes # (1.0-4.8) k/uL ABG pH (7.35-7.45) ABG pO2 (83-108) mmHg ABG HCO3 (21-25) mmol/L ABG Total CO2 (19-24) mmol/L ABG O2 Saturation (94-97) % BUN (9-20) mg/dL Glucose (74-99) mg/dL POC Glucose (mg/dL) 102 H 108 H 105 H (75-99) mg/dL Calcium (8.4-10.2) mg/dL Microbiology - Last 24 Hours (Table) 02/02/20 15:02 Blood Culture - Preliminary Blood No Growth after 72 hours 02/02/20 14:13 Blood Culture - Preliminary Blood No Growth after 72 hours 01/31/20 23:27 Blood Culture - Preliminary Blood No Growth after 96 hours Assessment and Plan Assessment: ASSESSMENT Acute hypoxic respiratory failure secondary to CHF exacerbation Status post cardiac arrest Acute kidney injury Atrial fibrillation with rapid ventricular rate Acute systolic congestive heart failure exacerbation Severe ischemic cardiomyopathy with ejection fraction less than 20% Mitral valve replacement with bioprosthetic valve Lactic acidosis Hyperkalemia improving History of hypertension PLAN: Patient to be continued on mechanical ventilation. Continue antibiotics. Pulmonary following the patient closely and trying spontaneous breathing trial the patient can tolerate. Anticoagulation on hold for possible thoracentesis. Overall prognosis is guarded. Follow-up pending on the progress of the patient.
--- NOTE | 2020-02-07 22:59 | P.PN ---
Subjective Progress Note Date: 02/06/20 Principal diagnosis: S/p Cardiac arrest , CHF exacerbation Mr. Bailey is a 69-year-old male admitted to the hospital for difficulty in breathing was found to have atrial fibrillation with exacerbation congestive heart failure subsequently his blood pressures are dropped and he became hypoxic acidotic. Patient suffered cardiac arrest and required CPR briefly 10 emerg ently intubated and transferred to the ICU. On 02/05/2020 -patient is in the ICU sedated and mechanically ventilated. Patient's chest x-ray showed bilateral effusions with basilar airspace disease. His blood cultures and urine cultures no growth so far, sputum culture showing gram-positive cocci. Patient is on antibiotics. Review of systems could not be done as the patient is intubated. On 02/06/2020 -patient has been successfully extubated couple of hours back. He is slowly coming off of sedation. He is confused but trying to follow simple commands. He states that he wants to go home. He is maintaining his blood pressure with a low-dose of norepinephrine. Patient has been continued on Lasix. His sputum cultures are positive for staph aureus. He is currently on cefepime. Objective - Vital Signs Vital signs: Vital Signs Temp 98.2 F 02/06/20 08:00 Pulse 68 02/06/20 11:12 Resp 25 H 02/06/20 11:00 BP 97/77 02/06/20 08:00 Pulse Ox 97 02/06/20 11:00 Intake & Output 02/05/20 02/06/20 02/06/20 18:59 06:59 18:59 Intake Total 2671.352 4045.741 538.924 Output Total 1999 575 1240 Balance -719.557 719.741 -701.076 Weight 79.4 kg 79.4 kg Intake: IV 286 312 130 Pressure Bag 66 72 30 Sodium Chloride 0.9% 1, 220 240 100 000 ml @ 20 mls/hr IV . Q24H [facility] Rx#:[id number] Intake, IV Titration 414.443 412.741 118.924 Amount Cefepime 2 gm In Sodium 100 100 Chloride 0.9% 100 ml @ 200 mls/hr IVPB Q12HR [facility] Rx#:[id number] Empty Bag 1 bag @ 20 MCG/ 72.064 142.213 43.865 KG/MIN 8.355 mls/hr IV . [id number] [facility] with Propofol 1,000 mg Rx#:[id number] Norepinephrine 8 mg In 242.379 170.528 75.059 Sodium Chloride 0.9% 250 ml @ 0.05 MCG/KG/MIN 6. 976 mls/hr IV .Q24H [facility] Rx#:[id number] Tube Feeding 440 480 200 Other 140 90 90 Output: Urine 2000 575 1240 Other: Voiding Method Indwelling Catheter Indwelling Catheter Indwelling Catheter ABP, PAP, CO, CI - Last Documented Arterial Blood Pressure 112/53 - Exam GENERAL EXAM: Exbuated, fragile older than states age, no distress HENT - no pallor, No icterus LUNGS: Equal air entry with crackles in the right base, dullness at the lower lung [place]. CVS: Irregular rate and rhythm, normal S1 and S2, no gallops, no murmurs, no rubs ABDOMEN: Soft, nontender. No hepatosplenomegaly, normal bowel sounds, no guarding or rigidity. EXTREMITIES: No clubbing, no edema, no cyanosis, 2+ pulses and upper and lower extremities. CENTRAL NERVOUS SYSTEM: confused , oriented to name only, following simple commands - Labs CBC & Chem 7: 02/07/20 04:30 02/07/20 04:30 Labs: Abnormal Lab Results - Last 24 Hours (Table) 02/05/20 02/05/20 02/06/20 Range/Units 12:16 17:48 05:25 RDW (11.5-15.5) % Plt Count (150-450) k/uL Lymphocytes # (Manual) (1.0-4.8) k/uL Monocytes # (Manual) (0-1.0) k/uL ABG pH 7.52 H (7.35-7.45) ABG HCO3 32 H (21-25) mmol/L ABG Total CO2 34 H (19-24) mmol/L ABG O2 Saturation 98.4 H (94-97) % Carbon Dioxide (22-30) mmol/L BUN (9-20) mg/dL Glucose (74-99) mg/dL POC Glucose (mg/dL) 108 H 105 H (75-99) mg/dL Calcium (8.4-10.2) mg/dL 02/06/20 02/06/20 Range/Units 05:30 05:30 RDW 16.0 H (11.5-15.5) % Plt Count 53 L (150-450) k/uL Lymphocytes # (Manual) 0.38 L (1.0-4.8) k/uL Monocytes # (Manual) 1.05 H (0-1.0) k/uL ABG pH (7.35-7.45) ABG HCO3 (21-25) mmol/L ABG Total CO2 (19-24) mmol/L ABG O2 Saturation (94-97) % Carbon Dioxide 31 H (22-30) mmol/L BUN 45 H (9-20) mg/dL Glucose 117 H (74-99) mg/dL POC Glucose (mg/dL) (75-99) mg/dL Calcium 7.7 L (8.4-10.2) mg/dL Microbiology - Last 24 Hours (Table) 01/31/20 23:27 Blood Culture - Preliminary Blood No Growth after 120 hours 02/02/20 15:02 Blood Culture - Preliminary Blood No Growth after 72 hours 02/02/20 14:13 Blood Culture - Preliminary Blood No Growth after 72 hours Assessment and Plan Assessment: ASSESSMENT Acute hypoxic respiratory failure secondary to CHF exacerbation Status post cardiac arrest Acute kidney injury Atrial fibrillation with rapid ventricular rate Acute systolic congestive heart failure exacerbation Severe ischemic cardiomyopathy with ejection fraction less than 20% Mitral valve replacement with bioprosthetic valve Lactic acidosis Hyperkalemia improving History of hypertension PLAN: Patient is successfully extubated couple of hours back. He is oriented to his name only. Following simple commands. Continue antibiotics in the form of cefepime. Blood pressure holding up without any pressor support. Overall prognosis is guarded. Continue with the current medication regimen. Further recommendations to follow depending on the progress of patient
--- NOTE | 2020-02-07 23:21 | P.PN ---
Subjective Progress Note Date: 02/07/20 Principal diagnosis: S/p Cardiac arrest , CHF exacerbation Mr. Bailey is a 69-year-old male admitted to the hospital for difficulty in breathing was found to have atrial fibrillation with exacerbation congestive heart failure subsequently his blood pressures are dropped and he became hypoxic acidotic. Patient suffered cardiac arrest and required CPR briefly 10 emerg ently intubated and transferred to the ICU. On 02/05/2020 -patient is in the ICU sedated and mechanically ventilated. Patient's chest x-ray showed bilateral effusions with basilar airspace disease. His blood cultures and urine cultures no growth so far, sputum culture showing gram-positive cocci. Patient is on antibiotics. Review of systems could not be done as the patient is intubated. On 02/06/2020 -patient has been successfully extubated couple of hours back. He is slowly coming off of sedation. He is confused but trying to follow simple commands. He states that he wants to go home. He is maintaining his blood pressure with a low-dose of norepinephrine. Patient has been continued on Lasix. His sputum cultures are positive for staph aureus. He is currently on cefepime. On 02/07/2020 - Patient has been successfully extubated yesterday. He appears to be no acute distress. He states that he wants to go home repeatedly. He is trying to follow simple commands.On reviewing his vitals patient is in atrial fibrillation, rate controlled. Blood pressure maintaining on small amount of Levophed. Saturating at 95% on 2 L of nasal. He continues to be on Lasix and showing good urinary output . Active Medications Albuterol/Ipratropium (Duoneb 0.5 Mg-3 Mg/3 Ml Soln) 3 ml INHALATION RT-Q4H [facility] Last Admin: 02/07/20 19:38 Dose: 3 ml Documented by: Amiodarone HCl (Cordarone) 200 mg PO BID [facility] Last Admin: 02/07/20 20:06 Dose: 200 mg Documented by: Chlorhexidine Gluconate (Peridex) 15 ml MUCOUS MEM BID [facility] Last Admin: 02/07/20 20:05 Dose: Not Given Documented by: Digoxin (Lanoxin) 125 mcg IVP DAILY [facility] Last Admin: 02/07/20 08:37 Dose: 125 mcg Documented by: Furosemide (Lasix) 40 mg IV DAILY [facility] Last Admin: 02/07/20 08:36 Dose: 40 mg Documented by: Norepinephrine Bitartrate 8 mg (/ Sodium Chloride) 258 mls @ 6.976 mls/hr IV .Q24H [facility]; Protocol Last Titration: 02/07/20 10:00 Dose: 0 mcg/kg/min, 0 mls/hr Documented by: Sodium Chloride (Saline 0.9%) 1,000 mls @ 20 mls/hr IV .Q24H [facility] Last Admin: 02/07/20 20:07 Dose: 20 mls/hr Documented by: Cefepime HCl 2 gm/ Sodium (Chloride) 100 mls @ 200 mls/hr IVPB Q12HR [facility] Last Admin: 02/07/20 20:06 Dose: 200 mls/hr Documented by: Insulin Aspart (Novolog) 0 unit SQ Q6H [facility]; Protocol Last Admin: 02/07/20 18:02 Dose: Not Given Documented by: Metoprolol Tartrate (Lopressor) 25 mg PO BID [facility] Last Admin: 02/07/20 20:06 Dose: 25 mg Documented by: Miscellaneous Information (Potassium Per Protocol) 1 each MISCELLANE DAILY PRN; Protocol PRN Reason: Per Protocol Miscellaneous Information (Potassium Per Protocol) 1 each MISCELLANE DAILY PRN; Protocol PRN Reason: Per Protocol Naloxone HCl (Narcan) 0.2 mg IV Q2M PRN PRN Reason: Opioid Reversal Pantoprazole Sodium (Protonix) 40 mg IVP DAILY [facility] Last Admin: 02/07/20 08:36 Dose: 40 mg Documented by: Paroxetine HCl (Paxil) 10 mg PO DAILY [facility] Last Admin: 02/07/20 08:37 Dose: 10 mg Documented by: Objective - Vital Signs Vital signs: Vital Signs Temp 98.0 F 02/07/20 12:00 Pulse 77 02/07/20 15:35 Resp 27 H 02/07/20 15:00 BP 97/65 02/07/20 14:00 Pulse Ox 98 02/07/20 15:00 Intake & Output 02/06/20 02/07/20 02/07/20 18:59 06:59 18:59 Intake Total 966.039 657.923 493.672 Output Total 2265 575 1415 Balance -1298.961 82.923 -921.328 Weight 79.4 kg 80.6 kg Intake: IV 312 272 234 Pressure Bag 72 72 54 Sodium Chloride 0.9% 1, 240 200 180 000 ml @ 20 mls/hr IV . Q24H [facility] Rx#:[id number] Intake, IV Titration 324.039 385.923 259.672 Amount Cefepime 2 gm In Sodium 100 100 Chloride 0.9% 100 ml @ 200 mls/hr IVPB Q12HR [facility] Rx#:[id number] Empty Bag 1 bag @ 20 MCG/ 43.865 KG/MIN 8.355 mls/hr IV . [id number] [facility] with Propofol 1,000 mg Rx#:[id number] Norepinephrine 8 mg In 80.174 35.923 9.672 Sodium Chloride 0.9% 250 ml @ 0.05 MCG/KG/MIN 6. 976 mls/hr IV .Q24H [facility] Rx#:[id number] Potassium Chloride 10 meq 200 200 In Water For Injection 1 100ml.bag @ 100 mls/hr IVPB Q1HR [facility] Rx#: [id number] Potassium Chloride 20 meq 50 150 In Water For Injection 1 100ml.bag @ 50 mls/hr IVPB Q2H [facility] Rx#: [id number] Tube Feeding 240 Other 90 Output: Urine 2265 575 1415 Other: Voiding Method Indwelling Catheter Indwelling Catheter Indwelling Catheter ABP, PAP, CO, CI - Last Documented Arterial Blood Pressure 114/57 - Exam GENERAL EXAM: Exbuated, fragile older than states age, no distress HENT - no pallor, No icterus LUNGS: Equal air entry with crackles in the right base, dullness at the lower lung [place]. CVS: Irregular rate and rhythm, normal S1 and S2, no gallops, no murmurs, no rubs ABDOMEN: Soft, nontender. No hepatosplenomegaly, normal bowel sounds, no guarding or rigidity. EXTREMITIES: No clubbing, Edema on upper extremities improved compared to yesterday Still + 2 edema in the lower extremities CENTRAL NERVOUS SYSTEM: confused , oriented to name only, following simple commands - Labs CBC & Chem 7: 02/07/20 04:30 02/07/20 04:30 Labs: Abnormal Lab Results - Last 24 Hours (Table) 02/06/20 02/06/20 02/07/20 Range/Units 18:08 23:57 04:30 RBC 4.15 L (4.30-5.90) m/uL Hgb 12.1 L (13.0-17.5) gm/dL Hct 38.4 L (39.0-53.0) % RDW 15.9 H (11.5-15.5) % Plt Count 40 L (150-450) k/uL Lymphocytes # 0.4 L (1.0-4.8) k/uL Carbon Dioxide (22-30) mmol/L BUN (9-20) mg/dL Glucose (74-99) mg/dL POC Glucose (mg/dL) 73 L 70 L (75-99) mg/dL Calcium (8.4-10.2) mg/dL 02/07/20 02/07/20 02/07/20 Range/Units 04:30 05:25 05:40 RBC (4.30-5.90) m/uL Hgb (13.0-17.5) gm/dL Hct (39.0-53.0) % RDW (11.5-15.5) % Plt Count (150-450) k/uL Lymphocytes # (1.0-4.8) k/uL Carbon Dioxide 31 H (22-30) mmol/L BUN 44 H (9-20) mg/dL Glucose 70 L (74-99) mg/dL POC Glucose (mg/dL) 67 L 106 H (75-99) mg/dL Calcium 7.7 L (8.4-10.2) mg/dL Microbiology - Last 24 Hours (Table) 01/31/20 23:27 Blood Culture - Final Blood No Growth after 144 hours 02/02/20 15:02 Blood Culture - Preliminary Blood No Growth after 96 hours 02/02/20 14:13 Blood Culture - Preliminary Blood No Growth after 96 hours 02/04/20 08:15 Gram Stain - Final Sputum Sputum Culture - Final Staphylococcus aureus Assessment and Plan Assessment: ASSESSMENT Acute hypoxic respiratory failure secondary to CHF exacerbation Status post cardiac arrest Acute kidney injury Atrial fibrillation with rapid ventricular rate Acute systolic congestive heart failure exacerbation Severe ischemic cardiomyopathy with ejection fraction less than 20% Mitral valve replacement with bioprosthetic valve Lactic acidosis Hyperkalemia improving History of hypertension PLAN: Patient is successfully extubated yesterday. He is showing good urinary output on Lasix. He is oriented to his name only. Following simple commands. Continue antibiotics in the form of cefepime. Blood pressure holding up with 0.5 of Levophed pressor support. Overall prognosis remains guarded. Continue with the current medication regimen. Further recommendations to follow depending on the progress of patient
[2020-02-08 00:30] LABS: Glucose,Whole Blood 68 mg/dL (75-99)
[2020-02-08] MEDS: INSULIN ASPART (NovoLOG) 100 UNIT/ML VIAL SQ SCH ×4 (00:32→18:00)
[2020-02-08] MEDS: IPRATROPIUM-ALBUTEROL 3 ML NEB INHALATION SCH ×5 (03:39→19:50)
[2020-02-08 04:10] LABS: Anisocytosis Slight; Basophils # (A) 0.1 k/uL (0-0.2); Basophils % (A) 1 %; Eosinophils # (A) 0.2 k/uL (0-0.7); Eosinophils % (A) 3 %; HCT 40.4 % (39.0-53.0); HGB 12.1 gm/dL (13.0-17.5); Hypochromasia Moderate; Lymphocytes # (A) 0.4 k/uL (1.0-4.8); Lymphocytes % (A) 6 %; MCH 27.5 pg (25.0-35.0); MCHC 29.9 g/dL (31.0-37.0); Mean Platelet Volume 9.1; Monocytes # (A) 0.5 k/uL (0-1.0); Monocytes % (A) 8 %; Neutrophils # (A) 5.4 k/uL (1.3-7.7); Neutrophils % (A) 79 %; RBC 4.39 m/uL (4.30-5.90); WBC 6.9 k/uL (3.8-10.6)
[2020-02-08 04:12] LABS: Platelet Count 40 k/uL (150-450)
[2020-02-08 04:22] LABS: ALT 535 U/L (4-49); AST 103 U/L (17-59); African American GFR (CKD) >90 (>60 ml/min/1.73 sqM); Albumin 2.4 g/dL (3.5-5.0); Alkaline Phosphatase 91 U/L (38-126); Anion Gap 0 mmol/L; Blood Urea Nitrogen 39 mg/dL (9-20); Carbon Dioxide 32 mmol/L (22-30); Chloride 108 mmol/L (98-107); Glucose 80 mg/dL (74-99); Non-African American GFR(CKD) 87 (>60 ml/min/1.73 sqM); Potassium 3.6 mmol/L (3.5-5.1); Sodium 140 mmol/L (137-145); Total Bilirubin 3.3 mg/dL (0.2-1.3)
[2020-02-08] MEDS: POTASSIUM CHLORIDE 10 MEQ in WATER FOR INJECTION 1 100ML.BAG IVPB SCH ×2 (05:49→06:47)
[2020-02-08] MEDS: CEFEPIME 2 GM in SODIUM CHLORIDE 0.9% 100 ML IVPB SCH ×2 (08:13→20:16)
[2020-02-08] MEDS: PANTOPRAZOLE 40 MG/10 ML VIAL IVP SCH (08:14)
[2020-02-08] MEDS: DIGOXIN 250 MCG/ML 2 ML AMP IVP SCH (08:14)
[2020-02-08] MEDS: METOPROLOL TARTRATE 25 MG TAB PO SCH ×2 (08:14→20:16)
[2020-02-08] MEDS: FUROSEMIDE 10 MG/ML 4 ML VIAL IV SCH (08:14)
[2020-02-08] MEDS: AMIODARONE 200 MG TAB PO SCH ×2 (08:14→20:16)
[2020-02-08] MEDS: PARoxetine 10 MG TAB PO SCH (08:15)
[2020-02-08] MEDS: SODIUM CHLORIDE 0.9% 1,000 ML IV SCH (08:17)
--- NOTE | 2020-02-08 08:36 | P.PN ---
Subjective Patient is seen in follow-up for acute kidney injury. GFR is back to baseline. He was extubated on February 05. Off Levophed. Nonoliguric. Starting to tolerate oral intake. Vital signs are stable. General: The patient appeared well nourished and normally developed. HEENT: Head exam is unremarkable. Neck is without jugular venous distension. LUNGS: Breath sounds decreased. HEART: Rate and Rhythm are regular. ABDOMEN: soft, nontender. EXTREMITITES: 1+ edema. Objective - Vital Signs Vital signs: Vital Signs Temp 97.9 F 02/08/20 04:00 Pulse 91 02/08/20 07:08 Resp 20 02/08/20 07:00 BP 97/65 02/07/20 14:00 Pulse Ox 91 L 02/08/20 07:00 Intake & Output 02/07/20 02/08/20 02/08/20 18:59 06:59 18:59 Intake Total 571.672 312 26 Output Total 1565 510 40 Balance -993.328 -198 -14 Weight 76.9 kg Intake: IV 312 312 26 Pressure Bag 72 72 6 Sodium Chloride 0.9% 1, 240 240 20 000 ml @ 20 mls/hr IV . Q24H [facility] Rx#:[id number] Intake, IV Titration 259.672 Amount Cefepime 2 gm In Sodium 100 Chloride 0.9% 100 ml @ 200 mls/hr IVPB Q12HR [facility] Rx#:[id number] Norepinephrine 8 mg In 9.672 Sodium Chloride 0.9% 250 ml @ 0.05 MCG/KG/MIN 6. 976 mls/hr IV .Q24H [facility] Rx#:[id number] Potassium Chloride 20 meq 150 In Water For Injection 1 100ml.bag @ 50 mls/hr IVPB Q2H [facility] Rx#: [id number] Output: Urine 1565 510 40 Other: Voiding Method Indwelling Catheter Indwelling Catheter ABP, PAP, CO, CI - Last Documented Arterial Blood Pressure 123/62 - Labs CBC & Chem 7: 02/08/20 04:00 02/08/20 04:00 Labs: Abnormal Lab Results - Last 24 Hours (Table) 02/07/20 02/08/20 02/08/20 Range/Units 04:30 00:28 04:00 Hgb 12.1 L (13.0-17.5) gm/dL MCHC 29.9 L (31.0-37.0) g/dL RDW 16.0 H (11.5-15.5) % Plt Count 40 L (150-450) k/uL Lymphocytes # 0.4 L (1.0-4.8) k/uL Chloride (98-107) mmol/L Carbon Dioxide (22-30) mmol/L BUN (9-20) mg/dL POC Glucose (mg/dL) 68 L (75-99) mg/dL Calcium (8.4-10.2) mg/dL Total Bilirubin (0.2-1.3) mg/dL AST (17-59) U/L ALT (4-49) U/L Total Protein (6.3-8.2) g/dL Albumin (3.5-5.0) g/dL Procalcitonin 4.15 H (0.02-0.09) ng/mL 02/08/20 Range/Units 04:00 Hgb (13.0-17.5) gm/dL MCHC (31.0-37.0) g/dL RDW (11.5-15.5) % Plt Count (150-450) k/uL Lymphocytes # (1.0-4.8) k/uL Chloride 108 H (98-107) mmol/L Carbon Dioxide 32 H (22-30) mmol/L BUN 39 H (9-20) mg/dL POC Glucose (mg/dL) (75-99) mg/dL Calcium 8.0 L (8.4-10.2) mg/dL Total Bilirubin 3.3 H (0.2-1.3) mg/dL AST 103 H (17-59) U/L ALT 535 H (4-49) U/L Total Protein 5.0 L (6.3-8.2) g/dL Albumin 2.4 L (3.5-5.0) g/dL Procalcitonin (0.02-0.09) ng/mL Microbiology - Last 24 Hours (Table) 02/02/20 15:02 Blood Culture - Preliminary Blood No Growth after 120 hours 02/02/20 14:13 Blood Culture - Preliminary Blood No Growth after 120 hours Assessment and Plan Plan: assessment: 1. Acute kidney injury secondary to ATN secondary to cardiac arrest/hypotension as well as cardiorenal syndrome. Resolved. 2. Acute on chronic systolic CHF with ejection fraction of less than 20%. 3. Volume overload. Improving with diuresis. 4. Pneumonia maintained on antibiotics. Infectious disease following. 5. Status post cardiac arrest. 6. Hypokalemia from poor intake and diuretics. Plan: Maintain IV Lasix. Potassium being replaced. Continue to monitor renal function and urine output.
[2020-02-08] MEDS: CHLORHEXIDINE GLUCONATE 15 ML CUP MUCOUS MEM SCH ×2 (08:46→20:17)
--- NOTE | 2020-02-08 09:02 | XR ---
EXAMINATION TYPE: XR chest 1V portable DATE OF EXAM: 02/08/2020 COMPARISON: 02/07/2020 HISTORY: Shortness of breath FINDINGS: There are bilateral pleural effusions with cardiomegaly and bibasilar infiltrate. There is a diffuse interstitial pattern. Central venous catheter seen. Biapical pleural thickening. Postsurgical change s. IMPRESSION: 1. Stable diffuse pleural-parenchymal changes correlate for CHF. Otherwise consider pneumonia.
--- NOTE | 2020-02-08 12:17 | PN ---
PROGRESS NOTE Carmine is a 69-year-old gentleman who still remains confused this morning. He is on IV Lasix, digoxin, oral amiodarone and metoprolol and Entresto. Heart rate is well controlled. He is not on oral anticoagulant because of severe thrombocytopenia. EXAM: Patient appears comfortable at rest, pleasantly confused. Heart rate varies between 90- 110. Blood pressure is 130/70. Respiratory rate is 20. There is no jugular venous distention. Chest exam reveals diminished air entry bilaterally. Heart exam reveals first and second heart sounds, irregular rhythm and a systolic murmur at the left lower sternal border. Abdomen: Soft. Exam of extremities did not reveal any edema. Peripheral pulses are felt. LABS: Show a hemoglobin of 12.1. Platelet count is 40. Potassium is 3.6, creatinine is 0.8. AST and ALT are elevated. ASSESSMENT: Chronic systolic heart failure, permanent atrial fibrillation, history of mitral valve replacement status post cardiac arrest. PLAN: I am going to continue current medication. Consult hematology to address the issue of platelets, thrombocytopenia and need to use anticoagulation. I will repeat liver enzymes on him tomorrow. If they are still going up, we might have to stop the amiodarone. MMODL / IJN: [id number] /
[2020-02-08 12:29] LABS: Glucose,Whole Blood 104 mg/dL (75-99)
[2020-02-08] MEDS: SACUBITRIL/VALSARTAN 24 MG-26 MG TABLET PO SCH ×2 (12:29→20:16)
--- NOTE | 2020-02-08 12:45 | P.PN ---
Subjective Progress Note Date: 02/08/20 02/07/2020 the patient remains extubated and the patient remains on oxygen at 2 L per minute nasal cannula. On and off still confused but he seems to be gradually recovering. He is eating a little and he had a bowel movement last night. Chest x-ray shows improvement in the volume status as the patient is being diuresis and the patient is producing adequate amount of urine output. Limited cough. No significant sputum production. As mentioned earlier, the patient has a MSSA in his sputum and the patient is currently on IV cefepime. He is known to have advanced cardiomyopathy with an ejection fraction of 20% and he has a bioprosthetic aortic valve. He is afebrile. He is receiving IV Lasix every 24 hours. He is on no pressors for now. No other significant events over the past 24 hours. No aspiration. Objective - Vital Signs Vital signs: Vital Signs Temp 98.6 F 02/08/20 12:00 Pulse 96 02/08/20 12:02 Resp 22 02/08/20 12:00 BP 97/65 02/08/20 08:00 Pulse Ox 93 L 02/08/20 12:00 Intake & Output 02/07/20 02/08/20 02/08/20 18:59 06:59 18:59 Intake Total 571.672 312 376 Output Total 9197 207 6216 Balance -993.328 -198 -1074 Weight 76.9 kg Intake: IV 312 312 156 Pressure Bag 72 72 36 Sodium Chloride 0.9% 1, 240 240 120 000 ml @ 20 mls/hr IV . Q24H [facility] Rx#:[id number] Intake, IV Titration 259.672 100 Amount Cefepime 2 gm In Sodium 100 100 Chloride 0.9% 100 ml @ 200 mls/hr IVPB Q12HR [facility] Rx#:[id number] Norepinephrine 8 mg In 9.672 Sodium Chloride 0.9% 250 ml @ 0.05 MCG/KG/MIN 6. 976 mls/hr IV .Q24H [facility] Rx#:[id number] Potassium Chloride 20 meq 150 In Water For Injection 1 100ml.bag @ 50 mls/hr IVPB Q2H [facility] Rx#: [id number] Oral 120 Output: Urine 0734 014 0780 Other: Voiding Method Indwelling Catheter Indwelling Catheter Indwelling Catheter ABP, PAP, CO, CI - Last Documented Arterial Blood Pressure 156/92 - Exam GENERAL EXAM: Sedated, intubated, 69-year-old frail-looking male patient, on 2 L of oxygen by nasal cannula. The patient is quite comfortable not using excessive muscle breathing. Nevertheless, he is a bit confused. He remains to be slightly confused HEAD: Normocephalic/atraumatic. EYES: Normal reaction of pupils, equal size. Conjunctiva pink, sclera white. NOSE: Clear with pink turbinates. THROAT: No erythema or exudates. NECK: No masses, no JVD, no thyroid enlargement, no adenopathy. CHEST: No chest wall deformity. Symmetrical expansion. LUNGS: Equal air entry with crackles in the right base, dullness CVS: Irregular rate and rhythm, normal S1 and S2, no gallops, no murmurs, no rubs ABDOMEN: Soft, nontender. No hepatosplenomegaly, normal bowel sounds, no guarding or rigidity. EXTREMITIES: No clubbing, no edema, no cyanosis, 2+ pulses and upper and lower extremities. MUSCULOSKELETAL: Muscle strength and tone normal. SPINE: No scoliosis or deformity SKIN: No rashes CENTRAL NERVOUS SYSTEM: Slightly Confused, neurologic exam is nonfocal and the patient is moving all 4 extremities without any patient this point in time. Resting comfortably in bed and there is no significant agitation at this point in time. - Labs CBC & Chem 7: 02/08/20 04:00 02/08/20 04:00 Labs: Abnormal Lab Results - Last 24 Hours (Table) 02/07/20 02/08/20 02/08/20 Range/Units 04:30 00:28 04:00 Hgb 12.1 L (13.0-17.5) gm/dL MCHC 29.9 L (31.0-37.0) g/dL RDW 16.0 H (11.5-15.5) % Plt Count 40 L (150-450) k/uL Lymphocytes # 0.4 L (1.0-4.8) k/uL Chloride (98-107) mmol/L Carbon Dioxide (22-30) mmol/L BUN (9-20) mg/dL POC Glucose (mg/dL) 68 L (75-99) mg/dL Calcium (8.4-10.2) mg/dL Total Bilirubin (0.2-1.3) mg/dL AST (17-59) U/L ALT (4-49) U/L Total Protein (6.3-8.2) g/dL Albumin (3.5-5.0) g/dL Procalcitonin 4.15 H (0.02-0.09) ng/mL 02/08/20 02/08/20 Range/Units 04:00 12:27 Hgb (13.0-17.5) gm/dL MCHC (31.0-37.0) g/dL RDW (11.5-15.5) % Plt Count (150-450) k/uL Lymphocytes # (1.0-4.8) k/uL Chloride 108 H (98-107) mmol/L Carbon Dioxide 32 H (22-30) mmol/L BUN 39 H (9-20) mg/dL POC Glucose (mg/dL) 104 H (75-99) mg/dL Calcium 8.0 L (8.4-10.2) mg/dL Total Bilirubin 3.3 H (0.2-1.3) mg/dL AST 103 H (17-59) U/L ALT 535 H (4-49) U/L Total Protein 5.0 L (6.3-8.2) g/dL Albumin 2.4 L (3.5-5.0) g/dL Procalcitonin (0.02-0.09) ng/mL Microbiology - Last 24 Hours (Table) 02/02/20 15:02 Blood Culture - Preliminary Blood No Growth after 120 hours 02/02/20 14:13 Blood Culture - Preliminary Blood No Growth after 120 hours Assessment and Plan Plan: #1. Acute cardiopulmonary arrest related to acute hypoxic respiratory failure, requiring CPR with return of spontaneous circulation, and requiring placement on mechanical ventilator, the patient was extubated on 02/06/2020 and currently is hemodynamically stable on was weaned off. #2. Hypotension likely related to cardiogenic shock, as the patient had an ejection fraction of 20%, recovered and the patient is currently normotensive. In fact the patient is being diuresed IV Lasix and he is going to be restarted back on his Entresto #3. Acute exacerbation of chronic systolic congestive heart failure, #4. Chronic atrial fibrillation, maintained on Eliquis on outpatient basis, currently off antivirals because of thrombocytopenia #5. Lactic acidosis, possibly related to acute systolic CHF, improved #6. Acute on chronic kidney failure related to ATN, improved and the creatinine is down to 0.9 #7. MSSA in the sputum, considered a superimposed pneumonia on top of CHF. The patient is currently on IV cefepime. #8. Chronic A. fib on Eliquis, currently off anticoagulants #9. Severe ischemic cardiomyopathy with EF of less than 20% #10. History of mitral valve replacement with a bioprosthetic valve Plan Continue IV cefepime Continue Lasix 40 mg IV every 24 hours, chest x-ray findings are improving Continue oxygen at 2 L per minute nasal cannula Repeat chest x-ray in the morning Swallow evaluation has been done and the patient passed and the patient is tolerating some oral intake Monitor the plated count of restarted anticoagulants once the plated count improved restarting Entresto and this will discuss with cardiology. The patient is currently on metoprolol 25 mg by mouth twice a day and the patient is on no pressors We'll continue to follow. Long-term prognosis poor baseline above-mentioned comorbidities.
--- NOTE | 2020-02-08 14:46 | FL ---
EXAMINATION TYPE: FL barium swallow w video DATE OF EXAM: 02/08/2020 MODIFIED SWALLOW / DEGLUTITION STUDY CLINICAL HISTORY: Dysphagia. TECHNIQUE: Deglutition study is performed utilizing thin liquid barium, honey and nectar thick liqui d barium, barium thick applesauce, and barium coated cracker. A total of 4.0 minutes of fluoroscopic time utilized during procedure. 0 Spot images saved to PACS. COMPARISON: None. FINDINGS: The oral and pharyngeal phases show some delay in initiation and propagation with all modal ities tested. Satisfactory mastication is seen with solid modalities tested. There is silent aspirat ion with thin liquid barium. Some deep penetration with nectar thick liquid barium. Some aspiration o f residual noted. Moderate pharyngeal residuals are appreciated, more prominent with more viscous mod alities. IMPRESSION: Aspiration is confirmed as detailed above. Please refer to speech therapist notes for fu rther details if necessary.
[2020-02-08 18:01] LABS: Glucose,Whole Blood 113 mg/dL (75-99)
--- NOTE | 2020-02-08 22:11 | PN ---
PROGRESS NOTE DATE OF SERVICE: 02/08/2020 This 69-year-old gentleman who was admitted with difficulty in breathing with CHF, acute exacerbation, has atrial fibrillation and was mechanically intubated. Patient is extubated. Patient continues to be confused at this time. Patient is being closely monitored. Most recent chest x-ray, which was reviewed personally by me, showed stable pleural parenchymal changes and CHF. The patient also had a swallow study today which showed aspiration. Dr. Metzger is also following the patient closely and has recommended IV Lasix at this time. Past medical history reviewed. Review of systems could not be taken; the patient is very confused. CURRENT MEDICATIONS: 1. DuoNeb q.i.d. and p.r.n. 2. Cordarone 200 mg daily. 4. Peridex. 5. Lanoxin 125 mcg IV daily. 6. Lasix. 7. Lopressor. 8. Narcan. 9. Protonix. 10.Paxil. 11.Entresto. PHYSICAL EXAMINATION: Patient is conscious, confused. Pulse 91, blood pressure 119/53, respiration 22, temperature 99.1, pulse ox 94% on 2 L. HEENT: Conjunctivae normal. NECK: No jugular venous distention. CARDIOVASCULAR SYSTEM: S1, S2 muffled. RESPIRATORY SYSTEM: Breath sounds diminished at the bases. A few scattered rhonchi and crackles. ABDOMEN: Soft, non-tender. LEGS: No edema. No swelling. NERVOUS SYSTEM: No focal deficit. LABS: WBC 6.9, hemoglobin 12.1. Sodium 140, potassium 3.6, and calcium is 8. Total bilirubin is 3.3, AST is 103 and ALT is 535. ASSESSMENT: 1. Congestive heart failure, acute exacerbation, acute on chronic systolic dysfunction, ejection fraction 20% with acute hypoxic respiratory failure, status post mechanical ventilation. 2. Status post prolonged CPR secondary to cardiac arrest. 3. Cardiogenic shock and hypotension history. 4. Acute kidney injury with acute renal failure. 5. Atrial fibrillation with rapid ventricular rate. 6. Change in mental status, metabolic encephalopathy, multifactorial. 7. Severe ischemic cardiomyopathy. 8. Mitral valve replacement with bioprosthetic valve history. 9. History of lactic acidosis. 10.Hyperkalemia. 11.Hypertension. 12.Gait dysfunction. 13.Increased AST, ALT. 14.Hypoalbuminemia with mild protein-calorie malnutrition. 15.Anemia, normocytic anemia of chronic disease. 16.Thrombocytopenia. 17.NO CODE, NO CPR, NO VENT. RECOMMENDATIONS AND DISCUSSION: In this 69-year-old gentleman who presented with multiple complex medical issues, we will monitor the patient closely, continue the current medications, continue with symptomatic treatment, continue the antibiotics. Continue with the diuretics. Continue to monitor fluid/electrolyte balance closely. PT/OT evaluation. Closely follow with multiple consultants. Monitor electrolytes closely. Monitor renal function. Overall prognosis extremely guarded because of multiple complex medical issues. Further recommendations to follow. MMODL / IJN: [id number] / MTDD
--- NOTE | 2020-02-08 23:26 | PN ---
PROGRESS NOTE DATE OF SERVICE: 02/08/2020 REASON FOR FOLLOWUP: Pneumonia. INTERVAL HISTORY: The patient is currently afebrile. The patient is breathing comfortably. He denies having any chest pain or shortness of breath. Occasional cough. No nausea, no vomiting. No abdominal pain or diarrhea. PHYSICAL EXAMINATION: Blood pressure 119/53 with a pulse of 91, temperature 99.1. He is 95% on 2 L nasal cannula. General description is an elderly male lying in bed in no distress. RESPIRATORY SYSTEM: no wheeze. HEART: S1, S2. Regular rate and rhythm. ABDOMEN: Soft. No tenderness. LABS: Hemoglobin is 12.9, white count 6.9, BUN of 39, creatinine 0.87. DIAGNOSTIC IMPRESSION AND PLAN: Patient with pneumonia. Sputum is positive for MSSA. The patient is covered with cefepime, planning to finish therapy with oral antibiotic when he is stable for discharge. Continue with supportive care. MMODL / KATHERINEN: [id number] /
[2020-02-09 00:35] LABS: Glucose,Whole Blood 100 mg/dL (75-99)
[2020-02-09] MEDS: INSULIN ASPART (NovoLOG) 100 UNIT/ML VIAL SQ SCH ×4 (00:44→17:34)
[2020-02-09] MEDS: SODIUM CHLORIDE 0.9% 1,000 ML IV SCH ×2 (00:45→14:41)
[2020-02-09] MEDS: IPRATROPIUM-ALBUTEROL 3 ML NEB INHALATION SCH ×6 (00:46→21:18)
[2020-02-09 06:26] LABS: ALT 377 U/L (4-49); AST 74 U/L (17-59)
[2020-02-09 06:42] LABS: Basophils # (A) 0.1 k/uL (0-0.2); Basophils % (A) 1 %; Eosinophils # (A) 0.2 k/uL (0-0.7); Eosinophils % (A) 2 %; HCT 38.9 % (39.0-53.0); HGB 12.2 gm/dL (13.0-17.5); Hypochromasia Moderate; Lymphocytes # (A) 0.5 k/uL (1.0-4.8); Lymphocytes % (A) 5 %; MCHC 31.3 g/dL (31.0-37.0); MCV 92.5 fL (80.0-100.0); Monocytes # (A) 0.6 k/uL (0-1.0); Monocytes % (A) 6 %; Neutrophils # (A) 8.4 k/uL (1.3-7.7); Neutrophils % (A) 85 %; RBC 4.21 m/uL (4.30-5.90); RDW 15.7 % (11.5-15.5)
[2020-02-09 06:44] LABS: Platelet Count 67 k/uL (150-450)
[2020-02-09 06:45] LABS: African American GFR (CKD) >90 (>60 ml/min/1.73 sqM); Anion Gap 3 mmol/L; Blood Urea Nitrogen 31 mg/dL (9-20); Calcium 7.6 mg/dL (8.4-10.2); Carbon Dioxide 29 mmol/L (22-30); Chloride 109 mmol/L (98-107); Glucose 83 mg/dL (74-99); Non-African American GFR(CKD) >90 (>60 ml/min/1.73 sqM); Potassium 3.2 mmol/L (3.5-5.1); Sodium 141 mmol/L (137-145)
[2020-02-09] MEDS: CEFEPIME 2 GM in SODIUM CHLORIDE 0.9% 100 ML IVPB SCH ×2 (08:33→20:55)
[2020-02-09] MEDS: POTASSIUM CHLORIDE 20 MEQ in WATER FOR INJECTION 1 100ML.BAG IVPB SCH ×2 (08:33→10:32)
[2020-02-09] MEDS: PANTOPRAZOLE 40 MG/10 ML VIAL IVP SCH (08:34)
[2020-02-09] MEDS: DIGOXIN 250 MCG/ML 2 ML AMP IVP SCH (08:35)
[2020-02-09] MEDS: METOPROLOL TARTRATE 25 MG TAB PO SCH ×2 (08:35→20:56)
[2020-02-09] MEDS: AMIODARONE 200 MG TAB PO SCH ×2 (08:35→20:56)
[2020-02-09] MEDS: FUROSEMIDE 10 MG/ML 4 ML VIAL IV SCH (08:35)
[2020-02-09] MEDS: CHLORHEXIDINE GLUCONATE 15 ML CUP MUCOUS MEM SCH (08:38)
[2020-02-09] MEDS: PARoxetine 10 MG TAB PO SCH (08:39)
[2020-02-09] MEDS: SACUBITRIL/VALSARTAN 24 MG-26 MG TABLET PO SCH ×2 (08:39→21:44)
--- NOTE | 2020-02-09 11:22 | CDI ---
Documentation Clarification Form Date: 02/09/2020 11:00:03 AM From: Albina Beltran Phone: Admit Date: 01/31/2020 12:37:00 PM Patient Name: Carmine Bailey Visit Number: [id number] Discharge Date: ATTENTION: The Clinical Documentation Specialists (CDI) and [facility] Coding Staff appreciate your assistance in clarifying documentation. Please respond to the clarification below the line at the bottom and electronically sign. The CDI & [facility] Coding staff will review the response and follow-up if needed. Please note: Queries are made part of the Legal Health Record. If you have any questions, please contact the author of this message via ITS. Dr. Ernestina Mauricio: Sepsis is documented in the followin/16 Nephrology Consult: Rule out Sepsis 02/03 & 02/04 Nephrology Progress Notes: "Acute kidney injury secondary to sepsis, hypotension, hypoperfusion, currently significantly improved." Sepsis is not documented elsewhere in the record. History/Risk Factors: Hypertension, Atrial Fibrillation on Eliquis, Ischemic cardiomyopathy & Chronic systolic CHF on Lasix & Entresto. Clinical Indicators: Presented to the ED on 01/30 with SOB, diagnosed with Atrial Fibrillation w/RVR. Patient complained of cough without sputum production. Per the 01/30 History & Physical: Atrial fibrillation w/RVR, CHF chronic systolic, Acute renal failure & mildly elevated troponin. On Evening of admission date (01/30), the patient letty into acute respiratory failure, w/wheezing, PO 84% on 3L, placed on NRB. Transferred to ICU & intubated after Code Blue called on 01/31 @ 02:05. Admission VS: 98.1 - 94.9*, P 84 - 130^ - 60, R 18 - 34^, BP 125/107 - 82/72*, PO 93 RA - 90 RA - 88 10L high flow - 95 15% nrb - 74 15% nrb LABS on admission 01/30: WBC 5.5, Neut 4.5, LA: 9.1^^ - 12.9^^ Blood Gases 01/30: pH 7.27*, pCO2 26*, pO2 147^, HCO3 12*, Total CO2 13*, O2 Sat 98.9^. Blood cxs 01/29: Negative. Sputum Cx 01/31: Negative, urine Cx 01/31: Negative. Sputum Cx 02/03: Staph aureus (final) Treatment on admission: IV fluid 1,000 mls @ 130, IV Diltiazem, IV Amiodarone, IV Dextrose/Water, INH Duoneb, IV NaBicarb. 02/02: IV Lasix, IV Cefepime. In your professional opinion, please clarify if these findings signify one of the following conditions, whether the condition is POA, and cause, if known: Sepsis ruled out Sepsis, please specify cause if known: Severe Sepsis Other, please specify Unable to determine Present on Admission: Yes or No Identify the (suspected) organism Link or clarify if there is associated (due to/with): o Organ failure o Shock (Last Revision: November 2017) pneumonia with possible sepsis MTDD
[2020-02-09 11:58] LABS: Glucose,Whole Blood 109 mg/dL (75-99)
[2020-02-09 12:12] LABS: Glucose,Whole Blood 116 mg/dL (75-99)
[2020-02-09] MEDS: NOREPINEPHRINE 8 MG in SODIUM CHLORIDE 0.9% 250 ML IV SCH (12:26)
--- NOTE | 2020-02-09 12:57 | US ---
EXAMINATION TYPE: US liver DATE OF EXAM: 02/09/2020 COMPARISON: Chest US, renal US CLINICAL HISTORY: elevated LFT. ICU patient EXAM MEASUREMENTS: Liver Length: 13.6 cm Gallbladder Wall: 0.1 cm CBD: 0.2 cm Right Kidney: 11.7 x 6.2 x 4.7 cm Pancreas: Obscured by bowel gas Liver: some periportal wall brightness is noted; no masses seen Gallbladder: mobile sludge is noted Evidence for sonographic Parrish's sign: no CBD: wnl Right Kidney: multiple renal cysts are seen with largest at inferior cortex as simple cyst = 3.3 x 3.5 x 3.9cm Incidental finding: right pleural effusion is imaged IMPRESSION: 1. Incidental note made of a small right pleural effusion. 2. Coarsened echo pattern to the liver correlate for hepatocellular disease. 3. Extensive gallbladder sludge with no evidence of wall thickening. Correlate with HIDA scan as clin ically warranted. 4. Renal cysts.
--- NOTE | 2020-02-09 12:58 | XR ---
EXAMINATION TYPE: XR chest 1V DATE OF EXAM: 02/09/2020 COMPARISON: 02/08/2020 HISTORY: Shortness of breath TECHNIQUE: Single frontal view of the chest is obtained. FINDINGS: Left-sided Mediport catheter seen. Postoperative change. Biapical pleural thickening. Expert Medical Writer dwight deformities of the rib cage. Heart is enlarged with bilateral consolidation and small effusion. N o pneumothorax. Elevation of the humeral head. IMPRESSION: 1. Persistent diffuse bilateral infiltrate and pleural effusion correlate for diffuse pneumonia versu s pulmonary edema.
--- NOTE | 2020-02-09 13:11 | PN ---
PROGRESS NOTE Mr. Bailey is 69-year-old gentleman with ischemic cardiomyopathy, congestive heart failure, history of valve replacement and permanent atrial fibrillation, who is admitted to the hospital following a cardiac arrest. He is doing much better today, more alert awake and is able to answer questions. Remains in atrial fibrillation with controlled ventricular rate. His platelet count is still low at around 67. On exam, heart rate is 90 beats per minute. Blood pressure is 148/67, respiratory is 22. There is no jugular venous distention. Chest exam reveals good air entry bilaterally. Heart exam reveals first and second heart sounds, irregular rhythm and a systolic murmur at the apex. Abdomen is soft. Exam of extremities reveals mild edema. Peripheral pulses are felt. Lab show a hemoglobin of 12.2, platelet count is 67. Potassium is 3.2, creatinine is 0.75. AST, ALT are both improving. ASSESSMENT: 1. Permanent atrial fibrillation. 2. Thrombocytopenia. 3. History of mitral valve replacement. 4. Chronic systolic heart failure. PLAN: We will continue him on his current medications. We are awaiting input from Hematology regarding the thrombocytopenia and then we can resume the anticoagulation. MMODL / IJN: [id number] /
[2020-02-09] MEDS: POTASSIUM CHLORIDE 10 MEQ in WATER FOR INJECTION 1 100ML.BAG IVPB SCH ×2 (14:37→15:58)
[2020-02-09] MEDS: ALPRAZolam 0.25 MG TAB PO PRN (14:58)
--- NOTE | 2020-02-09 15:03 | P.PN ---
Subjective Progress Note Date: 02/09/20 On 02/09/2020, the patient is being seen for a follow-up. No new complaints. He is still relatively confused. Nevertheless he is hemodynamically doing better. He has been negative fluid balance as the patient is being diuresis with Lasix 40 mg IV every 24 hours. The neck fluid balance is still negative. Meanwhile, the patient is on a combination of Entresto and digoxin and amiodarone regarding his advanced cardiomyopathy as the patient is known to have an ejection fraction of 20% and he has a bioprosthetic aortic valve. The overall menstrual balance -1.4 L over the past 24 hours. Repeat chest x-ray still showing persistent diffuse bilateral infiltrates and pleural effusions consistent with pulmonary edema versus infection/pneumonia and for that reason the patient is still on diuretics. Antibiotic coverage, the patient culture that was sustained a sputum and the patient remains on IV cefepime. No fever. No chills. He is able to swallow although his oral intake is suboptimal. Objective - Vital Signs Vital signs: Vital Signs Temp 98 F 02/09/20 12:00 Pulse 92 02/09/20 14:00 Resp 17 02/09/20 14:00 BP 92/76 02/09/20 14:00 Pulse Ox 93 L 02/09/20 14:00 Intake & Output 02/08/20 02/09/20 02/09/20 18:59 06:59 18:59 Intake Total 532 312 508 Output Total 5969 824 9394 Balance -7444 -178 -6482 Weight 74.4 kg Intake: IV 312 312 208 Pressure Bag 72 72 48 Sodium Chloride 0.9% 1, 240 240 160 000 ml @ 20 mls/hr IV . Q24H [facility] Rx#:[id number] Intake, IV Titration 100 300 Amount Cefepime 2 gm In Sodium 100 100 Chloride 0.9% 100 ml @ 200 mls/hr IVPB Q12HR [facility] Rx#:[id number] Potassium Chloride 20 meq 200 In Water For Injection 1 100ml.bag @ 50 mls/hr IVPB Q2H [facility] Rx#: [id number] Oral 120 Output: Urine 3025 125 3296 Other: Voiding Method Indwelling Catheter Indwelling Catheter Indwelling Catheter ABP, PAP, CO, CI - Last Documented Arterial Blood Pressure 128/73 - Exam GENERAL EXAM: Sedated, intubated, 69-year-old frail-looking male patient, on 2 L of oxygen by nasal cannula. The patient is quite comfortable not using excessive muscle breathing. Nevertheless, confused without being agitated.. He remains to be slightly confused HEAD: Normocephalic/atraumatic. EYES: Normal reaction of pupils, equal size. Conjunctiva pink, sclera white. NOSE: Clear with pink turbinates. THROAT: No erythema or exudates. NECK: No masses, no JVD, no thyroid enlargement, no adenopathy. CHEST: No chest wall deformity. Symmetrical expansion. LUNGS: Equal air entry with crackles in the right base, dullness CVS: Irregular rate and rhythm, normal S1 and S2, no gallops, no murmurs, no rubs ABDOMEN: Soft, nontender. No hepatosplenomegaly, normal bowel sounds, no guarding or rigidity. EXTREMITIES: No clubbing, no edema, no cyanosis, 2+ pulses and upper and lower extremities. MUSCULOSKELETAL: Muscle strength and tone normal. SPINE: No scoliosis or deformity SKIN: No rashes CENTRAL NERVOUS SYSTEM: Slightly confused, global weakness, no focal neurological deficits. - Labs CBC & Chem 7: 02/09/20 05:15 02/09/20 13:30 Labs: Abnormal Lab Results - Last 24 Hours (Table) 02/08/20 02/09/20 02/09/20 Range/Units 18:00 00:33 05:15 RBC (4.30-5.90) m/uL Hgb (13.0-17.5) gm/dL Hct (39.0-53.0) % RDW (11.5-15.5) % Plt Count (150-450) k/uL Neutrophils # (1.3-7.7) k/uL Lymphocytes # (1.0-4.8) k/uL Potassium (3.5-5.1) mmol/L Chloride (98-107) mmol/L BUN (9-20) mg/dL POC Glucose (mg/dL) 113 H 100 H (75-99) mg/dL Calcium (8.4-10.2) mg/dL AST 74 H (17-59) U/L ALT 377 H (4-49) U/L 02/09/20 02/09/20 02/09/20 Range/Units 05:15 05:15 11:55 RBC 4.21 L (4.30-5.90) m/uL Hgb 12.2 L (13.0-17.5) gm/dL Hct 38.9 L (39.0-53.0) % RDW 15.7 H (11.5-15.5) % Plt Count 67 L D (150-450) k/uL Neutrophils # 8.4 H (1.3-7.7) k/uL Lymphocytes # 0.5 L (1.0-4.8) k/uL Potassium 3.2 L (3.5-5.1) mmol/L Chloride 109 H (98-107) mmol/L BUN 31 H (9-20) mg/dL POC Glucose (mg/dL) 109 H (75-99) mg/dL Calcium 7.6 L (8.4-10.2) mg/dL AST (17-59) U/L ALT (4-49) U/L 02/09/20 Range/Units 12:10 RBC (4.30-5.90) m/uL Hgb (13.0-17.5) gm/dL Hct (39.0-53.0) % RDW (11.5-15.5) % Plt Count (150-450) k/uL Neutrophils # (1.3-7.7) k/uL Lymphocytes # (1.0-4.8) k/uL Potassium (3.5-5.1) mmol/L Chloride (98-107) mmol/L BUN (9-20) mg/dL POC Glucose (mg/dL) 116 H (75-99) mg/dL Calcium (8.4-10.2) mg/dL AST (17-59) U/L ALT (4-49) U/L Microbiology - Last 24 Hours (Table) 02/02/20 15:02 Blood Culture - Final Blood No Growth after 144 hours 02/02/20 14:13 Blood Culture - Final Blood No Growth after 144 hours Assessment and Plan Plan: #1. Acute cardiopulmonary arrest related to acute hypoxic respiratory failure, requiring CPR with return of spontaneous circulation, and requiring placement on mechanical ventilator, the patient was extubated on 02/06/2020 and currently is hemodynamically stable on was weaned off. #2. Hypotension likely related to cardiogenic shock, as the patient had an ejection fraction of 20%, recovered and the patient is currently normotensive. In fact the patient is being diuresed IV Lasix and he is going to be restarted back on his Entresto. Despite being a negative fluid balance, the patient continues to have by the pulmonary infiltrates, CHF versus pneumonia. #3. Acute exacerbation of chronic systolic congestive heart failure, still being optimized and diabetes for now. #4. Chronic atrial fibrillation, maintained on Eliquis on outpatient basis, currently off anticoagulants because of thrombocytopenia, today platelets count is 67 which is improving compared to yesterday. #5. Lactic acidosis, possibly related to acute systolic CHF, improved #6. Acute on chronic kidney failure related to ATN, improved and the creatinine is down to 0.9 #7. MSSA in the sputum, considered a superimposed pneumonia on top of CHF. The patient is currently on IV cefepime. #8. Chronic A. fib on Eliquis, currently off anticoagulants #9. Severe ischemic cardiomyopathy with EF of less than 20% #10. History of mitral valve replacement with a bioprosthetic valve Plan Continue IV cefepime Continue Lasix 40 mg IV every 24 hours, chest x-ray to be repeated the next 24 hours Continue oxygen at 2 L per minute nasal cannula Swallow evaluation has been done and the patient passed and the patient is tolerating some oral intake Monitor the plated count of restarted anticoagulants once the platelets count improved restarting Entresto and this will discuss with cardiology. The patient is currently on metoprolol 25 mg by mouth twice a day and the patient is on no pressors Discontinue the arterial line We'll continue to follow. Long-term prognosis poor baseline above-mentioned comorbidities.
--- NOTE | 2020-02-09 15:05 | P.CONS ---
History of Present Illness - Reason for Consult Consult date: 02/09/20 Thrombocytopenia Requesting physician: Bill Boggs - Chief Complaint Infection - History of Present Illness Mr. Bailey is a 69-year-old male who originally presented to [facility] via EMS on 01/31/2020. He initially complained of generalized weakness and shortness of breath. On admission tachycardic, febrile 101, chest xray negative. During his stay he did have cardiac arrest requiring CPR, intubation. He is now in the care of ICU followed by Infectious disease and ICU team. He has been extubated and continues on IV antibiotics. He is awake and alert today. His platelet count have trended down over the past few days, therefore hematology was asked to further evaluate. 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, Past Anesthesia/Blood Transfusion Reactions: No Reported Reaction Past Psychological History: No Psychological Hx Reported Smoking Status: Never smoker Past Alcohol Use History: None Reported Past Drug Use History: None Reported - Past Family History Father Family Medical History: Diabetes Mellitus, Memory Impairment Mother History Unknown: Yes Additional Family Medical History / Comment(s): States she passed from cerberal aneursyn Medications and Allergies Home Medications Medication Instructions Recorded Confirmed Type Apixaban [Eliquis] 5 mg PO BID #30 tab 12/09/19 01/31/20 Rx Furosemide [Lasix] 20 mg PO BID #60 tab 12/09/19 01/31/20 Rx Metoprolol Tartrate [Lopressor] 50 mg PO BID #60 tab 12/09/19 01/31/20 Rx PARoxetine [Paxil] 10 mg PO DAILY #14 tab 12/09/19 01/31/20 Rx Sacubitril/Valsartan [Entresto 24 1 tab PO BID 01/31/20 01/31/20 History mg-26 mg Tablet] Allergies Allergy/AdvReac Type Severity Reaction Status Date / Time Penicillins Allergy Rash/Hives Verified 12/06/19 18:40 Physical Exam Vitals: Vital Signs Temp Pulse Resp BP Pulse Ox 02/09/20 13:00 92 20 02/09/20 12:05 88 02/09/20 12:00 98 F 86 29 H 93 L 02/09/20 11:54 93 02/09/20 11:00 86 29 H 02/09/20 10:00 87 20 93 L 02/09/20 09:00 99 21 02/09/20 08:18 90 02/09/20 08:07 90 02/09/20 08:00 98.2 F 98 26 H 93 L 02/09/20 07:00 90 24 97/65 97 02/09/20 06:00 90 23 97 02/09/20 05:02 85 02/09/20 05:00 86 19 96 02/09/20 04:52 86 02/09/20 04:00 98.5 F 89 24 97 02/09/20 03:00 102 H 20 96 02/09/20 02:00 96 25 H 97 02/09/20 01:00 84 21 99 02/09/20 00:56 88 02/09/20 00:46 88 02/09/20 00:13 92 24 97 02/09/20 00:00 98.8 F 86 23 94 L 02/08/20 23:00 96 21 95 02/08/20 22:00 89 25 H 97 02/08/20 21:00 109 H 23 96 02/08/20 20:00 99.1 F 91 22 95 02/08/20 19:58 93 02/08/20 19:50 88 02/08/20 19:00 93 30 H 97 02/08/20 18:00 89 19 92 L 02/08/20 17:00 93 13 88 L 02/08/20 16:23 79 02/08/20 16:14 82 02/08/20 16:00 98.1 F 88 26 H 95 02/08/20 15:00 89 33 H 95 02/08/20 14:00 84 21 94 L Intake and Output 02/08/20 02/09/20 02/09/20 22:59 06:59 14:59 Intake Total 208 208 482 Output Total 686 101 8566 Balance -844 -876 -4512 Intake: IV 208 208 182 Pressure Bag 48 48 42 Sodium Chloride 0.9% 1, 160 160 140 000 ml @ 20 mls/hr IV . Q24H [facility] Rx#:[id number] Intake, IV Titration 300 Amount Cefepime 2 gm In Sodium 100 Chloride 0.9% 100 ml @ 200 mls/hr IVPB Q12HR [facility] Rx#:[id number] Potassium Chloride 20 meq 200 In Water For Injection 1 100ml.bag @ 50 mls/hr IVPB Q2H [facility] Rx#: [id number] Output: Urine 943 329 8948 Other: Voiding Method Indwelling Catheter Indwelling Catheter Indwelling Catheter Weight 74.4 kg ABP, PAP, CO, CI - Last 8 Hours Arterial Blood Pressure 128/73 Arterial Blood Pressure 145/67 Arterial Blood Pressure 135/69 Arterial Blood Pressure 122/64 Arterial Blood Pressure 134/66 Arterial Blood Pressure 128/67 Arterial Blood Pressure 128/64 Arterial Blood Pressure 126/63 - Constitutional General appearance: cooperative, thin - EENT Eyes: EOMI, poor dentition ENT: hard of hearing, other - Neck Neck: other - Respiratory Respiratory: right: rhonchi, bilateral: diminished - Cardiovascular Rhythm: regular - Gastrointestinal General gastrointestinal: decreased bowel sounds, soft, tenderness - Integumentary Integumentary: pale - Neurologic non focal - Musculoskeletal Musculoskeletal: generalized weakness - Psychiatric Psychiatric: A&O x's 3, appropriate affect Results CBC & Chem 7: 02/09/20 05:15 02/09/20 13:30 Labs: Abnormal Lab Results - Last 24 Hours (Table) 02/08/20 02/09/20 02/09/20 Range/Units 18:00 00:33 05:15 RBC (4.30-5.90) m/uL Hgb (13.0-17.5) gm/dL Hct (39.0-53.0) % RDW (11.5-15.5) % Plt Count (150-450) k/uL Neutrophils # (1.3-7.7) k/uL Lymphocytes # (1.0-4.8) k/uL Potassium (3.5-5.1) mmol/L Chloride (98-107) mmol/L BUN (9-20) mg/dL POC Glucose (mg/dL) 113 H 100 H (75-99) mg/dL Calcium (8.4-10.2) mg/dL AST 74 H (17-59) U/L ALT 377 H (4-49) U/L 02/09/20 02/09/20 02/09/20 Range/Units 05:15 05:15 11:55 RBC 4.21 L (4.30-5.90) m/uL Hgb 12.2 L (13.0-17.5) gm/dL Hct 38.9 L (39.0-53.0) % RDW 15.7 H (11.5-15.5) % Plt Count 67 L D (150-450) k/uL Neutrophils # 8.4 H (1.3-7.7) k/uL Lymphocytes # 0.5 L (1.0-4.8) k/uL Potassium 3.2 L (3.5-5.1) mmol/L Chloride 109 H (98-107) mmol/L BUN 31 H (9-20) mg/dL POC Glucose (mg/dL) 109 H (75-99) mg/dL Calcium 7.6 L (8.4-10.2) mg/dL AST (17-59) U/L ALT (4-49) U/L 02/09/20 Range/Units 12:10 RBC (4.30-5.90) m/uL Hgb (13.0-17.5) gm/dL Hct (39.0-53.0) % RDW (11.5-15.5) % Plt Count (150-450) k/uL Neutrophils # (1.3-7.7) k/uL Lymphocytes # (1.0-4.8) k/uL Potassium (3.5-5.1) mmol/L Chloride (98-107) mmol/L BUN (9-20) mg/dL POC Glucose (mg/dL) 116 H (75-99) mg/dL Calcium (8.4-10.2) mg/dL AST (17-59) U/L ALT (4-49) U/L Microbiology - Last 24 Hours (Table) 02/02/20 15:02 Blood Culture - Final Blood No Growth after 144 hours 02/02/20 14:13 Blood Culture - Final Blood No Growth after 144 hours Chest x-ray: report reviewed Assessment and Plan (1) Thrombocytopenia Current Visit: Yes Status: Acute Code(s): D69.6 - THROMBOCYTOPENIA, UNSPECIFIED SNOMED Code(s): 439933347 (2) Liver function abnormality Current Visit: Yes Status: Acute Code(s): R94.5 - ABNORMAL RESULTS OF LIVER FUNCTION STUDIES SNOMED Code(s): 94027144 (3) Aspiration pneumonitis Current Visit: Yes Status: Acute Code(s): J69.0 - PNEUMONITIS DUE TO INHALATION OF FOOD AND VOMIT SNOMED Code(s): 757335375 (4) Fever Current Visit: Yes Status: Acute Code(s): R50.9 - FEVER, UNSPECIFIED SNOMED Code(s): 878997138 Plan: Assessment and Recommendations: Thrombocytopenia: - Reactive to recent events of infection, cardiac arrest, increased LFTs - Resolution of underlying problem should reveal normalizing platelet counts - Hold anticoagulation until platelets are greater than 50K - Monitor PT, PTT, INR Thank you for allowing us to participate in the care of this patient will follow along with you
--- NOTE | 2020-02-09 16:33 | P.PN ---
Subjective Patient is seen in follow-up for acute kidney injury. GFR is back to baseline. He was extubated on February 05. Off Levophed. Nonoliguric. Starting to tolerate oral intake. No changes overnight. Potassium is low and being replaced. Vital signs are stable. General: The patient appeared well nourished and normally developed. HEENT: Head exam is unremarkable. Neck is without jugular venous distension. LUNGS: Breath sounds decreased. HEART: Rate and Rhythm are regular. ABDOMEN: soft, nontender. EXTREMITITES: Trace edema. Objective - Vital Signs Vital signs: Vital Signs Temp 98.2 F 02/09/20 16:00 Pulse 84 02/09/20 16:00 Resp 24 02/09/20 16:00 BP 98/64 02/09/20 16:00 Pulse Ox 96 02/09/20 16:00 Intake & Output 02/08/20 02/09/20 02/09/20 18:59 06:59 18:59 Intake Total 532 312 754 Output Total 1008 035 5240 Balance -2609 -178 -7656 Weight 74.4 kg Intake: IV 312 312 254 Pressure Bag 72 72 54 Sodium Chloride 0.9% 1, 240 240 200 000 ml @ 20 mls/hr IV . Q24H [facility] Rx#:[id number] Intake, IV Titration 100 500 Amount Cefepime 2 gm In Sodium 100 100 Chloride 0.9% 100 ml @ 200 mls/hr IVPB Q12HR [facility] Rx#:[id number] Potassium Chloride 10 meq 200 In Water For Injection 1 100ml.bag @ 100 mls/hr IVPB Q1H [facility] Rx#: [id number] Potassium Chloride 20 meq 200 In Water For Injection 1 100ml.bag @ 50 mls/hr IVPB Q2H [facility] Rx#: [id number] Oral 120 Output: Urine 8183 566 7536 Other: Voiding Method Indwelling Catheter Indwelling Catheter Indwelling Catheter # Bowel Movements 1 ABP, PAP, CO, CI - Last Documented Arterial Blood Pressure 128/73 - Labs CBC & Chem 7: 02/09/20 05:15 02/09/20 13:30 Labs: Abnormal Lab Results - Last 24 Hours (Table) 02/08/20 02/09/20 02/09/20 Range/Units 18:00 00:33 05:15 RBC (4.30-5.90) m/uL Hgb (13.0-17.5) gm/dL Hct (39.0-53.0) % RDW (11.5-15.5) % Plt Count (150-450) k/uL Neutrophils # (1.3-7.7) k/uL Lymphocytes # (1.0-4.8) k/uL Potassium (3.5-5.1) mmol/L Chloride (98-107) mmol/L BUN (9-20) mg/dL POC Glucose (mg/dL) 113 H 100 H (75-99) mg/dL Calcium (8.4-10.2) mg/dL AST 74 H (17-59) U/L ALT 377 H (4-49) U/L 02/09/20 02/09/20 02/09/20 Range/Units 05:15 05:15 11:55 RBC 4.21 L (4.30-5.90) m/uL Hgb 12.2 L (13.0-17.5) gm/dL Hct 38.9 L (39.0-53.0) % RDW 15.7 H (11.5-15.5) % Plt Count 67 L D (150-450) k/uL Neutrophils # 8.4 H (1.3-7.7) k/uL Lymphocytes # 0.5 L (1.0-4.8) k/uL Potassium 3.2 L (3.5-5.1) mmol/L Chloride 109 H (98-107) mmol/L BUN 31 H (9-20) mg/dL POC Glucose (mg/dL) 109 H (75-99) mg/dL Calcium 7.6 L (8.4-10.2) mg/dL AST (17-59) U/L ALT (4-49) U/L 02/09/20 Range/Units 12:10 RBC (4.30-5.90) m/uL Hgb (13.0-17.5) gm/dL Hct (39.0-53.0) % RDW (11.5-15.5) % Plt Count (150-450) k/uL Neutrophils # (1.3-7.7) k/uL Lymphocytes # (1.0-4.8) k/uL Potassium (3.5-5.1) mmol/L Chloride (98-107) mmol/L BUN (9-20) mg/dL POC Glucose (mg/dL) 116 H (75-99) mg/dL Calcium (8.4-10.2) mg/dL AST (17-59) U/L ALT (4-49) U/L Microbiology - Last 24 Hours (Table) 02/02/20 15:02 Blood Culture - Final Blood No Growth after 144 hours 02/02/20 14:13 Blood Culture - Final Blood No Growth after 144 hours Assessment and Plan Plan: assessment: 1. Acute kidney injury secondary to ATN secondary to cardiac arrest/hypotension as well as cardiorenal syndrome. Resolved. 2. Acute on chronic systolic CHF with ejection fraction of less than 20%. 3. Volume overload. Improving with diuresis. 4. Pneumonia maintained on antibiotics. Infectious disease following. 5. Status post cardiac arrest. 6. Hypokalemia from poor intake and diuretics. Plan: Maintain IV Lasix. Potassium being replaced. Continue to monitor renal function and urine output. I will sign off. Please don't hesitate to call with any questions or concerns.
[2020-02-09 17:30] LABS: Glucose,Whole Blood 106 mg/dL (75-99)
--- NOTE | 2020-02-09 19:58 | PN ---
PROGRESS NOTE DATE OF SERVICE: 02/09/2020 This 69-year-old gentleman who was admitted with CHF, acute exacerbation, also had acute respiratory failure. The patient is confused at this time. The patient is being closely monitored. Most recent chest x-ray, which was reviewed personally by me, showed still evidence of CHF, mostly on the right side. The possibility of pneumonia also needs to be considered. The patient was also seen by multiple consultants, including Hematology/Oncology for thrombocytopenia. The most recent platelet count was 67, potassium 3.2. Patient is being closely monitored. Past medical history reviewed. REVIEW OF SYSTEMS: CARDIOVASCULAR SYSTEM: No angina, palpitations. RESPIRATORY SYSTEM: As mentioned earlier. GI: As mentioned earlier. : No dysuria or retention. NERVOUS SYSTEM: No numbness, weakness. CURRENT MEDICATIONS: Reviewed. They include: 1. DuoNeb q.i.d. and p.r.n. 2. Cordarone. 3. Cefepime 2 grams. 4. Lanoxin. 5. Lasix. 6. NovoLog. 7. KCl. 8. Narcan. 9. Protonix. 10.Paxil. 11.Entresto. PHYSICAL EXAMINATION: Patient is alert, oriented x2. Pulse 84, blood pressure 98/64, respiration 24, temperature 98.2, pulse ox 96% on 4 L. HEENT: Conjunctivae normal. NECK: No jugular venous distention. CARDIOVASCULAR SYSTEM: S1, S2 muffled. RESPIRATORY SYSTEM: Breath sounds diminished at the bases. Bilateral scattered rhonchi and crackles. Expiratory wheezing also present. ABDOMEN: Soft, non-tender. LEGS: No edema. No swelling. NERVOUS SYSTEM: Diffusely weak. LABS: WBC 10, hemoglobin 12.2, platelets 67. Sodium 141, potassium 3.2. AST 74, ALT is 377. ASSESSMENT: 1. Congestive heart failure, acute exacerbation, with acute on chronic systolic dysfunction, ejection fraction 20%, with acute hypoxic respiratory failure, status post mechanical ventilation. 2. Status post prolonged CPR secondary to cardiac arrest. 3. Cardiogenic shock and hypotension history. 4. Acute kidney injury with acute renal failure, acute tubular necrosis and prerenal renal failure. 5. Atrial fibrillation with rapid ventricular rate. 6. Change in mental status, metabolic encephalopathy, multifactorial. 7. Severe ischemic cardiomyopathy. 8. Mitral valve replacement with bioprosthetic valve history. 9. History of lactic acidosis. 10.Hypokalemia. 11.Hypertension. 12.Gait dysfunction. 13.Increased AST, ALT. 14.Hypoalbuminemia with mild protein-calorie malnutrition. 15.Anemia, normocytic anemia of chronic disease. 16.Thrombocytopenia. 17.Right lobe pneumonia for evaluation, possibly Gram-negative with possible sepsis. 18.NO CODE, NO CPR, NO VENT. RECOMMENDATIONS AND DISCUSSION: In this 69-year-old gentleman who presented with multiple complex medical issues, we will monitor the patient closely. I would recommend continuing with diuretics. Will continue with broad-spectrum IV antibiotics. Will continue the rest of the medications. Continue the bronchodilators. Closely follow with multiple consultants. Prognosis guarded because of multiple complex medical issues. Further recommendations to follow. MMODL / IJN: [id number] / MTDLuis Alberto
[2020-02-10] MEDS: IPRATROPIUM-ALBUTEROL 3 ML NEB INHALATION SCH ×6 (00:23→20:07)
[2020-02-10 01:01] LABS: Glucose,Whole Blood 100 mg/dL (75-99)
[2020-02-10] MEDS: INSULIN ASPART (NovoLOG) 100 UNIT/ML VIAL SQ SCH ×5 (01:02→23:50)
[2020-02-10] MEDS: METOPROLOL TARTRATE 50 MG TAB PO SCH (01:07)
[2020-02-10] MEDS: ALPRAZolam 0.25 MG TAB PO PRN (04:20)
[2020-02-10] MEDS: SODIUM CHLORIDE 0.9% 1,000 ML IV SCH ×2 (04:24→16:42)
--- NOTE | 2020-02-10 05:28 | PN ---
PROGRESS NOTE DATE OF SERVICE: 02/09/2020 REASON FOR FOLLOWUP: Pneumonia. INTERVAL HISTORY: The patient is currently afebrile. He has been breathing more comfortably. Denies having chest pain. Occasional cough. No sputum. No nausea, no vomiting. No abdominal pain, no diarrhea. PHYSICAL EXAMINATION: Blood pressure 126/80 with a pulse of 84, temperature 98.2. He is 96% on room air. General description is an elderly male, lying in bed, in no distress. RESPIRATORY SYSTEM: Unlabored breathing, with decreased breath sounds at the bases. No wheeze. HEART: S1, S2. Regular rate and rhythm. ABDOMEN: Soft, no tenderness. LABS: Hemoglobin is 12.2, white count 10 with a BUN of 31, creatinine 0.75. DIAGNOSTIC IMPRESSION AND PLAN: Patient with pneumonia. Sputum has been MSSA. The patient is currently on cefepime to finish therapy with oral antibiotic on discharge. Continue with supportive care. MMODL / IJN: [id number] /
[2020-02-10 06:17] LABS: Glucose,Whole Blood 92 mg/dL (75-99)
--- NOTE | 2020-02-10 08:56 | XR ---
EXAMINATION TYPE: XR chest 1V portable DATE OF EXAM: 02/10/2020 COMPARISON: 02/09/2020 HISTORY: Shortness of breath TECHNIQUE: Single frontal view of the chest is obtained. FINDINGS: There is bilateral infiltrate and pleural effusion. Heart is enlarged and there is postope rative change with biapical pleural thickening. Diffuse osteopenia. Today's exam there is air adjacen t to the right hemidiaphragm. Report called to patient's nurse. IMPRESSION: 1. Diffuse pleural-parenchymal changes suggestive of either pulmonary edema or diffuse pneumonia. 2. There is air seen adjacent to the right hemidiaphragm on today's exam. If there is concern for paul e intra-abdominal air correlate with dedicated CT scan
[2020-02-10] MEDS: METOPROLOL TARTRATE 25 MG TAB PO SCH ×2 (09:12→21:30)
[2020-02-10] MEDS: PANTOPRAZOLE 40 MG/10 ML VIAL IVP SCH (09:12)
[2020-02-10] MEDS: CEFEPIME 2 GM in SODIUM CHLORIDE 0.9% 100 ML IVPB SCH ×2 (09:12→21:30)
[2020-02-10] MEDS: AMIODARONE 200 MG TAB PO SCH (09:12)
[2020-02-10] MEDS: SACUBITRIL/VALSARTAN 24 MG-26 MG TABLET PO SCH ×2 (09:12→21:30)
[2020-02-10] MEDS: PARoxetine 10 MG TAB PO SCH (09:12)
[2020-02-10] MEDS: FUROSEMIDE 10 MG/ML 4 ML VIAL IV SCH (09:13)
[2020-02-10] MEDS ORDERED: RX INFO: IV CONTRAST WAS GIVEN 1 EACH MISC MISCELLANE PRN (09:53)
--- NOTE | 2020-02-10 09:54 | CDI ---
Documentation Clarification Form Date: 02/09/2020 11:00:00 AM From: Albina Beltran CCS, CCDS Admit Date: 01/31/2020 12:37:00 PM Patient Name: Carmine Bailey Visit Number: [id number] Discharge Date: ATTENTION: The Clinical Documentation Specialists (CDI) and [facility] Coding Staff appreciate your assistance in clarifying documentation. Please respond to the clarification below the line at the bottom and electronically sign. The CDI & [facility] Coding staff will review the response and follow-up if needed. Please note: Queries are made part of the Legal Health Record. If you have any questions, please contact the author of this message via ITS. Dr. Ernestina Mauricio: Per the previous query response: "Pneumonia with possible Sepsis". The Present on Admission status is not documented. History/Risk Factors: Hypertension, Atrial Fibrillation on Eliquis, Ischemic cardiomyopathy & Chronic systolic CHF on Lasix & Entresto. Clinical Indicators: Presented to the ED on 01/30 with SOB, diagnosed with Atrial Fibrillation w/RVR. Patient complained of cough without sputum production. Per the 01/30 History & Physical: Atrial fibrillation w/RVR, CHF chronic systolic, Acute renal failure & mildly elevated troponin. On Evening of admission date (01/30), the patient went into acute respiratory failure, w/wheezing, PO 84% on 3L, placed on NRB. Transferred to ICU & intubated after Code Blue called on 01/31 @ 02:05. Admission VS: 98.1 - 94.9*, P 84 - 130^ - 60, R 18 - 34^, BP 125/107 - 82/72*, PO 93 RA - 90 RA - 88 10L high flow - 95 15% nrb - 74 15% nrb LABS on admission 01/30: WBC 5.5, Neut 4.5, LA: 9.1^^ - 12.9^^ Blood cxs 01/29: Negative. Sputum Cx 01/31: Negative, urine Cx 01/31: Negative. Sputum Cx 02/03: Staph aureus (final) Treatment on admission: IV fluid 1,000 mls @ 130, IV Diltiazem, IV Amiodarone, IV Dextrose/Water, INH Duoneb, IV NaBicarb. 6/18: IV Lasix, IV Cefepime. In your professional opinion, please clarify if these findings signify one of the following conditions, whether the condition is POA, and cause, if known: Sepsis, present on admission o Please link organ failure and/or organism identified, if known Sepsis, not present on admission Unable to determine (Last Revision: November 2017) Sepsis, present on admission MTDD
--- NOTE | 2020-02-10 10:47 | CT ---
EXAMINATION TYPE: CT chest wo con DATE OF EXAM: 02/10/2020 COMPARISON: Chest x-ray earlier today an older studies. HISTORY: Pneumonia, abnormal x-ray. CT DLP: 252 mGycm. Automated Exposure Control for Dose Reduction was Utilized. TECHNIQUE: CT scan of the thorax is performed without IV contrast. FINDINGS: LUNGS: Correlating with x-ray there are small to moderate-sized bilateral pleural effusions with asso ciated compressive atelectasis.. Some additional consolidation right mid lung are difficult to exclud e. There are additional areas of groundglass opacity in the upper to mid lungs bilaterally. No pneumo thorax seen bilaterally. MEDIASTINUM: Lack of IV contrast is noted to limit evaluation for mediastinal and especially hilar ad enopathy. There are no prominent but subcentimeter scattered thoracic lymph nodes. No significant p ericardial effusion is seen. There is cardiomegaly with mild/moderate right atrial and moderate to se niki left ventricular dilatation. Artificial left mitral valve is noted. There is moderate to severe left ventricular dilatation. Sternotomy changes are present. OTHER: No additional significant abnormality is seen. No definitive free air. IMPRESSION: Evidence of prior mitral valve surgery. Suspect CHF exacerbation as there is cardiomegaly with small to moderate-sized bilateral pleural effusions with associated compressive atelectasis. Ad ditional areas of edema throughout the upper to mid lungs are felt present. Cannot exclude areas of u nderlying acute infiltrate bilaterally.
[2020-02-10] MEDS: DIGOXIN 250 MCG/ML 2 ML AMP IVP SCH (10:51)
[2020-02-10 10:55] LABS: Basophils # (A) 0.1 k/uL (0-0.2); Basophils % (A) 1 %; Eosinophils % (A) 0 %; HGB 12.7 gm/dL (13.0-17.5); Hypochromasia Marked; Lymphocytes # (A) 0.7 k/uL (1.0-4.8); Lymphocytes % (A) 5 %; MCH 29.2 pg (25.0-35.0); MCHC 31.1 g/dL (31.0-37.0); MCV 94.1 fL (80.0-100.0); Mean Platelet Volume 8.9; Monocytes # (A) 0.6 k/uL (0-1.0); Monocytes % (A) 4 %; Neutrophils # (A) 12.4 k/uL (1.3-7.7); Neutrophils % (A) 89 %; RBC 4.36 m/uL (4.30-5.90); RDW 15.9 % (11.5-15.5); WBC 14.1 k/uL (3.8-10.6)
[2020-02-10 11:00] LABS: Platelet Count 117 k/uL (150-450)
[2020-02-10 11:05] LABS: African American GFR (CKD) >90 (>60 ml/min/1.73 sqM); Anion Gap 5 mmol/L; Blood Urea Nitrogen 34 mg/dL (9-20); Carbon Dioxide 30 mmol/L (22-30); Chloride 107 mmol/L (98-107); Glucose 139 mg/dL (74-99); Non-African American GFR(CKD) 87 (>60 ml/min/1.73 sqM); Potassium 3.6 mmol/L (3.5-5.1); Sodium 142 mmol/L (137-145)
[2020-02-10 11:23] LABS: Glucose,Whole Blood 134 mg/dL (75-99)
[2020-02-10] MEDS: DIGOXIN 125 MCG TAB PO SCH (11:53)
--- NOTE | 2020-02-10 12:17 | P.PN ---
Subjective This is a pleasant 69-year-old male past medical history significant for chronic persistent atrial fibrillation, mitral valve replacement, cardiomyopathy and hypertension. He is seen and examined sitting up in bed with construction safety consultant at the bedside secondary to altered mental status on the MedSur unit. She appears comfortable. He denies chest pain, shortness of breath, dizziness or palpitations. Per the sitter earlier this morning he was mildly dyspneic however his oxygen was not in place. He continues to be in atrial fibrillation. Blood pressure 131/84 heart rate 88 afebrile maintaining oxygen saturation on nasal cannula. Laboratory data reviewed, WBC 14.1, hemoglobin 12.7, platelets 117, sodium 142, potassium 3.6, creatinine 0.87. 24-hour fluid balance affecting -1600 mL. Weight is down 1 kg from yesterday. He was seen in consultation yesterday by hematology. Chest x-ray this morning reveals diffuse pleural parenchymal changes suggestive of pulmonary edema versus diffuse pneumonia, there is air noted adjacent to the right hemidiaphragm. CT of the chest was obtained revealing exacerbation of CHF, cardiomegaly, small to moderate-sized bilateral pleural effusions associated with compressive atelectasis. There is also additional areas of edema. Upper to mid lungs. The recommendation is to resume anticoagulation as long as the platelets remained above 50. Currently maintained on amiodarone 200 mg twice a day, digoxin 125 g IV push, Lasix 40 mg IV daily, Lopressor 25 mg twice a day and and Entresto 2 4/26 mg twice a day. GENERAL: Well-appearing, well-nourished and in no acute distress. Confused at baseline. NECK: Supple without JVD or thyromegaly. LUNGS: Bibasilar rales, no rhonchi or wheezes. Respiration equal and unlabored. Diminished bilaterally. HEART: Irregular rate and rhythm with systolic ejection murmur at the apex, no rubs or gallops. S1 and S2 heard. EXTREMITIES: Normal range of motion, no edema. No clubbing or cyanosis. Peripheral pulses intact. ASSESSMENT Acute cardiopulmonary arrest secondary to hypoxic respiratory failure Chronic persistent atrial fibrillation Valvular heart disease status post mitral valve replacement Acute on chronic systolic heart failure PLAN Resume Eliquis 5 mg BID. Repeat CBC in the morning. Titrate oral amiodarone to 200 mg daily. Transition to oral digoxin in elixir form as he is not currently swallowing pills. Continue IV lasix. We will continue to follow and make recommendations accordingly. Nurse Practitioner note has been reviewed, I agree with a documented findings and plan of care. Patient was seen and examined. Objective - Vital Signs Vital signs: Vital Signs Temp 98.2 F 02/10/20 07:21 Pulse 80 02/10/20 11:44 Resp 20 02/10/20 07:21 BP 131/84 02/10/20 07:21 Pulse Ox 93 L 02/10/20 07:21 Intake & Output 02/09/20 02/10/20 02/10/20 18:59 06:59 18:59 Intake Total 794 Output Total 2410 Balance -1616 Weight 75.3 kg Intake: IV 294 Pressure Bag 54 Sodium Chloride 0.9% 1, 240 000 ml @ 20 mls/hr IV . Q24H JESSIKA Rx#:[id number] Intake, IV Titration 500 Amount Cefepime 2 gm In Sodium 100 Chloride 0.9% 100 ml @ 200 mls/hr IVPB Q12HR JESSIKA Rx#:[id number] Potassium Chloride 10 meq 200 In Water For Injection 1 100ml.bag @ 100 mls/hr IVPB Q1H JESSIKA Rx#: [id number] Potassium Chloride 20 meq 200 In Water For Injection 1 100ml.bag @ 50 mls/hr IVPB Q2H JESSIKA Rx#: [id number] Output: Urine 2410 Other: Voiding Method Indwelling Catheter Indwelling Catheter Indwelling Catheter # Bowel Movements 1 1 ABP, PAP, CO, CI - Last Documented Arterial Blood Pressure 128/73 - Labs CBC & Chem 7: 02/10/20 10:08 02/10/20 10:08 Labs: Abnormal Lab Results - Last 24 Hours (Table) 02/09/20 02/09/20 02/10/20 Range/Units 12:10 17:29 00:57 WBC (3.8-10.6) k/uL Hgb (13.0-17.5) gm/dL RDW (11.5-15.5) % Plt Count (150-450) k/uL Neutrophils # (1.3-7.7) k/uL Lymphocytes # (1.0-4.8) k/uL BUN (9-20) mg/dL Glucose (74-99) mg/dL POC Glucose (mg/dL) 116 H 106 H 100 H (75-99) mg/dL Calcium (8.4-10.2) mg/dL 02/10/20 02/10/20 02/10/20 Range/Units 10:08 10:08 11:18 WBC 14.1 H (3.8-10.6) k/uL Hgb 12.7 L (13.0-17.5) gm/dL RDW 15.9 H (11.5-15.5) % Plt Count 117 L D (150-450) k/uL Neutrophils # 12.4 H (1.3-7.7) k/uL Lymphocytes # 0.7 L (1.0-4.8) k/uL BUN 34 H (9-20) mg/dL Glucose 139 H (74-99) mg/dL POC Glucose (mg/dL) 134 H (75-99) mg/dL Calcium 8.0 L (8.4-10.2) mg/dL
--- NOTE | 2020-02-10 14:52 | P.PN ---
Subjective Progress Note Date: 02/10/20 Principal diagnosis: Dyspnea, hypoxemia, A. fib RVR, cardiac arrest 69-year-old white male patient Of Dr. Rogers, with past medical history valvular heart disease with previous history of a bioprosthetic mitral valve replacement, history of atrial fibrillation on Eliquis, chronic systolic congestive heart failure on Entresto, with EF of less than 20%, chronic kidney disease stage III at baseline, who presented to the hospital yesterday on 01/31/2020 with symptoms of lightheadedness. Patient's is currently in the hospital, in the intensive care unit, critically ill. She was experiencing some palpitations in the chest discomfort over last couple of days. EMS brought the patient to the hospital and he was given some fluid boluses in the ambulance and was feeling b marisol at the time. EKG showed atrial fibrillation with RVR with a rate of 140 in the ambulance, orthostatic blood pressures were negative. Chest x-ray showed cardiomegaly and increased interstitial density and a small bilateral pleural effusions with adjacent atelectasis. Initial labs showed a white count of 5.5, hemoglobin of 12.9, d-dimer was 2.08, sodium is 139, potassium 5.1, chloride is 110, CO2 is 21, B1 is 21 creatinine is 1.24, troponins were positive at 0.058, 0.062, proBNP was 22,200. Urinalysis showed trace leuks, rare bacteria, and platelet cells at 12, coronavirus PCR was negative. Lower extremity Doppler of the left leg was negative for DVT. he was started on amiodarone drip, and was admitted to selective care. Last night rapid response team was called with concerns for acute hypoxia, patient's pulse ox was 78, requiring additional oxygen, patient was in persistent A. fib with RVR. Blood gases were obtained showing pO2 of 157, pCO2 of 26, and pH of 7.27 this was done on FiO2 of 100%. Blood work showed a sodium of 137, potassium is 5.8, worsening renal profile w ith BUN of 20 and creatinine of 1.51, plasma lactic acid was found to be elevated at 5.3. Patient was given a liter bolus and IV fluids, patient was started on bicarbonate infusion, however his condition continued to deteriorate, and patient was transferred to the intensive care unit for further monitoring and treatment. Continue to be tachypneic, restless, with acute mental status changes, elevated lactic acid, oliguric, hypothermic. Blood cultures were obtained and sent, Lasix was held, Levaphed was started. She did baseline EF is less than 20%, patient was already given a fluid bolus and his IV fluids were infusing at a rate of 1:30 ML per hour. At 2:00 in the morning patient suffered a cardiac arrest, he did require brief CPR and one round of epinephrine with return of spontaneous circulation, patient was emergently intubated and placed on mechanical ventilator. Currently on assist control mode of ventilation with a rate of 20, tidal volume is 450, FiO2 is 50% and PEEP of 5, this morning his blood gases showed a pO2 of 138, pCO2 of 33, and pH of 7.28, patient was given additional amps of sodium bicarbonate. Current IVs include amiodarone at a rate of 0.5 mg/m, Levothroid is at 21 mics per minute, Diprivan is a 30 mics per kilo per minute. This morning's temp is 98, patient was on the warmer overnight. Patient's condition is critical, patient's is also in this ICU on mechanical ventilator, the next of kin is patient's [id number] who spoke to this morning, and there are no children and no other relatives. Cardiology is following, echocardiogram has been ordered, cultures have been ordered and sent. On 02/02/2020 patient seen in follow-up in the intensive care unit, remains sedated, intubated on mechanical ventilator with current vent settings of assist control with a rate of 20, tidal and was 450, FiO2 60%, and PEEP of 5, this morning's blood gases reveal pO2 of 90, pCO2 33, and pH of 7.5. Patient still remains on bicarbonate infusion in D5 W with 3 A of sodium bicarb at a rate of 75 ML per hour which will be discontinued this morning, to prevent is at 25 mics per kilo per minute, amiodarone at 0.5 mg/m, and levo fed is at 14.4 mics per minute. No other drips. Remains in A. fib with a rate of 98-114 BPM. Hypothermia has resolved, and patient actually is having a low-grade fever this morning with at 99.7F temperature. He is a pressor requirement is down. This morning blood work has been reviewed showing white blood cell count of 9.8, hemoglobin of 14.3, sodium of 134, the rest of the electrolytes are within normal limits, renal profile were sent, with BUN of 35 and creatinine of 2.05. Blood, sputum and urine cultures have been sent, and are pending at this time, blood culture has shown no growth to date, sputum Gram stain showed no organisms. Today's chest x-ray has been reviewed showing enlarged heart, bibasilar increased attenuation possibly related to pulmonary edema or atelectasis. Tube feedings been started with the Nepro at 10 mL an hour. Unfortunately patient's last night. On 02/03/2020 patient seen in follow-up in the intensive care unit. Remains sedated, on mechanical ventilator, currently on assist-control mode with a rate of 20, tidal lines 450, FiO2 50%, PEEP of 5, this morning his blood gases showed pO2 of 66, pCO2 37, pH of 7.49. We'll discontinue the bicarbonate infusion y esterday. Patient has developed metabolic alkalosis, today's labs have been reviewed showing hypokalemia with potassium of 3.2 which will be corrected per protocol. Yesterday patient was given sedation holiday, he did wake up and open his eyes however did not follow command, and became very anxious and started desaturating and was subsequently re-sedated. Today his vasopressor requirements continue to trend down, levo fed is currently at 13 mics per minute, he is on maintenance IV fluids 0.9 normal saline at a rate 75 ML per hour, Diprivan and is a 25 mics per kilo per minute. He is tolerating tube feedings currently on Nepro at a rate of 30 with a goal of 30. Today's chest x- ray shows changes of congestive heart failure with increased interstitial. She did have fevers last night, with a T-max in last 24 hours of 101F. His blood and sputum and urine cultures showed no growth to date. Today's labs have been reviewed, showing white blood cell count within normal limits at 8.7, hemoglobin of 14.5, sodium of 135, potassium of 3.2, chloride is 105, B1 of 34, and creatinine of 1.37, renal profile seems to be improving. he remains in atrial fibrillation with a rate of 98 BPM. On 02/10/2020 patient seen in follow-up on selective care unit. Patient is confused, he has a sitter at the bedside, room air pulse ox of 93%, breathing seems to be comfortable, he is afebrile, today's chest x-ray shows diffuse pleural parenchymal changes suggestive of either pulmonary edema or diffuse pneumonia, and there is air seen adjacent to the right hemidiaphragm concerning for free intra-abdominal air. CT chest was obtained showing suspected CHF exacerbation, cardiomegaly with small to moderate-sized bilateral pleural effusions and associated compressive atelectasis. Areas of underlying acute infiltrates bilaterally could not be excluded. he remains on daily dose of IV Lasix, he is on 1.6 L negative fluid balance. Lung sounds are diminished, with bibasilar crackles, no wheezing, no rhonchi. She remains in atrial fibrillation with a controlled rate, Eliquis has been added for anticoagulation, platelet count is up to 117 on today's labs, white blood cell, is 14.1, electrolytes are within normal limits, BUN is 34, creatinine 0.87. Last pro-calcitonin was up to 4.1 3 days ago. Antibiotic coverage is with cefepime, ID service is following. Patient is tolerating oral diet, he requires extensive assistance with feeding Objective - Vital Signs Vital signs: Vital Signs Temp 98.2 F 02/10/20 07:21 Pulse 80 02/10/20 11:44 Resp 20 02/10/20 07:21 BP 131/84 02/10/20 07:21 Pulse Ox 93 L 02/10/20 07:21 Intake & Output 02/09/20 02/10/20 02/10/20 18:59 06:59 18:59 Intake Total 794 Output Total 2410 Balance -1616 Weight 75.3 kg Intake: IV 294 Pressure Bag 54 Sodium Chloride 0.9% 1, 240 000 ml @ 20 mls/hr IV . Q24H JESSIKA Rx#:[id number] Intake, IV Titration 500 Amount Cefepime 2 gm In Sodium 100 Chloride 0.9% 100 ml @ 200 mls/hr IVPB Q12HR JESSIKA Rx#:[id number] Potassium Chloride 10 meq 200 In Water For Injection 1 100ml.bag @ 100 mls/hr IVPB Q1H JESSIKA Rx#: [id number] Potassium Chloride 20 meq 200 In Water For Injection 1 100ml.bag @ 50 mls/hr IVPB Q2H JESSIKA Rx#: [id number] Output: Urine 2410 Other: Voiding Method Indwelling Catheter Indwelling Catheter Indwelling Catheter # Bowel Movements 1 1 ABP, PAP, CO, CI - Last Documented Arterial Blood Pressure 128/73 - Exam GENERAL EXAM: Alert, confused 69-year-old frail-looking white male, on room air, with a pulse ox of 93% HEAD: Normocephalic/atraumatic. EYES: Normal reaction of pupils, equal size. Conjunctiva pink, sclera white. NOSE: Clear with pink turbinates. THROAT: No erythema or exudates. NECK: No masses, no JVD, no thyroid enlargement, no adenopathy. CHEST: No chest wall deformity. Symmetrical expansion. LUNGS: Equal air entry with no crackles, wheeze, rhonchi or dullness. CVS: Irregular rate and rhythm, normal S1 and S2, no gallops, no murmurs, no rubs ABDOMEN: Soft, nontender. No hepatosplenomegaly, normal bowel sounds, no guarding or rigidity. EXTREMITIES: No clubbing, no edema, no cyanosis, 2+ pulses and upper and lower extremities. MUSCULOSKELETAL: Muscle strength and tone normal. SPINE: No scoliosis or deformity SKIN: No rashes CENTRAL NERVOUS SYSTEM: Alert, confused No focal deficits, tone is normal in all 4 extremities. - Labs CBC & Chem 7: 02/10/20 10:08 02/10/20 10:08 Labs: Abnormal Lab Results - Last 24 Hours (Table) 02/09/20 02/10/20 02/10/20 Range/Units 17:29 00:57 10:08 WBC 14.1 H (3.8-10.6) k/uL Hgb 12.7 L (13.0-17.5) gm/dL RDW 15.9 H (11.5-15.5) % Plt Count 117 L D (150-450) k/uL Neutrophils # 12.4 H (1.3-7.7) k/uL Lymphocytes # 0.7 L (1.0-4.8) k/uL BUN (9-20) mg/dL Glucose (74-99) mg/dL POC Glucose (mg/dL) 106 H 100 H (75-99) mg/dL Calcium (8.4-10.2) mg/dL 02/10/20 02/10/20 Range/Units 10:08 11:18 WBC (3.8-10.6) k/uL Hgb (13.0-17.5) gm/dL RDW (11.5-15.5) % Plt Count (150-450) k/uL Neutrophils # (1.3-7.7) k/uL Lymphocytes # (1.0-4.8) k/uL BUN 34 H (9-20) mg/dL Glucose 139 H (74-99) mg/dL POC Glucose (mg/dL) 134 H (75-99) mg/dL Calcium 8.0 L (8.4-10.2) mg/dL Assessment and Plan Plan: Assessment: #1. Acute cardiopulmonary arrest related to acute hypoxic respiratory failure, requiring ACLS with return of spontaneous circulation, and requiring placement on mechanical ventilator, patient was extubated on 02/06/2020, remains hemodynamically stable, no worsening dyspnea, still requiring small amount of supplemental oxygen #2. Hypotension likely related to cardiogenic shock, with an ejection fraction of 20%, patient has recovered and is currently being diuresed and has been rest arted on and try still. Despite being in negative fluid balance patient continues to have bilateral pulmonary infiltrates CHF versus pneumonia #3. Acute exacerbation of chronic systolic congestive heart failure, still being optimized #4. A. fib with RVR, and the rate is better controlled now, has been restarted back on Eliquis today and the platelet count has improved #5. Lactic acidosis, possibly related to acute systolic CHF, rule out infectious etiology, cultures have been sent and pending. Patient has been afebrile, no leukocytosis #6. Acute on chronic kidney failure related to ATN #7. Hyperkalemia related to severe metabolic acidosis, improved #8. Chronic A. fib on Eliquis #9. Severe ischemic cardiomyopathy with EF of less than 20% #10. History of mitral valve replacement with a bioprosthetic valve #11. Hypertension #12. MSSA pneumonia, and patient is currently covered with cefepime #13. Bilateral pleural effusions Plan: CT of the chest has been reviewed showing bilateral moderate-sized pleural effusions, with associated atelectasis, and areas of underlying acute infiltrate bilaterally, we were going to restart Eliquis, however we will hold it today and set up the patient for right-sided thoracentesis tomorrow morning. Continue current antibiotics, continue current medical treatment, and maintain aspiration precautions, continue IV diuresis, patient is maintaining negative fluid balance, continue and try still. Will restart Eliquis after right thoracentesis. I performed a history & physical examination of the patient and discussed their management with my nurse practitioner, Misa Dunn. I reviewed the nurse practitioner's note and agree with the documented findings and plan of care. Lung sounds are positive for diminished breath sounds. The findings and the impression was discussed with the patient. I attest to the documentation by the nurse practitioner. Time with Patient: Less than 30
[2020-02-10 14:55] LABS: Albumin 2.7 g/dL (3.5-5.0); Bilirubin, Delta 1.3 mg/dL (0.0-0.2); Bilirubin,Unconjugated 1.1 mg/dL (0.0-1.1); Total Bilirubin 2.4 mg/dL (0.2-1.3); Total Protein 5.4 g/dL (6.3-8.2)
[2020-02-10 14:56] LABS: INR 1.1 (<1.2); Partial Thromboplastin Time 23.5 sec (22.0-30.0); Prothrombin Time 11.6 sec (9.0-12.0)
--- NOTE | 2020-02-10 16:39 | P.PN ---
Subjective Progress Note Date: 02/10/20 Principal diagnosis: Thrombocytopenia, cardiac Arrest, Acute hypoxic respiratory failure secondary to aspiration pneumonia Platelet count continues to improve. Recheck Coags and Hepatic Function. Objective - Vital Signs Vital signs: Vital Signs Temp 98.2 F 02/10/20 07:21 Pulse 80 02/10/20 11:44 Resp 20 02/10/20 07:21 BP 131/84 02/10/20 07:21 Pulse Ox 93 L 02/10/20 07:21 Intake & Output 02/09/20 02/10/20 02/10/20 18:59 06:59 18:59 Intake Total 794 Output Total 2410 Balance -1616 Weight 75.3 kg Intake: IV 294 Pressure Bag 54 Sodium Chloride 0.9% 1, 240 000 ml @ 20 mls/hr IV . Q24H JESSIKA Rx#:[id number] Intake, IV Titration 500 Amount Cefepime 2 gm In Sodium 100 Chloride 0.9% 100 ml @ 200 mls/hr IVPB Q12HR JESSIKA Rx#:[id number] Potassium Chloride 10 meq 200 In Water For Injection 1 100ml.bag @ 100 mls/hr IVPB Q1H JESSIKA Rx#: [id number] Potassium Chloride 20 meq 200 In Water For Injection 1 100ml.bag @ 50 mls/hr IVPB Q2H JESSIKA Rx#: [id number] Output: Urine 2410 Other: Voiding Method Indwelling Catheter Indwelling Catheter Indwelling Catheter # Bowel Movements 1 1 ABP, PAP, CO, CI - Last Documented Arterial Blood Pressure 128/73 - Exam - Constitutional General appearance: cooperative, thin - EENT Eyes: EOMI, poor dentition ENT: hard of hearing, other - Neck Neck: other - Respiratory Respiratory: right: rhonchi, bilateral: diminished - Cardiovascular Rhythm: regular - Gastrointestinal General gastrointestinal: decreased bowel sounds, soft, tenderness - Integumentary Integumentary: pale - Neurologic non focal - Musculoskeletal Musculoskeletal: generalized weakness - Psychiatric Psychiatric: A&O x's 3, appropriate affect - Labs CBC & Chem 7: 02/10/20 10:08 02/10/20 10:08 Labs: Abnormal Lab Results - Last 24 Hours (Table) 02/09/20 02/10/20 02/10/20 Range/Units 17:29 00:57 10:08 WBC 14.1 H (3.8-10.6) k/uL Hgb 12.7 L (13.0-17.5) gm/dL RDW 15.9 H (11.5-15.5) % Plt Count 117 L D (150-450) k/uL Neutrophils # 12.4 H (1.3-7.7) k/uL Lymphocytes # 0.7 L (1.0-4.8) k/uL BUN (9-20) mg/dL Glucose (74-99) mg/dL POC Glucose (mg/dL) 106 H 100 H (75-99) mg/dL Calcium (8.4-10.2) mg/dL 02/10/20 02/10/20 Range/Units 10:08 11:18 WBC (3.8-10.6) k/uL Hgb (13.0-17.5) gm/dL RDW (11.5-15.5) % Plt Count (150-450) k/uL Neutrophils # (1.3-7.7) k/uL Lymphocytes # (1.0-4.8) k/uL BUN 34 H (9-20) mg/dL Glucose 139 H (74-99) mg/dL POC Glucose (mg/dL) 134 H (75-99) mg/dL Calcium 8.0 L (8.4-10.2) mg/dL Assessment and Plan (1) Thrombocytopenia Current Visit: Yes Status: Acute Code(s): D69.6 - THROMBOCYTOPENIA, UNSPECIFIED SNOMED Code(s): 149366208 (2) Liver function abnormality Current Visit: Yes Status: Acute Code(s): R94.5 - ABNORMAL RESULTS OF LIVER FUNCTION STUDIES SNOMED Code(s): 24068539 (3) Aspiration pneumonitis Current Visit: Yes Status: Acute Code(s): J69.0 - PNEUMONITIS DUE TO INHALATION OF FOOD AND VOMIT SNOMED Code(s): 421264957 (4) Fever Current Visit: Yes Status: Acute Code(s): R50.9 - FEVER, UNSPECIFIED SNOMED Code(s): 917114194 Plan: Assessment and Recommendations: Thrombocytopenia: - Reactive to recent events of infection, cardiac arrest, increased LFTs - Resolution of underlying problem should reveal normalizing platelet counts - Hold anticoagulation until platelets are greater than 50K. - Ok to restart Anticoagulants with platelets greater than 50K, 114 today - Recheck LFTS and Bili today to ensure trending down -Recheck and Monitor PT, PTT, INR
[2020-02-10 17:26] LABS: Glucose,Whole Blood 132 mg/dL (75-99)
[2020-02-10] MEDS ORDERED: APIXABAN 2.5 MG TABLET PO SCH (21:00)
[2020-02-10] MEDS ORDERED: APIXABAN 5 MG TAB PO SCH (21:00)
[2020-02-10] MEDS: HEPARIN SODIUM,PORCINE 5,000 UNIT/ML 1 ML VIAL SQ SCH (21:30)
[2020-02-10 23:51] LABS: Glucose,Whole Blood 95 mg/dL (75-99)
[2020-02-11] MEDS ORDERED: IPRATROPIUM-ALBUTEROL 3 ML NEB INHALATION PRN (01:36)
[2020-02-11] MEDS: IPRATROPIUM-ALBUTEROL 3 ML NEB INHALATION SCH ×5 (01:38→20:27)
--- NOTE | 2020-02-11 01:52 | PN ---
PROGRESS NOTE DATE OF SERVICE: 02/10/2020 This 69-year-old gentleman who was admitted with CHF acute exacerbation also had multiple other medical problems including prolonged CPR, cardiogenic shock and kidney injury and atrial fibrillation. Patient continues to be confused at this time. Patient has moved out of ICU. The patient has sitter at this time. PAST MEDICAL HISTORY: Reviewed. REVIEW OF SYSTEMS: Could not be taken because the patient is confused. CURRENT MEDICATIONS: Current medications are reviewed and include: 1. DuoNeb q.i.d. 2. Cordarone. 3. Cefepime. 4. Lanoxin. 5. Lasix. 6. NovoLog. 7. Lopressor. 8. Replacement protocol. 9. Narcan. 10.Protonix. 11.Paxil. 12.Entresto. Doses are reviewed. PHYSICAL EXAMINATION: The patient is stuporous, confused. Pulse 77, blood pressure 128/72, respirations 16, temperature 98.5, pulse ox 96% on room air. HEENT: Conjunctivae normal. Oral mucosa moist. NECK: No jugular venous distention. No carotid bruit. No lymph node enlargement. CARDIOVASCULAR: S1, S2 muffled. RESPIRATORY: Breath sounds are diminished in the bases. A few scattered rhonchi. No crackles. ABDOMEN: Soft, nontender. No mass palpable. LEGS: No edema. NERVOUS SYSTEM: Diffusely weak. LABS: WBC 14.1, hemoglobin 12.7. Accu-Cheks noted. Albumin is 2.7. Bilirubin is 2.4. ASSESSMENT: 1. Congestive heart failure acute exacerbation with acute on chronic systolic dysfunction ejection fraction 20% with acute hypoxic respiratory failure status post mechanical ventilation, present on admission. 2. Status post long CPR secondary to cardiac arrest. 3. Cardiogenic shock and hypotension history. 4. Acute kidney injury with acute renal failure with acute tubular necrosis prerenal renal factors. 5. Atrial fibrillation with rapid ventricular rate. 6. Change in mental status, metabolic encephalopathy, multifactorial, acute. 7. Severe ischemic cardiomyopathy. 8. Mitral valve replacement with bioprosthetic valve history. 9. History of lactic acidosis. 10.Hypokalemia. 11.Hypertension. 12.Gait dysfunction. 13.Increased AST, ALT. 14.Hypoalbuminemia with mild to moderate protein calorie malnutrition. 15.Anemia, normocytic anemia of chronic disease. 16.Thrombocytopenia. 17.Right lower lobe pneumonia for evaluation possibly gram-negative with possible sepsis. 18.NO CODE, NO CPR, NO VENT. RECOMMENDATIONS AND DISCUSSION: Recommend to continue current medications, continue symptomatic treatment. Otherwise, closely monitor. Otherwise, patient is on cefepime. Cultures are negative. We will supplement vitamins and guarded prognosis because of multiple complex medical issues. Further recommendations to follow. PT, OT evaluation, possible ECF rehab. SHAW / KATHERINEN: [id number] /
--- NOTE | 2020-02-11 02:57 | PN ---
PROGRESS NOTE DATE OF SERVICE: 02/10/2020 REASON FOR FOLLOWUP: Pneumonia. INTERIM HISTORY: The patient is currently afebrile, has been breathing comfortably. Denies having any chest pain or shortness of breath. He did have some cough. that has been reported. PHYSICAL EXAMINATION: Blood pressure 127/69 with a pulse of 80, temperature 97.8. He is 98% on 2 L nasal cannula. General description is an elderly male lying in bed in no distress. RESPIRATORY SYSTEM: Unlabored breathing, coarse breath sounds bilaterally. No wheeze. HEART: S1, S2. Regular rate and rhythm. ABDOMEN: Soft. No tenderness. LABS: Hemoglobin is 12.7, white count 14.1. BUN of 34, creatinine 0.87. DIAGNOSTIC IMPRESSION AND PLAN: Patient with MSSA pneumonia with question of possible aspiration etiology. Patient CT chest this morning did show evidence of small to moderate bilateral pleural effusion and cardiomegaly. The patient is currently on cefepime to continue. Transition to oral antibiotic on discharge. Continue with supportive care. MMODL / IJN: [id number] /
[2020-02-11] MEDS: SODIUM CHLORIDE 0.9% 1,000 ML IV SCH ×2 (04:42→21:01)
[2020-02-11 06:04] LABS: Glucose,Whole Blood 96 mg/dL (75-99)
[2020-02-11] MEDS: INSULIN ASPART (NovoLOG) 100 UNIT/ML VIAL SQ SCH ×3 (06:05→17:42)
[2020-02-11 07:48] LABS: Glucose,Whole Blood 84 mg/dL (75-99)
[2020-02-11] MEDS: METOPROLOL TARTRATE 50 MG TAB PO SCH ×2 (09:13→21:01)
[2020-02-11] MEDS: HEPARIN SODIUM,PORCINE 5,000 UNIT/ML 1 ML VIAL SQ SCH (09:13)
[2020-02-11] MEDS: AMIODARONE 200 MG TAB PO SCH (09:13)
[2020-02-11] MEDS: PANTOPRAZOLE 40 MG TABLET PO SCH (09:13)
[2020-02-11] MEDS: CEFEPIME 2 GM in SODIUM CHLORIDE 0.9% 100 ML IVPB SCH (09:13)
[2020-02-11] MEDS: FUROSEMIDE 10 MG/ML 4 ML VIAL IV SCH (09:13)
[2020-02-11] MEDS: PARoxetine 10 MG TAB PO SCH (09:14)
[2020-02-11] MEDS: SACUBITRIL/VALSARTAN 24 MG-26 MG TABLET PO SCH ×2 (09:14→21:01)
[2020-02-11] MEDS: DIGOXIN 125 MCG TAB PO SCH (10:38)
[2020-02-11 11:25] LABS: Anisocytosis Slight; HGB 13.5 gm/dL (13.0-17.5); Hypochromasia Marked; MCH 29.3 pg (25.0-35.0); MCHC 31.4 g/dL (31.0-37.0); MCV 93.5 fL (80.0-100.0); Mean Platelet Volume 8.5; RDW 16.2 % (11.5-15.5); WBC 15.5 k/uL (3.8-10.6)
[2020-02-11 11:30] LABS: Platelet Count 188 k/uL (150-450)
[2020-02-11 11:34] LABS: African American GFR (CKD) >90 (>60 ml/min/1.73 sqM); Anion Gap 6 mmol/L; Blood Urea Nitrogen 32 mg/dL (9-20); Carbon Dioxide 30 mmol/L (22-30); Chloride 108 mmol/L (98-107); Glucose 108 mg/dL (74-99); Non-African American GFR(CKD) 86 (>60 ml/min/1.73 sqM); Potassium 3.5 mmol/L (3.5-5.1); Sodium 144 mmol/L (137-145)
[2020-02-11 12:08] LABS: Glucose,Whole Blood 123 mg/dL (75-99)
[2020-02-11] MEDS: THIAMINE 100 MG TAB PO SCH (12:16)
[2020-02-11] MEDS: MULTIVITAMINS, THERA 1 EACH TAB PO SCH (12:16)
[2020-02-11] MEDS: FOLIC ACID 1 MG TAB PO SCH (12:16)
--- NOTE | 2020-02-11 12:36 | P.PN ---
Subjective This is a pleasant 69-year-old male past medical history significant for chronic persistent atrial fibrillation, mitral valve replacement, cardiomyopathy and hypertension. He is seen and examined sitting up in bed in no acute distress. He continues to feel short of breath. Thoracentesis was attempted this morning for the pulmonary care team however the procedure was aborted. He continues to be diuresed on IV Lasix. Telemetry tracings reveal 7 beat run of nonsustained ventricular tachycardia last evening. Metoprolol was increased. Blood pressure today 127/75 heart rate of 57 maintaining oxygen saturation on room air. Laboratory data reviewed, WBC 15.5, hemoglobin 13.5, platelets 188, sodium of 144, potassium 3.5, creatinine 0.89. He is maintaining a negative fluid balance and his weight continues to decrease daily. GENERAL: Well-appearing, well-nourished and in no acute distress. Confused at baseline. NECK: Supple without JVD or thyromegaly. LUNGS: Bibasilar rales, no rhonchi or wheezes. Respiration equal and unlabored. Diminished bilaterally, right greater than left. HEART: Irregular rate and rhythm with systolic ejection murmur at the apex, no rubs or gallops. S1 and S2 heard. EXTREMITIES: Normal range of motion, no edema. No clubbing or cyanosis. Peripheral pulses intact. ASSESSMENT Acute cardiopulmonary arrest secondary to hypoxic respiratory failure Chronic persistent atrial fibrillation Valvular heart disease status post mitral valve replacement Acute on chronic systolic heart failure PLAN Resume Eliquis 5 mg BID if ok with pulmonary team. Ongoing diuresis. Continue lopressor, digoxin and amiodarone for rate and rhythm control. Nurse Practitioner note has been reviewed, I agree with a documented findings and plan of care. Patient was seen and examined. Objective - Vital Signs Vital signs: Vital Signs Temp 97.9 F 02/11/20 07:00 Pulse 90 02/11/20 11:27 Resp 16 02/11/20 07:00 BP 127/75 02/11/20 07:00 Pulse Ox 96 02/11/20 07:00 Intake & Output 02/10/20 02/11/20 02/11/20 18:59 06:59 18:59 Intake Total 300 Output Total 1300 Balance -1300 300 Weight 75.3 kg 71 kg Intake: Oral 300 Output: Urine 1300 Coude 650 Other: Voiding Method Indwelling Catheter # Voids 2 ABP, PAP, CO, CI - Last Documented Arterial Blood Pressure 128/73 - Labs CBC & Chem 7: 02/11/20 10:43 02/11/20 10:43 Labs: Abnormal Lab Results - Last 24 Hours (Table) 02/10/20 02/10/20 02/11/20 Range/Units 14:26 17:15 10:43 WBC 15.5 H (3.8-10.6) k/uL RDW 16.2 H (11.5-15.5) % Chloride (98-107) mmol/L BUN (9-20) mg/dL Glucose (74-99) mg/dL POC Glucose (mg/dL) 132 H (75-99) mg/dL Calcium (8.4-10.2) mg/dL Total Bilirubin 2.4 H (0.2-1.3) mg/dL Delta Bilirubin 1.3 H (0.0-0.2) mg/dL ALT 281 H (4-49) U/L Total Protein 5.4 L (6.3-8.2) g/dL Albumin 2.7 L (3.5-5.0) g/dL 02/11/20 02/11/20 Range/Units 10:43 11:42 WBC (3.8-10.6) k/uL RDW (11.5-15.5) % Chloride 108 H (98-107) mmol/L BUN 32 H (9-20) mg/dL Glucose 108 H (74-99) mg/dL POC Glucose (mg/dL) 123 H (75-99) mg/dL Calcium 8.0 L (8.4-10.2) mg/dL Total Bilirubin (0.2-1.3) mg/dL Delta Bilirubin (0.0-0.2) mg/dL ALT (4-49) U/L Total Protein (6.3-8.2) g/dL Albumin (3.5-5.0) g/dL
--- NOTE | 2020-02-11 13:22 | P.PN ---
Subjective Progress Note Date: 02/11/20 Principal diagnosis: Dyspnea, hypoxemia, A. fib RVR, cardiac arrest 69-year-old white male patient Of Dr. oRgers, with past medical history valvular heart disease with previous history of a bioprosthetic mitral valve replacement, history of atrial fibrillation on Eliquis, chronic systolic congestive heart failure on Entresto, with EF of less than 20%, chronic kidney disease stage III at baseline, who presented to the hospital yesterday on 01/31/2020 with symptoms of lightheadedness. Patient's is currently in the hospital, in the intensive care unit, critically ill. She was experiencing some palpitations in the chest discomfort over last couple of days. EMS brought the patient to the hospital and he was given some fluid boluses in the ambulance and was feeling b marisol at the time. EKG showed atrial fibrillation with RVR with a rate of 140 in the ambulance, orthostatic blood pressures were negative. Chest x-ray showed cardiomegaly and increased interstitial density and a small bilateral pleural effusions with adjacent atelectasis. Initial labs showed a white count of 5.5, hemoglobin of 12.9, d-dimer was 2.08, sodium is 139, potassium 5.1, chloride is 110, CO2 is 21, B1 is 21 creatinine is 1.24, troponins were positive at 0.058, 0.062, proBNP was 22,200. Urinalysis showed trace leuks, rare bacteria, and platelet cells at 12, coronavirus PCR was negative. Lower extremity Doppler of the left leg was negative for DVT. he was started on amiodarone drip, and was admitted to selective care. Last night rapid response team was called with concerns for acute hypoxia, patient's pulse ox was 78, requiring additional oxygen, patient was in persistent A. fib with RVR. Blood gases were obtained showing pO2 of 157, pCO2 of 26, and pH of 7.27 this was done on FiO2 of 100%. Blood work showed a sodium of 137, potassium is 5.8, worsening renal profile w ith BUN of 20 and creatinine of 1.51, plasma lactic acid was found to be elevated at 5.3. Patient was given a liter bolus and IV fluids, patient was started on bicarbonate infusion, however his condition continued to deteriorate, and patient was transferred to the intensive care unit for further monitoring and treatment. Continue to be tachypneic, restless, with acute mental status changes, elevated lactic acid, oliguric, hypothermic. Blood cultures were obtained and sent, Lasix was held, Levaphed was started. She did baseline EF is less than 20%, patient was already given a fluid bolus and his IV fluids were infusing at a rate of 1:30 ML per hour. At 2:00 in the morning patient suffered a cardiac arrest, he did require brief CPR and one round of epinephrine with return of spontaneous circulation, patient was emergently intubated and placed on mechanical ventilator. Currently on assist control mode of ventilation with a rate of 20, tidal volume is 450, FiO2 is 50% and PEEP of 5, this morning his blood gases showed a pO2 of 138, pCO2 of 33, and pH of 7.28, patient was given additional amps of sodium bicarbonate. Current IVs include amiodarone at a rate of 0.5 mg/m, Levothroid is at 21 mics per minute, Diprivan is a 30 mics per kilo per minute. This morning's temp is 98, patient was on the warmer overnight. Patient's condition is critical, patient's is also in this ICU on mechanical ventilator, the next of kin is patient's [id number] who spoke to this morning, and there are no children and no other relatives. Cardiology is following, echocardiogram has been ordered, cultures have been ordered and sent. On 02/02/2020 patient seen in follow-up in the intensive care unit, remains sedated, intubated on mechanical ventilator with current vent settings of assist control with a rate of 20, tidal and was 450, FiO2 60%, and PEEP of 5, this morning's blood gases reveal pO2 of 90, pCO2 33, and pH of 7.5. Patient still remains on bicarbonate infusion in D5 W with 3 A of sodium bicarb at a rate of 75 ML per hour which will be discontinued this morning, to prevent is at 25 mics per kilo per minute, amiodarone at 0.5 mg/m, and levo fed is at 14.4 mics per minute. No other drips. Remains in A. fib with a rate of 98-114 BPM. Hypothermia has resolved, and patient actually is having a low-grade fever this morning with at 99.7F temperature. He is a pressor requirement is down. This morning blood work has been reviewed showing white blood cell count of 9.8, hemoglobin of 14.3, sodium of 134, the rest of the electrolytes are within normal limits, renal profile were sent, with BUN of 35 and creatinine of 2.05. Blood, sputum and urine cultures have been sent, and are pending at this time, blood culture has shown no growth to date, sputum Gram stain showed no organisms. Today's chest x-ray has been reviewed showing enlarged heart, bibasilar increased attenuation possibly related to pulmonary edema or atelectasis. Tube feedings been started with the Nepro at 10 mL an hour. Unfortunately patient's last night. On 02/03/2020 patient seen in follow-up in the intensive care unit. Remains sedated, on mechanical ventilator, currently on assist-control mode with a rate of 20, tidal lines 450, FiO2 50%, PEEP of 5, this morning his blood gases showed pO2 of 66, pCO2 37, pH of 7.49. We'll discontinue the bicarbonate infusion y esterday. Patient has developed metabolic alkalosis, today's labs have been reviewed showing hypokalemia with potassium of 3.2 which will be corrected per protocol. Yesterday patient was given sedation holiday, he did wake up and open his eyes however did not follow command, and became very anxious and started desaturating and was subsequently re-sedated. Today his vasopressor requirements continue to trend down, levo fed is currently at 13 mics per minute, he is on maintenance IV fluids 0.9 normal saline at a rate 75 ML per hour, Diprivan and is a 25 mics per kilo per minute. He is tolerating tube feedings currently on Nepro at a rate of 30 with a goal of 30. Today's chest x- ray shows changes of congestive heart failure with increased interstitial. She did have fevers last night, with a T-max in last 24 hours of 101F. His blood and sputum and urine cultures showed no growth to date. Today's labs have been reviewed, showing white blood cell count within normal limits at 8.7, hemoglobin of 14.5, sodium of 135, potassium of 3.2, chloride is 105, B1 of 34, and creatinine of 1.37, renal profile seems to be improving. he remains in atrial fibrillation with a rate of 98 BPM. On 02/10/2020 patient seen in follow-up on selective care unit. Patient is confused, he has a sitter at the bedside, room air pulse ox of 93%, breathing seems to be comfortable, he is afebrile, today's chest x-ray shows diffuse pleural parenchymal changes suggestive of either pulmonary edema or diffuse pneumonia, and there is air seen adjacent to the right hemidiaphragm concerning for free intra-abdominal air. CT chest was obtained showing suspected CHF exacerbation, cardiomegaly with small to moderate-sized bilateral pleural effusions and associated compressive atelectasis. Areas of underlying acute infiltrates bilaterally could not be excluded. he remains on daily dose of IV Lasix, he is on 1.6 L negative fluid balance. Lung sounds are diminished, with bibasilar crackles, no wheezing, no rhonchi. She remains in atrial fibrillation with a controlled rate, Eliquis has been added for anticoagulation, platelet count is up to 117 on today's labs, white blood cell, is 14.1, electrolytes are within normal limits, BUN is 34, creatinine 0.87. Last pro-calcitonin was up to 4.1 3 days ago. Antibiotic coverage is with cefepime, ID service is following. Patient is tolerating oral diet, he requires extensive assistance with feeding On 02/11/2020 patient seen in follow-up on selective care unit. Patient is to be more alert today, no agitation, slightly less confused. Appears to be in no acute distress, he remains on diuretics, he is diuresing, and he is in -1 L fluid balance over the last 24 hours, no swelling, lung sounds reveal bibasilar crackles, right-sided thoracentesis was attempted however was aborted related to insufficient fluid, most likely related to diuresis. Patient remains on 2 L of oxygen a pulse ox of 96%. Patient denies any chest pain, no worsening dyspnea, he is weak, however he is getting a little stronger. Appetite is fair, and does require some assistance with feeding. He is on a daily dose of IV Lasix currently. Will restart his Eliquis today, antibiotic coverage is with cefepime for MSSA pneumonia. Objective - Vital Signs Vital signs: Vital Signs Temp 97.9 F 02/11/20 07:00 Pulse 90 02/11/20 11:27 Resp 16 02/11/20 07:00 BP 127/75 02/11/20 07:00 Pulse Ox 96 02/11/20 07:00 Intake & Output 02/10/20 02/11/20 02/11/20 18:59 06:59 18:59 Intake Total 300 Output Total 1300 1100 Balance -1300 300 -1100 Weight 75.3 kg 71 kg Intake: Oral 300 Output: Urine 1300 1100 Coude 650 Other: Voiding Method Indwelling Catheter # Voids 2 ABP, PAP, CO, CI - Last Documented Arterial Blood Pressure 128/73 - Exam GENERAL EXAM: Alert, confused 69-year-old frail-looking white male, on room air, with a pulse ox of 96% HEAD: Normocephalic/atraumatic. EYES: Normal reaction of pupils, equal size. Conjunctiva pink, sclera white. NOSE: Clear with pink turbinates. THROAT: No erythema or exudates. NECK: No masses, no JVD, no thyroid enlargement, no adenopathy. CHEST: No chest wall deformity. Symmetrical expansion. LUNGS: Equal air entry with no crackles, wheeze, rhonchi or dullness. CVS: Irregular rate and rhythm, normal S1 and S2, no gallops, no murmurs, no rubs ABDOMEN: Soft, nontender. No hepatosplenomegaly, normal bowel sounds, no guarding or rigidity. EXTREMITIES: No clubbing, no edema, no cyanosis, 2+ pulses and upper and lower extremities. MUSCULOSKELETAL: Muscle strength and tone normal. SPINE: No scoliosis or deformity SKIN: No rashes CENTRAL NERVOUS SYSTEM: Alert, confused No focal deficits, tone is normal in all 4 extremities. - Labs CBC & Chem 7: 02/11/20 10:43 02/11/20 10:43 Labs: Abnormal Lab Results - Last 24 Hours (Table) 02/10/20 02/10/20 02/11/20 Range/Units 14:26 17:15 10:43 WBC 15.5 H (3.8-10.6) k/uL RDW 16.2 H (11.5-15.5) % Chloride (98-107) mmol/L BUN (9-20) mg/dL Glucose (74-99) mg/dL POC Glucose (mg/dL) 132 H (75-99) mg/dL Calcium (8.4-10.2) mg/dL Total Bilirubin 2.4 H (0.2-1.3) mg/dL Delta Bilirubin 1.3 H (0.0-0.2) mg/dL ALT 281 H (4-49) U/L Total Protein 5.4 L (6.3-8.2) g/dL Albumin 2.7 L (3.5-5.0) g/dL 02/11/20 02/11/20 Range/Units 10:43 11:42 WBC (3.8-10.6) k/uL RDW (11.5-15.5) % Chloride 108 H (98-107) mmol/L BUN 32 H (9-20) mg/dL Glucose 108 H (74-99) mg/dL POC Glucose (mg/dL) 123 H (75-99) mg/dL Calcium 8.0 L (8.4-10.2) mg/dL Total Bilirubin (0.2-1.3) mg/dL Delta Bilirubin (0.0-0.2) mg/dL ALT (4-49) U/L Total Protein (6.3-8.2) g/dL Albumin (3.5-5.0) g/dL Assessment and Plan Plan: Assessment: #1. Acute cardiopulmonary arrest related to acute hypoxic respiratory failure, requiring ACLS with return of spontaneous circulation, and requiring placement on mechanical ventilator, patient was extubated on 02/06/2020, remains hemod ynamically stable, no worsening dyspnea, still requiring small amount of supplemental oxygen #2. Hypotension likely related to cardiogenic shock, with an ejection fraction of 20%, patient has recovered and is currently being diuresed and has been restarted on and try still. Despite being in negative fluid balance patient continues to have bilateral pulmonary infiltrates CHF versus pneumonia #3. Acute exacerbation of chronic systolic congestive heart failure, still being optimized #4. A. fib with RVR, and the rate is better controlled now, has been restarted back on Eliquis today and the platelet count has improved #5. Lactic acidosis, possibly related to acute systolic CHF, rule out infectious etiology, cultures have been sent and pending. Patient has been afebrile, no leukocytosis #6. Acute on chronic kidney failure related to ATN #7. Hyperkalemia related to severe metabolic acidosis, improved #8. Chronic A. fib on Eliquis #9. Severe ischemic cardiomyopathy with EF of less than 20% #10. History of mitral valve replacement with a bioprosthetic valve #11. Hypertension #12. MSSA pneumonia, and patient is currently covered with cefepime #13. Bilateral pleural effusions Plan: Continue IV diuretics, we'll repeat chest x-ray in the morning, patient is maintaining stable oxygenation, no complaints of dyspnea or chest pain, we can restart the Eliquis, antibiotic per ID service recommendations, physical therapy consultation, mobilize the patient. Encourage deep breathing and coughing, maintain aspiration precautions I performed a history & physical examination of the patient and discussed their management with my nurse practitioner, Misa Dunn. I reviewed the nurse practitioner's note and agree with the documented findings and plan of care. Lung sounds are positive for diminished breath sounds. The findings and the impression was discussed with the patient. I attest to the documentation by the nurse practitioner. Time with Patient: Less than 30
--- NOTE | 2020-02-11 16:47 | P.PN ---
Subjective Progress Note Date: 02/11/20 Principal diagnosis: Thrombocytopenia, cardiac Arrest, Acute hypoxic respiratory failure secondary to aspiration pneumonia platelets resolved Objective - Vital Signs Vital signs: Vital Signs Temp 98.4 F 02/11/20 15:00 Pulse 88 02/11/20 15:43 Resp 16 02/11/20 15:00 BP 118/73 02/11/20 15:00 Pulse Ox 95 02/11/20 15:00 Intake & Output 02/10/20 02/11/20 02/11/20 18:59 06:59 18:59 Intake Total 300 120 Output Total 1300 1400 Balance -1300 300 -1280 Weight 75.3 kg 71 kg Intake: Oral 300 120 Output: Urine 1300 1400 Coude 650 Other: Voiding Method Indwelling Catheter # Voids 2 ABP, PAP, CO, CI - Last Documented Arterial Blood Pressure 128/73 - Exam - Constitutional General appearance: cooperative, thin - EENT Eyes: EOMI, poor dentition ENT: hard of hearing, other - Neck Neck: other - Respiratory Respiratory: right: rhonchi, bilateral: diminished - Cardiovascular Rhythm: regular - Gastrointestinal General gastrointestinal: decreased bowel sounds, soft, tenderness - Integumentary Integumentary: pale - Neurologic non focal - Musculoskeletal Musculoskeletal: generalized weakness - Psychiatric Psychiatric: A&O x's 3, appropriate affect - Labs CBC & Chem 7: 02/11/20 10:43 02/11/20 10:43 Labs: Abnormal Lab Results - Last 24 Hours (Table) 02/10/20 02/11/20 02/11/20 Range/Units 17:15 10:43 10:43 WBC 15.5 H (3.8-10.6) k/uL RDW 16.2 H (11.5-15.5) % Chloride 108 H (98-107) mmol/L BUN 32 H (9-20) mg/dL Glucose 108 H (74-99) mg/dL POC Glucose (mg/dL) 132 H (75-99) mg/dL Calcium 8.0 L (8.4-10.2) mg/dL 02/11/20 Range/Units 11:42 WBC (3.8-10.6) k/uL RDW (11.5-15.5) % Chloride (98-107) mmol/L BUN (9-20) mg/dL Glucose (74-99) mg/dL POC Glucose (mg/dL) 123 H (75-99) mg/dL Calcium (8.4-10.2) mg/dL Assessment and Plan (1) Thrombocytopenia Current Visit: Yes Status: Acute Code(s): D69.6 - THROMBOCYTOPENIA, UNSPECIFIED SNOMED Code(s): 832508066 (2) Liver function abnormality Current Visit: Yes Status: Acute Code(s): R94.5 - ABNORMAL RESULTS OF LIVER FUNCTION STUDIES SNOMED Code(s): 19035281 (3) Aspiration pneumonitis Current Visit: Yes Status: Acute Code(s): J69.0 - PNEUMONITIS DUE TO INHALATION OF FOOD AND VOMIT SNOMED Code(s): 361911030 (4) Fever Current Visit: Yes Status: Acute Code(s): R50.9 - FEVER, UNSPECIFIED SNOMED Code(s): 663017326 Plan: Assessment and Recommendations: Thrombocytopenia:Resolved - Reactive to recent events of infection, cardiac arrest, increased LFTs - Resolution of underlying problem should reveal normalizing platelet counts We will sign off, please do not hesitate to reach out if further evaluation is needed
[2020-02-11] MEDS: CEPHALEXIN 500 MG CAP PO SCH ×2 (17:07→21:01)
[2020-02-11 17:40] LABS: Glucose,Whole Blood 125 mg/dL (75-99)
[2020-02-11] MEDS: APIXABAN 5 MG TAB PO SCH (21:01)
--- NOTE | 2020-02-11 21:55 | PN ---
PROGRESS NOTE DATE OF SERVICE: 02/11/2020 This 69-year-old gentleman who was admitted with CHF, acute exacerbation, also had extubation. Patient is mildly confused. No chest pain. No palpitations. No fever. A chest CT was done yesterday which showed prior mitral valve surgery, CHF, acute exacerbation and no other acute abnormality. Additional edema was noted. PHYSICAL EXAMINATION: Alert and oriented x2. Pulse is 85, blood pressure 118/73, respiration 16, temperature 98.4, pulse ox 95% on room air. HEENT: Conjunctivae normal. Oral mucosa moist. NECK: No jugular venous distention. No carotid bruit. No lymph node enlargement. CARDIOVASCULAR SYSTEM: S1, S2 muffled. RESPIRATORY SYSTEM: Breath sounds diminished at the bases. A few scattered rhonchi and crackles. ABDOMEN: Soft, non-tender. LEGS: No edema. No swelling. NERVOUS SYSTEM: No focal deficit. LABS: WBC 15.5. ASSESSMENT: 1. Congestive heart failure, acute exacerbation, with acute on chronic systolic dysfunction, ejection fraction 20%, with acute hypoxic respiratory failure, status post mechanical ventilation, present on admission. 2. Status post prolonged CPR secondary to cardiac arrest. 3. Cardiogenic shock and hypotension history. 4. Acute kidney injury with acute renal failure with acute tubular necrosis, prerenal factors. 5. Atrial fibrillation with rapid ventricular rate. 6. Change in mental status, metabolic encephalopathy, multifactorial, acute. 7. Severe ischemic cardiomyopathy. 8. Mitral valve replacement with bioprosthetic valve history. 9. History of lactic acidosis. 10.Hypokalemia. 11.Hypertension. 12.Gait dysfunction. 13.Increased AST, ALT. 14.Hypoalbuminemia with mild protein-calorie malnutrition. 15.Anemia, normocytic anemia of chronic disease. 16.Thrombocytopenia. 17.Right lower pneumonia, possibly Gram-negative and possible sepsis. 18.NO CODE, NO CPR, NO VENT. RECOMMENDATIONS AND DISCUSSION: I recommend to continue current medications, continue with the monitoring, symptomatic treatment. Continue with the diuretics. The patient is on Lasix 40 IV daily. Will repeat labs. Closely monitor. Otherwise, guarded prognosis because of multiple complex medical issues. I would also anticipate possible ECF rehab because of the multiple complex medical issues at this time. MMODL / IJN: [id number] /
--- NOTE | 2020-02-11 22:58 | PN ---
PROGRESS NOTE DATE OF SERVICE: 02/11/2020 REASON FOR FOLLOWUP: Pneumonia. INTERVAL HISTORY: The patient is currently afebrile, has been breathing more comfortably. The patient denies having any chest pain or shortness of breath or cough. No nausea, no vomiting. No abdominal pain or diarrhea. PHYSICAL EXAMINATION: Blood pressure 149/80 with a pulse of 87, temperature 98.6. General description is an elderly male lying in bed in no distress. RESPIRATORY SYSTEM: Unlabored breathing. Clear to auscultation anteriorly. HEART: S1, S2. Regular rate and rhythm. ABDOMEN: Soft. No tenderness. EXTREMITIES: No edema of the feet. LABS: Hemoglobin is 13.5, white count 15.5. BUN of 32, creatinine 0.89. DIAGNOSTIC IMPRESSION AND PLAN: Patient with pneumonia. Sputum has been MSSA in this patient who did have overall clinical improvement, but now with worsening of the white count, though no fever or any worsening respiratory status. We will repeat his chest x-ray. Antibiotic switched to p.o. Keflex to cover for MSSA that he has grown in the past. Will monitor his clinical course closely. MMODL / IJN: [id number] /
[2020-02-12 00:08] LABS: Glucose,Whole Blood 105 mg/dL (75-99)
[2020-02-12] MEDS: INSULIN ASPART (NovoLOG) 100 UNIT/ML VIAL SQ SCH ×4 (00:08→17:33)
[2020-02-12 06:06] LABS: Glucose,Whole Blood 177 mg/dL (75-99)
--- NOTE | 2020-02-12 07:38 | XR ---
EXAMINATION TYPE: XR chest 1V portable DATE OF EXAM: 02/12/2020 HISTORY: follow up pneumonia CHF. REFERENCE: Previous study dated 02/10/2020. FINDINGS: There has been a midline sternotomy. The heart is enlarged. There is bibasilar airspace dis ease. This is very similar to previous. There are bilateral effusions. IMPRESSION: NO SIGNIFICANT INTERVAL CHANGE IN APPEARANCE OF THE CHEST.
[2020-02-12] MEDS: METOPROLOL TARTRATE 50 MG TAB PO SCH ×2 (08:23→20:50)
[2020-02-12] MEDS: APIXABAN 5 MG TAB PO SCH ×2 (08:23→20:50)
[2020-02-12] MEDS: AMIODARONE 200 MG TAB PO SCH (08:24)
[2020-02-12] MEDS: PANTOPRAZOLE 40 MG TABLET PO SCH (08:24)
[2020-02-12] MEDS: FUROSEMIDE 10 MG/ML 4 ML VIAL IV SCH (08:24)
[2020-02-12] MEDS: CEPHALEXIN 500 MG CAP PO SCH ×3 (08:24→20:50)
[2020-02-12] MEDS: SACUBITRIL/VALSARTAN 24 MG-26 MG TABLET PO SCH ×2 (08:25→20:50)
[2020-02-12] MEDS: PARoxetine 10 MG TAB PO SCH (08:25)
[2020-02-12] MEDS: IPRATROPIUM-ALBUTEROL 3 ML NEB INHALATION SCH ×4 (08:47→19:46)
[2020-02-12 09:44] LABS: Anisocytosis Slight; Basophils # (A) 0.1 k/uL (0-0.2); Basophils % (A) 0 %; Eosinophils # (A) 0.1 k/uL (0-0.7); Eosinophils % (A) 1 %; HCT 45.7 % (39.0-53.0); HGB 13.9 gm/dL (13.0-17.5); Hypochromasia Marked; Lymphocytes # (A) 0.6 k/uL (1.0-4.8); Lymphocytes % (A) 5 %; MCH 28.9 pg (25.0-35.0); MCHC 30.5 g/dL (31.0-37.0); MCV 94.5 fL (80.0-100.0); Mean Platelet Volume 8.3; Monocytes # (A) 0.5 k/uL (0-1.0); Monocytes % (A) 4 %; Neutrophils # (A) 12.2 k/uL (1.3-7.7); Neutrophils % (A) 89 %; Platelet Count 220 k/uL (150-450); RBC 4.83 m/uL (4.30-5.90); RDW 16.1 % (11.5-15.5); WBC 13.7 k/uL (3.8-10.6)
[2020-02-12] MEDS: DIGOXIN 125 MCG TAB PO SCH (09:47)
[2020-02-12 09:54] LABS: African American GFR (CKD) >90 (>60 ml/min/1.73 sqM); Anion Gap 8 mmol/L; Blood Urea Nitrogen 32 mg/dL (9-20); Calcium 8.5 mg/dL (8.4-10.2); Carbon Dioxide 27 mmol/L (22-30); Chloride 108 mmol/L (98-107); Glucose 112 mg/dL (74-99); Non-African American GFR(CKD) 84 (>60 ml/min/1.73 sqM); Potassium 3.3 mmol/L (3.5-5.1); Sodium 143 mmol/L (137-145)
[2020-02-12] MEDS: POTASSIUM CHLORIDE ER 20 MEQ TAB.ER PO SCH ×4 (10:50→15:46)
[2020-02-12 11:43] LABS: Glucose,Whole Blood 124 mg/dL (75-99)
[2020-02-12] MEDS: THIAMINE 100 MG TAB PO SCH (12:21)
[2020-02-12] MEDS: FOLIC ACID 1 MG TAB PO SCH (12:21)
[2020-02-12] MEDS: MULTIVITAMINS, THERA 1 EACH TAB PO SCH (12:21)
--- NOTE | 2020-02-12 12:34 | P.PN ---
Subjective Progress Note Date: 02/12/20 Principal diagnosis: Dyspnea, hypoxemia, A. fib with RVR, cardiac arrest The patient is seen today 02/12/2020 in follow-up on the regular medical floor. He is currently sitting up in a chair at the bedside. Awake and alert in no acute distress. Maintaining O2 saturations in the 90s on 2 L/m per nasal cannula. He's been afebrile. Hemodynamically stable. No worsening shortness of breath, cough or congestion. Chest x-ray reveals bibasilar airspace disease similar to previous with small bilateral effusions. There is also noted right apical pneumothorax. There was an attempted thoracentesis of the right chest done yesterday that was not completed. Sputum cultures positive for MSSA. Blood cultures reveal no growth. White count 13.7. Hemoglobin 13.9. Sodium 143. Potassium 3.3. Creatinine 0.92. He remains on DuoNeb inhalations, IV diuretics. He was previously on cefepime, currently on Keflex. Anticoagulated with Eliquis. Objective - Vital Signs Vital signs: Vital Signs Temp 98.1 F 02/12/20 06:51 Pulse 88 02/12/20 12:17 Resp 20 02/12/20 06:51 BP 133/91 02/12/20 06:51 Pulse Ox 93 L 02/12/20 06:51 Intake & Output 02/11/20 02/12/20 02/12/20 18:59 06:59 18:59 Intake Total 120 320 Output Total 1400 Balance -1280 320 Weight 72 kg Intake: IV 320 Sodium Chloride 0.9% 1, 320 000 ml @ 20 mls/hr IV . Q24H [facility] Rx#:[id number] Oral 120 Output: Urine 1400 Other: Voiding Method Indwelling Catheter ABP, PAP, CO, CI - Last Documented Arterial Blood Pressure 128/73 - Exam GENERAL EXAM: Alert pleasant 69-year-old gentleman on 2 L nasal cannula in no acute distress HEAD: Normocephalic/atraumatic. EYES: Normal reaction of pupils, equal size. Conjunctiva pink, sclera white. NOSE: Clear with pink turbinates. THROAT: No erythema or exudates. NECK: No masses, no JVD, no thyroid enlargement, no adenopathy. CHEST: No chest wall deformity. Symmetrical expansion. LUNGS: Equal air entry with crackles in the bases right greater than left CVS: Irregular rate and rhythm, normal S1 and S2, no gallops, no murmurs, no rubs ABDOMEN: Soft, nontender. No hepatosplenomegaly, normal bowel sounds, no guarding or rigidity. EXTREMITIES: No clubbing, no edema, no cyanosis, 2+ pulses and upper and lower extremities. MUSCULOSKELETAL: Muscle strength and tone normal. SPINE: No scoliosis or deformity SKIN: No rashes CENTRAL NERVOUS SYSTEM: No focal deficits, tone is normal in all 4 extremities. - Labs CBC & Chem 7: 02/12/20 09:18 02/12/20 09:18 Labs: Abnormal Lab Results - Last 24 Hours (Table) 02/11/20 02/12/20 02/12/20 Range/Units 17:20 00:07 06:05 WBC (3.8-10.6) k/uL MCHC (31.0-37.0) g/dL RDW (11.5-15.5) % Neutrophils # (1.3-7.7) k/uL Lymphocytes # (1.0-4.8) k/uL Potassium (3.5-5.1) mmol/L Chloride (98-107) mmol/L BUN (9-20) mg/dL Glucose (74-99) mg/dL POC Glucose (mg/dL) 125 H 105 H 177 H (75-99) mg/dL 02/12/20 02/12/20 02/12/20 Range/Units 09:18 09:18 11:37 WBC 13.7 H (3.8-10.6) k/uL MCHC 30.5 L (31.0-37.0) g/dL RDW 16.1 H (11.5-15.5) % Neutrophils # 12.2 H (1.3-7.7) k/uL Lymphocytes # 0.6 L (1.0-4.8) k/uL Potassium 3.3 L (3.5-5.1) mmol/L Chloride 108 H (98-107) mmol/L BUN 32 H (9-20) mg/dL Glucose 112 H (74-99) mg/dL POC Glucose (mg/dL) 124 H (75-99) mg/dL Assessment and Plan Assessment: #1. Acute cardiopulmonary arrest related to acute hypoxic respiratory failure, requiring CPR with return of spontaneous circulation, and requiring placement on mechanical ventilator, successfully extubated on 02/06/2020. Currently on 2 L nasal cannula #2. Hypotension likely related to cardiogenic shock #3. Acute exacerbation of chronic systolic congestive heart failure #4. A. fib with RVR #5. Lactic acidosis, possibly related to acute systolic CHF, rule out infectious etiology, cultures have been sent and pending. Patient has been afebrile, no leukocytosis #6. Acute on chronic kidney failure related to ATN #7. Hyperkalemia related to severe metabolic acidosis, improved #8. Chronic A. fib on Eliquis #9. Severe ischemic cardiomyopathy with EF of less than 20% #10. History of mitral valve replacement with a bioprosthetic valve #11. Hypertension #12. MSSA pneumonia, treated with cefepime currently on Keflex #13. Bilateral pleural effusions with attempted thoracentesis on the right on 02/11/2020. Today's chest x-ray shows a right apical pneumothorax. Follow-up chest x-ray pending. Plan: The patient was seen and evaluated by Dr. Metzger Chest x-ray and labs reviewed Right-sided thoracentesis attempted yesterday without success Right apical pneumothorax noted Follow-up chest x-ray pending Maintaining good O2 saturations in the 90s on 2 L/m per nasal cannula We will continue to follow and make further recommendations based on his clinical status I, the cosigning physician, performed a history & physical examination of the patient. Lungs sounds with bibasilar crackles, dullness in the right base. Maintaining good O2 saturations in the 90s on 2 L/m per nasal cannula. I discussed the assessment and plan of care with my nurse practitioner, Angi Barnes. I attest to the above note as dictated by her.
--- NOTE | 2020-02-12 13:48 | XR ---
EXAMINATION TYPE: XR chest 1V DATE OF EXAM: 02/12/2020 HISTORY: pneumothorax FU. REFERENCE: Previous study dated 02/12/2020. FINDINGS: There has been a midline sternotomy. There is a prominent right-sided pneumothorax this approaches 40% by volume. There is continuing bibasilar airspace disease. This may have partially cleared on the right. There a re small effusions. The heart is enlarged. The overall appearance is unchanged from previous. IMPRESSION: NO SIGNIFICANT INTERVAL CHANGE IN THE APPEARANCE OF THE CHEST.
[2020-02-12] MEDS: SODIUM CHLORIDE 0.9% 1,000 ML IV SCH ×2 (15:51→20:53)
--- NOTE | 2020-02-12 15:56 | PN ---
PROGRESS NOTE DATE OF SERVICE: 02/12/2020 REASON FOR FOLLOWUP: Pneumonia. INTERVAL HISTORY: The patient is currently afebrile. The patient is breathing comfortably. Denies having any chest pain. No shortness of breath. Minimal cough. No nausea, no vomiting. No abdominal pain, no diarrhea. PHYSICAL EXAMINATION: Blood pressure is 133/91 with a pulse of 99, temperature 98.1, he is 93% on 2 L nasal cannula. General description is an elderly male up in the chair in no distress. Respiratory system: Unlabored breathing, decreased breath sounds at the base. No wheeze. Heart S1, S2. Regular rate and rhythm. Abdomen soft, no tenderness. LABS: White count 13.7, creatinine 0.92. DIAGNOSTIC IMPRESSION AND PLAN: Patient with MSSA pneumonia. Patient currently on oral Keflex, to continue for about a week and will monitor his clinical course closely. Continue supportive care. MMODL / IJN: [id number] /
[2020-02-12 16:59] LABS: Glucose,Whole Blood 146 mg/dL (75-99)
--- NOTE | 2020-02-12 18:32 | PN ---
PROGRESS NOTE DATE OF SERVICE: 02/12/2020 This 69-year-old gentleman who was admitted with CHF acute exacerbation, ( ). Patient is still confused. Most recent chest x-ray which was done today and reviewed personally by me showed significant lesions on the right and left. Patient is being closely monitored. The patient is on Keflex at this time. PHYSICAL EXAMINATION: Alert and oriented x3. The pulse is 97, blood pressure 120/83, respirations 18, temperature 99.1, pulse ox 97% on room air. HEENT: Conjunctivae normal. Oral mucosa moist. NECK: No jugular venous distention. No lymph node enlargement. CARDIOVASCULAR: S1, S2, muffled. No S3, no S4, RESPIRATORY: Diminished breath sounds at the bases. A few scattered rhonchi and crackles. ABDOMEN: Soft, nontender. LEGS: No edema, no swelling. NERVOUS SYSTEM: No focal deficits. LABS: WBC 13.7, sodium 143, potassium 3.3, glucose 112. ASSESSMENT: 1. Congestive heart failure acute exacerbation, acute on chronic systolic dysfunction, ejection fraction 20% with acute hypoxic respiratory failure status post mechanical ventilation, present on admission. 2. Status post prolonged CPR secondary to cardiac arrest. 3. Cardiogenic shock and hypotension history. 4. Bilateral pneumonia, right more than left, possibly gram negative. 5. Acute kidney injury with acute renal failure with acute tubular necrosis, prerenal factors. 6. Atrial fibrillation with rapid ventricular rate. 7. Change in mental status, acute metabolic encephalopathy multifactorial, acute. 8. Severe ischemic cardiomyopathy. 9. Mitral valve replacement with bioprosthetic valve history. 10.History of lactic acidosis. 11.Hypokalemia. 12.Hypertension. 13.Gait dysfunction. 14.Increased AST/ALT. 15.Hypoalbuminemia with mild protein-calorie malnutrition. 16.Anemia, normocytic anemia of chronic disease. 17.Thrombocytopenia. 18.Right lower lobe pneumonia, possibly gram-negative with possible sepsis. 19.NO CODE, NO CPR, NO VENT. RECOMMENDATIONS AND DISCUSSION: Recommend to continue current medications, continue symptomatic treatment, continue with diuretics. Otherwise, continue the antibiotics. Prognosis guarded because of multiple complex medical issues and further recommendations to follow. See orders for details. PT/OT evaluation, possible ECF rehab. MMODL / IJN: [id number] /
[2020-02-13 00:39] LABS: Glucose,Whole Blood 90 mg/dL (75-99)
[2020-02-13] MEDS: INSULIN ASPART (NovoLOG) 100 UNIT/ML VIAL SQ SCH ×4 (00:42→17:19)
[2020-02-13 05:58] LABS: Glucose,Whole Blood 85 mg/dL (75-99)
[2020-02-13] MEDS: SODIUM CHLORIDE 0.9% 1,000 ML IV SCH (05:59)
--- NOTE | 2020-02-13 07:35 | XR ---
EXAMINATION TYPE: XR chest 1V DATE OF EXAM: 02/13/2020 HISTORY: pneumothorax. REFERENCE: Previous study dated 02/12/2020. FINDINGS: There has been a midline sternotomy. There is a prominent right-sided pneumothorax, slightl y improved from previous. There continues to be right basilar airspace disease as well as left basila r airspace disease. There are small, bilateral effusions. The heart is mildly enlarged. IMPRESSION: 1. SLIGHT IMPROVEMENT IN THE SIZE OF THE PATIENT'S RIGHT-SIDED PNEUMOTHORAX. 2. CONTINUING BIBASILAR AIRSPACE DISEASE. 3. CARDIOMEGALY. 4. SMALL, BILATERAL EFFUSIONS.
[2020-02-13] MEDS: IPRATROPIUM-ALBUTEROL 3 ML NEB INHALATION SCH ×4 (08:05→21:13)
[2020-02-13] MEDS: PARoxetine 10 MG TAB PO SCH (08:38)
[2020-02-13] MEDS: SACUBITRIL/VALSARTAN 24 MG-26 MG TABLET PO SCH ×2 (08:38→21:15)
[2020-02-13] MEDS: PANTOPRAZOLE 40 MG TABLET PO SCH (08:38)
[2020-02-13] MEDS: FUROSEMIDE 10 MG/ML 4 ML VIAL IV SCH (08:38)
[2020-02-13] MEDS: METOPROLOL TARTRATE 50 MG TAB PO SCH ×2 (08:38→21:14)
[2020-02-13] MEDS: CEPHALEXIN 500 MG CAP PO SCH ×3 (08:38→21:15)
[2020-02-13] MEDS: AMIODARONE 200 MG TAB PO SCH (08:38)
[2020-02-13] MEDS: APIXABAN 5 MG TAB PO SCH ×2 (08:38→21:14)
[2020-02-13] MEDS ORDERED: ALPRAZolam 0.5 MG TAB PO STA (09:00)
[2020-02-13 09:05] LABS: African American GFR (CKD) >90 (>60 ml/min/1.73 sqM); Anion Gap 5 mmol/L; Blood Urea Nitrogen 32 mg/dL (9-20); Calcium 8.1 mg/dL (8.4-10.2); Carbon Dioxide 30 mmol/L (22-30); Chloride 107 mmol/L (98-107); Glucose 132 mg/dL (74-99); Non-African American GFR(CKD) 86 (>60 ml/min/1.73 sqM); Potassium 3.4 mmol/L (3.5-5.1); Sodium 142 mmol/L (137-145)
[2020-02-13] MEDS: DIGOXIN 125 MCG TAB PO SCH (09:19)
[2020-02-13 09:58] LABS: Anisocytosis Slight; Basophils # (A) 0.1 k/uL (0-0.2); Basophils % (A) 0 %; Eosinophils # (A) 0.2 k/uL (0-0.7); Eosinophils % (A) 1 %; HCT 41.7 % (39.0-53.0); Hypochromasia Marked; Lymphocytes # (A) 0.6 k/uL (1.0-4.8); Lymphocytes % (A) 5 %; MCHC 31.1 g/dL (31.0-37.0); MCV 93.4 fL (80.0-100.0); Mean Platelet Volume 8.8; Monocytes # (A) 0.6 k/uL (0-1.0); Monocytes % (A) 5 %; Neutrophils # (A) 9.9 k/uL (1.3-7.7); Neutrophils % (A) 87 %; Platelet Count 206 k/uL (150-450); RBC 4.46 m/uL (4.30-5.90); RDW 16.2 % (11.5-15.5); WBC 11.4 k/uL (3.8-10.6)
[2020-02-13 11:28] LABS: Glucose,Whole Blood 106 mg/dL (75-99)
--- NOTE | 2020-02-13 11:50 | P.PN ---
Subjective Progress Note Date: 02/13/20 On 02/13/2020, the patient is doing well. He is currently on 2 L about 2 by nasal cannula. I was concerned about the right-sided pneumothorax. However, this pneumothorax has remained stable and has decreased in size on today's chest x-ray. The patient is still being diuresis with IV Lasix 40 g every 24 hours. He remains in a negative fluid balance. He is gradually improving. Is on oral Keflex 5 mg by mouth 3 times a day. He is weak and he needs aggressive rehabilitation. No other new complaints otherwise for now. Is able to swallow. His taken oral intake. Objective - Vital Signs Vital signs: Vital Signs Temp 99.0 F 02/13/20 07:43 Pulse 88 02/13/20 08:16 Resp 20 02/13/20 07:43 BP 136/85 02/13/20 07:43 Pulse Ox 99 02/13/20 08:49 Intake & Output 02/12/20 02/13/20 02/13/20 18:59 06:59 18:59 Output Total 1000 900 300 Balance -1000 -900 -300 Weight 74 kg Output: Urine 1000 900 300 Male - External 300 Other: Voiding Method Indwelling Catheter Indwelling Catheter # Voids 2 ABP, PAP, CO, CI - Last Documented Arterial Blood Pressure 128/73 - Exam GENERAL EXAM: Alert pleasant 69-year-old gentleman on 2 L nasal cannula in no acute distress HEAD: Normocephalic/atraumatic. EYES: Normal reaction of pupils, equal size. Conjunctiva pink, sclera white. NOSE: Clear with pink turbinates. THROAT: No erythema or exudates. NECK: No masses, no JVD, no thyroid enlargement, no adenopathy. CHEST: No chest wall deformity. Symmetrical expansion. LUNGS: Equal air entry with crackles in the bases right greater than left CVS: Irregular rate and rhythm, normal S1 and S2, no gallops, no murmurs, no rubs ABDOMEN: Soft, nontender. No hepatosplenomegaly, normal bowel sounds, no guarding or rigidity. EXTREMITIES: No clubbing, no edema, no cyanosis, 2+ pulses and upper and lower extremities. MUSCULOSKELETAL: Muscle strength and tone normal. SPINE: No scoliosis or deformity SKIN: No rashes CENTRAL NERVOUS SYSTEM: No focal deficits, tone is normal in all 4 extremities. - Labs CBC & Chem 7: 02/13/20 07:29 02/13/20 07:29 Labs: Abnormal Lab Results - Last 24 Hours (Table) 02/12/20 02/13/20 02/13/20 Range/Units 16:52 07:29 07:29 WBC 11.4 H (3.8-10.6) k/uL RDW 16.2 H (11.5-15.5) % Neutrophils # 9.9 H (1.3-7.7) k/uL Lymphocytes # 0.6 L (1.0-4.8) k/uL Potassium 3.4 L (3.5-5.1) mmol/L BUN 32 H (9-20) mg/dL Glucose 132 H (74-99) mg/dL POC Glucose (mg/dL) 146 H (75-99) mg/dL Calcium 8.1 L (8.4-10.2) mg/dL 02/13/20 Range/Units 11:26 WBC (3.8-10.6) k/uL RDW (11.5-15.5) % Neutrophils # (1.3-7.7) k/uL Lymphocytes # (1.0-4.8) k/uL Potassium (3.5-5.1) mmol/L BUN (9-20) mg/dL Glucose (74-99) mg/dL POC Glucose (mg/dL) 106 H (75-99) mg/dL Calcium (8.4-10.2) mg/dL Assessment and Plan Plan: #1. Acute cardiopulmonary arrest related to acute hypoxic respiratory failure, requiring CPR with return of spontaneous circulation, and requiring placement on mechanical ventilator, the patient was extubated on 02/06/2020 and currently is hemodynamically stable on was weaned off. #2. Hypotension likely related to cardiogenic shock, recovered #3. Acute exacerbation of chronic systolic congestive heart failure, still being optimized and diabetes for now. #4. Chronic atrial fibrillation, maintained on Eliquis #5. Lactic acidosis, possibly related to acute systolic CHF, improved #6. Acute on chronic kidney failure related to ATN, improved and the creatinine is down to 0.9 #7. MSSA in the sputum, considered a superimposed pneumonia on top of CHF. The patient is currently on IV cefepime. #8. Chronic A. fib on Eliquis, currently off anticoagulants #9. Severe ischemic cardiomyopathy with EF of less than 20% #10. History of mitral valve replacement with a bioprosthetic valve #11 right-sided pneumothorax, smaller in size, being monitored Plan Oral Keflex Lasix 40 mg IV every 24 hours, chest x-ray to be repeated the next 24 hours Continue oxygen at 2 L per minute nasal cannula Repeat chest x-ray with the next 24 hours and the patient's right-sided pneumothorax improving in size. No need for any further intervention at this point in time Aggressive physical therapy Optimize CHF We'll continue to follow
[2020-02-13] MEDS: MULTIVITAMINS, THERA 1 EACH TAB PO SCH (11:53)
[2020-02-13] MEDS: THIAMINE 100 MG TAB PO SCH (11:53)
[2020-02-13] MEDS: FOLIC ACID 1 MG TAB PO SCH (11:53)
[2020-02-13] MEDS: POTASSIUM CHLORIDE ER 20 MEQ TAB.ER PO SCH ×3 (11:56→17:18)
[2020-02-13 16:44] LABS: Glucose,Whole Blood 129 mg/dL (75-99)
[2020-02-14] MEDS: SODIUM CHLORIDE 0.9% 1,000 ML IV SCH ×3 (00:23→10:11)
[2020-02-14] MEDS: INSULIN ASPART (NovoLOG) 100 UNIT/ML VIAL SQ SCH ×3 (00:26→13:01)
[2020-02-14 00:29] LABS: Glucose,Whole Blood 91 mg/dL (75-99)
--- NOTE | 2020-02-14 02:24 | PN ---
PROGRESS NOTE DATE OF SERVICE: 02/13/2020 This 69-year-old gentleman who was admitted with CHF acute exacerbation, also had prolonged CPR. The patient remains to be confused. Most recent chest x-ray which was done today showed slight improvement in the size of the pneumothorax. No chest pain. No palpitations. ECF rehab is being planned. PHYSICAL EXAMINATION: Alert and oriented x2. Pulse is 62, blood pressure 119/75, respiration 18, temperature 98 degrees, pulse ox 100% on 2 L. HEENT: Conjunctivae normal. NECK: No jugular venous distention. CARDIOVASCULAR: S1, S2 muffled. RESPIRATORY: Breath sounds diminished at the bases. A few scattered rhonchi and crackles. ABDOMEN: Soft, nontender. LEGS: No edema. No swelling. NERVOUS SYSTEM: No focal deficits. LABS: WBC11.4, hemoglobin 13, sodium 142, potassium 3.4, calcium is 8.1. ASSESSMENT: 1. Congestive heart failure acute exacerbation with acute on chronic systolic dysfunction ejection fraction 20% with acute hypoxic respiratory failure status post mechanical ventilation, present on admission. 2. Status post prolonged CPR secondary to cardiac arrest. 3. Cardiogenic shock and hypotension history. 4. Bilateral pneumonia, right more than left possibly gram-negative. 5. Acute kidney injury with acute renal failure with acute tubular necrosis, prerenal factors. 6. Atrial fibrillation with rapid ventricular rate. 7. Change in mental status, acute metabolic encephalopathy multifactorial acute. 8. Severe ischemic cardiomyopathy. 9. Mitral valve replacement with bioprosthetic valve history. 10.History of lactic acidosis. 11.Hypokalemia. 12.Hypertension. 13.Gait dysfunction. 14.Increased AST, ALT. 15.Hypoalbuminemia with mild protein calorie malnutrition. 16.Anemia, normocytic anemia of chronic disease. 17.Thrombocytopenia. 18.Right lower pneumonia possibly gram-negative with possible sepsis. 19.NO CODE, NO CPR, NO VENT. RECOMMENDATIONS AND DISCUSSION: Recommend to continue current medications. Continue with monitoring and symptomatic treatment. Otherwise PT, OT evaluation, possible ECF rehab. Closely monitor. Guarded prognosis. Further recommendations to follow. MMPATRICEL / KATHERINEN: [id number] /
[2020-02-14 05:39] LABS: Glucose,Whole Blood 111 mg/dL (75-99)
--- NOTE | 2020-02-14 06:26 | PN ---
PROGRESS NOTE DATE OF SERVICE: 02/13/2020 REASON FOR FOLLOWUP: MSSA pneumonia. INTERVAL HISTORY: The patient is currently afebrile. Patient is breathing comfortably. Patient denies having any chest pain or shortness of breath. Occasional cough. No nausea, no vomiting. No abdominal pain or diarrhea. PHYSICAL EXAMINATION: Blood pressure 131/87 with pulse of 62, temperature 98.4. He is 99% on 2 L nasal cannula. General description is an elderly male lying in bed in no distress. RESPIRATORY SYSTEM: Unlabored breathing, clear to auscultation anteriorly. HEART: S1, S2. Regular rate and rhythm. ABDOMEN: Soft, no tenderness. LABS: White count 11.4, creatinine 0.90. DIAGNOSTIC IMPRESSION AND PLAN: Patient with MSSA pneumonia. The patient is currently on oral Keflex to continue for about a week to finish course of therapy and continue with supportive care. MMODL / IJN: [id number] /
[2020-02-14 07:35] VITALS: BP 139/94; RESP 16; TEMP 98.4
--- NOTE | 2020-02-14 07:43 | XR ---
EXAMINATION TYPE: XR chest 1V DATE OF EXAM: 02/14/2020 COMPARISON: 02/13/2020 HISTORY: Follow-up pneumothorax TECHNIQUE: Single frontal view of the chest is obtained. FINDINGS: (Bilateral airspace disease and pleural effusion stable. Chronic rib deformities in right apical pneumothorax are stable measuring approximately 15-20%. The heart is enlarged and there is postsurgical changes. Diffuse interstitial pattern seen. IMPRESSION: 1. Stable right apical pneumothorax measuring approximately 15-20%. 2. Diffuse airspace disease and pleural effusion stable correlate for diffuse pneumonia versus CHF.
[2020-02-14] MEDS: IPRATROPIUM-ALBUTEROL 3 ML NEB INHALATION SCH ×2 (07:56→11:45)
[2020-02-14] MEDS: METOPROLOL TARTRATE 50 MG TAB PO SCH (08:34)
[2020-02-14] MEDS: SACUBITRIL/VALSARTAN 24 MG-26 MG TABLET PO SCH (08:34)
[2020-02-14] MEDS: PARoxetine 10 MG TAB PO SCH (08:34)
[2020-02-14] MEDS: PANTOPRAZOLE 40 MG TABLET PO SCH (08:34)
[2020-02-14] MEDS: FUROSEMIDE 10 MG/ML 4 ML VIAL IV SCH (08:34)
[2020-02-14] MEDS: FOLIC ACID 1 MG TAB PO SCH (08:34)
[2020-02-14] MEDS: CEPHALEXIN 500 MG CAP PO SCH (08:34)
[2020-02-14] MEDS: APIXABAN 5 MG TAB PO SCH (08:34)
[2020-02-14] MEDS: MULTIVITAMINS, THERA 1 EACH TAB PO SCH (08:34)
[2020-02-14] MEDS: AMIODARONE 200 MG TAB PO SCH (08:34)
[2020-02-14] MEDS: THIAMINE 100 MG TAB PO SCH (08:34)
[2020-02-14 08:47] LABS: Anisocytosis Slight; Basophils # (A) 0.1 k/uL (0-0.2); Basophils % (A) 1 %; Eosinophils # (A) 0.3 k/uL (0-0.7); Eosinophils % (A) 3 %; HCT 42.7 % (39.0-53.0); HGB 12.7 gm/dL (13.0-17.5); Hypochromasia Marked; Lymphocytes # (A) 0.7 k/uL (1.0-4.8); Lymphocytes % (A) 5 %; MCH 27.5 pg (25.0-35.0); MCHC 29.7 g/dL (31.0-37.0); MCV 92.6 fL (80.0-100.0); Mean Platelet Volume 8.5; Monocytes # (A) 0.7 k/uL (0-1.0); Monocytes % (A) 6 %; Neutrophils # (A) 10.5 k/uL (1.3-7.7); Neutrophils % (A) 85 %; Platelet Count 227 k/uL (150-450); RBC 4.61 m/uL (4.30-5.90); RDW 16.4 % (11.5-15.5); WBC 12.4 k/uL (3.8-10.6)
[2020-02-14 09:00] LABS: African American GFR (CKD) >90 (>60 ml/min/1.73 sqM); Anion Gap 5 mmol/L; Blood Urea Nitrogen 28 mg/dL (9-20); Calcium 8.1 mg/dL (8.4-10.2); Carbon Dioxide 31 mmol/L (22-30); Chloride 106 mmol/L (98-107); Glucose 99 mg/dL (74-99); Non-African American GFR(CKD) >90 (>60 ml/min/1.73 sqM); Sodium 142 mmol/L (137-145)
[2020-02-14] MEDS: DIGOXIN 125 MCG TAB PO SCH (10:11)
[2020-02-14 11:58] VITALS: PULSE 84
[2020-02-14 12:28] LABS: Glucose,Whole Blood 129 mg/dL (75-99)
--- NOTE | 2020-02-14 13:23 | P.DS ---
Providers Date of admission: 01/31/20 12:37 Expected date of discharge: 02/14/20 Attending physician: Maurice Eubanks Consults: 01/31/20 12:37 Consult Physician Urgent Consulting Provider: Niko Guaman Consult Reason/Comments: a fib w rvr Do you want consulting provider notified?: Yes 01/31/20 21:31 Consult Physician Stat Consulting Provider: Eugenio Black Consult Reason/Comments: SOB, ICU management Do you want consulting provider notified?: Already Contacted 02/01/20 07:25 Consult Physician Routine Consulting Provider: Aubree Sheldon Consult Reason/Comments: low urine output and elevated creatinine Do you want consulting provider notified?: Yes 02/03/20 14:01 Consult Physician Routine Consulting Provider: Luis Guzmán Consult Reason/Comments: Hypoxia and possible aspiration Do you want consulting provider notified?: Yes 02/08/20 13:09 Consult Physician Routine Consulting Provider: Elroy Durbin Consult Reason/Comments: low platlet level Do you want consulting provider notified?: Yes Primary care physician: Eugenio Rogers [facility] Course: Final diagnosis Congestive heart failure acute exacerbation with acute on chronic systolic dysfunction, ejection fraction 20% with acute hypoxic respiratory failure status post mechanical ventilation, present on admission Status post prolonged CPR secondary to cardiac arrest Cardiogenic shock and hypotension history Bilateral pneumonia, right more than left possibly gram-negative Acute kidney injury with acute renal failure with acute tubular necrosis, prerenal factors Atrial fibrillation with RVR Change in mental status, acute metabolic encephalopathy, multifactorial acute Severe ischemic cardiomyopathy Mitral valve replacement with bioprosthetic valve history History of lactic acidosis Hypokalemia Hypertension Gait dysfunction Increased ALT, AST Hypoalbuminemia with mild protein calorie malnutrition Anemia, normocytic anemia of chronic disease Thrombocytopenia Right lower pneumonia possibly gram-negative with possible sepsis No code, no CPR, no vent Discharge disposition Patient is being discharged in a stable condition with guarded prognosis to [facility] for continued PT/OT therapy. Patient will follow-up with Dr. Rogers upon discharge. Patient will continue on a short course of oral antibiotics in the form of Keflex 500 mg 3 times daily for the next 7 days then may discontinue. Total time taken is greater than 35 minutes. History of present illness This is an 69-year-old male who was recently admitted with congestive heart failure acute exacerbation also prolonged CPR and was being closely monitored. Multiple medical consultations following. Patient continues to be slightly confused although more alert and responding appropriately to questions and comm ands. Patient was being evaluated by physical therapy and recommending subacute rehab. Patient will be going to [facility] today for continued strength and mobility. Most recent chest x-ray shows stable right pneumothorax. Infectious disease was also following for MSSA pneumonia. Patient will continue on oral antibiotics in the form of Keflex 3 times daily for the next 7 days and then may discontinue. Patient will continue with Lasix in the outpatient setting as well. Patient to continue with the use of incentive spirometer at least 10 times every hour while awake. Patient needs encouragement of the use of the incentive spirometer. Currently no reports of chest pain, worsening shortness of breath, or palpitations. Patient is afebrile. No reports of nausea or vomiting and patient is tolerating diet. Patient will be going to [facility] for continued PT/OT therapy for strength and mobility today. Guarded prognosis. On exam vital signs are stable. Temp is 98.4F, pulse is 73, respirations are 16, blood pressure is 139/94, oxygen saturation is 94% on room air. Cardio S1, S2 are muffled. Respiratory shows diminished breath sounds at the bases with a few scattered rhonchi noted. Abdomen is soft and nontender. Nervous system shows mild diffuse weakness. Please refer to medication reconciliation sheet for a list of medications. Patient Condition at Discharge: Fair Plan - Discharge Summary Discharge Rx Participant: No New Discharge Prescriptions: New Amiodarone [Cordarone] 200 mg PO DAILY tab Ipratropium-Albuterol Nebulize [Duoneb 0.5 mg-3 mg/3 ml Soln] 3 ml INHALATION RT-QID ml Ipratropium-Albuterol Nebulize [Duoneb 0.5 mg-3 mg/3 ml Soln] 3 ml INHALATION RT-QID PRN ml PRN Reason: Shortness Of Breath Or Wheezing Folic Acid 1 mg PO DAILY@1200 tab Cephalexin [Keflex] 500 mg PO TID 7 Days #21 cap Digoxin [Lanoxin] 125 mcg PO DAILY tab Multivitamins, Thera [Multivitamin (formulary)] 1 each PO DAILY@1200 tab INSULIN ASPART (NovoLOG) [NovoLOG (formulary)] 0 unit SQ Q6H vial Pantoprazole [Protonix] 40 mg PO AC-BRKFST tablet. Thiamine [Vitamin B-1] 100 mg PO DAILY@1200 tab Continue Apixaban [Eliquis] 5 mg PO BID #30 tab Furosemide [Lasix] 20 mg PO BID #60 tab Metoprolol Tartrate [Lopressor] 50 mg PO BID #60 tab PARoxetine [Paxil] 10 mg PO DAILY #14 tab Sacubitril/Valsartan [Entresto 24 mg-26 mg Tablet] 1 tab PO BID Discharge Medication List Apixaban [Eliquis] 5 mg PO BID #30 tab 12/09/19 [Rx] Furosemide [Lasix] 20 mg PO BID #60 tab 12/09/19 [Rx] Metoprolol Tartrate [Lopressor] 50 mg PO BID #60 tab 12/09/19 [Rx] PARoxetine [Paxil] 10 mg PO DAILY #14 tab 12/09/19 [Rx] Sacubitril/Valsartan [Entresto 24 mg-26 mg Tablet] 1 tab PO BID 01/31/20 [History] Amiodarone [Cordarone] 200 mg PO DAILY tab 02/14/20 [Rx] Cephalexin [Keflex] 500 mg PO TID 7 Days #21 cap 02/14/20 [Rx] Digoxin [Lanoxin] 125 mcg PO DAILY tab 02/14/20 [Rx] Folic Acid 1 mg PO DAILY@1200 tab 02/14/20 [Rx] INSULIN ASPART (NovoLOG) [NovoLOG (formulary)] 0 unit SQ Q6H vial 02/14/20 [Rx] Ipratropium-Albuterol Nebulize [Duoneb 0.5 mg-3 mg/3 ml Soln] 3 ml INHALATION RT-QID ml 02/14/20 [Rx] Ipratropium-Albuterol Nebulize [Duoneb 0.5 mg-3 mg/3 ml Soln] 3 ml INHALATION RT-QID PRN ml 02/14/20 [Rx] Multivitamins, Thera [Multivitamin (formulary)] 1 each PO DAILY@1200 tab 02/14/20 [Rx] Pantoprazole [Protonix] 40 mg PO AC-BRKFST tablet. 02/14/20 [Rx] Thiamine [Vitamin B-1] 100 mg PO DAILY@1200 tab 02/14/20 [Rx] Follow up Appointment(s)/Referral(s): Eugenio Rogers MD [Primary Care Provider] - 1-2 days Activity/Diet/Wound Care/Special Instructions: Patient is going to [facility] Activity as tolerated Continue with antibiotics for 7 days and then may discontinue Continue with dysphagia level I pured and honey thickened liquid diet Continue to monitor blood sugars before meals at bedtime and treat accordingly with sliding scale Follow-up with primary care provider upon discharge Continue working with PT/OT therapy Discharge Disposition: TRANSFER TO SNF/ECF
--- NOTE | 2020-02-14 13:26 | PN ---
PROGRESS NOTE DATE OF SERVICE: 02/14/2020 REASON FOR FOLLOWUP: MSSA pneumonia. INTERVAL HISTORY: Patient is currently afebrile. The patient is breathing comfortably. The patient denies having any chest pain, shortness of breath. Occasional cough. No nausea, vomiting, abdominal pain, no diarrhea. On examination, blood pressure 139/94 with a pulse of 73, temperature 98.4. He is 94% on room air. General description: The patient is an elderly male lying in bed in no distress. Respiratory system: Unlabored breathing, clear to auscultation anteriorly. Heart S1, S2. Regular rate and rhythm. Abdomen soft, no tenderness. DIAGNOSTIC IMPRESSION AND PLAN: Patient with pneumonia. Sputum has been MSSA. Chest x-ray is mostly of an pattern. Patient oral Keflex to continue for about a week to finish a course of therapy. Continue supportive care. MMPATRICEL / IJN: [id number] /
--- NOTE | 2020-02-14 13:43 | P.PN ---
Subjective Progress Note Date: 02/14/20 Principal diagnosis: Dyspnea, hypoxemia, A. fib RVR, cardiac arrest 69-year-old white male patient Of Dr. Rogers, with past medical history valvular heart disease with previous history of a bioprosthetic mitral valve replacement, history of atrial fibrillation on Eliquis, chronic systolic congestive heart failure on Entresto, with EF of less than 20%, chronic kidney disease stage III at baseline, who presented to the hospital yesterday on 01/31/2020 with symptoms of lightheadedness. Patient's is currently in the hospital, in the intensive care unit, critically ill. She was experiencing some palpitations in the chest discomfort over last couple of days. EMS brought the patient to the hospital and he was given some fluid boluses in the ambulance and was feeling b marisol at the time. EKG showed atrial fibrillation with RVR with a rate of 140 in the ambulance, orthostatic blood pressures were negative. Chest x-ray showed cardiomegaly and increased interstitial density and a small bilateral pleural effusions with adjacent atelectasis. Initial labs showed a white count of 5.5, hemoglobin of 12.9, d-dimer was 2.08, sodium is 139, potassium 5.1, chloride is 110, CO2 is 21, B1 is 21 creatinine is 1.24, troponins were positive at 0.058, 0.062, proBNP was 22,200. Urinalysis showed trace leuks, rare bacteria, and platelet cells at 12, coronavirus PCR was negative. Lower extremity Doppler of the left leg was negative for DVT. he was started on amiodarone drip, and was admitted to selective care. Last night rapid response team was called with concerns for acute hypoxia, patient's pulse ox was 78, requiring additional oxygen, patient was in persistent A. fib with RVR. Blood gases were obtained showing pO2 of 157, pCO2 of 26, and pH of 7.27 this was done on FiO2 of 100%. Blood work showed a sodium of 137, potassium is 5.8, worsening renal profile w ith BUN of 20 and creatinine of 1.51, plasma lactic acid was found to be elevated at 5.3. Patient was given a liter bolus and IV fluids, patient was started on bicarbonate infusion, however his condition continued to deteriorate, and patient was transferred to the intensive care unit for further monitoring and treatment. Continue to be tachypneic, restless, with acute mental status changes, elevated lactic acid, oliguric, hypothermic. Blood cultures were obtained and sent, Lasix was held, Levaphed was started. She did baseline EF is less than 20%, patient was already given a fluid bolus and his IV fluids were infusing at a rate of 1:30 ML per hour. At 2:00 in the morning patient suffered a cardiac arrest, he did require brief CPR and one round of epinephrine with return of spontaneous circulation, patient was emergently intubated and placed on mechanical ventilator. Currently on assist control mode of ventilation with a rate of 20, tidal volume is 450, FiO2 is 50% and PEEP of 5, this morning his blood gases showed a pO2 of 138, pCO2 of 33, and pH of 7.28, patient was given additional amps of sodium bicarbonate. Current IVs include amiodarone at a rate of 0.5 mg/m, Levothroid is at 21 mics per minute, Diprivan is a 30 mics per kilo per minute. This morning's temp is 98, patient was on the warmer overnight. Patient's condition is critical, patient's is also in this ICU on mechanical ventilator, the next of kin is patient's [id number] who spoke to this morning, and there are no children and no other relatives. Cardiology is following, echocardiogram has been ordered, cultures have been ordered and sent. On 02/02/2020 patient seen in follow-up in the intensive care unit, remains sedated, intubated on mechanical ventilator with current vent settings of assist control with a rate of 20, tidal and was 450, FiO2 60%, and PEEP of 5, this morning's blood gases reveal pO2 of 90, pCO2 33, and pH of 7.5. Patient still remains on bicarbonate infusion in D5 W with 3 A of sodium bicarb at a rate of 75 ML per hour which will be discontinued this morning, to prevent is at 25 mics per kilo per minute, amiodarone at 0.5 mg/m, and levo fed is at 14.4 mics per minute. No other drips. Remains in A. fib with a rate of 98-114 BPM. Hypothermia has resolved, and patient actually is having a low-grade fever this morning with at 99.7F temperature. He is a pressor requirement is down. This morning blood work has been reviewed showing white blood cell count of 9.8, hemoglobin of 14.3, sodium of 134, the rest of the electrolytes are within normal limits, renal profile were sent, with BUN of 35 and creatinine of 2.05. Blood, sputum and urine cultures have been sent, and are pending at this time, blood culture has shown no growth to date, sputum Gram stain showed no organisms. Today's chest x-ray has been reviewed showing enlarged heart, bibasilar increased attenuation possibly related to pulmonary edema or atelectasis. Tube feedings been started with the Nepro at 10 mL an hour. Unfortunately patient's last night. On 02/03/2020 patient seen in follow-up in the intensive care unit. Remains sedated, on mechanical ventilator, currently on assist-control mode with a rate of 20, tidal lines 450, FiO2 50%, PEEP of 5, this morning his blood gases showed pO2 of 66, pCO2 37, pH of 7.49. We'll discontinue the bicarbonate infusion y esterday. Patient has developed metabolic alkalosis, today's labs have been reviewed showing hypokalemia with potassium of 3.2 which will be corrected per protocol. Yesterday patient was given sedation holiday, he did wake up and open his eyes however did not follow command, and became very anxious and started desaturating and was subsequently re-sedated. Today his vasopressor requirements continue to trend down, levo fed is currently at 13 mics per minute, he is on maintenance IV fluids 0.9 normal saline at a rate 75 ML per hour, Diprivan and is a 25 mics per kilo per minute. He is tolerating tube feedings currently on Nepro at a rate of 30 with a goal of 30. Today's chest x- ray shows changes of congestive heart failure with increased interstitial. She did have fevers last night, with a T-max in last 24 hours of 101F. His blood and sputum and urine cultures showed no growth to date. Today's labs have been reviewed, showing white blood cell count within normal limits at 8.7, hemoglobin of 14.5, sodium of 135, potassium of 3.2, chloride is 105, B1 of 34, and creatinine of 1.37, renal profile seems to be improving. he remains in atrial fibrillation with a rate of 98 BPM. On 02/10/2020 patient seen in follow-up on selective care unit. Patient is confused, he has a sitter at the bedside, room air pulse ox of 93%, breathing seems to be comfortable, he is afebrile, today's chest x-ray shows diffuse pleural parenchymal changes suggestive of either pulmonary edema or diffuse pneumonia, and there is air seen adjacent to the right hemidiaphragm concerning for free intra-abdominal air. CT chest was obtained showing suspected CHF exacerbation, cardiomegaly with small to moderate-sized bilateral pleural effusions and associated compressive atelectasis. Areas of underlying acute infiltrates bilaterally could not be excluded. he remains on daily dose of IV Lasix, he is on 1.6 L negative fluid balance. Lung sounds are diminished, with bibasilar crackles, no wheezing, no rhonchi. She remains in atrial fibrillation with a controlled rate, Eliquis has been added for anticoagulation, platelet count is up to 117 on today's labs, white blood cell, is 14.1, electrolytes are within normal limits, BUN is 34, creatinine 0.87. Last pro-calcitonin was up to 4.1 3 days ago. Antibiotic coverage is with cefepime, ID service is following. Patient is tolerating oral diet, he requires extensive assistance with feeding On 02/11/2020 patient seen in follow-up on selective care unit. Patient is to be more alert today, no agitation, slightly less confused. Appears to be in no acute distress, he remains on diuretics, he is diuresing, and he is in -1 L fluid balance over the last 24 hours, no swelling, lung sounds reveal bibasilar crackles, right-sided thoracentesis was attempted however was aborted related to insufficient fluid, most likely related to diuresis. Patient remains on 2 L of oxygen a pulse ox of 96%. Patient denies any chest pain, no worsening dyspnea, he is weak, however he is getting a little stronger. Appetite is fair, and does require some assistance with feeding. He is on a daily dose of IV Lasix currently. Will restart his Eliquis today, antibiotic coverage is with cefepime for MSSA pneumonia. On 02/14/2020 patient seen in follow-up on the general medical floor. Patient is awake and alert, in no acute distress, he sitting up in the recliner, he is oriented 3, he is on room air, earlier his pulse ox on 2 L was 99%, he reports no dyspnea, he reports no fever or chills, no complaint of chest pain, she looks and feels much stronger today, he states he would like to go home so he can handle the arrangements for his . No fever or chills, today's chest x-ray shows stable right apical pneumothorax measuring 15-20%, and diffuse airspace disease and pleural effusion stable in comparison to previous chest x- ray. His lung sounds are diminished at the bases, no crackles no wheezes no rhonchi. Clinically patient is completely asymptomatic, he is tolerating oral diet, he is working with physical therapy. Today's labs have been reviewed showing white blood cell, 12.4, hemoglobin is 12.7, sodium is 142, potassium is 4.0, chloride is 106, CO2 31, B1 is 28 creatinine 0.80. Patient remains in atrial fibrillation, he is been restarted on oral anticoagulation, he is on Cordarone 200 mg daily in addition to digoxin for rate control, his rate is controlled, he is on oral Eliquis, he is on daily dose of IV Lasix, he is on breathing treatments and Keflex for MSSA pneumonia, clinically stable Objective - Vital Signs Vital signs: Vital Signs Temp 98.4 F 02/14/20 07:00 Pulse 84 02/14/20 11:58 Resp 16 02/14/20 07:00 BP 139/94 02/14/20 07:00 Pulse Ox 99 02/14/20 07:56 Intake & Output 02/13/20 02/14/20 02/14/20 18:59 06:59 18:59 Intake Total 540 200 Output Total 1700 360 Balance -1160 -360 200 Weight 74 kg Intake: Oral 540 200 Output: Urine 1700 350 Male - External 300 Emesis 10 Other: Voiding Method Indwelling Catheter Indwelling Catheter Indwelling Catheter # Voids 1 ABP, PAP, CO, CI - Last Documented Arterial Blood Pressure 128/73 - Exam GENERAL EXAM: Alert, 69-year-old white male, on room air, with a pulse ox of 99%, sitting up in the recliner, breathing is comfortable, in no acute distress, patient is watching TV, responding to questions appropriately, he is oriented 3 HEAD: Normocephalic/atraumatic. EYES: Normal reaction of pupils, equal size. Conjunctiva pink, sclera white. NOSE: Clear with pink turbinates. THROAT: No erythema or exudates. NECK: No masses, no JVD, no thyroid enlargement, no adenopathy. CHEST: No chest wall deformity. Symmetrical expansion. LUNGS: Equal air entry with no crackles, wheeze, rhonchi or dullness. CVS: Irregular rate and rhythm, normal S1 and S2, no gallops, no murmurs, no rubs ABDOMEN: Soft, nontender. No hepatosplenomegaly, normal bowel sounds, no guarding or rigidity. EXTREMITIES: No clubbing, no edema, no cyanosis, 2+ pulses and upper and lower extremities. MUSCULOSKELETAL: Muscle strength and tone normal. SPINE: No scoliosis or deformity SKIN: No rashes CENTRAL NERVOUS SYSTEM: Alert, and oriented 3 No focal deficits, tone is normal in all 4 extremities. - Labs CBC & Chem 7: 02/14/20 07:09 02/14/20 07:09 Labs: Abnormal Lab Results - Last 24 Hours (Table) 02/13/20 02/14/20 02/14/20 Range/Units 16:43 05:33 07:09 WBC 12.4 H (3.8-10.6) k/uL Hgb 12.7 L (13.0-17.5) gm/dL MCHC 29.7 L (31.0-37.0) g/dL RDW 16.4 H (11.5-15.5) % Neutrophils # 10.5 H (1.3-7.7) k/uL Lymphocytes # 0.7 L (1.0-4.8) k/uL Carbon Dioxide (22-30) mmol/L BUN (9-20) mg/dL POC Glucose (mg/dL) 129 H 111 H (75-99) mg/dL Calcium (8.4-10.2) mg/dL 02/14/20 02/14/20 Range/Units 07:09 12:24 WBC (3.8-10.6) k/uL Hgb (13.0-17.5) gm/dL MCHC (31.0-37.0) g/dL RDW (11.5-15.5) % Neutrophils # (1.3-7.7) k/uL Lymphocytes # (1.0-4.8) k/uL Carbon Dioxide 31 H (22-30) mmol/L BUN 28 H (9-20) mg/dL POC Glucose (mg/dL) 129 H (75-99) mg/dL Calcium 8.1 L (8.4-10.2) mg/dL Assessment and Plan Plan: Assessment: #1. Acute cardiopulmonary arrest related to acute hypoxic respiratory failure, requiring ACLS with return of spontaneous circulation, and requiring placement on mechanical ventilator, patient was extubated on 02/06/2020, remains hemodyn amically stable, no worsening dyspnea, and patient is on room air #2. Hypotension likely related to cardiogenic shock, recovered #3. Acute exacerbation of chronic systolic congestive heart failure, patient has been optimized #4. A. fib with RVR, and the rate is better controlled now, has been restarted back on Eliquis today and the platelet count has improved #5. Lactic acidosis, possibly related to acute systolic CHF, and MSSA pneumonia. #6. Acute on chronic kidney failure related to ATN, recovered #7. Hyperkalemia related to severe metabolic acidosis, improved #8. Chronic A. fib on Eliquis #9. Severe ischemic cardiomyopathy with EF of less than 20% #10. History of mitral valve replacement with a bioprosthetic valve #11. Hypertension #12. MSSA pneumonia, and patient is currently covered with cefepime #13. Bilateral pleural effusions, status post right-sided attempted thoracentesis, and right pneumothorax measuring 15-20%, patient has not required chest tube placement, right-sided apical pneumothorax remained stable in appearance on today's chest x-ray on 02/14/2020, ration is asymptomatic Plan: Today's chest x-ray has been reviewed showing stable right apical pneumothorax, clinically patient is asymptomatic, he is on room air, no worsening dyspnea, he is on oral antibiotics in the form of Keflex for MSSA pneumonia, vital signs are stable, no fever or chills, we'll give switch the IV Lasix to oral Lasix, from pulmonary perspective patient is stable for discharge either home with physical therapy and home care or rehab. His mentation is quite significantly improved, he states he would like to go home to handle the arrangements for his w edd. He will need outpatient follow-up with Dr. Metzger in the office in one week. I performed a history & physical examination of the patient and discussed their management with my nurse practitioner, Misa Dunn. I reviewed the nurse practitioner's note and agree with the documented findings and plan of care. Lung sounds are positive for diminished breath sounds. The findings and the im pression was discussed with the patient. I attest to the documentation by the nurse practitioner. Time with Patient: Less than 30
[2020-02-14 14:29] VITALS: BMI 22.1
== END 2020-02-14 14:49 | DRG 870 ==
LOC: EC 10:24 → 3SCARD 12:37 → 2SICU 21:40 → 4SSUR 02-09 18:31
PROVIDERS: ADMIT Internal Medicine; ATTEND Internal Medicine
PROC: 0BH17EZ Insertion of Endotracheal Airway into Trachea, Via Natural or Artificial Opening (ICD-10-PCS; principal; 2020-02-01)
PROC: 5A1955Z Respiratory Ventilation, Greater than 96 Consecutive Hours (ICD-10-PCS; principal; 2020-02-01)
PROC: 3E033XZ Introduction of Vasopressor into Peripheral Vein, Percutaneous Approach (ICD-10-PCS; 2020-02-01)
PROC: 5A12012 Performance of Cardiac Output, Single, Manual (ICD-10-PCS; 2020-02-01)
PROC: 4A133BC Monitoring of Arterial Pressure, Coronary, Percutaneous Approach (ICD-10-PCS; 2020-02-01)
PROC: 04HY32Z Insertion of Monitoring Device into Lower Artery, Percutaneous Approach (ICD-10-PCS; 2020-02-01)
PROC: 02H633Z Insertion of Infusion Device into Right Atrium, Percutaneous Approach (ICD-10-PCS; 2020-02-01)
DX: A41.01 Sepsis due to Methicillin susceptible Staphylococcus aureus (principal); J15.211 Pneumonia due to Methicillin susceptible Staphylococcus aureus; G93.41 Metabolic encephalopathy; I50.23 Acute on chronic systolic (congestive) heart failure; J69.0 Pneumonitis due to inhalation of food and vomit; N17.0 Acute kidney failure with tubular necrosis; R57.0 Cardiogenic shock; J96.01 Acute respiratory failure with hypoxia; I46.9 Cardiac arrest, cause unspecified; E44.0 Moderate protein-calorie malnutrition; E87.2 Acidosis; I13.0 Hypertensive heart and chronic kidney disease with heart failure and stage 1 through stage 4 chronic kidney disease, or unspecified chronic kidney disease; I47.2 Ventricular tachycardia; I48.19 Other persistent atrial fibrillation; J93.83 Other pneumothorax; J98.11 Atelectasis; E87.3 Alkalosis; R65.20 Severe sepsis without septic shock; D63.8 Anemia in other chronic diseases classified elsewhere; D69.6 Thrombocytopenia, unspecified; I27.20 Pulmonary hypertension, unspecified; N18.3 Chronic kidney disease, stage 3 (moderate); Z20.828 Contact with and (suspected) exposure to other viral communicable diseases; E87.5 Hyperkalemia; E87.6 Hypokalemia; F32.9 Major depressive disorder, single episode, unspecified; I25.10 Atherosclerotic heart disease of native coronary artery without angina pectoris; I25.5 Ischemic cardiomyopathy; R00.1 Bradycardia, unspecified; R26.9 Unspecified abnormalities of gait and mobility; Z53.9 Procedure and treatment not carried out, unspecified reason; Z79.01 Long term (current) use of anticoagulants; Z79.899 Other long term (current) drug therapy; Z88.0 Allergy status to penicillin; Z88.1 Allergy status to other antibiotic agents; Z95.1 Presence of aortocoronary bypass graft; Z95.3 Presence of xenogenic heart valve; Z85.9 Personal history of malignant neoplasm, unspecified; Z83.3 Family history of diabetes mellitus; Z82.49 Family history of ischemic heart disease and other diseases of the circulatory system; Z82.0 Family history of epilepsy and other diseases of the nervous system
CPT/HCPCS: 36415; 36600; 71045; 71046; 71250; 74230; 76604; 76705; 80048; 80051; 80053; 80076; 81001; 82805; 83605; 83735; 83880; 84100; 84132; 84145; 84439; 84443; 84450; 84460; 84481; 84484; 85025; 85027; 85379; 85610; 85730; 87040; 87070; 87077; 87086; 87186; 87205; 93005; 93306; 94002; 94003; 94640; 94760; 96365; 96366; 99291